=== PATIENT | female | born 2000 | race Caucasian/White ===

== ENCOUNTER 2023-01-14 13:15 | Outpatient (CLI) | payer BC, OTHER, SELFPAY ==
[2023-01-14 13:45] VITALS: BP 143/78; PULSE 109
[2023-01-14 13:55] LABS: Basophils Absolute Auto 0.1 K/mm3 (0.0-0.1); Basophils Percent Auto 0.4 % (0.2-1.2); Eosinophils Absolute Auto 0.1 K/mm3 (0-0.3); Eosinophils Percent Auto 0.4 % (0-4.4); Hematocrit 38.1 % (37.0-47.0); Hemoglobin 12.9 g/dL (12.0-15.0); Immature Granulocyte Absolute 0.07 K/mm3 (0.00-0.031); Immature Granulocyte Percent A 0.5 % (0-0.5); Lymphocytes Absolute Auto 1.85 K/mm3 (0.9-3.2); Lymphocytes Percent Auto 14.3 % (18.3-44.2); Mean Corpuscular HGB Conc 33.9 g/dl (32-36); Mean Corpuscular Hemoglobin 32.3 pg (26-34); Mean Corpuscular Volume 95.5 fl (80-100); Mean Platelet Volume 10.8 fl (7.4-10.4); Monocytes Absolute Auto 0.7 K/mm3 (0.1-0.6); Monocytes Percent Auto 5.6 % (2.6-8.5); Neutrophils Absolute Auto 10.2 K/mm3 (1.3-6.7); Neutrophils Percent Auto 78.8 % (45.5-73.1); Platelet Count Result 283 k/mm3 (150-375); Red Blood Count 3.99 M/mm3 (4.2-5.4); Red Cell Distribution Width 13.1 % (11.5-14.5)
[2023-01-14 13:57] LABS: Appearance Urine Clear (Clear); Bilirubin Urine Negative (Negative); Blood Urine Negative (Negative); Color Urine Yellow (Yellow); Glucose Urine UA Negative (Negative); Ketones Urine Negative (Negative); Leukocyte Esterase Ur Negative LEU/UL (NEGATIVE); Nitrate Urine Negative (Negative); Protein Urine Negative (Negative); Specific Grav Ur 1.016 (1.001-1.035); Urobilinogen Urine 0.2 mg/dL (<2.0)
[2023-01-14 13:59] LABS: Add Urine Microscopic? NO
[2023-01-14 14:01] VITALS: BP 139/71; PULSE 102
[2023-01-14 14:03] LABS: Alanine Aminotransferase 19 U/L (6-35); Albumin Level 3.9 g/dL (3.5-5.1); Alkaline Phosphatase 76 U/L (38-126); Anion Gap 8 mmol/L (8-16); Aspartate Amino Transferase 19 U/L (14-36); Bilirubin,Total 0.8 mg/dL (0.2-1.3); Blood Urea Nitrogen 7 mg/dL (7-17); Calcium 8.7 mg/dL (8.4-10.2); Carbon Dioxide 23 mmol/L (22-30); Chloride 107 mmol/L (98-107); Estimated Glomerular Filt Rate > 60; Glucose 115 mg/dL (65-110); Potassium 3.5 mmol/L (3.4-5.0); Sodium 138 mmol/L (137-145); Uric Acid 4.4 mg/dL (2.5-7.5)
[2023-01-14 14:05] VITALS: BP 139/71; PULSE 88
[2023-01-14 14:16] VITALS: BP 133/79; PULSE 96
[2023-01-14 14:16] LABS: Creatinine Urine 73.9 mg/dL; Total Protein Urine Random 9 mg/dL; Ur Ttl Prot Creatinine Ratio 0.12 mg/mg (0-0.20)
--- NOTE | 2023-01-14 14:27 | PC.NURSE ---
Farida Munoz CNM notified of patient's vital signs, NST, and lab results. Reviewed Pre-eclampsia symptoms and when to return. Okay to discharge.
== END 2023-01-14 14:28 | disposition home or self-care (01) ==
LOC: ANHOBOP 13:26 → ANHOBPP 13:29
PROVIDERS: Visit Provider Advanced Practice Midwife
DX: O13.9 Gestational [pregnancy-induced] hypertension without significant proteinuria, unspecified trimester (principal); Z3A.00 Weeks of gestation of pregnancy not specified
CPT/HCPCS: 36415; 59025; 80053; 81003; 82570; 84156; 84550; 85025; 87086; 87088; 99199

== ENCOUNTER 2023-01-15 14:51 | Outpatient (CLI) | payer BC, OTHER, SELFPAY ==
[2023-01-15 15:13] VITALS: BP 133/83; PULSE 103
[2023-01-15 15:15] VITALS: BP 128/77; PULSE 95
[2023-01-15 15:30] VITALS: BP 121/77; PULSE 92
[2023-01-15 15:45] VITALS: BP 119/73; PULSE 86
--- NOTE | 2023-01-15 15:45 | PC.NURSE ---
Called Christie Hopson CNM with pt admission. Informed of pt complaining of headache and elevated BP at her primary care doctor's office. She also is complaining of seeing spots occasionally. BPs given. Orders received.
[2023-01-15] MEDS: ACETAMINOPHEN 500 MG TABLET 1000 MG (16:03)
[2023-01-15 16:10] LABS: Basophils Absolute Auto 0.1 K/mm3 (0.0-0.1); Basophils Percent Auto 0.5 % (0.2-1.2); Eosinophils Absolute Auto 0.1 K/mm3 (0-0.3); Eosinophils Percent Auto 0.7 % (0-4.4); Hematocrit 36.3 % (37.0-47.0); Hemoglobin 12.1 g/dL (12.0-15.0); Immature Granulocyte Absolute 0.09 K/mm3 (0.00-0.031); Immature Granulocyte Percent A 0.7 % (0-0.5); Lymphocytes Absolute Auto 2.18 K/mm3 (0.9-3.2); Lymphocytes Percent Auto 17.2 % (18.3-44.2); Mean Corpuscular HGB Conc 33.3 g/dl (32-36); Mean Corpuscular Hemoglobin 32.4 pg (26-34); Mean Corpuscular Volume 97.1 fl (80-100); Mean Platelet Volume 10.7 fl (7.4-10.4); Monocytes Percent Auto 7.8 % (2.6-8.5); Neutrophils Absolute Auto 9.3 K/mm3 (1.3-6.7); Neutrophils Percent Auto 73.1 % (45.5-73.1); Platelet Count Result 276 k/mm3 (150-375); Red Blood Count 3.74 M/mm3 (4.2-5.4); Red Cell Distribution Width 13.2 % (11.5-14.5); White Blood Count 12.7 K/mm3 (4.5-10.0)
[2023-01-15 16:20] LABS: Alanine Aminotransferase 20 U/L (6-35); Albumin Level 3.6 g/dL (3.5-5.1); Alkaline Phosphatase 73 U/L (38-126); Anion Gap 7 mmol/L (8-16); Aspartate Amino Transferase 21 U/L (14-36); Bilirubin,Total 0.6 mg/dL (0.2-1.3); Blood Urea Nitrogen 10 mg/dL (7-17); Calcium 8.6 mg/dL (8.4-10.2); Carbon Dioxide 23 mmol/L (22-30); Chloride 106 mmol/L (98-107); Estimated Glomerular Filt Rate > 60; Glucose 84 mg/dL (65-110); Potassium 3.9 mmol/L (3.4-5.0); Sodium 136 mmol/L (137-145)
--- NOTE | 2023-01-15 16:35 | PC.NURSE ---
Called Christie Hopson CNM with lab results. March D/C home with 24hr urine.
== END 2023-01-15 16:50 | disposition home or self-care (01) ==
LOC: ANHOBOP 15:01 → ANHOBPP 15:02
PROVIDERS: Visit Provider Advanced Practice Midwife
DX: O13.9 Gestational [pregnancy-induced] hypertension without significant proteinuria, unspecified trimester (principal); Z3A.00 Weeks of gestation of pregnancy not specified
CPT/HCPCS: 36415; 59025; 80053; 84550; 85025; 99199; A9270

== ENCOUNTER 2023-02-11 18:20 | Outpatient (CLI) | payer BC, OTHER, SELFPAY ==
[2023-02-11 18:51] VITALS: BP 128/79; PULSE 97
[2023-02-11 19:01] VITALS: BP 125/68; PULSE 87
[2023-02-11 19:06] LABS: Basophils Absolute Auto 0.1 K/mm3 (0.0-0.1); Basophils Percent Auto 0.4 % (0.2-1.2); Eosinophils Absolute Auto 0.1 K/mm3 (0-0.3); Eosinophils Percent Auto 1.1 % (0-4.4); Hematocrit 33.7 % (37.0-47.0); Hemoglobin 11.1 g/dL (12.0-15.0); Immature Granulocyte Absolute 0.06 K/mm3 (0.00-0.031); Immature Granulocyte Percent A 0.5 % (0-0.5); Lymphocytes Percent Auto 19.3 % (18.3-44.2); Mean Corpuscular HGB Conc 32.9 g/dl (32-36); Mean Corpuscular Hemoglobin 31.5 pg (26-34); Mean Corpuscular Volume 95.7 fl (80-100); Monocytes Percent Auto 8.5 % (2.6-8.5); Neutrophils Percent Auto 70.2 % (45.5-73.1); Platelet Count Result 265 k/mm3 (150-375); Red Blood Count 3.52 M/mm3 (4.2-5.4); Red Cell Distribution Width 13.1 % (11.5-14.5); White Blood Count 11.4 K/mm3 (4.5-10.0)
[2023-02-11 19:13] LABS: Appearance Urine Clear (Clear); Bilirubin Urine Negative (Negative); Blood Urine Negative (Negative); Color Urine Yellow (Yellow); Glucose Urine UA Negative (Negative); Ketones Urine Negative (Negative); Leukocyte Esterase Ur Negative LEU/UL (NEGATIVE); Nitrate Urine Negative (Negative); Protein Urine Negative (Negative); Specific Grav Ur 1.009 (1.001-1.035); Urobilinogen Urine 0.2 mg/dL (<2.0)
[2023-02-11 19:16] VITALS: BP 123/76; PULSE 96
[2023-02-11 19:16] LABS: Alanine Aminotransferase 20 U/L (6-35); Albumin Level 3.6 g/dL (3.5-5.1); Alkaline Phosphatase 93 U/L (38-126); Anion Gap 8 mmol/L (8-16); Aspartate Amino Transferase 21 U/L (14-36); Bilirubin,Total 0.7 mg/dL (0.2-1.3); Blood Urea Nitrogen 9 mg/dL (7-17); Calcium 8.8 mg/dL (8.4-10.2); Carbon Dioxide 21 mmol/L (22-30); Chloride 106 mmol/L (98-107); Estimated Glomerular Filt Rate > 60; Glucose 105 mg/dL (65-110); Potassium 3.7 mmol/L (3.4-5.0); Sodium 135 mmol/L (137-145); Uric Acid 3.8 mg/dL (2.5-7.5)
[2023-02-11 19:25] LABS: Creatinine Urine 27.5 mg/dL; Total Protein Urine Random 14 mg/dL; Ur Ttl Prot Creatinine Ratio 0.51 mg/mg (0-0.20)
[2023-02-11 19:28] LABS: Add Urine Microscopic? NO
[2023-02-11 19:31] VITALS: BP 126/79; PULSE 94
[2023-02-11 19:46] VITALS: BP 123/77; PULSE 100
--- NOTE | 2023-02-11 19:55 | PC.NURSE ---
Addendum entered by Nikki Lainez RN 02/12/23 00:28: Christie Hopson CNM informed of 1 variable deceleration noted on tracing with otherwise reactive tracing. Original Note: Called Christie Hopson CNM with pt status. Lab results reviewed and BPs given. Orders received to D/C home with 24hr urine.
== END 2023-02-11 20:10 | disposition home or self-care (01) ==
LOC: ANHOBOP 18:30 → ANHLDR 18:30
PROVIDERS: Visit Provider Obstetrics & Gynecology
DX: O99.891 Other specified diseases and conditions complicating pregnancy (principal); R03.0 Elevated blood-pressure reading, without diagnosis of hypertension
CPT/HCPCS: 36415; 59025; 80053; 81003; 82570; 84156; 84550; 85025; 87086; 99199

== ENCOUNTER 2023-02-12 20:00 | Outpatient (NON) | payer BC, OTHER, SELFPAY ==
[2023-02-12 20:27] VITALS: BMI 31.9
[2023-02-12 22:10] LABS: Collection Time Urine 24 HOURS
[2023-02-12 22:18] LABS: Total Volume 24 Hour Urine 2600 ml
[2023-02-12 22:27] LABS: Creatinine Urine 45.5 mg/dL; Patient Weight 186 Lbs; Total Protein Urine 24 Hr 364 mg/24hr (28-141); Total Protein Urine Random 14 mg/dL
== END 2023-02-12 20:01 | disposition home or self-care (01) ==
LOC: ANHLAB 20:07
PROVIDERS: Advanced Practice Midwife; Visit Provider Obstetrics & Gynecology
DX: O13.9 Gestational [pregnancy-induced] hypertension without significant proteinuria, unspecified trimester (principal); Z3A.00 Weeks of gestation of pregnancy not specified
CPT/HCPCS: 81050; 82575; 84156

== ENCOUNTER 2023-02-17 15:50 | Outpatient (CLI) | payer BC, OTHER, SELFPAY ==
[2023-02-17 16:15] VITALS: BP 126/72; PULSE 79
[2023-02-17 16:30] VITALS: BP 126/73; PULSE 76
[2023-02-17 16:35] LABS: Basophils Absolute Auto 0.1 K/mm3 (0.0-0.1); Basophils Percent Auto 0.4 % (0.2-1.2); Eosinophils Absolute Auto 0.1 K/mm3 (0-0.3); Eosinophils Percent Auto 0.9 % (0-4.4); Hemoglobin 11.6 g/dL (12.0-15.0); Immature Granulocyte Absolute 0.08 K/mm3 (0.00-0.031); Immature Granulocyte Percent A 0.6 % (0-0.5); Lymphocytes Absolute Auto 2.22 K/mm3 (0.9-3.2); Lymphocytes Percent Auto 17.5 % (18.3-44.2); Mean Corpuscular HGB Conc 33.1 g/dl (32-36); Mean Corpuscular Hemoglobin 31.5 pg (26-34); Mean Corpuscular Volume 95.1 fl (80-100); Mean Platelet Volume 11.3 fl (7.4-10.4); Monocytes Absolute Auto 0.9 K/mm3 (0.1-0.6); Monocytes Percent Auto 6.7 % (2.6-8.5); Neutrophils Absolute Auto 9.4 K/mm3 (1.3-6.7); Neutrophils Percent Auto 73.9 % (45.5-73.1); Platelet Count Result 273 k/mm3 (150-375); Red Blood Count 3.68 M/mm3 (4.2-5.4); Red Cell Distribution Width 12.8 % (11.5-14.5); White Blood Count 12.7 K/mm3 (4.5-10.0)
[2023-02-17 16:45] VITALS: BP 123/70; PULSE 90
[2023-02-17 16:46] LABS: Alanine Aminotransferase 24 U/L (6-35); Albumin Level 3.8 g/dL (3.5-5.1); Alkaline Phosphatase 115 U/L (38-126); Anion Gap 11 mmol/L (8-16); Aspartate Amino Transferase 27 U/L (14-36); Bilirubin,Total 0.8 mg/dL (0.2-1.3); Blood Urea Nitrogen 9 mg/dL (7-17); Calcium 8.5 mg/dL (8.4-10.2); Carbon Dioxide 21 mmol/L (22-30); Chloride 102 mmol/L (98-107); Estimated Glomerular Filt Rate > 60; Glucose 87 mg/dL (65-110); Potassium 3.9 mmol/L (3.4-5.0); Sodium 134 mmol/L (137-145); Uric Acid 4.3 mg/dL (2.5-7.5)
[2023-02-17 17:00] VITALS: BP 119/66; PULSE 86
[2023-02-17 17:15] VITALS: BP 117/73; PULSE 92
[2023-02-17 17:15] LABS: Appearance Urine Cloudy (Clear); Bacteria Urine 2+ /hpf; Bilirubin Urine Negative (Negative); Blood Urine Negative (Negative); Color Urine Yellow (Yellow); Glucose Urine UA Negative (Negative); Ketones Urine Trace mg/dL (Negative); Leukocyte Esterase Ur 1+ LEU/UL (NEGATIVE); Nitrate Urine Negative (Negative); Non Pathogenic Casts 0-2; Protein Urine Trace mg/dL (Negative); RBC Urine 0-2 /hpf (0-2); Specific Grav Ur 1.024 (1.001-1.035); Squamous Epithelial Cell Urine Few /hpf (Few)
--- NOTE | 2023-02-17 17:20 | PC.NURSE ---
Elizabeth Sherman notified of BP and Lab resutls. Informed of reactive NST with ? variable decel (decel not connected on tracing.) Reactive after ? decel. Ok to dc home with HIP precautions.
[2023-02-17 17:23] LABS: Creatinine Urine 128.6 mg/dL; Total Protein Urine Random 11 mg/dL; Ur Ttl Prot Creatinine Ratio 0.09 mg/mg (0-0.20)
[2023-02-17 17:24] LABS: Add Urine Microscopic? YES
[2023-02-17 17:27] VITALS: BP 126/72; PULSE 79
== END 2023-02-17 17:27 | disposition home or self-care (01) ==
LOC: ANHOBOP 15:58 → ANHOBPP 15:58
PROVIDERS: Advanced Practice Midwife; Visit Provider Obstetrics & Gynecology
DX: O13.9 Gestational [pregnancy-induced] hypertension without significant proteinuria, unspecified trimester (principal); R10.11 Right upper quadrant pain; Z3A.00 Weeks of gestation of pregnancy not specified
CPT/HCPCS: 36415; 59025; 80053; 81001; 82570; 84156; 84550; 85025; 87086; 87088; 99199

== ENCOUNTER 2023-02-27 17:00 | Outpatient (CLI) | payer BC, OTHER, SELFPAY ==
[2023-02-27] MEDS: ACETAMINOPHEN 500 MG TABLET 1000 MG PO (17:31)
[2023-02-27 17:45] VITALS: BP 128/70; PULSE 71
[2023-02-27 17:46] VITALS: BP 128/70; PULSE 80
[2023-02-27 18:00] VITALS: BP 123/70; PULSE 74
[2023-02-27 18:01] LABS: Appearance Urine Turbid (Clear); Bacteria Urine None Seen /hpf; Bilirubin Urine Negative (Negative); Color Urine Yellow (Yellow); Glucose Urine UA Negative (Negative); Ketones Urine Negative (Negative); Leukocyte Esterase Ur Trace LEU/UL (NEGATIVE); Nitrate Urine Negative (Negative); Non Pathogenic Casts 0-2; Protein Urine Negative (Negative); Specific Grav Ur 1.018 (1.001-1.035); Squamous Epithelial Cell Urine None seen /hpf (Few); WBC Urine 0-5 /hpf (0-3)
[2023-02-27 18:04] LABS: Alanine Aminotransferase 17 U/L (6-35); Albumin Level 3.6 g/dL (3.5-5.1); Alkaline Phosphatase 105 U/L (38-126); Anion Gap 6 mmol/L (8-16); Aspartate Amino Transferase 18 U/L (14-36); Bilirubin,Total 0.7 mg/dL (0.2-1.3); Blood Urea Nitrogen 11 mg/dL (7-17); Calcium 8.9 mg/dL (8.4-10.2); Carbon Dioxide 23 mmol/L (22-30); Chloride 104 mmol/L (98-107); Estimated Glomerular Filt Rate > 60; Glucose 88 mg/dL (65-110); Potassium 3.9 mmol/L (3.4-5.0); Sodium 133 mmol/L (137-145); Uric Acid 4.8 mg/dL (2.5-7.5)
[2023-02-27 18:08] LABS: Creatinine Urine 94.8 mg/dL; Total Protein Urine Random 14 mg/dL; Ur Ttl Prot Creatinine Ratio 0.15 mg/mg (0-0.20)
[2023-02-27 18:10] VITALS: BP 123/70; PULSE 89
[2023-02-27 18:12] LABS: Basophils Absolute Auto 0.1 K/mm3 (0.0-0.1); Basophils Percent Auto 0.6 % (0.2-1.2); Eosinophils Absolute Auto 0.1 K/mm3 (0-0.3); Eosinophils Percent Auto 0.7 % (0-4.4); Hematocrit 35.2 % (37.0-47.0); Hemoglobin 11.5 g/dL (12.0-15.0); Immature Granulocyte Absolute 0.06 K/mm3 (0.00-0.031); Immature Granulocyte Percent A 0.5 % (0-0.5); Lymphocytes Absolute Auto 2.34 K/mm3 (0.9-3.2); Mean Corpuscular HGB Conc 32.7 g/dl (32-36); Mean Corpuscular Hemoglobin 31.5 pg (26-34); Mean Corpuscular Volume 96.4 fl (80-100); Mean Platelet Volume 11.8 fl (7.4-10.4); Monocytes Absolute Auto 0.9 K/mm3 (0.1-0.6); Monocytes Percent Auto 7.6 % (2.6-8.5); Neutrophils Absolute Auto 8.3 K/mm3 (1.3-6.7); Neutrophils Percent Auto 70.6 % (45.5-73.1); Platelet Count Result 275 k/mm3 (150-375); Red Blood Count 3.65 M/mm3 (4.2-5.4); White Blood Count 11.7 K/mm3 (4.5-10.0)
[2023-02-27 18:14] LABS: Add Urine Microscopic? YES
[2023-02-27 18:15] VITALS: BP 119/65; PULSE 81
--- NOTE | 2023-02-27 18:20 | PC.NURSE ---
[address] Robison- reported blood pressures, NST, and lab results. Discharge orders received.
[2023-02-27 18:30] VITALS: BP 126/76; PULSE 81
== END 2023-02-27 18:35 | disposition home or self-care (01) ==
LOC: ANHOBOP 17:05 → ANHOBPP 17:06
PROVIDERS: Visit Provider Obstetrics & Gynecology
DX: O13.9 Gestational [pregnancy-induced] hypertension without significant proteinuria, unspecified trimester (principal); Z3A.00 Weeks of gestation of pregnancy not specified
CPT/HCPCS: 36415; 59025; 80053; 81001; 82570; 84156; 84550; 85025; 87086; 99199; A9270

== ENCOUNTER 2023-03-02 11:14 | Outpatient (CLI) | payer BC, OTHER, SELFPAY ==
[2023-03-02] VITALS (7 sets, daily range): BP systolic 123–134; BP diastolic 78–84; PULSE 109–125
[2023-03-02 11:52] LABS: Basophils Absolute Auto 0.1 K/mm3 (0.0-0.1); Basophils Percent Auto 0.6 % (0.2-1.2); Eosinophils Absolute Auto 0.1 K/mm3 (0-0.3); Eosinophils Percent Auto 0.6 % (0-4.4); Hematocrit 36.7 % (37.0-47.0); Hemoglobin 11.8 g/dL (12.0-15.0); Immature Granulocyte Absolute 0.04 K/mm3 (0.00-0.031); Immature Granulocyte Percent A 0.4 % (0-0.5); Lymphocytes Absolute Auto 1.78 K/mm3 (0.9-3.2); Lymphocytes Percent Auto 16.4 % (18.3-44.2); Mean Corpuscular HGB Conc 32.2 g/dl (32-36); Mean Corpuscular Hemoglobin 30.8 pg (26-34); Mean Corpuscular Volume 95.8 fl (80-100); Mean Platelet Volume 11.6 fl (7.4-10.4); Monocytes Absolute Auto 0.7 K/mm3 (0.1-0.6); Monocytes Percent Auto 6.1 % (2.6-8.5); Neutrophils Absolute Auto 8.3 K/mm3 (1.3-6.7); Neutrophils Percent Auto 75.9 % (45.5-73.1); Platelet Count Result 261 k/mm3 (150-375); Red Blood Count 3.83 M/mm3 (4.2-5.4); Red Cell Distribution Width 13.1 % (11.5-14.5); White Blood Count 10.9 K/mm3 (4.5-10.0)
[2023-03-02 11:55] LABS: Alanine Aminotransferase 34 U/L (6-35); Albumin Level 3.6 g/dL (3.5-5.1); Alkaline Phosphatase 113 U/L (38-126); Anion Gap 11 mmol/L (8-16); Aspartate Amino Transferase 22 U/L (14-36); Bilirubin,Total 0.9 mg/dL (0.2-1.3); Blood Urea Nitrogen 7 mg/dL (7-17); Calcium 8.6 mg/dL (8.4-10.2); Carbon Dioxide 19 mmol/L (22-30); Chloride 104 mmol/L (98-107); Estimated Glomerular Filt Rate > 60; Glucose 122 mg/dL (65-110); Potassium 3.4 mmol/L (3.4-5.0); Sodium 134 mmol/L (137-145)
--- NOTE | 2023-03-02 13:00 | PC.NURSE ---
Dr Gallagher on unit, discussed patient adm c/o, current lab values and past lab values. Orders received.
[2023-03-02] MEDS: ACETAMINOPHEN 500 MG TABLET 1000 MG PO (13:13)
[2023-03-02] MEDS: PROCHLORPERAZINE MALEATE 5 MG TABLET PO (13:24)
--- NOTE | 2023-03-02 14:10 | PC.NURSE ---
Patient's S/O asking about discharge, states that patient is feeling better. Discussed this with patient. States ETIENNE is now down to a 3-4 on pain scale. States that she is feeling better and ok with going home.
== END 2023-03-02 14:13 | disposition home or self-care (01) ==
LOC: ANHOBOP 11:15 → ANHOBPP 03-07 06:20
PROVIDERS: Obstetrics & Gynecology; Visit Provider Advanced Practice Midwife
DX: R51.9 Headache, unspecified (principal); O13.9 Gestational [pregnancy-induced] hypertension without significant proteinuria, unspecified trimester; Z3A.00 Weeks of gestation of pregnancy not specified
CPT/HCPCS: 36415; 59025; 80053; 84550; 85025; 99199; A9270

== ENCOUNTER 2023-03-10 12:25 | Outpatient (CLI) | payer BC, OTHER, SELFPAY ==
[2023-03-10 12:55] VITALS: BP 127/74
== END 2023-03-10 13:05 | disposition home or self-care (01) ==
LOC: ANHOBOP 13:09 → ANHLDR 13:10
PROVIDERS: Visit Provider Obstetrics & Gynecology
DX: O42.90 Premature rupture of membranes, unspecified as to length of time between rupture and onset of labor, unspecified weeks of gestation (principal); Z3A.00 Weeks of gestation of pregnancy not specified
CPT/HCPCS: 59025; 84112; 99199

== ENCOUNTER 2023-03-12 13:29 | Inpatient (IN) | payer BC, OTHER, SELFPAY ==
[2023-03-12] VITALS (76 sets, daily range): BP systolic 109–151; BP diastolic 57–135; PULSE 67–161; O2SAT 96–100; BMI 34.0
[2023-03-12 17:05] LABS: Basophils Absolute Auto 0.1 K/mm3 (0.0-0.1); Basophils Percent Auto 0.4 % (0.2-1.2); Eosinophils Absolute Auto 0.1 K/mm3 (0-0.3); Eosinophils Percent Auto 0.3 % (0-4.4); Hematocrit 38.4 % (37.0-47.0); Hemoglobin 12.4 g/dL (12.0-15.0); Immature Granulocyte Percent A 0.5 % (0-0.5); Lymphocytes Absolute Auto 2.54 K/mm3 (0.9-3.2); Lymphocytes Percent Auto 13.9 % (18.3-44.2); Mean Corpuscular HGB Conc 32.3 g/dl (32-36); Mean Platelet Volume 11.7 fl (7.4-10.4); Monocytes Absolute Auto 0.8 K/mm3 (0.1-0.6); Monocytes Percent Auto 4.5 % (2.6-8.5); Neutrophils Absolute Auto 14.7 K/mm3 (1.3-6.7); Neutrophils Percent Auto 80.4 % (45.5-73.1); Platelet Count Result 276 k/mm3 (150-375); White Blood Count 18.2 K/mm3 (4.5-10.0)
--- NOTE | 2023-03-12 17:32 | WPDANESEPPF ---
Anes - Initial Pre Proc Eval Procedure: Labor Epidural Date/Time: 03/12/23 17:32 Surgeon: Dario Robison MD Pre Op Diagnosis: Labor Pain Pre Op Diagnosis: labor Patient Data Age: 22 Gender: F Height: 1.63 m Weight: 90 kg Last Vital Signs Pulse 103 H 03/12/23 17:01 BP 144/85 H 03/12/23 17:01 O2 Del Method Room Air 03/12/23 16:17 Allergies Allergy/AdvReac Type Severity Reaction Status Date / Time No Known Allergies Allergy Verified 01/15/23 16:02 Home Medications Medication Instructions Recorded Confirmed Type cyclobenzaprine 5 mg tablet 5 mg PO Q8H PRN Back Pain 02/27/23 02/27/23 History prenat.vits,jun,nqg-rsyb-tydxb 1 tablet PO HS 02/27/23 02/27/23 History sertraline 100 mg tablet 100 mg PO DAILY 02/27/23 02/27/23 History Laboratory Tests 03/12/23 16:14 WBC 18.2 H K/mm3 (4.5-10.0) RBC 4.00 L M/mm3 (4.2-5.4) Hgb 12.4 g/dL (12.0-15.0) Hct 38.4 % (37.0-47.0) MCV 96.0 fl (80-100) MCH 31.0 pg (26-34) MCHC 32.3 g/dl (32-36) RDW 13.0 % (11.5-14.5) Plt Count 276 k/mm3 (150-375) MPV 11.7 H fl (7.4-10.4) Immature Gran % (Auto) 0.5 % (0-0.5) Neut % (Auto) 80.4 H % (45.5-73.1) Lymph % (Auto) 13.9 L % (18.3-44.2) [place] % (Auto) 4.5 % (2.6-8.5) Eos % (Auto) 0.3 % (0-4.4) Baso % (Auto) 0.4 % (0.2-1.2) Lymph # (Auto) 2.54 K/mm3 (0.9-3.2) [place] # (Auto) 0.8 H K/mm3 (0.1-0.6) Eos # (Auto) 0.1 K/mm3 (0-0.3) Baso # (Auto) 0.1 K/mm3 (0.0-0.1) Abs Immat Gran (auto) 0.10 H K/mm3 (0.00-0.031) Absolute Neuts (auto) 14.7 H K/mm3 (1.3-6.7) Absolute Nucleated RBC 0.0 K/mm3 (0.0-0.012) Nucleated RBC % 0.0 % (0.0-0.2) RPR Pending Blood Type A Positive Antibody Screen Pending Patient hx anesthesia problems: none Family hx anesthesia problems: none Results Review: All pre-operative results and documents have been reviewed as part of the pre-operative evaluation. [facility] Family History Family History Other Patient denies significant medical history Social History Social History Smoking status: Never smoker Second hand tobacco smoke exposure: No Substance use: never Lack of Transportation: No Lack of Food: Never True Current Housing: I Have Housing Concerned About Future Housing: No Difficulty Paying Gas/Electric Bills: No Difficulty Paying for Meds: No Currently Unemployed: No Education: Associate Degree Difficulty w/ Childcare or Family Care: No Spiritual care concerns: No Anes - Eval Final PreProcedure Day of Procedure 03/12/23 17:32 Patient weight: overweight Heart: regular rate and rhythm Airway: Mallampati scale class II Neurological: alert and oriented ASA classification: II Anesthetic plan: proceed Anesthesia type and monitoring: regional epidural and standard monitoring Results Review: All pre-operative results and documents have been reviewed as part of the pre-operative evaluation. Informed Consent: The patient's anesthetic plan and its attendant risks and benefits were discussed with the patient/family/POA. Questions were solicited and answers provided to the satisfaction of the patient/family/POA.
--- NOTE | 2023-03-12 18:21 | WPDOBADMIT ---
Obstetrics - Admit Note Admission Note: record reviewed. No pertinent additions to the history and/or any subsequent changes in the physical findings that are not consistent with the expected course of the were found. Pt arrived in labor, SVE 4-5/100/-2 AROM small amount of clear odorless fluid, anticipate vaginal delivery, previously proteinuria during Additions to the history and/or subsequent changes in the physical findings follow. None.
--- NOTE | 2023-03-12 19:45 | WPDANESEPN ---
Anes - Epidural Procedure Note Date/Time: 03/12/23 19:45 Consent: I have discussed with the patient/family/POA, the placement of an epidural catheter and the use of epidural narcotic/local anesthetic for labor analgesia and/or postoperative pain management, including associated potential risks, benefits, complications and side effects. I have discussed alternative methods of labor analgesia and/or postoperative pain management. The patient/family/POA, understand(s) and wish(es) to proceed with epidural narcotic/local anesthetic for labor analgesia and/or postoperative pain management. Time-Out: A pre-procedural Time-Out was completed immediately before starting the procedure and confirmed: Patient Identification, Site, Procedure, Patient Position and the Availability of Requisite Equipment. Clinical Indications: Labor Pain Epidural Insertion Note Patient position: sitting Needle: 18g Tuohy-Schliff Catheter: 20g Unstyleted Technique: Loss of resistance. Level of insertion: L3/4 Catheter skin dalia (cm): 10 Length in epidural space (cm): 5 Skin anesthesia: lidocaine 1% Test dose: 1.5% Lidocaine with 1:[id number] Epi, negative for subarachnoid Inj and negative for intravascular Inj Time of test dose: 19:30 Observations: tolerated well Complications: none
[2023-03-12] MEDS: LACTATED RINGERS 1,000 ML 125 ML IV CONT (20:21)
[2023-03-12] MEDS: OXYTOCIN 30 UNITS/NS 500 ML 30 UNITS/500 ML BAG 6 UNITS IV CONT (21:22)
--- NOTE | 2023-03-12 22:44 | PM.OBPRVD ---
OB - Delivery Note Procedure Delivery date: 03/12/23 Procedure: Delivery augmentation: Rupture of Membranes and Pitocin Delivery monitor: External FHT and External Uterine Route of delivery: Laceration Description: Perineal - 1st Degree Delivery repair: vicryl Specimen: No Quantitative Blood Loss (ml): 100 Anesthesia type: Epidural Disposition: Floor [place] Baby Date of : 03/12/23 Time of : 22:26 Weeks of gestation at delivery: 38 Infant gender: Male presentation: vertex position: Left Occiput Anterior Placenta delivery description: Spontaneous Cord Vessel Description: 3 Vessels, Clamped/Cut and Delayed Cord Clamping score one minute: 8 score five minutes: 8 Narrative: mother and baby skin to skin in stable condition
[2023-03-12] MEDS: OXYTOCIN 30 UNITS/NS 500 ML 30 UNITS/500 ML BAG 125 UNITS IV CONT (23:04)
[2023-03-13] VITALS (13 sets, daily range): BP systolic 110–143; BP diastolic 59–99; PULSE 73–96; RESP 16–18; TEMP 36.4–37.2; O2SAT 98–99
[2023-03-13] MEDS: ACETAMINOPHEN 325 MG TABLET 650 MG PO ×2 (05:30→14:56)
[2023-03-13 05:53] LABS: Hematocrit 33.3 % (37.0-47.0); Hemoglobin 10.8 g/dL (12.0-15.0)
--- NOTE | 2023-03-13 07:38 | PM.OBPNVD ---
OB - PN: Subj Subjective Date/time seen: 03/13/23 07:38 Patient comments: no complaints, pain well controlled, incisional pain, tolerating diet and flatus present OB - PN: Obj Data Labs 03/13/23 05:36 Labs: Laboratory Results - last 24 hr 03/12/23 03/13/23 16:14 05:36 WBC 18.2 H RBC 4.00 L Hgb 12.4 10.8 L Hct 38.4 33.3 L MCV 96.0 MCH 31.0 MCHC 32.3 RDW 13.0 Plt Count 276 MPV 11.7 H Immature Gran % (Auto) 0.5 Neut % (Auto) 80.4 H Lymph % (Auto) 13.9 L [place] % (Auto) 4.5 Eos % (Auto) 0.3 Baso % (Auto) 0.4 Lymph # (Auto) 2.54 [place] # (Auto) 0.8 H Eos # (Auto) 0.1 Baso # (Auto) 0.1 Abs Immat Gran (auto) 0.10 H Absolute Neuts (auto) 14.7 H Absolute Nucleated RBC 0.0 Nucleated RBC % 0.0 Blood Type A Positive Antibody Screen Negative OB - PN A/P Plan day: 1 Plan: routine care Comments: No problems, routine care Time Spent With Patient Time: Total time spent is greater than 50% in coordination of care (as documented) at patient's floor/unit and/or counseling patient: Exam Const: General: comfortable, no acute distress and alert Resp: Effort & Inspection: normal respiratory effort Auscultation: no crackles, no rales and no rhonchi Cardio: Rate: regular rate Heart sounds: no click, no murmurs and no rubs GI: Inspection: non-distended GI Palp: No Tenderness to palpation present (GI) Auscultation: normal bowel sounds Other: Incision - CDI Extrem: General: normal to inspection, no pedal edema and no calf tenderness
[2023-03-13] MEDS: SERTRALINE HCL 50 MG TABLET 100 MG PO (08:30)
[2023-03-13] MEDS: DOCUSATE SODIUM 100 MG CAPSULE PO ×2 (08:30→17:50)
[2023-03-13] MEDS: IBUPROFEN 600 MG TABLET PO ×2 (08:31→17:46)
[2023-03-13] MEDS: LANOLIN (LANSINOH) 7.5 GM CREAM 1 APPLIC TOPICAL (08:32)
[2023-03-13] MEDS: TETANUS,DIPHTHERIA,AC PERTUSSIS ADULT (0.5 ML) BOOSTRIX IM (08:32)
[2023-03-13] MEDS: MULTIVIT/MIN/PREN/FOL AC/IRON TABLET 1 TAB PO (08:32)
--- NOTE | 2023-03-13 08:45 | PC.NURSE ---
PT introductions made and plan of care discussed per post , pain management, breast feeding, bottle feeding, daily care activities. PT and spouse both recipients of such instructions per one to one discussion, mom baby care guide and demonstrations per shift. No barriers to learning identified at this time. PT verbalized understanding of such care.
[2023-03-13 09:01] LABS: Rapid Plasma Reagin Non-Reactive (NonReactive)
--- NOTE | 2023-03-13 09:08 | WPDANLDPN2 ---
Anes-Prog Note L&D Date/Time: 03/13/23 09:08 Neuro status: Neuro function grossly intact. Vital Signs: Last Vital Signs Temp 36.4 C 03/13/23 01:45 Pulse 91 03/13/23 01:45 Resp 16 03/13/23 01:45 BP 126/71 03/13/23 01:45 Pulse Ox 100 03/12/23 22:27 O2 Del Method Room Air 03/12/23 16:17 Pain score (VAS): 0 I/O: Intake & Output 03/12/23 03/13/23 03/13/23 23:59 07:59 15:59 Intake Total 900 500 Output Total 100 Balance 800 500 Patient feedback: Patient satisfied with anesthetic care.
--- NOTE | 2023-03-14 07:17 | PM.OBPNVD ---
OB - PN: Subj Subjective Date/time seen: 03/14/23 07:17 Patient comments: no complaints, pain well controlled and tolerating diet OB - PN: Obj Data Labs 03/13/23 05:36 Labs: Laboratory Results - last 24 hr 03/12/23 16:14 RPR Non-reactive OB - PN A/P Plan day: 2 Plan: routine care and discharge home Time Spent With Patient Time: Total time spent is greater than 50% in coordination of care (as documented) at patient's floor/unit and/or counseling patient: Exam Const: General: comfortable and no acute distress Resp: Effort & Inspection: normal respiratory effort Auscultation: no rales, no rhonchi and no wheezes Cardio: Rate: regular rate Heart sounds: no click, no murmurs and no rubs GI: GI Palp: Yes Soft to palpation and No Tenderness to palpation present (GI) Auscultation: normal bowel sounds Extrem: General: normal to inspection, no pedal edema and no calf tenderness
--- NOTE | 2023-03-14 07:18 | PM.OBDSVD ---
DS: Admitting Diagnosis Discharge Date 03/14/23 Admitting Diagnosis term OB - DS: Summary OB Procedures : None OB Procedures Intrapartum: Spontaneous Vag Delivery OB Procedures: : None Time Spent with Patient Time attestation: Total time spent providing and/or coordinating discharge services: DS: Data Data Completed and Pending Labs on day of discharge: Labs from last 24 hours 03/12/23 16:14 RPR Non-reactive Discharge Plan Discharge Discharging Clinician: Dario Robison Patient Disposition: Home, Self-Care Activity: pelvic rest Diet: regular Patient Instructions: Antibiotic Form Stand Alone Forms: General Discharge Information Follow-up/Referrals: Dario Robison MD [Physician] - Discharge Medications: Continued sertraline 100 mg tablet 100 mg PO DAILY #2 Tablet 1 tablet PO HS cyclobenzaprine 5 mg tablet 5 mg PO Q8H PRN (Reason: Back Pain) Date of admission: 03/12/23 13:29 Primary Care Provider: PHYSICIAN NOT ON STAFF,NONSTAFF Admitting Provider: Dario Robison Attending physician on admission: Dario Robison Condition: Stable
[2023-03-14 07:30] VITALS: BP 103/61; PULSE 77; RESP 16; TEMP 36.4; O2SAT 98
[2023-03-14] MEDS: SERTRALINE HCL 50 MG TABLET 100 MG PO (08:59)
[2023-03-14] MEDS: MULTIVIT/MIN/PREN/FOL AC/IRON TABLET 1 TAB PO (08:59)
--- NOTE | 2023-03-14 13:45 | PC.NURSE ---
PT introductions made and plan of care discussed per post , pain management, breast feeding, bottle feeding, daily care activities and pending discharge to home. PT and spouse both recipients of such instructions per one to one discussion, mom baby care guide and demonstrations per shift. No barriers to learning identified at this time. PT verbalized understanding of such care.
[2023-03-14] MEDS: IBUPROFEN 600 MG TABLET PO (13:51)
[2023-03-14] MEDS: ACETAMINOPHEN 325 MG TABLET 650 MG PO (13:51)
[2023-03-14] MEDS: DOCUSATE SODIUM 100 MG CAPSULE PO (13:52)
--- NOTE | 2023-03-14 16:10 | PC.NURSE ---
PT discharged to home ambulatory accompanied by both spouse and infant and taken to waiting car. follow up appts confirmed
[2023-03-17 10:41] VITALS: BP 129/81; PULSE 88; RESP 16; TEMP 36.9; O2SAT 98
--- OUTSIDE RECORDS SUMMARY | 2023-08-12 11:34 | XMS_ITS | Clinical Summary ---
Author Name Unknown Address [address] [place] [address] Phone Organization [facility] Address [address] [place] [address] Phone Care Team Providers Care Natural Gas Inspector Name Role Phone SANDRA BARR MD Primary Care Provider [phone] Reason for Visit and Chief Complaint The Chief Complaint is: Pt c/o anxiety. She states she has always had anxiety but this past week has become more severe. Pt is 18 wks and spoke with her ob yesterday who stated they would like us to treat her Problems Includes: Problems addressed during this encounter and other active Problems Current Visit Onset Date Resolved Date Provider Conditio n Status Generalized Anxiety Disorder 07/21/2022 RO ACOSTA Active Past Visits Onset Date Resolved Date Provider Condition Status Chiari Malformation 12/19/2015 RO ACOSTA Active Plan of Treatment -Sertraline daily for anxiety. -Can take Unisom as needed for anxiety/nausea/insomnia in the meantime 12.5-25 mg nightly. -Discuss options with OB before starting. -Notify us if you are having any adverse reactions. -Follow up in 1 month or sooner if needed. - Last Documented On 10/24/2022 11:58AM ; [facility] Assessments Includes: Assessments from this encounter Findings - [F41.1 - Generalized anxiety disorder] Generalized anxiety disorder - Last Documented On 10/24/2022 11:58AM ; [facility] Medical Equipment - Implanted Devices Includes: Current Devices No Medical Equipment Recorded
--- OUTSIDE RECORDS SUMMARY | 2023-08-12 11:34 | XMS_ITS ---
Care Plan - [facility] Created on: August 12, 2023 ARLENE WADE : 2000 Sex: Female Author Name Unknown Address [address] [place] [address] Phone Organization [facility] Address [address] [place] [address] Phone Care Team Providers Care Herb Grower Name Role Phone SANDRA BARR MD Primary Care Provider [phone]
--- OUTSIDE RECORDS SUMMARY | 2023-08-12 11:34 | XMS_ITS | Clinical Summary ---
Author Name Unknown Address [address] [place] [address] Phone Organization [facility] Address [address] [place] [address] Phone Care Team Providers Care Software Testing Specialist Name Role Phone HEATHER-SANDRA VASQUEZ MD Primary Care Provider [phone] Reason for Visit and Chief Complaint The Chief Complaint is: Pt walked in wanting bp checked. She states that she was in [place] labor and delivery yesterday for elevated bp.She is feeling shaky, fatigue and says her heart feels like it's racing. 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 SANDRA Dunn called patient OB office to notify them. Patient states her mother can drive her there - Last Documented On 01/15/2023 2:08PM ; [facility] Assessments Includes: Assessments from this encounter Findings - [R00.0 - Tachycardia, unspecified] Tachycardia - Last Documented On 01/15/2023 2:08PM ; [facility] - [O13.9 - Gestational [-induced] hypertension without significant proteinuria, unspecified trimester] Gestational hypertension - Last Documented On 01/15/2023 2:08PM ; [facility]
--- OUTSIDE RECORDS SUMMARY | 2023-08-12 11:34 | XMS_ITS ---
Author Name Unknown Address [address] [place] [address] Phone Organization 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
--- OUTSIDE RECORDS SUMMARY | 2023-08-12 11:34 | XMS_ITS | Clinical Summary ---
Author Name Unknown Address [address] [place] [address] Phone Organization [facility] Address [address] [place] [address] Phone Care Team Providers Care Rig Superintendent Name Role Phone SANDRA BARR MD Primary Care Provider [phone] Reason for Visit and Chief Complaint The Chief Complaint is: Pt states that she for about 10 days, she has itching on her legs and neck.Pt is currently 10 weeks and is taking Benadryl but not getting much relief. Pt states it is worse at night. 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 Continue benadryl as needed. Frequent moisturizing. Can use hydrocortisone to small areas. - Last Documented On 08/28/2022 4:36PM ; [facility] Instructions to patient Intervention and counseling on cessation of tobacco use Last Documented On 4:03PM ; [facility] Assessments Includes: Assessments from this encounter Findings - [R23.3 - Spontaneous ecchymoses] Petechiae - Last Documented On 08/28/2022 4:36PM ; [facility]
--- OUTSIDE RECORDS SUMMARY | 2023-08-12 11:35 | XMS_ITS | Clinical Summary ---
Author Name Unknown Address [address] [place] [address] Phone Organization [facility] Address [address] [place] [address] Phone Care Team Providers Care Compliance Examiner Name Role Phone SANDRA BARR MD Primary Care Provider [phone] Reason for Visit and Chief Complaint The Chief Complaint is: Pt just had BC refilled. 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 - Last Documented On 05/08/2022 4:06PM ; [facility] Recommend finishing gardasil series. Patient is going to think about it and will let us know if she decides to do it. - Last Documented On 05/08/2022 4:06PM ; [facility] Instructions to patient Intervention and counseling on cessation of tobacco use Last Documented On 3:43PM ; [facility] Assessments Includes: Assessments from this encounter Findings - [Z00.00 - Encounter for general adult medical examination without abnormal findings] Routine adult history and physical (18-6
--- OUTSIDE RECORDS SUMMARY | 2023-08-12 11:35 | XMS_ITS | Clinical Summary ---
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 Plan of Treatment Referrals To Diagnosis Neurosurgeon [facility] - [address] [address] - Spinal stenosis, lumbosacral region Note: [facility] Assessments Includes: Assessments from this encounter Findings - [M48.07 - Spinal stenosis, lumbosacral region] Lumbosacral spinal stenosis - Last Documented On 12/22/2020 8:28AM ; [facility] Medical Equipment - Implanted Devices Includes: Current Devices No Medical Equipment Recorded Medications Includes: Medications discussed during this encounter and other current Medications Current Medications (continue as prescribed) Sertraline HCl
== END 2023-03-14 16:10 | disposition home or self-care (01) | DRG 807 ==
LOC: ANHLDR 16:03 → ANHOB2 03-13 01:50
PROVIDERS: Advanced Practice Midwife; Admitting Provider Obstetrics & Gynecology; Visit Provider Obstetrics & Gynecology
DX: O70.0 First degree perineal laceration during delivery (principal); Z37.0 Single live birth; Z3A.38 38 weeks gestation of pregnancy
CPT/HCPCS: 36415; 59025; 84112; 85014; 85018; 85025; 86592; 86850; 86900; 86901; 90715; 99199; A9270; J2590; J2795; J7120

== ENCOUNTER 2025-04-25 13:37 | Emergency (ER) | payer BC, SELFPAY ==
--- NOTE | ~2025-04-25 | MR_ITS ---
EXAMINATION: MR abdomen wo con DATE: 04/25/2025 18:09 CDT INDICATION: Lower abdominal pain. 13 weeks . TECHNIQUE: Magnetic resonance imaging (MRI) of the abdomen was performed without intravenous contrast , utilizing standard sequences. COMPARISON: None. FINDINGS: No abnormal signal intensity is identified within the liver, which is not pathologically enlarged. No intra or extrahepatic biliary ductal dilatation is identified. The gallbladder is only minimally distended, without surrounding inflammatory change or filling defec ts to suggest gallbladder stones. No abnormal signal intensity is identified within the pancreas. No pancreatic ductal dilatation. No hydronephrosis is detected bilaterally. No significant free fluid within the pelvis. The appendix is visualized and is of normal caliber. Bowel loops are unremarkable, and not significantly distended. A single intrauterine gestation is identified. The bilateral ovaries are not definitively visualized. The bladder is decompressed, and otherwise unremarkable. Abnormal signal intensity identified within the intervertebral disc spaces of L3/L4, L4/L5 and L5/S1 consistent with disc desiccation and degenerative disease, far advanced for patient of this age. IMPRESSION: No acute intra-abdominal or intrapelvic findings, as detailed above. Significant degenerative disease within the lower lumbar spine, far advanced for patient of this age. Reviewed, dictated and finalized at location A. IMPRESSION: No acute intra-abdominal or intrapelvic findings, as detailed above. Significant degenerative disease within the lower lumbar spine, far advanced fo r patient of this age.
[2025-04-25 13:39] VITALS: BP 136/84; PULSE 92; RESP 18; TEMP 36.6; O2SAT 100
--- OUTSIDE RECORDS SUMMARY | 2025-04-25 14:39 | XMS_ITS | Referral Summary ---
Author Organization [facility] Address [address] [place] [address] Care Team Providers Care Mold Holder Name Role Phone Dee Mcmillan MD Primary Care Provider Geri Egan NP Unavailable [phone] Allergies Active Allergy Reactions Criticality Noted Date Comments Promethazine Rash Medium 01/30/2017 Medications Zwu-Hz-Fhxmbkus 0.18/0.215/0.25 mg-25 mcg per tablet 01/16/2021 Active predniSONE (DELTASONE) 20 mg tablet 05/05/2024 Active hydrOXYzine (ATARAX) 50 mg tablet 04/06/2024 Active citalopram (CeleXA) 20 mg tablet 05/14/2024 Active buPROPion XL (WELLBUTRIN XL) 150 mg 24 hr tablet 06/03/[address] (VOLTAREN) 75 mg EC tablet Take 1 tablet (75 mg total) by mouth 2 (two) times a day 60 tablet 1 06/07/2024 Active cyclobenzaprine (FLEXERIL) 5 mg tablet Take 1-2 tablets (5-10 mg total) by mouth nightly as needed for muscle spasms 60 tablet 1 06/07/2024 Active Active Problems Problem Noted Date Diagnosed Date Chronic mixed headache syndrome 01/25/2021 Overview (01/25/2021): Last Assessment & Plan: Chronic headaches, most recently tension type, occasional migraines, no signs/symptoms concerning for increased intracranial pressure at this time. Normal neurological examination; has some neck tightness. 1. Keep headache diary 2. Maintain active lifestyle - limit excess screen time. 3. Eat healthy diet, and do not skip meals 4. Drink plenty of water, and avoid caffeine regularly. 5. Sleep: 1. Maintain good sleep routine. 2. Avoid distractions at bedtime such as TV, computer. 3. Get at least 8-10 hours of sleep nightly 6. Do not use pain medication (such as Tylenol, Ibuprofen) more than 3-4 times/week in order to avoid medication overuse headaches 7. Use Ibuprofen/aleve as needed only for moderate-severe headaches. Can treat milder headaches with comfort measures. 8. Can keep appointment for eye exam as scheduled tomorrow. 9. Handout on progressive muscle relaxation. 10. Call for worsening headaches or other neurological concerns. Spondylolisthesis of lumbosacral region 01/26/20 21 Chiari malformation type I 12/19/2015 Overview (01/25/2021): Last Assessment & Plan: Surgical decompression done in . No signs/symptoms of cord compression. Please call for any concerns. Immunizations Immunization Administration Dates Next Due DTaP 05/30/2007 DTaP 5 Pertussis 05/30/2007 DTaP, Unspecified 08/01/2004,06/04/2002,03/18/20 02,01/14/2002 H1N1 Nasal 10/14/2009,09/09/2009 HPV9 06/18/2019,06/21/2016 Hep B, Unspecified 08/01/2004,03/18/2002, 002 HiB 08/01/2004,03/18/2002,01/14/2002 IPV 05/30/2007 Influenza, Split 08/25/2009,09/16/2008 MMR 05/30/2007,08/01/2004 Meningococcal B, OMV (Bexsero) 06/18/2019 Pneumococcal Conjugate PCV 13 03/18/2002, 002 Polio, Unspecified 06/04/2002,03/18/2002, 002 Tdap 06/26/2013 Varicella 06/21/2016,08/01/2004 Social History Tobacco Use Types Packs/Day Years Used Date Smoking Tobacco: Never Smokeless Tobacco: Never Tobacco Cessation:Counseling Given: No AUDIT-C Answer Date Recorded Q1: How often do you have a drink containing alc ohol? Never 06/07/2024 Average Number of Drinks Not on file 024 Q3: How often do you have si x or more drinks on one occasion? 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 Not on file Not on file Last Filed Vital Signs Vital Sign Reading Time Taken Comments Blood Pressure 124/85 06/07/2024 1:41 PM CDT Pulse 98 06/07/2024 1:41 PM CDT Temperature - - Respiratory Rate - - Oxygen Saturation - - Inhaled Oxygen Concentration - - Weight 82.2 kg (181 lb 3.2 oz) 06/07/2024 1:41 P M CDT Height 166.4 cm (5' 5.5) 06/07/2024 1:41 PM CDT Body Mass Index 29.69 06/07/2024 1:41 PM CDT Plan of Treatment Not on file Insurance [employer] Care Teams Mold Holder Relationship Specialty Start Date End Date Dee Mcmillan MD [address] [place] [phone] PCP - General Family Medicine 05/17/24 Geri Egan NP [address] [place] [phone] Nurse Practitioner Nurse Practitioner 05/17/24
--- OUTSIDE RECORDS SUMMARY | 2025-04-25 14:39 | XMS_ITS | Data Portability ---
Author Organization [facility] Address [address] [place] [address] [place] [address] Assessment No assessment recorded. Plan of Treatment Reminders Order Date Submit Date Provider Last Modified By Organization Details Last Modified Time Details Appointments OB ROUTINE 2024 01:45P M Cathi Hopson CNM Not available Not available Not available U/S OB BASELIN E 2024 10:00A M ULTRASOUND Not available Not available Not available OB ROUTINE 2024 11:15A M MIGUELITO MessinaM Not available Not available Not available Lab None recorde d. Referral None recorde d. Procedures None recorde d. Surgeries None recorde d. Imaging US, obstetr ic, nuchal translu cency 2024 025 [facility], [address], [place], [address], 04/22/2025 18:43:11 US, obstetr ic, 1st trimest er [address], [address], [place], [address], 03/17/2025 22:49:41 Medication Orders Imitrex 25 mg tablet 2024 025 [facility], [facility] [place], [address], 04/22/2025 09:28:13 Patient TargetsNo targets recorded. Patient InstructionsNo instructions recorded. Reason for Referral None Reported. Results Created Date Observation Date Name Description Value Unit Range Abnormal Flag Note LastModifiedBy Organization Detail LastModifiedTime 04/04/2004/04/2025 [UNIT Y] ANEUP LOIDY NIPT fraction 11.9% normal Not Available [facility] [address], [place], [address], 04/04/2025 15:58:51 04/04/20 25 04/04/2025 [UNIT Y] ANEUP LOIDY NIPT 22Q11.2 microdeletio n LOW RISK <1 in 10,000 normal Not Available [facility] [address] [facility], [place], [address], 04/04/2025 15:58:51 04/04/20 25 04/04/2025 [UNIT Y] ANEUP LOIDY NIPT sex chromosome aneuploidy NOT DETECT ED normal Not Available [facility] [address] [facility], [place], [address], 04/04/2025 15:58:51 04/04/20 25 04/04/2025 [UNIT Y] ANEUP LOIDY NIPT monosomy X LOW RISK <1 in 10,000 normal Not Available [facility] [address] [facility], [place], [address], 04/04/2025 15:58:51 04/04/20 25 04/04/2025 [UNIT Y] ANEUP LOIDY NIPT trisomy 13 LOW RISK <1 in 10,000 normal Not Available [facility] [address] [place], [address], 04/04/2025 15:58:51 04/04/20 25 04/04/2025 [UNIT Y] ANEUP LOIDY NIPT trisomy 18 LOW RISK <1 in 10,000 normal Not Available [facility] [address] [place], [address], 04/04/2025 15:58:51 04/04/20 25 04/04/2025 [UNIT Y] ANEUP LOIDY NIPT trisomy 21 LOW RISK <1 in 10,000 normal Not Available [facility] [address] [facility], [place], [address], 04/04/2025 15:58:51 04/04/20 25 04/04/2025 [UNIT Y] ANEUP LOIDY NIPT sex FEMALE normal Not Available [facility] [address] [facility], [place], [address], 04/04/2025 15:58:51 04/04/20 25 04/04/2025 [UNIT Y] ANEUP LOIDY NIPT gestation SINGLE TON normal Not Available [facility] [address] [facility], [place], [address], 04/04/2025 15:58:51 04/04/20 25 04/04/2025 [UNIT Y] ANEUP LOIDY NIPT for detailed report, see pdf See PDF normal Not Available [facility] [address] [facility], [place], [address], 04/04/2025 15:58:51 04/08/20 25 04/08/2025 [UNIT Y] TACO ER SCREE N sickle cell disease/beta -thalassemia /hemoglobino pathies carrier screen NEGATI VE normal Not Available [facility] [address] [facility], [place], [address], 04/08/2025 14:34:08 04/08/20 25 04/08/2025 [UNIT Y] TACO ER SCREE N alpha-thalas semia carrier screen NEGATI VE normal Not Available [facility] [address] [facility], [place], [address], 04/08/2025 14:34:08 04/08/20 25 04/08/2025 [UNIT Y] TACO ER SCREE N cystic fibrosis carrier screen NEGATI VE normal Not Available [facility] [address] [facility], [place], [address], 04/08/2025 14:34:08 04/08/20 25 04/08/2025 [UNIT Y] TACO ER SCREE N spinal muscular atrophy carrier screen NEGATI VE 3 SMN1 copies , SNP not presen t normal Not Available [facility] [address], [place], [address], 04/08/2025 14:34:08 04/08/20 25 04/08/2025 [UNIT Y] TACO Luna for detailed report, see pdf See PDF normal Not Available [facility] [address], [place], [address], 04/08/2025 14:34:08 03/09/20 25 03/09/2025 CT/GC AND TRICH OMONA S VAGIN MATTHEW (RRNA ), URINE chlamydia trachomatis, PCR Negati ve negati ve Not Available [facility] (Lab) [address] [facility], [place], [address], 03/10/2025 18:55:29 03/09/20 25 03/09/2025 CT/GC AND TRICH OMONA S VAGIN MATTHEW (RRNA ), URINE neisseria gonorrhoeae, PCR Negati ve negati ve Not Available [facility] (Lab) [address] [facility], [place], [address], 03/10/2025 18:55:29 03/09/20 25 03/09/2025 CT/GC AND TRICH OMONA S VAGIN MATTHEW (RRNA ), URINE trichomonas vaginalis ribosomal RNA (rrna) Negati ve negati ve Not Available [facility] (Lab) [address] [facility], [place], [address], 03/10/2025 18:55:29 03/28/20 25 03/28/2025 HEPAT ITIS B SURFA CE ANTIG EN hepatitis B surface antigen Non-re active non-re active This assay was perfo rmed using [employer] ratio n reage nts and test kits. Value s obtai maryellen with other assay metho ds or kits canno t be used inter mckeon eably . Not Available [facility] (Lab) [address] [facility], [place], [address], 03/29/2025 12:48:38 03/28/20 25 03/28/2025 RUBEL LA IGG ANTIB ARIELLE, QUANT rubella antibodies, IgG Reacti ve reacti ve Not Available [facility] (Lab) [address], [place], [address], 03/29/2025 12:48:38 03/28/20 25 03/28/2025 RUBEL LA IGG ANTIB ARIELLE, QUANT rubella antibodies, IgG quant 22.4 IU/mL >=10 Non-r eacti ve (Non- Immun e) <10 IU/mL React patricia (Immu ne) > or = 10 IU/mL Not Available [facility] (Lab) [address], [place], [address], 03/29/2025 12:48:38 03/28/20 25 03/28/2025 HIV 1/2 ANTIG EN/AN TIBOD Y, REFLE X CONFI RMATI ON HIV antigen/anti body Nonrea ctive nonrea ctive HIV-1 antig en and HIV-1 /HIV- 2 antib odies were not detec elham. No labor atory evide nce of HIV infec tion. Not Available [facility] (Lab) [address], [place], [address], 03/29/2025 12:48:39 03/28/20 25 03/28/2025 HEPAT ITIS C ANTIB ARIELLE SCREE N, REFLE X TO CONFI RMATI ON hepatitis C antibody Non-re active non-re active Antib odies to HCV Not Detec elham, does not exclu de the possi bilit y of expos ure to HCV. Not Available [facility] (Lab) [address], [place], [address], 03/29/2025 12:48:39 03/28/20 25 03/28/2025 TYPE/ RH/SC REEN ABO/Rh type A POS Not Available [facility] (Lab) [address], [place], [address], 03/29/2025 12:48:39 03/28/20 25 03/28/2025 TYPE/ RH/SC REEN antibody screen NEG Not Available [facility] (Lab) [address] , [place], [address], 03/29/2025 12:48:39 03/28/20 25 03/28/2025 TYPE/ RH/SC REEN exp date 2024 23:59 Not Available [facility] (Lab) [address], [place], [address], 03/29/2025 12:48:39 03/28/20 25 03/28/2025 CBC W/DIF F WBC 7.6 10'3/ uL 3.5-10 .5 Not Available [facility] (Lab) [address], [place], [address], 03/29/2025 12:48:40 03/28/20 25 03/28/2025 CBC W/DIF F RBC 4.19 10'6/ uL (based on docume nted legal sex) 3.80-5 .20 Not Available [facility] (Lab) [address] [facility], [place], [address], 03/29/2025 12:48:40 03/28/20 25 03/28/2025 CBC W/DIF F HGB 13.0 g/dL (based on docume nted legal sex) 11.6-1 5.4 Not Available [facility] (Lab) [address] , [place], [address], 03/29/2025 12:48:40 03/28/20 25 03/28/2025 CBC W/DIF F HCT 39.5 % (based on docume nted legal sex) 34.0-4 5.0 Not Available [facility] (Lab) [address] [facility], [place], [address], 03/29/2025 12:48:40 03/28/20 25 03/28/2025 CBC W/DIF F MCV 94.3 fL 80.0-9 9.0 Not Available [facility] (Lab) [address] [facility], [place], [address], 03/29/2025 12:48:40 03/28/20 25 03/28/2025 CBC W/DIF F MCH 31.0 pg 27.0-3 4.0 Not Available [facility] (Lab) [address] [facility], [place], [address], 03/29/2025 12:48:40 03/28/20 25 03/28/2025 CBC W/DIF F MCHC 32.9 g/dL 32.0-3 5.5 Not Available [facility] (Lab) [address] [facility], [place], [address], 03/29/2025 12:48:40 03/28/20 25 03/28/2025 CBC W/DIF F RDW 13.7 % 11.0-1 5.0 Not Available [facility] (Lab) [address] [facility], [place], [address], 03/29/2025 12:48:40 03/28/20 25 03/28/2025 CBC W/DIF F plt 311 10'3/ uL 150-40 0 Not Available [facility] (Lab) [address] [facility], [place], [address], 03/29/2025 12:48:40 03/28/20 25 03/28/2025 CBC W/DIF F MPV 11.3 fL 8.8-12 .1 Not Available [facility] (Lab) [address] [facility], [place], [address], 03/29/2025 12:48:40 03/28/20 25 03/28/2025 CBC W/DIF F NRBC's 0.0 % 0.0 Not Available [facility] (Lab) [address] [facility], [place], [address], 03/29/2025 12:48:40 03/28/20 25 03/28/2025 CBC W/DIF F absolute NRBCs 0.0 10'3/ uL no refere nce range establ ished Not Available [facility] (Lab) [address] [place], [address], 03/29/2025 12:48:40 03/28/20 25 03/28/2025 CBC W/DIF F neutrophils 68.7 % 34.0-7 3.0 Not Available [facility] (Lab) [address] [facility], [place], [address], 03/29/2025 12:48:40 03/28/20 25 03/28/2025 CBC W/DIF F lymphocytes 21.8 % 15.0-5 0.0 Not Available [facility] (Lab) [address] [facility], [place], [address], 03/29/2025 12:48:40 03/28/20 25 03/28/2025 CBC W/DIF F monocytes 7.4 % 1.0-15 .0 Not Available [facility] (Lab) [address] [place], [address], 03/29/2025 12:48:40 03/28/20 25 03/28/2025 CBC W/DIF F eosinophils 1.1 % 0.0-8. 0 Not Available [facility] (Lab) [address] [place], [address], 03/29/2025 12:48:40 03/28/20 25 03/28/2025 CBC W/DIF F basophils 0.7 % 0.0-2. 0 Not Available [facility] (Lab) [address] [place], [address], 03/29/2025 12:48:40 03/28/20 25 03/28/2025 CBC W/DIF F immature granulocytes 0.3 % no define d refere nce range Immat ure Granu locyt es (IG) repre sents autom ated enume ratio n of Metam yeloc ytes, Myelo cytes and Promy elocy aleshia when IG is < 5%. Blast s are not inclu ded in IG and repor elham separ ately if prese nt. Not Available [facility] (Lab) [address] [facility], [place], [address], 03/29/2025 12:48:40 03/28/20 25 03/28/2025 CBC W/DIF F absolute neutrophils 5.2 10'3/ uL 1.5-8. 0 Not Available [facility] (Lab) [address] [facility], [place], [address], 03/29/2025 12:48:40 03/28/20 25 03/28/2025 CBC W/DIF F absolute lymphocytes 1.7 10'3/ uL 1.0-4. 0 Not Available [facility] (Lab) [address] [facility], [place], [address], 03/29/2025 12:48:40 03/28/20 25 03/28/2025 CBC W/DIF F absolute monocytes 0.6 10'3/ uL 0.2-1. 0 Not Available [facility] (Lab) [address] [facility], [place], [address], 03/29/2025 12:48:40 03/28/20 25 03/28/2025 CBC W/DIF F absolute eosinophils 0.1 10'3/ uL 0.0-0. 6 Not Available [facility] (Lab) [address] [place], [address], 03/29/2025 12:48:40 03/28/20 25 03/28/2025 CBC W/DIF F absolute basophils 0.1 10'3/ uL 0.0-0. 3 Not Available [facility] (Lab) [address] [place], [address], 03/29/2025 12:48:40 03/28/20 25 03/28/2025 CBC W/DIF F absolute immature granulocytes 0.0 10'3/ uL 0.00-0 .10 Refer ence range s for nonbi nary/ inter sex or unspe cifie d gende r patie nts have not been estab lishe d. Pleas e refer to the kirko wing table for range s estab lishe d for cisge nder patie nts and evalu ate in the clini jun ramesh xt of the indiv idual patie nt: https ://karely annand book. nm.or g/gen derx Not Available [facility] (Lab) [address] [facility], [place], [address], 03/29/2025 12:48:40 03/28/20 25 03/28/2025 RPR SCREE N, REFLE X TITER /CONF IRMAT ION RPR qualitative Nonrea ctive nonrea ctive Not Available [facility] (Lab) [address] [facility], [place], [address], 03/29/2025 12:48:40 03/28/20 25 03/28/2025 HEMOG LOBIN A1C hemoglobin A1C 5.1 % 4.0-5. 6 The Ameri can [employer] aleshia [employer] iatio n recom mends that a prima ry goal of thera py shoul d be a HBA1C of < 7% and that physi cians shoul d reeva luate the treat ment regim en in patie nts with HBA1C value s consi stent ly > 8%. <5.7% Betty l 5.7 - 6.4% Incre ased risk for diabe aleshia >=6.5 % Diagn ostic of diabe aleshia <7.0% Goal of thera py >8.0% Actio n sugge sted Not Available [facility] (Lab) [address] [facility], [place], [address], 03/29/2025 12:48:40 04/20/20 25 04/20/2025 CULTU RE: URINE result report SEE RESULT S BELOW Test: Cultu re: Urine Speci men Sourc e: Urine Voide d Speci men Type: Urine Speci men Date: 2024 Resul t Date: 20244 Resul t Statu s: Final resul t Abnor mal: No Resul eyadg Lab: [facility] [address] [facility] [address] Tel: CULTU RE ----- ----- ----- --- No growt h in 1 day (dete ction level of 10,00 0 colon ies / ml.) Not Available [facility] (Lab) [address] [facility], [place], [address], 04/21/2025 22:47:15 04/20/20 25 04/20/2025 drug scree n, urine Amphetamines : negati ve Not Available [facility] [address], [place], [address], 04/20/2025 18:30:59 04/20/20 25 04/20/2025 drug scree n, urine Cannabinoids : negati ve Not Available [facility] [address], [place], [address], 04/20/2025 18:30:59 04/20/20 25 04/20/2025 drug scree n, urine Cocaine: negati ve Not Available [facility] [address], [place], [address], 04/20/2025 18:30:59 04/20/20 25 04/20/2025 drug scree n, urine Opiates: negati ve Not Available [facility] [address], [place], [address], 04/20/2025 18:30:59 04/20/20 25 04/20/2025 drug scree n, urine Phenocyclidi ne: negati ve Not Available [facility] [address], [place], [address], 04/20/2025 18:30:59 04/20/20 25 04/20/2025 drug scree n, urine Barbiturates : negati ve Not Available [facility] [address], [place], [address], 04/20/2025 18:30:59 04/20/20 25 04/20/2025 drug scree n, urine Benzodiazepi moni: negati ve Not Available [facility] [address], [place], [address], 04/20/2025 18:30:59 04/20/20 25 04/20/2025 drug scree n, urine Ethanol: negati ve Not Available [facility] [address], [place], [address], 04/20/2025 18:30:59 04/20/20 25 04/20/2025 drug scree n, urine Hallucinogen s: negati ve Not Available [facility] [address], [place], [address], 04/20/2025 18:30:59 04/20/20 25 04/20/2025 drug scree n, urine Inhalants: negati ve Not Available [facility] [address], [place], [address], 04/20/2025 18:30:59 04/20/20 25 04/20/2025 drug scree n, urine Anabolic Steroids: negati ve Not Available [facility] [address], [place], [address], 04/20/2025 18:30:59 04/20/20 25 04/20/2025 drug scree n, urine Other: negati ve Not Available [facility] [address], [place], [address], 04/20/2025 18:30:59 03/09/20 25 03/09/2025 US, obste tric, 1st trime ster No observ ation record ed. [email or web address] [id number], [place], [address], 03/14/2025 08:22:47 03/17/20 25 03/17/2025 US, obste tric, 1st trime ster No observ ation record ed. [email or web address] [facility] [address], [place], [address], 03/17/2025 17:10:08 03/17/20 25 03/17/2025 US, obste tric, follo w-up No observ ation record ed. [email or web address] [address], [place], [address], 03/23/2025 05:59:48 04/20/20 25 04/20/2025 US, obste tric, nucha l trans lucen cy No observ ation record ed. [email or web address] [facility] [address], [place], [address], 04/20/2025 18:31:44 04/20/20 25 04/20/2025 US, obste tric, nucha l trans lucen cy No observ ation record ed. [email or web address] [id number], [place], [address], 04/23/2025 21:42:50 Result Notes None recorded. Problems Name Problem SNOMED Code Status Onset Date Resolution Date Notes Provider Name and Address Organization Details Recorded Time Chiari malforma tion 598433551 Active 2021 decompre ssed, no neuro follow up required per her team Nancie block [facility] 3 16:55:06 Pregnanc y 10725334 Completed 202103/27/2023 Bailee block [facility] 5 09:19:52 Chiari malforma tion 061459899 Completed 2021 decompre ssed, no neuro follow up required per her team Nancie block [facility] 3 16:55:06 Anxiety 81787389 Completed Seeing PCP 10/22/22 to discuss medicati on. Pt states she is doing well on zoloft 100mg on 12/02/22! [facility]ie [facility] 3 16:55:06 Proteinu sirisha 76521362 Completed with swelling - 1x/wk antenata l testing. Monitor for pre-e Nancie [facility] 3 16:55:06 Mixed anxiety and depressi ve disorder 769454600 Active 2024 Bailee Yeung [facility] 5 18:16:31 History of Spinal surgery 327843801 Active 2024 [facility] 5 18:16:45 Pregnanc y 40115457 Active 2024 [facility] 5 09:19:52 Pre-ecla mpsia 898280111 Active 2024 last pregancy start bASA 81 mg Cathi Hopson CNM [address], [place], [address], [facility] 5 09:29:14 Migraine 62293030 Active 2024 imitrex Cathi Hopson CNM [address], [place], [address], [facility] 5 09:29:39 Problem Notes None recorded. Procedures Surgical History Date Name Laterality Status Provider Name and Address Organization Details Recorded Time 5 IUD Insertion completed Rica Banda [facility] 12/30/2024 16:38:48 5 Date of Last Pap Smear completed Bailee Yeung [facility] 03/09/2025 18:16:56 3 IUD Insertion completed Bailee Yeung [facility] 05/28/2023 12:30:09 3 IUD Insertion completed Cathi Hopson CNM [address], [place], [address], [place] [facility] 04/30/2023 12:28:48 7 procedure on back completed Bailee Yeung [facility] 10/09/2022 17:12:07 Imaging Results None recorded. Procedure Notes None recorded. Medical Equipment None Reported. Allergies No known drug allergies Medications Name Sig Start Date Stop Date Status Note LastModified by Organization Details LastModified Time cyclobenz aprine 10 mg tablet Take 1 tablet every 8 hours by oral route as needed. 2024 active Not Available Not Available Not Avai lable Mirena 21 mcg/24 hr (up to 8 years) 52 mg intrauter ine device Take 1 device by intraute rine route. 03/09 completed MIRENA IUD INSERTED 3 AND NEEDS REMOVED BY 1 Not Available Not Available Not Available citalopra m 40 mg tablet TAKE 1 TABLET BY MOUTH ONCE DAILY active Not Available Not Available No t Available azithromy andrei 250 mg tablet 12/30 completed Not Available Not Available Not Available fluconazo le 150 mg tablet TAKE 1 TABLET BY MOUTH NOW 01/17 completed Not Available Not Available Not Available benzonata te 200 mg capsule 12/30 completed Not Available Not Available Not Available prednison e 20 mg tablet 12/30 completed Not Available Not Available Not Available sertralin e 100 mg tablet Take 1 tablet by mouth once daily 05/28 completed Not Available Not Available Not Available hydroxyzi ne HCl 50 mg tablet TAKE 1 TABLET BY MOUTH NEEDED FOR ANXIETY AND PANIC ATTACKS active Not Available Not Available No t Available Macrobid 100 mg capsule Take 1 capsule every 12 hours by oral route. 02/17 completed Not Available Not Available Not Available citalopra m 20 mg tablet TAKE 1 TABLET BY MOUTH ONCE DAILY 12/30 completed Not Available Not Available Not Available sertralin e 25 mg tablet TAKE 1 TABLET BY MOUTH ONCE DAILY 12/02 completed Not Available Not Available Not Available diclofena c sodium 75 mg tablet,de layed release 04/22 completed Not Available Not Available Not Available albuterol sulfate HFA 90 mcg/actua tion aerosol inhaler 03/09 completed Not Available Not Available Not Available Imitrex 25 mg tablet Take 1 tablet by oral route. 2024 active Not Available Not Available Not Avai lable sertralin e 50 mg tablet TAKE 1 TABLET BY MOUTH ONCE DAILY 05/28 completed Not Available Not Available Not Available cyclobenz aprine 5 mg tablet 1 tablet every 8 hours as needed back pain 04/06 completed Not Available Not Available Not Available bupropion HCl XL 150 mg 24 hr tablet, extended release TAKE 1 TABLET BY MOUTH ONCE DAILY active Not Available Not Available No t Available One-A-Day - 1 04/30 completed Not Available Not Available Not Available sertralin e 150 mg capsule Take 1 capsule every day by oral route as directed . 03/09 completed Not Available Not Available Not Available Vitals Date Recorded Body height Body mass index (BMI) Body weight Systolic blood pressure Diastolic blood pressure Provider Name and Address Organization Details Last Updated DateTime 03/09/2025 162.56 cm 30.2 kg/m2 72751.26 g 122 mm[Hg] 80 mm[Hg] Bailee Yeung [facility] 5 18:15:46 Date Recorded Body height Body mass index (BMI) Body weight Systolic blood pressure Diastolic blood pressure Provider Name and Address Organization Details Last Updated DateTime 04/22/2025 162.56 cm 31.2 kg/m2 83224.81 g 125 mm[Hg] 81 mm[Hg] Bailee Yeung [facility] 09:10:13 Social History Question Answer Notes LastModified by Organizat ion Details LastModified Time Tobacco Smoking Status Never Smoker Bailee block [facility] 12/04/2022 16:09:49 Do You Have An Advance Directive? No Information n ot available 10/09/2022 If You Are , What Was Your Level Of Alcohol Consumption Prior To ? Occasional [email or web address] Information not available 04/22/2025 Are You Blind Or Do You Have Difficulty Seeing? No [email or web address] Information n ot available 12/04/2022 What Is Your Level Of Caffeine Consumption? Moderate [email or web address] Information not available 10/09/2022 How Much Tobacco Do You Chew? None [email or web address] Information not available 10/09/2022 In The 14 Days Before Symptom Onset, Have You Had Close Contact With A Laboratory-confirm ed COVID-19 While That Case Was Ill? No [email or web address] Information n ot available 11/06/2022 In The 14 Days Before Symptom Onset, Have You Had Close Contact With A Person Who Is Under Investigation For COVID-19 While That Person Was Ill? No [email or web address] Information not available 11/06/2022 Have You Been To An Area Known To Be High Risk For COVID-19? No [email or web address] Information not available 10/09/2022 Are You Deaf Or Do You Have Serious Difficulty Hearing? No [email or web address] Information not available 10/09/2022 What Type Of Diet Are You Following? REGULAR [email or web address] Information n ot available 10/09/2022 What Is The Highest Grade Or Level Of School You Have Completed Or The Highest Degree You Have Received? [id number] [email or web address] Information not available 03/09/2025 Are There Any Guns Present In Your Home? Yes [email or web address] Information not available 10/09/2022 Do You Use Protection During Sex? No [email or web address] Information not available 10/09/2022 Do You Use Your Seat Belt Or Car Seat Routinely? Yes [email or web address] Information not available 10/09/2022 Do You Have Smoke And Carbon Monoxide Detectors In Your Home? Yes [email or web address] Information not available 10/09/2022 How Much Tobacco Do You Smoke? No [email or web address] Information not available 10/09/2022 Do You Use Sunscreen Routinely? Yes [email or web address] Information not available 11/06/2022 Has Tobacco Cessation Counseling Been Provided? No [email or web address] Information not available 12/04/2022 Have You Used IV Drugs? No [email or web address] Information not available 10/09/2022 Do You Have Difficulty Walking Or Climbing Stairs? No Information not available 12/04/2022 Sex: Female Functional Status Question Answer Note LastModified by Organizat ion Details LastModified Time Do you use any illicit or recreational drugs? No Information not available 08/21/2022 Do you or have you ever used any other forms of tobacco or nicotine? No [email or web address] Information not available 12/04/2022 What is your level of alcohol consumption? None Information not available 08/21/2022 Are you able to walk? YESWOREST [email or web address] Information not available 10/09/2022 Are you able to care for yourself? 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 No [email or web address] Information not available 12/04/2022 What is your exercise level? Occasional Information not available 10/09/2022 Mental Status Question Answer Note LastModified by Organization D etails LastModified Time Do you feel stressed (tense, restless, nervous, or anxious, or unable to sleep at night)? [id number] [email or web address] Information not available 10/09/2022 Family History Relationship Description Onset Age of this Age Resolved Age Notes LastModified by Organization Details LastModified Time Paternal Grandfather Carcinoma in situ of colon [email or web address] Not available 2024 16:46:41 Mother Carcinoma of uterine cervix, invasive [email or web address] Not available 2024 16:46:41 Mother Pre-eclampsi a [email or web address] Not available 11/06 19:07:22 Mother Malignant tumor of cervix [email or web address] Not available 11/06 19:07:22 Sister Anxiety disorder [email or web address] Not available 2021 16:09:53 Maternal Grandmother Anxiety disorder [email or web address] Not available 11/06 19:07:22 Maternal Grandfather Anxiety disorder [email or web address] Not available 11/06 19:07:22 Paternal Grandmother Malignant tumor of colon [email or web address] Not available 11/06 19:07:22 Paternal Grandmother Malignant tumor of breast [email or web address] Not available 11/06 19:07:22 Medical History Condition Response Allergies (Food, seasonal, environmental ) N Other Y Breast Cancer N Drug/Latex Allergies/Reactions N Blood Transfusion N Dermatologic Disorders N Lung Disease N Defects or Inherited Disease N Breast Problem N Gestational Diabetes N Hematologic disorders N Anesthesia Complications N History of STI N Deep Vein Thrombosis N Polycystic ovary syndrome N Anxiety Disorder Y Autoimmune disease N Arthritis N Infertility N Polyps N Acid Reflux (GERD) N History of abnormal pap N Cancer N Stroke N Varicosities N Neurologic/Epilepsy Y Endometriosis N High Cholesterol N Headaches N Fibromyalgia N Kidney Disease N Heart Problems N Kidney or Bladder Problems N Thyroid Problems N GI Problems N Eating Disorder N Anemia N Art (IVF or FET) N Psychiatric Illness N Ovarian Cancer N Diabetes N Pulmonary (TB, Asthma) N Hepatitis/Liver Disease N No Past Medical History N Eczema N Urinary Tract Infection N Abuse/Domestic Violence N Asthma N Trauma/Violence N Depression/ depression Y Heart Disease N Pre-Eclampsia N Hypertension N Osteoporosis N Thrombophilias N Gynecological History Statement/Question Response Flow Light Date of Last Mammogram Date of LMP 01/17/2025 N On BCP's at Conception? N STIs/STDs N Was last menstrual period normal Y HPV Vaccine Y Duration of Flow (days) 3 Current Control Method Age at First Child 22 Date of control 05/21/2022 Date of Last Colonoscopy Frequency of Cycle (Q days) 29 Sexually Active? Y Date of DEXA bone scan Age of first menstrual cycle 13 Date of Last Pap Smear 12/30/2024 Sexual Problems? N LMP Unknown Desired Control Method N Obstetrics History GPAL:G 2 P 1 0 0 1 Type Value Full Term 1 Living 1 Total 2 Past Encounters Encounter ID Performer Location Encounter Start Date Encounter Closed Date Diagnosis/Indication Diagnosis SNOMED-CT Code Diagnosis ICD10 Code Diagnosis Note [id number] Nikki Gallagher MD [facility] [address] [address] 08/21/2022 15:06:10 08/21/2022 16:02:11 screening 562664356 Z36.87 [id number] Nikki Gallagher MD [facility] [address],[place] [address] 08/21/2022 15:07:58 08/23/2022 15:47:45 test positive 977039557 Z32.01 Venereal d isease screening 091177966 Z11.3 Chiari malformation 2531 55119 Q07.00 decompress ed, no follow up required [id number] Nikki Gallagher MD [facility] [address],[place] [address] 09/09/2022 13:50:19 09/09/2022 15:17:22 screening [id number] Z36.82 [id number] Nikki Gallagher MD [facility] [address],[place] [address] 09/09/2022 13:51:16 09/09/2022 15:17:13 Routine care 484316266 Z34.91 [id number] Cathi Hopson [facility] [address],[place] [address] 10/09/2022 16:57:57 10/09/2022 17:29:30 Routine care 941851383 Z34.92 [id number] Elvis Robison MD [facility] [address],[place] [address] 11/06/2022 17:12:41 11/07/2022 15:05:58 screening for malformation 723146049 Z36.3 [id number] Cathi Hopson [facility] [address],[place] [address] 11/06/2022 17:13:10 11/07/2022 16:56:07 Routine care 854684201 Z34.92 [id number] Elvis Robison MD [facility] [address],[place] [address] 12/04/2022 14:56:14 12/04/2022 15:58:43 screening 105406899 Z36.2 [id number] Cathi Hopson [facility] [address],[place] [address] 12/04/2022 15:56:29 12/04/2022 16:35:58 Routine care 488696969 Z34.92 [id number] Elvis Robison MD [facility] [address],[place] [address] 12/24/2022 16:27:34 12/24/2022 17:29:22 Spotting per vagina in 749062802 O26.859 Z3A.27 [id number] Cathi Hopson [facility] [address],[place] [address] 01/03/2023 09:55:31 01/03/2023 10:52:59 Routine care 575666710 Z34.92 [id number] Cathi Hopson [facility] [address],[place] [address] 01/17/2023 15:36:29 01/17/2023 16:57:25 Routine care 090477265 Z34.92 [facility] [id number] F41.9 [id number] Cathi Hopson [facility] [address],[place] [address] 01/29/2023 16:46:47 01/29/2023 18:05:24 Routine care 930428515 Z34.92 [id number] Elvis Robison MD [facility] [address],[place] [address] 01/29/2023 16:47:19 01/29/2023 17:36:51 Uterine size for dates discrepancy 681929411 O26.849 Z3A.32 [id number] Falguni Sherman [facility] [address],[place] [address] 02/04/2023 16:46:29 02/05/2023 11:01:02 Urinary symptoms 991762506 R39.9 [id number] Elvis Robison MD [facility] [address],[place] [address] 02/04/2023 17:51:03 02/04/2023 18:00:25 Abdominal pain in 063170869 O99.891 R10.32 Z3A.33 [id number] [facility] [address],[place] [address] 02/12/2023 16:52:47 02/12/2023 17:51:59 Routine care [id number] Z34.92 [id number] Elvis Robison MD [facility] [address],[place] [address] 02/17/2023 14:12:28 02/17/2023 15:02:51 Gestational proteinuria 87417187 O12.15 [id number] Elvis Robison MD [facility] [address],[place] [address] 02/17/2023 14:12:44 02/17/2023 15:14:23 Mild pre-eclampsia 00092279 O14.03 [id number] [facility] [address],[place] [address] 02/17/2023 14:12:56 02/18/2023 17:13:13 [id number] Elvis Robison MD [facility] [address],[place] [address] 02/27/2023 15:45:11 02/28/2023 13:16:55 Gestational proteinuria 54237467 O12.15 [id number] Elvis Robison MD [facility] [address],[place] [address] 02/27/2023 15:45:29 02/27/2023 16:35:18 Proteinuria 79690772 R80.9 O14.03 Z3A.36 [id number] [address],[place] [address] 02/27/2023 15:46:03 03/01/2023 15:05:40 Routine care 739354835 Z34.93 [id number] [facility] [address],[place] [address] 03/05/2023 16:15:59 03/06/2023 16:58:46 Routine care 195599219 Z34.92 [id number] Elvis Robison MD [facility] [address],[place] [address] 03/05/2023 16:15:23 03/05/2023 17:07:57 Gestational proteinuria 57641308 O12.15 [id number] Elvis Robison MD [facility] [address],[place] [address] 03/05/2023 16:15:42 03/06/2023 14:32:46 Proteinuria 64354905 O14.03 O16.9 Z3A.37 [id number] Cathi Hopson [facility] [address],[place] [address] 04/11/2023 11:04:43 04/11/2023 12:08:02 care 221412017 Z39.2 [id number] Cathi Hopson [facility] [address],[place] [address] 04/30/2023 11:56:52 04/30/2023 12:40:47 Insertion of intrauterine contraceptive device 44278322 Z30.430 Sexually t ransmitted infectious disease 2206480 A64 [id number] Cathi Hopson [facility] [address],[place] [address] 05/28/2023 12:22:55 05/28/2023 12:46:16 IUD check 984052601 Z30.431 doing well, strings present, 1 day abd discomfort , resolved on its own if happens again ok to order [place] [id number] Elvis Robison MD [facility] [address],[place] [address] 12/30/2024 16:58:26 12/30/2024 17:37:51 Gynecologic examination 15242434 Z01.419 Z11.3 Z11.8 Annual gynecologi jun exam performed. Patient will come back in a year unless there are new symptoms. Suggest Calcium with Vitamin D if not eating in diet. Patient advised to get annual flu shot. Recommend yearly physicals and perform monthly breast exams. Genetic testing is available for patients with family history of cancer. Engage in safe sexual practices, use condoms. Encouraged to have daily exercise. Avoid tobacco and illicit drugs, moderation of alcohol. If BMI greater than 25 dietary consult advised. If you have any questions please call or email. mammogram- n/a colon cancer screening - n/a DEXA scan- n/a Pap smear- pap w/ HPV collected laboratory evaluation - PCP STI testing - declined Removal of intrauterine contraceptive device done [id number] 14356 Z30.432 Speculum placed. The IUD strings were seen at external os and grasped with sterile ring forceps and removed without difficulty . The patient tolerated the procedure well. Recommende d taking PNV daily if not using contracept ion. Continue to monitor cycles. Patient verbalized understand ing. [id number] Elvis Robison MD [facility] [address],[place] [address] 03/09/2025 16:46:06 03/10/2025 09:42:49 [id number] Cathi Hopson [facility] [address],[place] [address] 03/09/2025 16:46:37 03/10/2025 09:42:26 Bacterial disease screening 319875693 Z11.8 Amenorrhea 64831353 N91. 2 Low back pain 872027181 M54.50 [id number] Elvis Robison MD [facility] [address],[place] [address] 03/17/2025 15:22:13 03/17/2025 16:30:29 Complication occurring during 106318743 O99.891 Z3A.08 [id number] Elvis Robison MD [facility] [address],[place] [address] 04/20/2025 16:47:22 04/21/2025 09:10:28 screening 539342203 Z36.82 Z3A.13 [id number] Cathi Hopson CNM [facility] [address] [address] 04/22/2025 08:56:52 04/22/2025 09:36:32 Migraine 57671039 G43.909 Gestation period, 13 weeks 60490521 Z3A.13 Health Concerns Section Related Observation LastModified by Organization Detai ls LastModified Time None Recorded Concern Status LastModified by Organization Details LastModified Time None Recorded Advance Directives Directive N: Payers Insurance Date Sequence Insurance Name Policy Number Policy Meyer Covered Member ID Meyer Member ID Guarantor Name 12/30/2024 2 [facility] - DOS ON OR AFTER 21 (MEDICAID REPLACEMENT - HMO) Zulma Guo [id number] Zulma Guo 04/25/[address] [facility] (PPO) [id number] [place] [employer] [id number] Zulma Guo 09/11/2022 PAYMENT PLAN Zulma Guo 09/18/2022 PAYMENT PLAN Zulma Guo 10/14/2022 PAYMENT PLAN Zulma Guo 12/04/2022 2 MEDICAID-[place]: [facility] Zulma Guo [id number] Zulma Guo 01/03/[address] [facility] (MEDICAID REPLACEMENT - HMO) [id number] Zulma Guo [id number] Zulma Guo Notes Date Note Type Note Provider Name and Address Organization Details Recorded Time 03/09/2025 text/html regular cycle, amenorrhea +UPTdoing well no complaints reviewed precautions Cathi Hopson CNM [address], [place], [address], [facility] 03/09/2025 18:46:28 OBGyn Episode Ob Episode Information Episode Created Date Number of Fetuses Patient Bloodtype Patient rh Status Prepregnancy Weight lbs Domestic Partner Domestic Partner Phone Father Name Covered Button Maker Status 09/09/20 22 1 A Positive 157 CLOSED Fetus Data First Name Last Name Admitted to NICU Weight (g) Sex Living Outcome Pediatric Complications Fetus ID Race Codes Race Delivery Type 2834.95 M true Full Term PPV, neopuff 6 min, delee suction, [address] Vaginal Delivery Problems Problem Notes Elliott pt, asked sp to deliv er02/27 DONNA Justice noted 32wks Problem Name Start Date End Date Resolution Snomed Code Not e Chiari malformation 08/23/2022 [id number] decompressed, no neuro follow up required per her team Proteinuria 70741860 with swe lling - 1x/wk testing. Monitor for pre-e Anxiety 77966390 Seeing PCP 10/22/22 to discuss medication. Pt states she is doing well on zoloft 100mg on 12/02/22! Han Calculation Initial Han Date Initial Exam Date Initial Exam Provider Initial Ultrasound Date Last Menstrual Period Date Ultra Sound Weeks Gestation 03/24/2023 09/09/2022 08/21/2022 9 Eighteen To Twenty Week Han Update Ultra Sound Date Fundal Height At Umbil Quickening Date Ultra Sound Latest Weeks Gestation Final Han Confirmed By Final Han Confirmed Date Final Han Date Ultra Sound Latest Days Gestation 0 [email or web address] 09/09/2022 03/24/20 23 0 Pre- Flowsheet Flowsheet Date 09/09/2022 Feldman Score Blood Edema Fundus Height Fundus Units Glucose Ketones Leukocytes Nitrite Labor Signs Protein Cervic Dilation Cervic Effacement Cervic Station neg none none trace Type Weight in lbs Pre/Post Dialysis Refused Weight 155.49723132714 BP Diastolic BP Location Tested BP Systolic BP Type 76 115 Fetus Heart Rate Present A 160 Fetus Movement A No Comments zulma is a 21yo G1 at 12.0 who presents for care. Her history is noncontributory except for a history of chiari malformation that was decompressed and does not require any follow up per her neurosurg team. She is getting her flu shot this week. Undecided on COVID booster. Labs and NIPT today. NT wnl today. Had some itching last week, but otherwise feeling great. Flowsheet Date 10/09/2022 Feldman Score Blood Edema Fundus Height Fundus Units Glucose Ketones Leukocytes Nitrite Labor Signs Protein Cervic Dilation Cervic Effacement Cervic Station neg none none trace Type Weight in lbs Pre/Post Dialysis Refused BP Diastolic BP Location Tested BP Systolic BP Type Fetus Heart Rate Present A 135 Present Fetus Movement A No Comments patient is having some cramp ing and back pain. seeing chiropractor, plan maternity support belt around 28 weeks, planning flu vaccine but has not gotten it yet , precautions reviewed f/u 4 weeks anatomy scan Flowsheet Date 11/06/2022 Feldman Score Blood Edema Fundus Height Fundus Units Glucose Ketones Leukocytes Nitrite Labor Signs Protein Cervic Dilation Cervic Effacement Cervic Station Type Weight in lbs Pre/Post Dialysis Refused BP Diastolic BP Location Tested BP Systolic BP Type Fetus Heart Rate Present Fetus Movement Comments Flowsheet Date 11/06/2022 Feldman Score Blood Edema Fundus Height Fundus Units Glucose Ketones Leukocytes Nitrite Labor Signs Protein Cervic Dilation Cervic Effacement Cervic Station Type Weight in lbs Pre/Post Dialysis Refused Weight 160.197020059480 BP Diastolic BP Location Tested BP Systolic BP Type 78 123 Fetus Heart Rate Present Fetus Movement Comments anatomy incomplete, f/u 4 we eks, increase zoloft to 50 mg and med check at next visit, ok for unison at hs, 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, labor/ classes, f/u 4 weeks Flowsheet Date 12/04/2022 Feldman Score Blood Edema Fundus Height Fundus Units Glucose Ketones Leukocytes Nitrite Labor Signs Protein Cervic Dilation Cervic Effacement Cervic Station Type Weight in lbs Pre/Post Dialysis Refused BP Diastolic BP Location Tested BP Systolic BP Type Fetus Heart Rate Present Fetus Movement Comments Flowsheet Date 12/04/2022 Feldman Score Blood Edema Fundus Height Fundus Units Glucose Ketones Leukocytes Nitrite Labor Signs Protein Cervic Dilation Cervic Effacement Cervic Station neg none none trace Type Weight in lbs Pre/Post Dialysis Refused Weight 173.126818875164 BP Diastolic BP Location Tested BP Systolic BP Type 84 129 Fetus Heart Rate Present Fetus Movement A Yes Comments patient stated that felt pop today while at work and discharge. no pain, no leaking or bleeding, us wnl anatomy complete, efw 50%, discussed classes, increase hydration, ice ok, plan 4 week GCT, precautions reviewed no lifting over 25 lbs Flowsheet Date 12/24/2022 Feldman Score Blood Edema Fundus Height Fundus Units Glucose Ketones Leukocytes Nitrite Labor Signs Protein Cervic Dilation Cervic Effacement Cervic Station Type Weight in lbs Pre/Post Dialysis Refused BP Diastolic BP Location Tested BP Systolic BP Type Fetus Heart Rate Present Fetus Movement Comments Flowsheet Date 01/03/2023 Feldman Score Blood Edema Fundus Height Fundus Units Glucose Ketones Leukocytes Nitrite Labor Signs Protein Cervic Dilation Cervic Effacement Cervic Station 28 Type Weight in lbs Pre/Post Dialysis Refused Weight 180.311253787218 BP Diastolic BP Location Tested BP Systolic BP Type 76 119 Fetus Heart Rate Present Fetus Movement Comments GCT and labs today, having t rouble sleeping due to back pain, maternity support belt, flexeril sparingly ok, unsure about classes, precautions reviewed f/u 2 weeks Flowsheet Date 01/17/2023 Feldman Score Blood Edema Fundus Height Fundus Units Glucose Ketones Leukocytes Nitrite Labor Signs Protein Cervic Dilation Cervic Effacement Cervic Station neg trace 28 none trace Type Weight in lbs Pre/Post Dialysis Refused Weight 183.305202905787 BP Diastolic BP Location Tested BP Systolic BP Type 81 117 Fetus Heart Rate Present A 145 Present Fetus Movement A Yes Comments patient states that has incr eases anxiety, swelling and nausea. in LD x 2 last week for elevated bp, no elevated bp on admission, labs wnl, 24 hr urine 180. not sleeping due to anxiety will increase zoloft, precautions reviewed growth next visit med check next visit Flowsheet Date 01/29/2023 Feldman Score Blood Edema Fundus Height Fundus Units Glucose Ketones Leukocytes Nitrite Labor Signs Protein Cervic Dilation Cervic Effacement Cervic Station neg none none trace Type Weight in lbs Pre/Post Dialysis Refused Weight 188.702950405794 BP Diastolic BP Location Tested BP Systolic BP Type 80 123 Fetus Heart Rate Present Fetus Movement A Yes Comments patient is having tailbone p ain and discharge. efw 35%,rec yoga ball, ice/heat, call for preadmit, precautions reviewed f/u 2 weeks Flowsheet Date 01/29/2023 Feldman Score Blood Edema Fundus Height Fundus Units Glucose Ketones Leukocytes Nitrite Labor Signs Protein Cervic Dilation Cervic Effacement Cervic Station Type Weight in lbs Pre/Post Dialysis Refused BP Diastolic BP Location Tested BP Systolic BP Type Fetus Heart Rate Present Fetus Movement Comments Flowsheet Date 02/04/2023 Feldman Score Blood Edema Fundus Height Fundus Units Glucose Ketones Leukocytes Nitrite Labor Signs Protein Cervic Dilation Cervic Effacement Cervic Station neg none none trace Type Weight in lbs Pre/Post Dialysis Refused Weight 189.998714122964 BP Diastolic BP Location Tested BP Systolic BP Type 80 119 Fetus Heart Rate Present Fetus Movement A Yes Comments Pt c/o left side/hip pain th at started yesterday. States discomfort is constant but is sometimes worse when rolling over or standing up. Abdomen soft to palpation. Normal bowel movements. Does have some urinary discomfort and frequency. Increase water and decrease caffeiee. Will send out macrobid. Urine sent for culture. Will check ultrasound today. Flowsheet Date 02/04/2023 Feldman Score Blood Edema Fundus Height Fundus Units Glucose Ketones Leukocytes Nitrite Labor Signs Protein Cervic Dilation Cervic Effacement Cervic Station Type Weight in lbs Pre/Post Dialysis Refused BP Diastolic BP Location Tested BP Systolic BP Type Fetus Heart Rate Present Fetus Movement Comments Flowsheet Date 02/12/2023 Feldman Score Blood Edema Fundus Height Fundus Units Glucose Ketones Leukocytes Nitrite Labor Signs Protein Cervic Dilation Cervic Effacement Cervic Station neg trace 33 none trace Type Weight in lbs Pre/Post Dialysis Refused Weight 194.988338850202 BP Diastolic BP Location Tested BP Systolic BP Type 81 118 Fetus Heart Rate Present A 150 Present Fetus Movement A Yes Comments patient is having swelling a nd contractions. doing 24 hr urine, labs 02/11 wnl, precautions reviewed. education done f/upending urine protein Flowsheet Date 02/17/2023 Feldman Score Blood Edema Fundus Height Fundus Units Glucose Ketones Leukocytes Nitrite Labor Signs Protein Cervic Dilation Cervic Effacement Cervic Station Type Weight in lbs Pre/Post Dialysis Refused BP Diastolic BP Location Tested BP Systolic BP Type Fetus Heart Rate Present Fetus Movement Comments Flowsheet Date 02/17/2023 Feldman Score Blood Edema Fundus Height Fundus Units Glucose Ketones Leukocytes Nitrite Labor Signs Protein Cervic Dilation Cervic Effacement Cervic Station Type Weight in lbs Pre/Post Dialysis Refused BP Diastolic BP Location Tested BP Systolic BP Type Fetus Heart Rate Present Fetus Movement Comments Flowsheet Date 02/17/2023 Feldman Score Blood Edema Fundus Height Fundus Units Glucose Ketones Leukocytes Nitrite Labor Signs Protein Cervic Dilation Cervic Effacement Cervic Station neg none none trace Type Weight in lbs Pre/Post Dialysis Refused Weight 195.450239228164 BP Diastolic BP Location Tested BP Systolic BP Type 83 135 Fetus Heart Rate Present Fetus Movement A Yes Comments Doing well. A few dots/rash on each of her arms. No itching or discomfort. No other areas. Will continue to monitor. If any worsening of symptoms or itching/discomfort she will let us know right away.RUQ discomfort present today. Occasional headaches. Did have visual disturbances a week ago but not again since then. Sent to L&D for evaluation. Flowsheet Date 02/27/2023 Feldman Score Blood Edema Fundus Height Fundus Units Glucose Ketones Leukocytes Nitrite Labor Signs Protein Cervic Dilation Cervic Effacement Cervic Station Type Weight in lbs Pre/Post Dialysis Refused BP Diastolic BP Location Tested BP Systolic BP Type Fetus Heart Rate Present Fetus Movement Comments Flowsheet Date 02/27/2023 Feldman Score Blood Edema Fundus Height Fundus Units Glucose Ketones Leukocytes Nitrite Labor Signs Protein Cervic Dilation Cervic Effacement Cervic Station Type Weight in lbs Pre/Post Dialysis Refused BP Diastolic BP Location Tested BP Systolic BP Type Fetus Heart Rate Present Fetus Movement Comments Flowsheet Date 02/27/2023 Feldman Score Blood Edema Fundus Height Fundus Units Glucose Ketones Leukocytes Nitrite Labor Signs Protein Cervic Dilation Cervic Effacement Cervic Station neg trace 36 none trace 1cm 70% -2 Type Weight in lbs Pre/Post Dialysis Refused Weight 199.534428058234 BP Diastolic BP Location Tested BP Systolic BP Type 89 139 Fetus Heart Rate Present Fetus Movement A Yes Comments Doing well but does c/o a he adache today. It was off and on over the weekend. Does have some RUQ discomfort. Seems more . Will send to L&D for evaluation. We discussed pih precautions in detail and pt verbalized understanding. GBS collected. Flowsheet Date 03/05/2023 Feldman Score Blood Edema Fundus Height Fundus Units Glucose Ketones Leukocytes Nitrite Labor Signs Protein Cervic Dilation Cervic Effacement Cervic Station Type Weight in lbs Pre/Post Dialysis Refused BP Diastolic BP Location Tested BP Systolic BP Type Fetus Heart Rate Present Fetus Movement Comments Flowsheet Date 03/05/2023 Feldman Score Blood Edema Fundus Height Fundus Units Glucose Ketones Leukocytes Nitrite Labor Signs Protein Cervic Dilation Cervic Effacement Cervic Station Type Weight in lbs Pre/Post Dialysis Refused BP Diastolic BP Location Tested BP Systolic BP Type Fetus Heart Rate Present Fetus Movement Comments Flowsheet Date 03/05/2023 Feldman Score Blood Edema Fundus Height Fundus Units Glucose Ketones Leukocytes Nitrite Labor Signs Protein Cervic Dilation Cervic Effacement Cervic Station neg none none trace Type Weight in lbs Pre/Post Dialysis Refused Weight 201.552784997990 BP Diastolic BP Location Tested BP Systolic BP Type 85 135 Fetus Heart Rate Present Fetus Movement A Yes Comments patient is having leg cramps , pain, contractions, discharge, and swelling. was given compazine for fuentes in LD and resolved over the weekend, discussed 39 week iol due to sxs, cervix 1-2/70/-2 will schedule for march 17. reviewed precautions labor and PIH f/u one weekbpp 06/17 Menstrual History Last Menstrual Date Menses Monthly On Bcp Conception Prior Menses Frequency Hcg Plus Date Menarche Onset Age Genetic Screening And Infection History Question Response Note Mental Retardation/Autism false Patient's Age Will Be 35 Years Or Older At Estim ated Date of Delivery false Thalassemia (Frisian, Nigerian, Mediterranean, Or Background): MCV < 80 false Neural Tube Defect (Meningomyelocele, Spina Bifi da, Or Anencephaly) false Congenital Heart Defect false Down Syndrome false Anshul-Sachs (eg, Orthodoxy, Cajun, Maori-Irish) f alse Thomas Disease false Sickle Cell Disease Or Trait () false Hemophilia Or Other Blood Disorders false Muscular Dystrophy false Cystic Fibrosis false [place]'s Chorea false Intellectual Disability/Autism false If Yes, Was Person Tested For Fragile X? false Other Inherited Genetic Or Chromosomal Disorder false Maternal Metabolic Disorder (eg, Type 1 Diabetes , PKU) false Patient Or Baby's Father Had A Child With Defects Not Listed Above false Recurrent Loss, Or A Stillbirth false Medications (including Suppl ements, Vitamins, Herbs, OTC Drugs), Illicit/Recreational Drugs, Alcohol false If Yes, Agent(s) And Strength/Dosage false Any Other Genetic History false Live With Someone With TB Or Exposed To TB false Patient Or Partner Has History Of Genital Herpes false Rash Or Viral Illness Since Last Menstrual Perio d false History Of STD, Gonorrhea, Chlamydia, HPV, Syphi lis false Other Infection History false History of HIV false History of Hepatitis false Prior GBS-infected child false Hemoglobinopathy Or Carrier false Other Structural Defect false Recent Travel History Outside of Country false Delivery Information Delivery Date Delivery Type Labor Anesthesia Weeks Gestation Incision Type Labor Labor Length Hrs Delivered By Post Complications Tubal Sterilization Discharge Date Comments elham [facility] idural 38.2 false [place], Cathi CNM Pre eclampsia , proteinur ia, anxiety Discharge Information Feeding Method Contraceptive Method Maternal HG B and HCT Levels Ob Episode Information Episode Created Date Number of Fetuses Patient Bloodtype Patient rh Status Prepregnancy Weight lbs Domestic Partner Domestic Partner Phone Father Name Covered Button Maker Status 04/22/20 25 1 A Positive 176 [address] Brant OPEN Fetus Data First Name Last Name Admitted to NICU Weight (g) Sex Living Outcome Pediatric Complications Fetus ID Race Codes Race Delivery Type [id number] Problems Problem Notes Problem Name Start Date End Date Resolution Snomed Code Not e Migraine 04/22/2025 [id number] imitrex Pre-eclampsia 04/22/2025 [id number] last pregancystart bASA 81 mg Han Calculation Initial Han Date Initial Exam Date Initial Exam Provider Initial Ultrasound Date Last Menstrual Period Date Ultra Sound Weeks Gestation 10/24/2025 03/09/2025 03/09/2025 01/17/2025 7 Eighteen To Twenty Week Han Update Ultra Sound Date Fundal Height At Umbil Quickening Date Ultra Sound Latest Weeks Gestation Final Han Confirmed By Final Han Confirmed Date Final Han Date Ultra Sound Latest Days Gestation 0 10/24/20 25 0 Pre-olimpia Flowsheet Flowsheet Date 04/22/2025 Feldman Score Blood Edema Fundus Height Fundus Units Glucose Ketones Leukocytes Nitrite Labor Signs Protein Cervic Dilation Cervic Effacement Cervic Station trace none none trace Type Weight in lbs Pre/Post Dialysis Refused Weight 182.857007383159 BP Diastolic BP Location Tested BP Systolic BP Type 81 125 Fetus Heart Rate Present Fetus Movement A No Comments hx previous vaginal delivery , hx preeclampsia and migraine, plan bASA daily, imitrex for migraine, reviewed us begin routine care Menstrual History Last Menstrual Date Menses Monthly On Bcp Conception Prior Menses Frequency Hcg Plus Date Menarche Onset Age 0301/17/2025 Delivery Information Delivery Date Delivery Type Labor Anesthesia Weeks Gestation Incision Type Labor Labor Length Hrs Delivered By Post Complications Tubal Sterilization Discharge Date Comments Discharge Information Feeding Method Contraceptive Method Maternal HG B and HCT Levels
--- OUTSIDE RECORDS SUMMARY | 2025-04-25 14:39 | XMS_ITS | Clinical Summary ---
Author Organization [facility] Address [facility] [place] [address] Care Team Providers Care Neurosurgical Physician Assistant Name Role Phone Dee Mcmillan MD Primary Care Provider Geri Egan NP Unavailable [phone] Allergies Active Allergy Reactions Criticality Noted Date Comments Promethazine Rash Medium 01/30/2017 Medications Crl-Yd-Wgnrhxas 0.18/0.215/0.25 mg-25 mcg per tablet 01/16/2021 Active [...] Unspecified 06/04/2002,03/18/2002, 002 Tdap 06/26/2013 Varicella 06/21/2016,08/01/2004 Surgical History Surgery Date Site/Laterality Comments CRANIECTOMY SUBOCCIPITAL W/ CERVICAL LAMINECTOMY / CHIARI 11/10/2016 - 11/09/2017 Medical History Medical History Date Comments Anxiety Family History Medical History Relation Name Comments Hypertension Father Cancer Mother Cancer Paternal Grandfather Cancer Paternal Grandmother Relation Name Status Comments Father Mother Paternal Grandfather Paternal Grandmother Social History Tobacco Use Types Packs/Day Years [...] on file 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 Gender Identity Not on file Sexual Orientation Not on file 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 Not on file Not on file Obstetrics History Last Filed Vital Signs Vital Sign Reading [...] 06/07/2024 1:41 PM CDT Plan of Treatment Health Maintenance Due Date Last Done Comments Cervical Cancer Screening 2001 Depression Screening 2001 Hepatitis C Screening 2001 Regular Well Visit/Exam 18-64 2019 Meningococcal B Vaccine (2 of 2 - Bexsero SCDM 2-dose series) 12/19/2019 06/18/2019 DTaP/Tdap/Td Vaccine (7 - Td or Tdap) 06/26/2023 06/26/2013, 05/30/2007, 05/30/2007, Additional history exists Influenza Vaccine (Season Ended) 2025 08/25/2009, 09/16/2008 Pneumococcal vaccine <65 Aged Out 03/18/2002, 05/2002 No longer eligible based on patient's age to complete this topic Hepatitis B Screening Completed 08/01/2004 , 03/18/2002, 01/14/2002 Varicella Vaccines Completed 06/21/2016, 08/01/2004 HPV Vaccines Completed 06/18/2019, 06/21/2016 Insurance [facility] CHO[place] Care Teams Neurosurgical Physician Assistant Relationship Specialty Start Date End Date Dee Mcmillan MD [address] [place] [phone] PCP - General Family Medicine 05/17/24 Geri Egan NP [address] [place] [address] Nurse Practitioner Nurse Practitioner 05/17/24
--- NOTE | 2025-04-25 14:53 | ED_ITS ---
HPI - Abdominal Pain General Chief Complaint: Abdominal Pain Stated Complaint: 14 weeks preg, lower abd pain Time Seen by Provider: 04/25/25 14:33 Source: patient Mode of arrival: ambulatory Limitations: no limitations History of Present Illness HPI narrative: Patient is a 24 y/o female who presents to the ED with c/o lower abdominal pain. Patient is currently 13 weeks gestation, confirmed IUP, sees Cathi Hopson meat soaker [facility]. Developed lower abdominal pain/cramping yesterday. Went to an ED yesterday, diagnosed with a UTI, rx'd keflex, but was unable to pick this up until this morning. Reports worsening pain overnight and today to the point of N/V. Denies vaginal bleeding. Denies fevers, diarrhea, history of kidney stones. Related Data Home Medications ?Medication ?Instructions ?Recorded ?Confirmed ?Last Taken ?Type cyclobenzaprine 5 mg tablet 5 mg PO Q8H PRN Back Pain 02/27/23 04/25/25 Unknown History prenat.vits,jun,dlf-ikxe-hyuok 1 tablet PO HS 02/27/23 04/25/25 02/26/23 20:00 History cephalexin 500 mg capsule 500 mg PO Q12H 04/25/25 04/25/25 04/25/25 History Allergies Allergy/AdvReac Type Severity Reaction Status Date / Time No Known Allergies Allergy Verified 04/25/25 13:43 Review of Systems 2 Review of Systems: All systems reviewed & are unremarkable except as noted in HPI. All systems reviewed & are unremarkable except as noted in HPI and below PMFSH Family History Family History Other Patient denies significant medical history Social History Social History Smoking status: Never smoker Second hand tobacco smoke exposure: No Substance use: never Lack of Transportation: No Lack of Food: Never True Current Housing: I Have Housing Concerned About Future Housing: No Difficulty Paying Gas/Electric Bills: No Difficulty Paying for Meds: No Currently Unemployed: No Education: Associate Degree Difficulty w/ Childcare or Family Care: No Spiritual care concerns: No Exam 2 Narrative: GENERAL: Mildly uncomfortable appearing, well-nourished, non-toxic, in no acute distress. HEAD: Normocephalic, atraumatic. RESPIRATORY: Airway patent, respirations nonlabored. Clear to auscultation bilaterally, no rales, rhonchi, wheezing. CARDIOVASCULAR: Regular rate and rhythm without murmurs, rubs, or gallops. ABDOMINAL: Soft, tenderness throughout lower abdomen, suprapubic region, LLQ. Nondistended. Normoactive BS. MUSCULOSKELETAL: Moves all extremities. No gross deformities. SKIN: Warm, dry, normal color. NEURO: A&O X3. Speech clear. PSYCHIATRIC: Appropriate mood and affect. Normal interaction. Course Vital Signs Vital signs: Vital Signs Temperature 97.9 F 04/25/25 13:39 Pulse Rate 92 04/25/25 13:39 Respiratory Rate 18 04/25/25 13:39 Blood Pressure 136/84 04/25/25 13:39 Pulse Oximetry 100 04/25/25 13:39 Oxygen Delivery Room Air 04/25/25 13:39 Temperature 97.9 F 04/25/25 13:39 Pulse Rate 78 04/25/25 16:56 Respiratory Rate 18 04/25/25 16:56 Blood Pressure 129/77 04/25/25 16:56 Pulse Oximetry 100 04/25/25 16:56 Oxygen Delivery Room Air 04/25/25 14:55 MDM - Abdominal Pain MDM Narrative Medical decision making narrative: Patient presented to ED with lower abdominal pain, diagnosed with urinary tract infection yesterday. Currently 13 weeks gestation. Vital signs are stable upon arrival, however patient is mildly uncomfortable appearing, shaking around holding her abdomen on the stretcher. Cbc with blood cell count of 13.0. Neutrophil predominance. No bandemia. Per records, does appear she has a fairly chronic leukocytosis. CMP is unremarkable. Normal LFTs and lipase. Urine here is completely clear. Discussed lab and imaging findings with patient. Patient given fluids, she did take Tylenol prior to arrival. She is reporting fairly significant pain on re-evaluation. I did utilize bedside ultrasound and was able to visualize fetus, good movement, good heart tones. Discussed case with Dr. Robison, OBGYN on-call for [facility], agreed with plan for MRI of the abdomen to rule out intra-abdominal surgical abnormality. Dr. Robison was also in agreement with small dose of pain medication. Patient is agreeable to plan. MRI was obtained and without acute intraabdominal findings. No surgical findings. Normal appendix. Does show lumbar DDD, which patient is aware of. Patient was given half a mg of Dilaudid. On re-evaluation, she is feeling improved. Discussed overall reassuring workup. Feel patient is safe for discharge home with close outpatient medical assistant ob gyn follow up. She is in agreement with plan. Feels comfortable going home. Advised to continue Tylenol as needed for pain. Given return precautions. Discharged in stable condition. Medical Records Attestation: I reviewed the patient's medical records. Lab Data Attestation: I reviewed the patient's lab results. 04/25/25 15:05 04/25/25 15:05 Labs: Lab Results 04/25/25 04/25/25 Range/Units 15:01 15:05 WBC 13.0 H (4.5-10.0) K/mm3 RBC 4.12 L (4.2-5.4) M/mm3 Hgb 12.6 (12.0-15.0) g/dL Hct 38.1 (37.0-47.0) % MCV 92.5 (80-100) fl MCH 30.6 (26-34) pg MCHC 33.1 (32-36) g/dl RDW 13.0 (11.5-14.5) % Plt Count 307 (150-375) k/mm3 MPV 10.5 H (7.4-10.4) fl Immature Gran % (Auto) 0.4 (0-0.5) % Neut % (Auto) 81.3 H (45.5-73.1) % Lymph % (Auto) 12.3 L (18.3-44.2) % [place] % (Auto) 5.0 (2.6-8.5) % Eos % (Auto) 0.5 (0-4.4) % Baso % (Auto) 0.5 (0.2-1.2) % Lymph # (Auto) 1.60 (0.9-3.2) K/mm3 [place] # (Auto) 0.7 H (0.1-0.6) K/mm3 Eos # (Auto) 0.1 (0-0.3) K/mm3 Baso # (Auto) 0.1 (0.0-0.1) K/mm3 Abs Immat Gran (auto) 0.05 H (0.00-0.031) K/mm3 Absolute Neuts (auto) 10.6 H (1.3-6.7) K/mm3 Absolute Nucleated RBC 0.000 (0.0-0.012) K/mm3 Nucleated RBC % 0.0 (0.0-0.2) % Sodium 136 L (137-145) mmol/L Potassium 3.8 (3.4-5.0) mmol/L Chloride 108 H (98-107) mmol/L Carbon Dioxide 22 (22-30) mmol/L Anion Gap 6 (4-12) mmol/L BUN 5 L (7-17) mg/dL Creatinine 0.48 L (0.7-1.0) mg/dL Estim Creat Clear Calc 157 ml/min Estimated GFR > 60 (59 - ) Glucose 110 (65-110) mg/dL Calcium 9.0 (8.4-10.2) mg/dL Total Bilirubin 0.5 (0.2-1.3) mg/dL AST 22 (14-36) U/L ALT 13 (6-35) U/L Alkaline Phosphatase 51 (38-126) U/L Total Protein 7.2 (6.3-8.2) g/dL Albumin 4.0 (3.5-5.1) g/dL Lipase 71 (23-300) U/L Urine Color Yellow (Yellow) Urine Appearance Clear (Clear) Urine pH 7.5 (5.0-9.0) Ur Specific [place] 1.013 (1.001-1.035) Urine Protein Negative (Negative) mg/dL Urine Glucose (UA) Negative (Negative) mg/dL Urine Ketones Negative (Negative) mg/dL Ur Blood (Man) Negative (Negative) Urine Nitrate Negative (Negative) Urine Bilirubin Negative (Negative) Urine Urobilinogen 0.2 (<2.0) mg/dL Leukocyte Esterase Rfl Negative (Negative) SHADY/UL Imaging Data Attestation: I personally reviewed and interpreted this imaging study as follows: Radiologist's impression: ITS Impressions Abdomen MRI 04/25/25 18:06 IMPRESSION: No acute intra-abdominal or intrapelvic findings, as detailed above. Significant degenerative disease within the lower lumbar spine, far advanced for patient of this age. Discharge Plan Discharge Clinical Impression: Lower abdominal pain, 13 weeks gestation of Degenerative disc disease, lumbar Qualifiers: Disc-related pain type: unspecified whether pain present Qualified Code(s): M 51.369 - Other intervertebral disc degeneration, lumbar region without mention of lumbar back pain or lower extremity pain Patient Disposition: Home Condition: Stable Instructions: Antibiotic Form, Constipation (ED), High Fiber Diet (ED), Abdominal Pain (ED), at 11 to 14 Weeks (ED) Additional Instructions: Continue Tylenol as needed for pain. You may take 1000mg every 6 hours. Stay well hydrated. Follow-up with your OBGYN for further evaluation. Return for new or worsening concerns, difficulty urinating, unable to keep down food or drink, vaginal bleeding, leakage of fluid, or any other symptoms of concern. You can take MiraLax as needed for constipation up to twice a day. Recommend high-fiber diet, plenty of hydration. Patient Language: [place] Prescriptions: No Action cephalexin 500 mg capsule 500 mg PO Q12H prenat.vits,jun,mvh-fbfa-xufhk Tablet 1 tablet PO HS cyclobenzaprine 5 mg tablet 5 mg PO Q8H PRN (Reason: Back Pain) Follow-up/Referrals: PHYSICIAN NOT ON STAFF,NONSTAFF [Primary Care Provider] - Cathi Hopson CNM [Certified Nurse Rug Backing Stenciler] - (OBGYN) Time of Disposition: 18:32
[2025-04-25 14:55] VITALS: BP 142/80; PULSE 74; RESP 18; O2SAT 100
[2025-04-25 15:11] LABS: Basophils Absolute Auto 0.1 K/mm3 (0.0-0.1); Basophils Percent Auto 0.5 % (0.2-1.2); Eosinophils Absolute Auto 0.1 K/mm3 (0-0.3); Eosinophils Percent Auto 0.5 % (0-4.4); Hematocrit 38.1 % (37.0-47.0); Hemoglobin 12.6 g/dL (12.0-15.0); Immature Granulocyte Absolute 0.05 K/mm3 (0.00-0.031); Immature Granulocyte Percent A 0.4 % (0-0.5); Lymphocytes Percent Auto 12.3 % (18.3-44.2); Mean Corpuscular HGB Conc 33.1 g/dl (32-36); Mean Corpuscular Hemoglobin 30.6 pg (26-34); Mean Corpuscular Volume 92.5 fl (80-100); Mean Platelet Volume 10.5 fl (7.4-10.4); Monocytes Absolute Auto 0.7 K/mm3 (0.1-0.6); Neutrophils Absolute Auto 10.6 K/mm3 (1.3-6.7); Neutrophils Percent Auto 81.3 % (45.5-73.1); Platelet Count Result 307 k/mm3 (150-375); Red Blood Count 4.12 M/mm3 (4.2-5.4)
[2025-04-25] MEDS: SODIUM CHLORIDE 0.9% IV 1,000 ML 999 ML IV CONT (15:16)
[2025-04-25 15:17] VITALS: BP 143/80; PULSE 75; RESP 17; O2SAT 100
[2025-04-25 15:18] LABS: Add Urine Microscopic? NO; Appearance Urine Clear (Clear); Bilirubin Urine Negative (Negative); Blood Urine Negative (Negative); Color Urine Yellow (Yellow); Glucose Urine UA Negative (Negative); Ketones Urine Negative (Negative); Leukocyte Esterase Ur Negative LEU/UL (Negative); Nitrate Urine Negative (Negative); Protein Urine Negative (Negative); Specific Grav Ur 1.013 (1.001-1.035); Urobilinogen Urine 0.2 mg/dL (<2.0); pH Urine 7.5 (5.0-9.0)
[2025-04-25 15:23] LABS: Alanine Aminotransferase 13 U/L (6-35); Alkaline Phosphatase 51 U/L (38-126); Anion Gap 6 mmol/L (4-12); Aspartate Amino Transferase 22 U/L (14-36); Bilirubin,Total 0.5 mg/dL (0.2-1.3); Blood Urea Nitrogen 5 mg/dL (7-17); Carbon Dioxide 22 mmol/L (22-30); Chloride 108 mmol/L (98-107); Estimated CRCL calculation 157 ml/min; Estimated Glomerular Filt Rate > 60; Glucose 110 mg/dL (65-110); Lipase 71 U/L (23-300); Potassium 3.8 mmol/L (3.4-5.0); Sodium 136 mmol/L (137-145); Total Protein 7.2 g/dL (6.3-8.2)
--- OUTSIDE RECORDS SUMMARY | 2025-04-25 15:48 | XMS_ITS | Clinical Summary ---
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
--- OUTSIDE RECORDS SUMMARY | 2025-04-25 15:48 | XMS_ITS | Referral Summary ---
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
[2025-04-25] MEDS: HYDROmorphone HCL INJ (*CRX) 2 MG/ML VIAL 0.5 MG IV PUSH (16:51)
[2025-04-25 16:56] VITALS: BP 129/77; PULSE 78; RESP 18; O2SAT 100
== END 2025-04-25 18:43 | disposition home or self-care (01) ==
PROVIDERS: Emergency Provider Physician Assistant
DX: O26.891 Other specified pregnancy related conditions, first trimester (principal); R10.30 Lower abdominal pain, unspecified; O99.891 Other specified diseases and conditions complicating pregnancy; M51.369 Other intervertebral disc degeneration, lumbar region without mention of lumbar back pain or lower extremity pain; O23.41 Unspecified infection of urinary tract in pregnancy, first trimester; N39.0 Urinary tract infection, site not specified; Z3A.13 13 weeks gestation of pregnancy
CPT/HCPCS: 36415; 74181; 80053; 81003; 83690; 85025; 96361; 96374; 99284; J1171; J7030

== ENCOUNTER 2025-07-25 15:30 | Outpatient (CLI) | payer BC, SELFPAY ==
[2025-07-25 16:01] VITALS: BP 125/77; PULSE 98
[2025-07-25 16:11] LABS: Total Protein Urine Random 6 mg/dL; Ur Ttl Prot Creatinine Ratio 0.04 mg/mg (0-0.20)
[2025-07-25 16:12] LABS: Add Urine Microscopic? YES; Appearance Urine Cloudy (Clear); Glucose Urine UA Negative (Negative); Leukocyte Esterase Ur Negative LEU/UL (Negative); Nitrate Urine Negative (Negative); Non Pathogenic Casts 0-2; Specific Grav Ur 1.030 (1.001-1.035)
[2025-07-25 16:13] LABS: Alanine Aminotransferase 16 U/L (6-35); Albumin Level 3.6 g/dL (3.5-5.1); Alkaline Phosphatase 107 U/L (38-126); Anion Gap 6 mmol/L (4-12); Aspartate Amino Transferase 20 U/L (14-36); Bilirubin,Total 0.4 mg/dL (0.2-1.3); Blood Urea Nitrogen 10 mg/dL (7-17); Calcium 9.1 mg/dL (8.4-10.2); Carbon Dioxide 22 mmol/L (22-30); Chloride 106 mmol/L (98-107); Estimated Glomerular Filt Rate > 60; Glucose 86 mg/dL (65-110); Potassium 4.0 mmol/L (3.4-5.0); Sodium 134 mmol/L (137-145); Total Protein 7.0 g/dL (6.3-8.2); Uric Acid 4.2 mg/dL (2.5-7.5)
[2025-07-25 16:16] VITALS: BP 119/75; PULSE 100
[2025-07-25 16:29] LABS: Hematocrit 33.6 % (37.0-47.0); Hemoglobin 10.9 g/dL (12.0-15.0); Immature Granulocyte Percent A 1.1 % (0-0.5); Lymphocytes Absolute Auto 2.02 K/mm3 (0.9-3.2); Mean Corpuscular HGB Conc 32.4 g/dl (32-36); Mean Corpuscular Hemoglobin 30.8 pg (26-34); Mean Corpuscular Volume 94.9 fl (80-100); Nucleated Red Blood Cells Absolute Auto 0.000 K/mm3 (0.0-0.012); Nucleated Red Blood Cells Perc 0.0 % (0.0-0.2); Platelet Count Result 328 k/mm3 (150-375); Red Blood Count 3.54 M/mm3 (4.2-5.4); White Blood Count 13.7 K/mm3 (4.5-10.0)
[2025-07-25 16:31] VITALS: BP 118/70; PULSE 97
[2025-07-25 16:46] VITALS: BP 125/68; PULSE 96
[2025-07-25 17:23] VITALS: BP 125/77; PULSE 98
[2025-07-25 17:40] VITALS: BP 125/77; PULSE 96
--- OUTSIDE RECORDS SUMMARY | 2025-07-25 18:23 | XMS_ITS | Clinical Summary ---
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 Gender Identity Not on file Sexual Orientation [...] 05/30/2007, 05/30/2007, Additional history exists Influenza Vaccine (#1) 2025 08/25/2009, 2007 Pneumococcal vaccine <65 Aged Out 03/18/2002, 05/2002 No longer eligible based on patient's age to complete this topic Hepatitis B Screening Completed 08/01/2004 , 03/18/2002, 01/14/2002 Varicella Vaccines Completed 06/21/2016, 08/01/2004 HPV Vaccines Completed 06/18/2019, 06/21/2016 Insurance [facility] [place] [facility] ACC[facility] Care Teams Hot Dipper Relationship Specialty Start Date End Date Dee Mcmillan MD [address] [place] [id number] PCP - General Family Medicine 05/17/24 Geri Egan, DRYING MACHINE OPERATOR [employer] [address] [place] [id number] Nurse Practitioner Nurse Practitioner 05/17/24
== END 2025-07-25 16:50 | disposition home or self-care (01) ==
LOC: ANHOBOP 15:34 → ANHLDR 15:53
PROVIDERS: Visit Provider Advanced Practice Midwife
DX: O13.9 Gestational [pregnancy-induced] hypertension without significant proteinuria, unspecified trimester (principal); Z3A.00 Weeks of gestation of pregnancy not specified
CPT/HCPCS: 36415; 59025; 80053; 81001; 82570; 84156; 84550; 85025; 87086; 87186; 99199

== ENCOUNTER 2025-09-21 14:33 | Outpatient (CLI) | payer BC, SELFPAY ==
[2025-09-21 14:45] VITALS: BMI 39.5
[2025-09-21 15:11] VITALS: BP 141/79; PULSE 102
[2025-09-21 15:16] VITALS: BP 142/84; PULSE 108
[2025-09-21 15:19] LABS: Hematocrit 31.9 % (37.0-47.0); Hemoglobin 10.2 g/dL (12.0-15.0); Immature Granulocyte Percent A 0.5 % (0-0.5); Lymphocytes Absolute Auto 1.69 K/mm3 (0.9-3.2); Mean Corpuscular HGB Conc 32.0 g/dl (32-36); Mean Corpuscular Hemoglobin 30.1 pg (26-34); Mean Corpuscular Volume 94.1 fl (80-100); Nucleated Red Blood Cells Absolute Auto 0.000 K/mm3 (0.0-0.012); Nucleated Red Blood Cells Perc 0.0 % (0.0-0.2); Platelet Count Result 271 k/mm3 (150-375); Red Blood Count 3.39 M/mm3 (4.2-5.4); White Blood Count 12.1 K/mm3 (4.5-10.0)
[2025-09-21 15:31] VITALS: BP 144/79; PULSE 101
--- OUTSIDE RECORDS SUMMARY | 2025-09-21 15:32 | XMS_ITS | Clinical Summary ---
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
--- OUTSIDE RECORDS SUMMARY | 2025-09-21 15:32 | XMS_ITS | Continuity of Care Document ---
Author Organization [facility] Address [address] [place] [address] Assessment No assessment recorded. Plan of Treatment Reminders Order Date Submit Date Provider Last Modified By Organization Details Last Modified Time Details Appointments OB ROUTINE 2024 03:45P M Cathi Hopson CNM Not available Not available Not available Lab CBC w/ auto diff 2024 025 [facility] (Lab), [address], [place], [address], 09/21/2025 04:26:08 CMP, serum or plasma 2024 025 [facility] (Lab), [address] [place], [address], 09/21/2025 04:26:09 protein: creatini ne ratio, urine 2024 025 [facility] (Lab), [address], [place], [address], 09/21/2025 04:26:09 uric acid, serum or plasma 2024 025 [facility] (Lab), [address], [place], [address], 09/21/2025 04:26:08 Referral None recorded . Procedures None recorded . Surgeries None recorded . Imaging None recorded . Medication Orders None recorded . Patient TargetsNo targets recorded. Patient InstructionsNo instructions recorded. Reason for Referral None Reported. Results Created Date Observation Date Name Description Value Unit Range Abnormal Flag Note LastModifiedBy Organization Detail LastModifiedTime 08/12/2008/12/2025 HEMAT OCRIT (HCT) HCT 34.0 % (based on docume nted legal sex) 34.0-4 5.0 Not Available [facility] (Lab) [address], [place], [address], 08/13/2025 11:56:51 08/12/2008/12/2025 HEMOG LOBIN (HGB) HGB 11.1 g/dL (based on docume nted legal sex) 11.6-1 5.4 low Not Available [facility] (Lab) [address] [place], [address], 08/13/2025 11:56:52 08/12/20 25 08/12/2025 GTT - GESTA DELTA L ADRIÁN Luna, ACOG OB glucose, 1 hour screen 67 mg/dL 70-135 low Not Available [facility] (Lab) [address] [place], [address], 08/13/2025 11:56:52 08/12/2008/12/2025 HIV 1/2 ANTIG EN/AN TIBOD Y, REFLE X CONFI RMATI ON HIV antigen/anti body Nonrea ctive nonrea ctive HIV-1 antig en and HIV-1 /HIV- 2 antib odies were not detec elham. No labor atory evide nce of HIV infec tion. Not Available [facility] (Lab) [address], [place], [address], 08/13/2025 11:56:52 08/12/2008/12/2025 RPR SCREE N, REFLE X TITER /CONF IRMAT ION RPR qualitative Nonrea ctive nonrea ctive Not Available [facility] (Lab) [address] [place], [address], 08/13/2025 11:56:53 09/20/20 25 09/20/2025 URIC ACID uric acid 6.0 mg/dL 2.3-6. 6 Not Available [facility] (Lab) [address], [place], [address], 09/21/2025 04:26:08 09/20/20 25 09/20/2025 CBC W/DIF F WBC 10.8 10'3/ uL 3.5-10 .5 high Not Available [facility] (Lab) [address], [place], [address], 09/21/2025 04:26:08 09/20/20 25 09/20/2025 CBC W/DIF F RBC 3.56 10'6/ uL (based on docume nted legal sex) 3.80-5 .20 low Not Available [facility] (Lab) [address], [place], [address], 09/21/2025 04:26:08 09/20/20 25 09/20/2025 CBC W/DIF F HGB 10.7 g/dL (based on docume nted legal sex) 11.6-1 5.4 low Not Available [facility] (Lab) [address], [place], [address], 09/21/2025 04:26:08 09/20/20 25 09/20/2025 CBC W/DIF F HCT 33.4 % (based on docume nted legal sex) 34.0-4 5.0 low Not Available [facility] (Lab) [address], [place], [address], 09/21/2025 04:26:08 09/20/20 25 09/20/2025 CBC W/DIF F MCV 93.8 fL 80.0-9 9.0 Not Available [facility] (Lab) [address], [place], [address], 09/21/2025 04:26:08 09/20/20 25 09/20/2025 CBC W/DIF F MCH 30.1 pg 27.0-3 4.0 Not Available [facility] (Lab) [address], [place], [address], 09/21/2025 04:26:08 09/20/20 25 09/20/2025 CBC W/DIF F MCHC 32.0 g/dL 32.0-3 5.5 Not Available [facility] (Lab) [address] [facility], [place], [address], 09/21/2025 04:26:08 09/20/20 25 09/20/2025 CBC W/DIF F RDW 13.2 % 11.0-1 5.0 Not Available [facility] (Lab) [address], [place], [address], 09/21/2025 04:26:08 09/20/20 25 09/20/2025 CBC W/DIF F plt 285 10'3/ uL 150-40 0 Not Available [facility] (Lab) [address], [place], [address], 09/21/2025 04:26:08 09/20/20 25 09/20/2025 CBC W/DIF F MPV 12.2 fL 8.8-12 .1 high Not Available [facility] (Lab) [address], [place], [address], 09/21/2025 04:26:08 09/20/20 25 09/20/2025 CBC W/DIF F NRBC's 0.0 % 0.0 Not Available [facility] (Lab) [address], [place], [address], 09/21/2025 04:26:08 09/20/20 25 09/20/2025 CBC W/DIF F absolute NRBCs 0.0 10'3/ uL no refere nce range establ ished Not Available [facility] (Lab) [address], [place], [address], 09/21/2025 04:26:08 09/20/20 09/20/2025 CBC W/DIF F neutrophils 75.2 % 34.0-7 3.0 high Not Available [facility] (Lab) [address] [facility], [place], [address], 09/21/2025 04:26:08 09/20/20 25 09/20/2025 CBC W/DIF F lymphocytes 14.0 % 15.0-5 0.0 low Not Available [facility] (Lab) [address], [place], [address], 09/21/2025 04:26:08 09/20/20 25 09/20/2025 CBC W/DIF F monocytes 8.9 % 1.0-15 .0 Not Available [facility] (Lab) [address], [place], [address], 09/21/2025 04:26:08 09/20/20 25 09/20/2025 CBC W/DIF F eosinophils 0.9 % 0.0-8. 0 Not Available [facility] (Lab) [address], [place], [address], 09/21/2025 04:26:08 09/20/20 25 09/20/2025 CBC W/DIF F basophils 0.5 % 0.0-2. 0 Not Available [facility] (Lab) [address] [place], [address], 09/21/2025 04:26:08 09/20/20 25 09/20/2025 CBC W/DIF F immature granulocytes 0.5 % no define d refere nce range Immat ure Granu locyt es (IG) repre sents autom ated enume ratio n of Metam yeloc ytes, Myelo cytes and Promy elocy aleshia when IG is < 5%. Blast s are not inclu ded in IG and repor elham separ ately if prese nt. Not Available [facility] (Lab) [address], [place], [address], 09/21/2025 04:26:08 09/20/20 25 09/20/2025 CBC W/DIF F absolute neutrophils 8.2 10'3/ uL 1.5-8. 0 high Not Available [facility] (Lab) [address], [place], [address], 09/21/2025 04:26:08 09/20/20 25 09/20/2025 CBC W/DIF F absolute lymphocytes 1.5 10'3/ uL 1.0-4. 0 Not Available [facility] (Lab) [address], [place], [address], 09/21/2025 04:26:08 09/20/20 25 09/20/2025 CBC W/DIF F absolute monocytes 1.0 10'3/ uL 0.2-1. 0 Not Available [facility] (Lab) [address], [place], [address], 09/21/2025 04:26:08 09/20/20 25 09/20/2025 CBC W/DIF F absolute eosinophils 0.1 10'3/ uL 0.0-0. 6 Not Available [facility] (Lab) [address], [place], [address], 09/21/2025 04:26:08 09/20/20 25 09/20/2025 CBC W/DIF F absolute basophils 0.1 10'3/ uL 0.0-0. 3 Not Available [facility] (Lab) [address], [place], [address], 09/21/2025 04:26:08 09/20/20 25 09/20/2025 CBC W/DIF F absolute immature granulocytes 0.1 10'3/ uL 0.00-0 .10 Refer ence range s for nonbi nary/ inter sex or unspe cifie d gende r patie nts have not been estab lishe d. Pleas e refer to the follo wing table for range s estab lishe d for cisge nder patie nts and evalu ate in the clini jun ramesh xt of the indiv idual patie nt: https ://karely higuera book. nm.or g/gen derx Not Available [facility] (Lab) [address], [place], [address], 09/21/2025 04:26:08 09/20/20 25 09/20/2025 PROTE IN/CR EATIN INE RATIO , URINE creatinine, urine 133.1 mg/dL R-No refer ence range estab lishe d for this assay Not Available [facility] (Lab) [address], [place], [address], 09/21/2025 04:26:09 09/20/20 25 09/20/2025 PROTE IN/CR EATIN INE RATIO , URINE protein, urine 29 mg/dL R-No refer ence range estab lishe d for this assay Not Available [facility] (Lab) [address], [place], [address], 09/21/2025 04:26:09 09/20/20 25 09/20/2025 PROTE IN/CR EATIN INE RATIO , URINE protein/crea tinine ratio, urine 0.22 . No Refer ence Range avail able for Rando m Urine s. A prote in to creat inine ratio of >=0.1 9 is a good predi ctor of signi fican t prote inuri a. A level of <0.14 can rule out signi fican t prote inuri a. Not Available [facility] (Lab) [address], [place], [address], 09/21/2025 04:26:09 09/20/20 25 09/20/2025 CMP(C OMPRE HENSI VE METAB OLIC PANEL ) sodium 137 mmol/ L 133-14 6 Not Available [facility] (Lab) [address], [place], [address], 09/21/2025 04:26:09 09/20/20 25 09/20/2025 CMP(C OMPRE HENSI VE METAB OLIC PANEL ) potassium 4.4 mmol/ L 3.5-5. 1 Not Available [facility] (Lab) [address], [place], [address], 09/21/2025 04:26:09 09/20/20 25 09/20/2025 CMP(C OMPRE HENSI VE METAB OLIC PANEL ) chloride 103 mmol/ L 98-107 Not Available [facility] (Lab) [address], [place], [address], 09/21/2025 04:26:09 09/20/20 25 09/20/2025 CMP(C OMPRE HENSI VE METAB OLIC PANEL ) carbon dioxide 24 mmol/ L 21-31 Not Available [facility] (Lab) [address], [place], [address], 09/21/2025 04:26:09 09/20/20 25 09/20/2025 CMP(C OMPRE HENSI VE METAB OLIC PANEL ) anion gap 10 mmol/ L 4-13 Not Available [facility] (Lab) [address], [place], [address], 09/21/2025 04:26:09 09/20/20 25 09/20/2025 CMP(C OMPRE HENSI VE METAB OLIC PANEL ) blood urea nitrogen 7 mg/dL 7-25 Not Available [facility] (Lab) [address], [place], [address], 09/21/2025 04:26:09 09/20/20 25 09/20/2025 CMP(C OMPRE HENSI VE METAB OLIC PANEL ) creatinine 0.54 mg/dL 0.60-1 .30 low Not Available [facility] (Lab) [address], [place], [address], 09/21/2025 04:26:09 09/20/20 25 09/20/2025 CMP(C OMPRE HENSI VE METAB OLIC PANEL ) egfrcr (CKD-epi 2020) >90 mL/mi n/1.7 3_m2 >=60 Not Available [facility] (Lab) [address], [place], [address], 09/21/2025 04:26:09 09/20/20 25 09/20/2025 CMP(C OMPRE HENSI VE METAB OLIC PANEL ) calcium 8.9 mg/dL 8.3-10 .5 Not Available [facility] (Lab) [address], [place], [address], 09/21/2025 04:26:09 09/20/20 25 09/20/2025 CMP(C OMPRE HENSI VE METAB OLIC PANEL ) glucose 64 mg/dL 70-100 low Not Available [facility] (Lab) [address], [place], [address], 09/21/2025 04:26:09 09/20/20 25 09/20/2025 CMP(C OMPRE HENSI VE METAB OLIC PANEL ) protein, total 6.4 g/dL 6.4-8. 3 Not Available [facility] (Lab) [address], [place], [address], 09/21/2025 04:26:09 09/20/20 25 09/20/2025 CMP(C OMPRE HENSI VE METAB OLIC PANEL ) albumin 3.3 g/dL 3.5-5. 0 low Not Available [facility] (Lab) [address], [place], [address], 09/21/2025 04:26:09 09/20/20 25 09/20/2025 CMP(C OMPRE HENSI VE METAB OLIC PANEL ) ALT 11 units /L 9-43 Not Available [facility] (Lab) [address], [place], [address], 09/21/2025 04:26:09 09/20/20 25 09/20/2025 CMP(C OMPRE HENSI VE METAB OLIC PANEL ) alkaline phosphatase 181 units /L 34-104 high Not Available [facility] (Lab) [address], [place], [address], 09/21/2025 04:26:09 09/20/20 25 09/20/2025 CMP(C OMPRE HENSI VE METAB OLIC PANEL ) AST 11 units /L 13-39 low Not Available [facility] (Lab) [address], [place], [address], 09/21/2025 04:26:09 09/20/20 25 09/20/2025 CMP(C OMPRE HENSI VE METAB OLIC PANEL ) bilirubin, total 0.5 mg/dL 0.2-1. 2 Not Available [facility] (Lab) [address], [place], [address], 09/21/2025 04:26:09 06/08/20 25 06/08/2025 US, obste tric, 2nd or 3rd trime ster No observ ation record ed. [email or web address] [place] [address] [address], [place], [address], 06/08/2025 16:53:10 06/08/20 25 06/08/2025 US, obste tric, follo w-up No observ ation record ed. [email or web address] [address], [place], [address], 06/09/2025 21:51:59 07/08/20 25 07/08/2025 US, obste tric, follo w-up No observ ation record ed. [email or web address] [address], [place], [address], 07/09/2025 19:07:42 07/08/20 25 07/08/2025 US, obste tric, follo w-up No observ [facility]ion [facility] ed[email or web address] [address], [place], [address], 07/08/2025 17:05:02 08/12/20 25 08/12/2025 US, obste tric, follo w-up No observ ation record ed. [email or web address] [address], [place], [address], 08/12/2025 17:22:39 08/12/2008/12/2025 US, obste tric, follo w-up No observ ation record ed. [email or web address] [address], [place], [address], 08/16/2025 11:15:17 09/09/2009/09/2025 US, obste tric, follo w-up No observ ation record ed. [email or web address] [place] [address], [place], [address], 09/09/2025 15:58:13 09/09/2009/09/2025 US, obste tric, follo w-up No observ ation record ed. [email or web address] [address], [place], [address], 09/15/2025 16:35:10 Result Notes None recorded. Problems Name Problem SNOMED Code Status Onset Date Resolution Date Notes Provider Name and Address Organization Details Recorded Time Anxiety 45449247 Completed Seeing PCP 10/22/22 to discuss medicati on. Pt states she is doing well on zoloft 100mg on 12/02/22! Nancie Alvarado [facility] 3 16:55:06 Proteinu sirisha [id number] Completed with swelling - 1x/wk antenata l testing. Monitor for pre-e Nancie Alvarado [facility] 3 16:55:06 Chiari malforma tion 504340264 Active 2021 decompre ssed, no neuro follow up required per her team Nancie Alvarado [facility] 3 16:55:06 Chiari malforma tion 408764329 Completed 2021 decompre ssed, no neuro follow up required per her team Nancie block [facility] 3 16:55:06 Pregnanc y 35824415 Completed 202103/27/2023 Bailee Yeung null, [facility] 5 09:19:52 Mixed anxiety and depressi ve disorder 444040457 Active 2024 Bailee Yeung null, [facility] 5 18:16:31 History of Spinal surgery 281371214 Active 2024 Bailee Yeung null, [facility] 5 18:16:45 Pregnanc y 87459544 Active 2024 Bailee Yeung null, [facility] 5 09:19:52 Pre-ecla mpsia 388853296 Active 2024 last pregancy start bASA 81 mg Cathi Hopson CNM [address], [place], [address], [facility] 5 09:29:14 Migraine 79898656 Active 2024 imitrex Cathi Hopson CNM [address], [place], [address], [facility] 5 09:29:39 Problem Notes None recorded. Procedures Surgical History Date Name Laterality Status Provider Name and Address Organization Details Recorded Time 5 IUD Insertion completed Rica Banda [facility] 12/30/2024 16:38:48 5 Date of Last Pap Smear completed Bailee Yenug [facility] 03/09/2025 18:16:56 3 IUD Insertion completed Bailee Yeung [facility] 05/28/2023 12:30:09 3 IUD Insertion completed Cathi Hopson, KEVIN [address], [place], [address], [place] [facility] 04/30/2023 12:28:48 7 procedure on back completed Bailee Yeung [facility] 10/09/2022 17:12:07 Imaging Results None recorded. Procedure Notes None recorded. Medical Equipment None Reported. Allergies No known drug allergies Medications Name Sig Start Date Stop Date Status Note LastModified by Organization Details LastModified Time cyclobenz aprine 10 mg tablet Take 1 tablet every 8 hours by oral route as needed. 2024 active Not Available Not Available Not Avai lable amoxicill in 500 mg capsule Take 1 capsule twice a day by oral route for 10 days. 08/20 completed Not Available Not Available Not Available Mirena 21 mcg/24 hr (up to 8 years) 52 mg intrauter ine device Take 1 device by intraute rine route. 03/09 completed MIRENA IUD INSERTED 3 AND NEEDS REMOVED BY 1 Not Available Not Available Not Available citalopra m 40 mg tablet TAKE 1 TABLET BY MOUTH ONCE DAILY DIRECTED active Not Available Not Available No t [...] completed Not Available Not Available Not Available metronida zole 500 mg tablet TAKE 1 TABLET BY MOUTH EVERY 12 HOURS 08/12 completed Not Available Not Available Not Available [...] completed Not Available Not Available Not Available cephalexi n 500 mg capsule Take 1 capsule every 12 hours by oral route for 7 days. 08/26 completed Not Available Not Available Not Available [...] tablet Take 1 tablet by oral route. 08/12 completed Not Available Not Available Not Available sertralin e 50 mg tablet TAKE 1 TABLET BY MOUTH ONCE DAILY 05/28 completed Not Available Not Available Not Available cyclobenz aprine 5 mg tablet 1 tablet every 8 hours as needed back pain 04/06 completed Not Available Not Available Not Available Wellbutri n XL 150 mg 24 hr tablet, extended release Take 1 tablet every day by oral route. 2024 active Not Available Not Available Not Avai lable active Not Available Not Avai lable Not Available One-A-Day - 1 04/30 completed Not Available Not Available Not Available sertralin e 150 mg capsule Take 1 capsule every day by oral route as directed . 03/09 completed Not Available Not Available Not Available Vitals Date Recorded Body height Body mass index (BMI) Body weight Systolic And Diastolic Provider Name and Address Organization Details Last Updated DateTime 09/20/2025 162.56 cm 39.3 kg/m2 199562.65 g 146/94 mm[Hg] Savannah Borges [facility] 09/20/2025 12:35:43 Social History Question Answer Notes LastModified by Organizat ion Details LastModified Time Tobacco Smoking Status Never Smoker Bailee block, [facility] 12/04/2022 16:09:49 Do You Have An Advance Directive? No [email or web address] Information n ot available 10/09/2022 If You Are , What Was Your Level Of Alcohol Consumption Prior To ? Occasional [email or web address] Information not available 04/22/2025 Are You Blind Or Do You Have Difficulty Seeing? No Information n ot available 12/04/2022 What Is Your Level Of Caffeine Consumption? Moderate [email or web address] Information not available 10/09/2022 How Much Tobacco Do You Chew? None [email or web address] Information not available 10/09/2022 In The 14 Days Before Symptom Onset, Have You Had Close Contact With A Laboratory-confirm ed COVID-19 While That Case Was Ill? No [email or web address] Information n ot available 11/06/2022 In The 14 Days Before Symptom Onset, Have You Had Close Contact With A Person Who Is Under Investigation For COVID-19 While That Person Was Ill? No [email or web address] Information not available 11/06/2022 Have You Been To An Area Known To Be High Risk For COVID-19? No [email or web address] Information not available 10/09/2022 Are You Deaf Or Do You Have Serious Difficulty Hearing? No [email or web address] Information not available 10/09/2022 What Type Of Diet Are You Following? REGULAR Information n ot available 10/09/2022 What Is The Highest Grade Or Level Of School You Have Completed Or The Highest Degree You Have Received? [id number] [email or web address] Information not available 03/09/2025 Are There Any Guns Present In Your Home? Yes [email or web address] Information not available 10/09/2022 Do You Use Protection During Sex? No [email or web address] Information not available 10/09/2022 Do You Use Your Seat Belt Or Car Seat Routinely? Yes Information not available 10/09/2022 Are You Sexually Active? Yes Information not available 06/08/2025 Do You Have Smoke And Carbon Monoxide Detectors In Your Home? Yes Information not available 10/09/2022 How Much Tobacco Do You Smoke? No [email or web address] Information not available 10/09/2022 Do You Use Sunscreen Routinely? Yes [email or web address] Information not available 11/06/2022 Has Tobacco Cessation Counseling Been Provided? No [email or web address] Information not available 12/04/2022 Have You Used IV Drugs? No [email or web address] Information not available 10/09/2022 Do You Have Difficulty Walking Or Climbing Stairs? No [email or web address] Information not available 12/04/2022 Sex: Female Functional Status Question Answer Note LastModified by Organizat ion Details LastModified Time Do you use any illicit or recreational drugs? No Information not available 08/21/2022 Do you or have you ever used any other forms of tobacco or nicotine? No [email or web address] Information not available 12/04/2022 What is your level of alcohol consumption? None Information not available 08/21/2022 Are you currently employed? Yes [email or web address] Information not available 06/08/2025 Are you able to walk independently without assistance or assistive devices? YESWOREST [email or web address] Information not available 10/09/2022 Are you able to care for yourself independently? 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 No [email or web address] Information not available 12/04/2022 What is your exercise level? Occasional [email or web address] Information not available 10/09/2022 Mental Status Question Answer Note LastModified by Organization D etails LastModified Time Do you feel stressed (tense, restless, nervous, or anxious, or unable to sleep at night)? [id number] [email or web address] Information not available 10/09/2022 Family History Relationship Description Onset Age of this Age Resolved Age Notes LastModified by Organization Details LastModified Time Paternal Grandfather Carcinoma in situ of colon [email or web address] Not available 2024 16:46:41 Mother Carcinoma of uterine cervix, invasive Not available 2024 16:46:41 Mother Pre-eclampsi a [email or web address] Not available 11/06 19:07:22 Mother Malignant neoplasm of cervix uteri [email or web address] Not available 19:07:22 Sister Anxiety disorder [email or web address] Not available 2021 16:09:53 Maternal Grandmother Anxiety disorder Not available 11/06 19:07:22 Maternal Grandfather Anxiety disorder [email or web address] Not available 11/06 19:07:22 Paternal Grandmother Malignant neoplasm of colon [email or web address] Not available 11/06 19:07:22 Paternal Grandmother Malignant neoplasm of breast [email or web address] Not available 11/06 19:07:22 Medical History Condition [...] N Thrombophilias N Gynecological History Statement/Question Response Date of Last Mammogram Flow Light Date of LMP 01/17/2025 N Was last menstrual period normal Y STIs/STDs N Date of control 05/21/2022 Date of Last Colonoscopy Desired Control Method On BCP's at Conception? N HPV Vaccine Y Duration of Flow (days) 3 Current Control Method Age at First Child 22 Are cycles usually normal Y Frequency of Cycle (Q days) 29 Sexually Active? Y Menses Monthly Y Date of DEXA bone scan Age of first menstrual cycle 13 Date of Last Pap Smear 12/30/2024 Sexual Problems? N LMP Unknown N Obstetrics History GPAL:G 2 P 1 0 0 1 Type Value Full Term 1 Living 1 Total 2 Past Encounters Encounter ID Performer Location Encounter Start Date Encounter Closed Date Diagnosis/Indication Diagnosis SNOMED-CT Code Diagnosis ICD10 Code Diagnosis IMO Codes Diagnosis Note [id number] Cathi Hopson [facility] [address] [address] 08/26/2025 15:37:51 08/26/2025 16:21:35 Gestation period, 31 weeks [id number] Z3A.31 [id number] Elvis Robison MD [facility] [address] [address] 09/09/2025 10:20:59 09/09/2025 11:16:08 Bicornuate uterus affecting 0050024 O34.00 Q51.3 Z3A.33 [id number] Cathi Hopson [facility] [address] [address] 09/09/2025 10:21:57 09/09/2025 11:37:17 Gestation period, 33 weeks 46348717 Z3A.33 [id number] WENDY STEARNS MD [place] [address],[place] [address] 09/20/2025 12:24:31 09/20/2025 12:53:43 Elevated blood-pressure reading without diagnosis of hypertension 415525025 R03.0 [id number] - hx of preeclamps ia in G1 - BP newly elevated today- labs ordered Health Concerns Section Related Observation LastModified by Organization Detai ls LastModified Time None Recorded Concern Status LastModified by Organization Details LastModified Time None Recorded Payers Encounter Date Sequence Insurance Name Policy Number Policy Meyer Covered Member ID Meyer Member ID Guarantor Name 09/20/2025 1 [employer] [id number] G Tutu Himanshu Brant [id number] Zulma Guo Notes Date Note Type Note Provider Name and Address Organization Details Recorded Time 09/20/2025 text/html Generic HPI TemplateReported by Patient WENDY STEARNS MD [address], [place], [address], [facility] 09/20/2025 12:52:34 OBGyn Episode Ob Episode Information Episode Created Date Number of Fetuses Patient Bloodtype Patient rh Status Prepregnancy Weight lbs Domestic Partner Domestic Partner Phone Father Name Suit Attendant Status 04/22/20 25 1 A Positive 176 Tutu Brant OPEN Fetus Data First Name Last Name Admitted to NICU Weight (g) Sex Living Outcome Pediatric Complications Fetus ID Race Codes Race Delivery Type [id number] Problems Problem Notes fundus has bicornuate appear anceserial growth uspih labs 07/25 in chart Problem Name Start Date End Date Resolution Snomed Code Not e Migraine 04/22/2025 [id number] imitrex Pre-eclampsia 04/22/2025 [id number] last pregancystart bASA 81 mg Han Calculation [...] Latest Days Gestation 0 10/24/20 25 0 Pre- Flowsheet Flowsheet Date 04/22/2025 Feldman Score Blood Edema Fundus Height Fundus Units Glucose Ketones Leukocytes Nitrite Labor Signs Protein Cervic Dilation Cervic Effacement Cervic Station trace none none trace Type Weight in lbs Pre/Post Dialysis Refused Weight 182.905387801646 BP Diastolic BP Location Tested BP Systolic BP Type 81 125 Fetus Heart Rate Present Fetus Movement A No Comments hx previous vaginal delivery , hx preeclampsia and migraine, plan bASA daily, imitrex for migraine, reviewed us begin routine care Flowsheet Date 05/11/2025 Feldman Score Blood Edema Fundus Height Fundus Units Glucose Ketones Leukocytes Nitrite Labor Signs Protein Cervic Dilation Cervic Effacement Cervic Station Type Weight in lbs Pre/Post Dialysis Refused 184.071335884710 BP Diastolic BP Location Tested BP Systolic BP Type 75 L arm 110 sitting Fetus Heart Rate Present Fetus Movement A No Comments doing well, education and pr ecautions, went to [facility] last week, headaches are better, f/u 4 weeks anatomy Flowsheet Date 06/08/2025 Feldman Score Blood Edema Fundus Height Fundus Units Glucose Ketones Leukocytes Nitrite Labor Signs Protein Cervic Dilation Cervic Effacement Cervic Station Type Weight in lbs Pre/Post Dialysis Refused BP Diastolic BP Location Tested BP Systolic BP Type Fetus Heart Rate Present Fetus Movement Comments Flowsheet Date 06/08/2025 Feldman Score Blood Edema Fundus Height Fundus Units Glucose Ketones Leukocytes Nitrite Labor Signs Protein Cervic Dilation Cervic Effacement Cervic Station Type Weight in lbs Pre/Post Dialysis Refused 190.816641388252 BP Diastolic BP Location Tested BP Systolic BP Type 78 L arm 119 sitting Fetus Heart Rate Present Fetus Movement A Yes Comments +FM, anatomy complete, bicor nuate uterus plan q 4 week growth, education and precautions f/u 4 weeks wit us Flowsheet Date 07/08/2025 Feldman Score Blood Edema Fundus Height Fundus Units Glucose Ketones Leukocytes Nitrite Labor Signs Protein Cervic Dilation Cervic Effacement Cervic Station Type Weight in lbs Pre/Post Dialysis Refused BP Diastolic BP Location Tested BP Systolic BP Type Fetus Heart Rate Present Fetus Movement Comments Flowsheet Date 07/08/2025 Feldman Score Blood Edema Fundus Height Fundus Units Glucose Ketones Leukocytes Nitrite Labor Signs Protein Cervic Dilation Cervic Effacement Cervic Station Type Weight in lbs Pre/Post Dialysis Refused Weight 204.125687074980 BP Diastolic BP Location Tested BP Systolic BP Type 85 L arm 129 sitting Fetus Heart Rate Present Fetus Movement A Yes Comments efw 23% vertex, doing well, +FM, bacterial infection will call out flagyl, precautions and education f/u 4 weeks Flowsheet Date 08/12/2025 Feldman Score Blood Edema Fundus Height Fundus Units Glucose Ketones Leukocytes Nitrite Labor Signs Protein Cervic Dilation Cervic Effacement Cervic Station Type Weight in lbs Pre/Post Dialysis Refused BP Diastolic BP Location Tested BP Systolic BP Type Fetus Heart Rate Present Fetus Movement Comments Flowsheet Date 08/12/2025 Feldman Score Blood Edema Fundus Height Fundus Units Glucose Ketones Leukocytes Nitrite Labor Signs Protein Cervic Dilation Cervic Effacement Cervic Station Type Weight in lbs Pre/Post Dialysis Refused Weight 220.191556327787 BP Diastolic BP Location Tested BP Systolic BP Type 79 L arm 117 sitting Fetus Heart Rate Present Fetus Movement A Yes Comments +FM doing well efw 44% vacci ne rxs given, education and precautions, hair line fracture left foot, in boot, small boil on mons pubis appears infected, antibiotics if increases in size will discuss i/d f/u 2 weeks Flowsheet Date 08/26/2025 Feldman Score Blood Edema Fundus Height Fundus Units Glucose Ketones Leukocytes Nitrite Labor Signs Protein Cervic Dilation Cervic Effacement Cervic Station Type Weight in lbs Pre/Post Dialysis Refused Weight 223.158695049361 BP Diastolic BP Location Tested BP Systolic BP Type 83 L arm 125 sitting Fetus Heart Rate Present A 138 Present Fetus Movement A Yes Comments +FM doing well, precautions and education deciding on dates for IOL will schedule at next visit f/u 2 weeks Flowsheet Date 09/09/2025 Feldman Score Blood Edema Fundus Height Fundus Units Glucose Ketones Leukocytes Nitrite Labor Signs Protein Cervic Dilation Cervic Effacement Cervic Station Type Weight in lbs Pre/Post Dialysis Refused BP Diastolic BP Location Tested BP Systolic BP Type Fetus Heart Rate Present Fetus Movement Comments Flowsheet Date 09/09/2025 Feldman Score Blood Edema Fundus Height Fundus Units Glucose Ketones Leukocytes Nitrite Labor Signs Protein Cervic Dilation Cervic Effacement Cervic Station Type Weight in lbs Pre/Post Dialysis Refused 225.271871492043 BP Diastolic BP Location Tested BP Systolic BP Type 81 L arm 117 sitting Fetus Heart Rate Present Fetus Movement A Yes Comments doing well, +FM, efw 34%, di scussed swelling, precautions an education f/u 2 weeks Flowsheet Date 09/20/2025 Feldman Score Blood Edema Fundus Height Fundus Units Glucose Ketones Leukocytes Nitrite Labor Signs Protein Cervic Dilation Cervic Effacement Cervic Station Type Weight in lbs Pre/Post Dialysis Refused Weight 229.517528474631 BP Diastolic BP Location Tested BP Systolic BP Type 94 R arm 146 sitting Fetus Heart Rate Present A 140 Fetus Movement A Yes Comments Having increased swelling an d contractions. Baby active. No bleeding. Will order labs due to newly elevated BPs. Discussed BP check and if elevated again, would recommend 37 week delivery. GBS collected. SVE performed for contractions, SVE 1cm. RTC 1 week. Menstrual History Last Menstrual Date Menses Monthly [...]
--- OUTSIDE RECORDS SUMMARY | 2025-09-21 15:32 | XMS_ITS | Clinical Summary ---
Author Organization [facility] Address [address] [place] [address] Phone Care Team Providers Care [employer] Lieutenant Name Role Phone SANDRA BARR MD Primary Care Provider [phone] Reason for Visit and Chief Complaint The Chief Complaint is: Wanting to try something different for depression/anxiety. Pt is currently on Sertraline and Hydroxyzine Problems Includes: Problems addressed during this encounter and other active Problems Current Visit Onset Date Resolved Date Provider Conditio n Status Generalized Anxiety Disorder 07/21/2022 RO ACOSTA Active Last Documented On 3 9:34AM ; [facility] Past Visits Onset Date Resolved Date Provider Condition Status Chiari Malformation 12/19/2015 RO ACOSTA Active Last Documented On 1 11:01AM ; [facility] Plan of Treatment - Return to the clinic if condition worsens or new symptoms arise - Last Documented On 03/12/2024 11:26AM ; [facility] - Follow-up visit in 1 month for anxiety follow up - Last Documented On 03/12/2024 11:26AM ; [facility] Cut down sertraline to 100 mg daily for 1 week, then stop medication and start celexa. Discussed risk of thoughts of suicide when switching SSRIs. Go to ER right away for any suicidal thoughts. She verbalizes understanding. - Last Documented On 03/12/2024 11:26AM ; [facility] Pending Tests Order Diagnosis Results Due Ordering P nilson Lab Comp Metabolic Panel 04/09/24 KM ACOSTA Last Documented On 4 9:43AM ; [facility] Lab Lipid Panel 04/09/24 RO Luna KWAME EZ [employer]FIELD PLANT AND FIELD OPERATOR Last Documented On 4 9:43AM ; [facility] Lab CBC w/ DIFF 04/09/24 RO Luna KWAME EZ [employer] FIELD OPERATOR Last Documented On 4 9:43AM ; [facility] Lab TSH w/ reflex T-4, Free 04/09/24 A MAGDALENO Jeremy RESENDIZZ [employer] FI[employer] OPERATOR Last Documented On 4 9:43AM ; [facility] Lab Vitamin B12/Folic Acid 04/09/24 AL JANEY Luna MARII [employer] FIELD OPERATOR Last Documented On 4 9:43AM ; [facility] Referrals To Diagnosis Dental Office Receptionist BANDAR SMITH Unspecified hea ring loss, bilateral Note: Michael preferred, Wells Tannery if not Last Documented On 4 11:10AM ; [facility] Instructions to patient Intervention and counseling on cessation of tobacco use Last Documented On 4 10:52AM ; [facility] Assessments Includes: Assessments from this encounter Findings - [H91.93 - Unspecified hearing loss, bilateral] Hearing loss - Last Documented On 03/12/2024 11:26AM ; [facility] - [F41.1 - Generalized anxiety disorder] Generalized anxiety disorder - Last Documented On 03/12/2024 11:26AM ; [facility] Instructions Includes: Instructions from this encounter Instructions to patient Intervention and counseling on cessation of tobacco use Last Documented On 4 10:52AM ; [facility] Medical Equipment - Implanted Devices Includes: Current Devices No Medical Equipment Recorded Medications Includes: Medications discussed during this encounter and other current Medications Discontinued / Stopped on this date KIRSTY CORDERO [employer] OPERATOR-BC on 10/24/2022 Sertraline HCl 25 MG Oral Tablet Provider: KIRSTY CORDERO [employer] OPERATOR-BC Diagnosis: Generalized anxi ety disorder Last Documented On 03/12/2024 10:50AM By Mellissa MCLEOD ; [facility] Ortho Tri-Cyclen Lo 0.18/0.215/0.25 MG-25 MCG Oral Tablet Provider: RO COLVIN [employer] OPERATOR Diagnosis: Encounter for ot h general cnsl and advice on contraception Last Documented On 03/12/2024 10:49AM By Mellissa MCLEOD ; [facility] predniSONE 20 MG Oral Tablet Provider: RO COLVIN [employer] OPERATOR Diagnosis: Lumbago with sci atica, unspecified side Last Documented On 03/12/2024 10:49AM By Mellissa MCLEOD ; [facility] Bactrim DS 800-160 MG Oral Tablet Provide r: RO COLVIN [employer] FI[employer] OPERATOR Diagnosis: Non-bullous impe tigo Last Documented On 03/12/2024 10:48AM By Mellissa MCLEOD ; [facility] Mupirocin 2% External Ointment Provider: RO COLVIN [employer] FI[employer] OPERATOR Diagnosis: Non-bullous impe tigo Last Documented On 03/12/2024 10:49AM By Mellissa MCLEOD ; [facility] Amoxicillin 500 MG Oral Tablet Provider: RO COLVIN [employer] FI[employer] OPERATOR Diagnosis: Acute pharyngiti s, unspecified Last Documented On 03/12/2024 10:48AM By Mellissa MCLEOD ; [facility] Magic Mouthwash compounded Oral Suspension Provider: RO COLVIN [employer] FI[employer] OPERATOR Diagnosis: Acute pharyngiti s, unspecified Last Documented On 03/12/2024 10:49AM By Mellissa MCLEOD ; [facility] Amoxicillin 500MG Oral Tablet Provider: RO COLVIN [employer] FIELD OPERATOR Diagnosis: Acute pharyngiti s, unspecified Last Documented On 03/12/2024 10:48AM By Mellissa MCLEOD ; [facility] Polymyxin B-Trimethoprim 08078-1.1UNIT/ML-% Ophthalmic Solution Provider: RO COLVIN [employer] FI[employer] OPERATOR Diagnosis: Unspecified acut e conjunctivitis, left eye Last Documented On 03/12/2024 10:49AM By Mellissa MCLEOD ; [facility] New / Renewed during this visit RO COLVIN [employer] FI[employer] OPERATOR on 03/12/2024 CeleXA 20 MG Oral Tablet Provider: KWASI COLVIN [employer] OPERATOR 30 day supply: 30 tablet, 0 refills Diagnosis: Generalized anxiety disorder One tablet daily Pharmacy: [facility] - [address] [place] [address], [id number] - Last Documented On 04/19/2024 1:18PM By RO COLVIN LOST AND FOUND CLERK ; [facility] hydrOXYzine HCl 50 MG Oral Tablet Provider: RO ACOSTA 30 day supply: 10 tablet, 0 refills Diagnosis: Generalized anxiety disorder Take 1 tab as needed for anx iety/panic attacks Pharmacy: [facility] - [address] [place] [address], [id number] - Last Documented On 04/06/2024 9:47AM By RO COLVIN NP ; [facility] Past Medications on file CeleXA 20 MG Oral Tablet 04/19/2024 - 10/16/2024 Provider: RO ACOSTA Diagnosis: Generalized anxi ety disorder One tablet daily Last Documented On 04/19/2024 1:22PM By RO COLVIN NP ; [facility] Wellbutrin XL 150 MG Oral Tablet Extended Release 24 Hour 04/06/2024 - 05/06/2024 Provider: RO ACOSTA Diagnosis: Generalized anxi ety disorder One tablet daily Last Documented On 04/06/2024 9:48AM By RO COLVIN NP ; [facility] hydrOXYzine HCl 50 MG Oral Tablet 04/06/2024 - 05/06/2024 Provider: RO ACOSTA Diagnosis: Generalized anxi ety disorder Take 1 tab as needed for anx iety/panic attacks Last Documented On 04/06/2024 9:48AM By RO COLVIN NP ; [facility] Sertraline HCl 100 MG Oral Tablet 07/21/2023 - 01/17/2024 Provider: RO ACOSTA Diagnosis: One tablet daily, 150 mg total daily Last Documented On 07/21/2023 11:57AM By RO COLVIN NP ; [facility] Sertraline HCl 50 MG Oral Tablet 07/21/2023 - 01/17/2024 Provider: RO ACOSTA Diagnosis: One tablet daily, 150 mg total daily Last Documented On 07/21/2023 11:57AM By RO COLVIN NP ; [facility] Medications Administered Includes: Administered Medications from this encounter No Administered Medications Recorded Vital Signs Includes: Vital Signs from this encounter Vital Name 03/12/2024 10:44A Blood Pressure Sitting (mmHg) 124/76 Pulse Rate-Sitting (bpm) 75 Respiration Rate (breaths/min) 18 Height (in) 65 Weight (lb) 180 Body Mass Index 30 Body Surface Area 1.9 Oxygen Saturation (%) 99 Last Documented: On 03/12/2024 10:52A M ; [facility] Results Includes: Results discussed during this encounter No Results Recorded For Specified Dates History of Present Illness Includes: History of Present Illness from this encounter JAIR WADE is a 23 year old female. - Allergy list reviewed - Medication list reviewed - No systemic symptoms - Otolaryngeal symptoms - No cardiovascular symptoms - No pulmonary symptoms - Psychological symptoms - No skin symptoms Patient is being seen for increased anxiety. She states the past couple of months she feels like sertraline isn't really helping like it used to. She would like to try a different medication. She denies SI. She also complains of decreased hearing. She states this has been going on for years and she feels like she needs to get it checked out. She states it seems even on both sides. 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 Social History Description Last Updated Tobacco non-user 05/08/2022 Last Documented On 4 11:03AM ; [facility] Current nonsmoker 12/19/2020 Last Documented On 4 11:03AM ; [facility] Non-smoker 03/31/2020 Last Documented On 4 11:03AM ; [facility] Smoking status : Never smoker 08/11/2019 Last Documented On 4 11:03AM ; [facility] Currently in school 02/06/2017 Last Documented On 4 11:03AM ; [facility] Lives with parents in [place] 06/12/2015 Last Documented On 4 11:03AM ; [facility] Not using alcohol 06/12/2015 Last Documented On 4 11:03AM ; [facility] Not using drugs 06/12/2015 Last Documented On 4 11:03AM ; [facility] No tobacco use 06/06/2014 Last Documented On 4 11:03AM ; [facility] A recent decrease in activity 10/15/2010 Last Documented On 4 11:03AM ; [facility] No recent change in sleep 10/15/2010 Last Documented On 4 11:03AM ; [facility] Procedures and Surgical History Includes: Procedures from this encounter Procedures Code Diagnosis Performing Provider Service L ocation Service Date plan of care reviewed and agreed to Last Documented On 4 11:17AM ; [facility] intervention and counseling on cessation of toba customer account executive use 4000F Last Documented On 4 10:52AM ; [facility] use of tobacco assessment performed 1000F Last Documented On 4 10:52AM ; [facility] review of medications documented 1160F Last Documented On 4 10:52AM ; [facility] Surgical History Last Updated No history of surgery 06/12/2015 Last Documented On 4 11:03AM ; [facility] Medical History Includes: Medical History addressed during this encounter Description Last Updated History of headache syndromes : migraine 06/12/2015 Last Documented On 4 11:03AM ; [facility] A PPD was negative 06/12/2015 Last Documented On 4 11:03AM ; [facility] No cardiac problems 06/12/2015 Last Documented On 4 11:03AM ; [facility] No exposure to tuberculosis 06/12/2015 Last Documented On 4 11:03AM ; [facility] No hearing problems 06/12/2015 Last Documented On 4 11:03AM ; [facility] No heart murmur 06/12/2015 Last Documented On 4 11:03AM ; [facility] No high cholesterol 06/12/2015 Last Documented On 4 11:03AM ; [facility] No history of asthma 06/12/2015 Last Documented On 4 11:03AM ; [facility] No history of concussion 06/12/2015 Last Documented On 4 11:03AM ; [facility] No history of delayed milestones 015 Last Documented On 4 11:03AM ; [facility] No history of diabetes mellitus 06/12/20 15 Last Documented On 4 11:03AM ; [facility] No history of hematologic disorder 06/12 Last Documented On 4 11:03AM ; [facility] No history of sickle cell abnormality Last Documented On 4 11:03AM ; [facility] No loss of function of one of paired org ans 06/12/2015 Last Documented On 4 11:03AM ; [facility] No orthopedic problems 06/12/2015 Last Documented On 4 11:03AM ; [facility] No previous hospitalizations 06/12/2015 Last Documented On 4 11:03AM ; [facility] No recent severe illness or injury 06/12 Last Documented On 4 11:03AM ; [facility] No trauma to the head 06/12/2015 Last Documented On 4 11:03AM ; [facility] Not born with congenital abnormalities 0 06/12/2015 Last Documented On 4 11:03AM ; [facility] Not carrier of hemophilia A 06/12/2015 Last Documented On 4 11:03AM ; [facility] Currently wearing eyeglasses 06/06/2014 Last Documented On 4 11:03AM ; [facility] Taking OTC pain medication / fever. Usin g Motrin 03/18/2011 Last Documented On 4 11:03AM ; [facility] Not taking OTC medications 12/06/2009 Last Documented On 4 11:03AM ; [facility] Born by vaginal delivery [birth year]31/2008 Last Documented On 4 11:03AM ; [facility] History of length at : in21.5 07/31 Last Documented On 4 11:03AM ; [facility] Patient's weight: lbs8/2 200 9 Last Documented On 4 11:03AM ; [facility] Family History Includes: Family History addressed during this encounter Description Last Updated No family history of diabetes mellitus 0 06/12/2015 Last Documented On 4 11:03AM ; [facility] No family history of sudden early deaths 06/12/2015 Last Documented On 4 11:03AM ; [facility] Maternal history of headache syndromes 0 02/28/2014 Last Documented On 4 11:03AM ; [facility] Cancer 07/31/2009 Last Documented On 4 11:03AM ; [facility] Review of Systems Includes: Review of Systems from this encounter Systemic: Not feeling poorly (malaise). No fever and no chills. Head: No headache. Otolaryngeal: Hearing loss. No earache and no nasal discharge. Cardiovascular: No chest pain or discomfort. Pulmonary: No dyspnea. Psychological: Anxiety and depression. Mental Status Includes: Mental Status from this encounter Description Oriented to time, place, and person Anxiety Functional Status Includes: Functional Status from this encounter No Functional Status Recorded Physical Exam Includes: Physical Exam from this encounter Allergies Includes: Active Allergies No Known Allergies Encounters Encounter Provider Location Date Check-In Time Check-Out Time Diagnosis CHECK UP RO ACOSTA [facility] 03/12/20 24 10:28AM 11:13AM Generalized Anxiety Disorder,Julissain g Loss Insurance Includes: Active Insurance Policies Plan Name Member ID Group # Subscriber Relationship Effect patricia Dates 1 - [facility] [id number] KRISTI WADE 2 - [facility] [id number] ARLENE WADE Self Clinical Notes Includes: Clinical Notes from this encounter * Progress note Date Encounter Last Documented by 03/12/2024 CHECK UP Last documented on 03/12/2024; 11:26 AM, RO ACOSTA; [facility] Active Problems & Conditions - Chiari Malformation - F41.1 - Generalized Anxiety Disorder Chief Complaint The Chief Complaint is: Wanting to try something different for depression/anxiety. Pt is currently on Sertraline and Hydroxyzine. History of Present Illness ARLENE WADE is a 23 year old female. - Allergy list reviewed - Medication list reviewed - No systemic symptoms - Otolaryngeal symptoms - No cardiovascular symptoms - No pulmonary symptoms - Psychological symptoms - No skin symptoms Patient is being seen for increased anxiety. She states the past couple of months she feels like sertraline isn't really helping like it used to. She would like to try a different medication. She denies SI. She also complains of decreased hearing. She states this has been going on for years and she feels like she needs to get it checked out. She states it seems even on both sides. 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 Past Medical/Surgical History Reported: Not carrier of hemophilia A. Recent Events: No recent severe illness or injury. Medical: No previous hospitalizations. Currently wearing eyeglasses. No hearing problems, no cardiac problems, and no heart murmur. No orthopedic problems. No loss of function of one of paired organs and no high cholesterol. Medications: Taking OTC pain medication / fever. Using Motrin. Not taking OTC medications. Tests: A PPD was negative. Exposure: No exposure to tuberculosis. Physical Trauma: No trauma to the head. Pediatric: Born by vaginal delivery and patient's weight: lbs8/2. Not born with congenital abnormalities. Physical Exam: Length at : in21.5. No delayed milestones Diagnoses: No diagnosis of asthma. No diagnosis of diabetes mellitus. Headache syndromes: migraine. No diagnosis of concussion. No diagnosis of hematologic disorder No diagnosis of sickle cell abnormality Surgical: - No surgery Social History Tobacco use: No tobacco use. Current nonsmoker and non-smoker. Smoking status: Never smoker. Alcohol: Not using alcohol. Drug Use: Not using drugs. Habits: No recent change in sleep. A recent decrease in exercise activity. Housing And Economic Circumstances: Lives with parents in [place]. Education: Currently in school. Allergies - No Known Allergies Family History Cancer No family history of sudden early deaths No diagnosis of diabetes mellitus Maternal: Headache syndromes Review Of Systems Systemic: Not feeling poorly (malaise). No fever and no chills. Head: No headache. Otolaryngeal: Hearing loss. No earache and no nasal discharge. Cardiovascular: No chest pain or discomfort. Pulmonary: No dyspnea. Psychological: Anxiety and depression. Physical Findings - Vitals taken 03/12/2024 10:44 am BP-Sitting 124/76 mmHg Pulse Rate-Sitting 75 bpm Respiration Rate 18 per min Height 65 in Weight 180 lbs Body Mass Index 30 kg/m2 Body Surface Area 1.9 m2 Oxygen Saturation 99 % General Appearance: - Well developed. - Well nourished. - In no acute distress. Ears: General/bilateral: External Auditory Canal: - External auditory meatus normal. Tympanic Membrane: - Normal. Lungs: - Normal breath sounds/voice sounds. - No wheezing was heard. - No rhonchi were heard. - No rales/crackles were heard. Cardiovascular: Heart Rate And Rhythm: - Normal. Neurological: - Oriented to time, place, and person. Gait And Stance: - Normal. Assessment - [H91.93 - Unspecified hearing loss, bilateral] Hearing loss - [F41.1 - Generalized anxiety disorder] Generalized anxiety disorder Therapy - Intervention and counseling on cessation of tobacco use. - Plan of care reviewed and agreed to. Plan StartCited - Generalized anxiety disorder hydrOXYzine HCl 50 MG tablet Take 1 tab as needed for anxiety/panic attacks, 30 days, 0 refills CeleXA 20 MG tablet One tablet daily, 30 days, 0 refills EndCited StartCited - Unspecified hearing loss, bilateral Referral: Dental Office Receptionist Instructions: Michael preferred, Jayant if not EndCited - Return to the clinic if condition worsens or new symptoms arise - Follow-up visit in 1 month for anxiety follow up Cut down sertraline to 100 mg daily for 1 week, then stop medication and start celexa. Discussed risk of thoughts of suicide when switching SSRIs. Go to ER right away for any suicidal thoughts. She verbalizes understanding. Practice Management Use of tobacco assessment performed Review of medications documented. Health Reminders - Assess BMI satisfied 03/12/2024. - Assess Tobacco Use satisfied 03/12/2024. - Follow up plan for Depression Screening satisfied 03/12/2024.
--- OUTSIDE RECORDS SUMMARY | 2025-09-21 15:32 | XMS_ITS ---
Author Organization [facility] Address [address] [place] [address] Phone Care Team Providers Care Java Systems Analyst Name Role Phone SANDRA BARR MD Primary Care Provider [phone] Problems Includes: Active, inactive, and resolved Problems All Visits Onset Date Resolved Date Provider Condition S tatus Generalized Anxiety Disorder 07/21/2022 RO PASCUALP Active Last Documented On 3 9:34AM ; [facility] Chiari Malformation 12/19/2015 RO PASCUALP Active Last Documented On 1 11:01AM ; [facility] Plan of Treatment Findings Encounter Date Follow up: In 1 month to harpal luate anxiety and review labs Added Wellbutrin We will call with any abnormal labs PROBLEM VISIT with RO COLVIN COCOA BUTTER FILTER OPERATOR 04/06/2024 Last Documented On 4 11:47AM ; [facility] Ordered return to the clinic if condition worsens or new symptoms arise PROBLEM VISIT with RO ACOSTA 04/06/2024 Last Documented On 4 11:47AM ; [facility] Ordered weight loss diet PROBLEM VISIT with KM ACOSTA 04/06/2024 Last Documented On 4 11:47AM ; [facility] Ordered follow-up visit in 1 month for anxiety follow up CHECK UP with RO ACOSTA 03/12/2024 Last Documented On 4 11:26AM ; [facility] Ordered return to the clinic if condition worsens or new symptoms arise CHECK UP with RO ACOSTA 03/12/2024 Last Documented On 4 11:26AM ; [facility] Ordered follow-up visit in 6 months or as needed Advised patient to get pap scheduled with her INJECTION MOLD TOOLING TECHNICIAN office as she has not had one yet ANNUAL PHYSICAL EXAM with RO COLVIN [facility] 07/21/2023 Last Documented On 3 9:41AM ; [facility] Ordered return to the clinic if condition worsens or new symptoms arise ANNUAL PHYSICAL EXAM with RO RESENDIZMeena [facility] 07/21/2023 Last Documented On 3 9:41AM ; [facility] Ordered weight loss diet ANNUAL PHYSICAL EXAM wi th ROYESY RESENDIZMeena [facility] 07/21/2023 Last Documented On 3 9:41AM ; [facility] Ordered follow-up visit as n eemaria eugenia Advised patient to go back to [facility] due to elevated bp/hr. SANDRA Dunn called patient OB office to notify them. Patient states her mother can drive her there PROBLEM VISIT with RO RESENDIZMeena [facility] 01/15/2023 Last Documented On 3 2:08PM ; [facility] Ordered return to the clinic if condition worsens or new symptoms arise PROBLEM VISIT with RO RESENDIZMeena [facility] 01/15/2023 Last Documented On 3 2:08PM ; [facility] We will call with lab result s. Continue benadryl as needed. Frequent moisturizing. Can use hydrocortisone to small areas PROBLEM VISIT with RO RESENDIZMeena [facility] 08/28/2022 Last Documented On 2 4:36PM ; [facility] Ordered return to the clinic if condition worsens or new symptoms arise PROBLEM VISIT with RO RESENDIZMeena [facility] 08/28/2022 Last Documented On 2 4:36PM ; [facility] Follow up: Yearly or as need ed Patient will be due to pap next year ANNUAL PHYSICAL EXAM with RO RESENDIZMeena [facility] 05/08/2022 Last Documented On 2 4:06PM ; [facility] Ordered return to the clinic if condition worsens or new symptoms arise ANNUAL PHYSICAL EXAM with RO RESENDIZMeena [facility] 05/08/2022 Last Documented On 2 4:06PM ; [facility] Ordered return to the clinic if condition worsens or new symptoms arise PROBLEM VISIT with RO COLVIN [facility] 12/19/2020 Last Documented On 1 11:16AM ; [facility] Keep wound covered until the re is no longer discharge as this is contagious We will call with x ray results PROBLEM VISIT with RO COLVIN [facility] 03/31/2020 Last Documented On 0 10:53AM ; [facility] Ordered return to the clinic if condition worsens or new symptoms arise PROBLEM VISIT with RO COLVIN [facility] 03/31/2020 Last Documented On 0 10:53AM ; [facility] Ordered follow-up visit as n eeded with an office visit if symptoms persist or worsen SICK VISIT with ROYESY COLVIN [facility] 08/11/2019 Last Documented On 9 11:02AM ; [facility] Ordered patient to call if p longlem develops SICK VISIT with RO COLVIN [facility] 08/11/2019 Last Documented On 9 11:02AM ; [facility] Ordered return to the clinic if condition worsens or new symptoms arise SICK VISIT with RO COLVIN [facility] 08/11/2019 Last Documented On 9 11:02AM ; [facility] Ordered return to the clinic if condition worsens or new symptoms arise SCHOOL PHYSICAL with RO COLVIN [facility] 06/18/2019 Last Documented On 9 10:06AM ; [facility] Ordered patient will call fo r appointment as needed EMERGENCY ROOM FOLLOW UP with DAV[facility] 03/30/2019 Last Documented On 9 6:44PM ; [facility] Ordered return to the clinic if condition worsens or new symptoms arise EMERGENCY ROOM FOLLOW UP with DAIVD [facility] 03/30/2019 Last Documented On 9 6:44PM ; [facility] Ordered follow-up visit year ly or as needed ANNUAL WELL WOMEN EXAM with RO COLVIN [facility] 09/03/2018 Last Documented On 8 2:39PM ; [facility] Ordered return to the clinic if condition worsens or new symptoms arise ANNUAL WELL WOMEN EXAM with RO Luna MARII [facility] 09/03/2018 Last Documented On 8 2:39PM ; [facility] Ordered patient will call fo r appointment as needed SAME DAY SICK VISIT with RO Luna MARII [facility] 08/03/2018 Last Documented On 8 2:21PM ; [facility] Ordered return to the clinic if condition worsens or new symptoms arise SAME DAY SICK VISIT with RO Luna MARII [facility] 08/03/2018 Last Documented On 8 2:21PM ; [facility] Ordered return to the clinic if condition worsens or new symptoms arise SCHOOL PHYSICAL with RO RESENDIZMeena [facility] 06/15/2018 Last Documented On 8 3:54PM ; [facility] Go to eye doctor for visual changes or worsening. Recommended warm compresses. Continue OTC eye drops PRN SAME DAY SICK VISIT with RO COLVIN [facility] 10/13/2017 Last Documented On 7 1:05PM ; [facility] Ordered return to the clinic if condition worsens or new symptoms arise SAME DAY SICK VISIT with RO COLVIN [facility] 10/13/2017 Last Documented On 7 1:05PM ; [facility] Ordered follow-up visit as needed HOSPIT AL FOLLOW UP EXAM with LIZBETH MUKHERJEE M.D. 02/06/2017 Last Documented On 7 11:51AM ; [facility] Ordered follow-up visit as needed SICK VISIT wit h LIZBETH MUKHERJEE M.D. 11/06/2016 Last Documented On 6 1:03PM ; [facility] Ordered follow-up visit in o ne month for recheck GENERAL OFFICE VISIT with LIZBETH MUKHERJEE M.D. 11/05/2016 Last Documented On 6 11:49AM ; [facility] Ordered follow-up visit as needed EMERGE NCY ROOM FOLLOW UP with LIZBETH MUKHERJEE M.D. 12/25/2015 Last Documented On 6 10:44PM ; [facility] Ordered Transition in care, clinical summary provided EMERGENCY ROOM FOLLOW UP with LIZBETH MUKHERJEE M.D. 12/25/2015 Last Documented On 6 10:44PM ; [facility] Requested Referred to: neurology EMERGEN CY ROOM FOLLOW UP with LIZBETH MUKHERJEE M.D. 12/25/2015 Last Documented On 6 10:44PM ; [facility] Ordered follow-up visit as needed PROBLEM VISIT with LIZBETH MUKHERJEE M.D. 03/09/2015 Last Documented On 5 8:23AM ; [facility] discussed migraines. discuss ed MRI as mom is concerned with the visual auras. We can certainly order this, but mom has decided they will go ahead and wait. we will try magnesium twice daily and keep headache diary - handout given F/U [address] Mukherjee - they will bring headache diary with them, sooner if needed SICK VISIT with LIMA OROZCO PA-C 09/07/2014 Last Documented On 4 9:59AM ; [facility] Pt understands and agrees wi th plan of care SICK VISIT with LIMA OROZCO PA-C 09/07/2014 Last Documented On 4 9:59AM ; [facility] Ordered follow-up visit as n eeded with an office visit. SCHOOL PHYSICAL with ANTONY KOLB PA-C 06/06/2014 Last Documented On 4 11:30AM ; [facility] Ordered patient to call if desmond jarrell develops SCHOOL PHYSICAL with ANTONY KOLB PA-C 06/06/2014 Last Documented On 4 11:30AM ; [facility] Ordered return to the clinic if condition worsens or new symptoms arise SCHOOL PHYSICAL with ANTONY KOLB PA-C 06/06/2014 Last Documented On 4 11:30AM ; [facility] Ordered follow-up visit as needed GENERA L OFFICE VISIT with LIZBETH MUKHERJEE M.D. 02/17/2014 Last Documented On 4 4:51PM ; [facility] xray foot ibuprofen 3 times a day rest ice elevation F/U based on xray report GENERAL OFFICE VISIT with LIMA OROZCO PA-C 09/01/2012 Last Documented On 2 4:24PM ; [facility] rest fluids otc antihistamin e floxin drops to right ear F/U 3-5 days if no improvement, sooner if worse SICK VISIT with LIMA OROZCO PA-C 05/28/2012 Last Documented On 2 9:56AM ; [facility] otc claritin or zyrtec daily F/U prn SICK VISIT with LIMA OROZCO PA-C 07/05/2011 Last Documented On 1 2:18PM ; [facility] bactroban ointment to face. advised pt to stop picking at lesion. good hand washing. reassurance about back. tylenol/motrin prn. may use ice. advised to sleep in her bed instead of recliner. F/U if no improvement SICK VISIT with LIMA OROZCO PA-C 06/24/2011 Last Documented On 1 4:17PM ; [facility] Pending Tests Order Diagnosis Results Due Ordering P rovider Lab Comp Metabolic Panel 04/09/24 KM SON Jeremy COLVIN COCOA BUTTER FILTER OPERATOR Last Documented On 4 9:43AM ; [facility] Lab Lipid Panel 04/09/24 RO PUENTE EZ COCOA BUTTER FILTER OPERATOR Last Documented On 4 9:43AM ; [facility] Lab CBC w/ DIFF 04/09/24 RO PUENTE EZ COCOA BUTTER FILTER OPERATOR Last Documented On 4 9:43AM ; [facility] Lab TSH w/ reflex T-4, Free 04/09/24 A MAGDALENO COLVIN COCOA BUTTER FILTER OPERATOR Last Documented On 4 9:43AM ; [facility] Lab Vitamin B12/Folic Acid 04/09/24 AL LISON Jeremy COLVIN COCOA BUTTER FILTER OPERATOR Last Documented On 4 9:43AM ; [facility] Referrals To Diagnosis Pediatric Specialist NOCTURNAL E NURESIS Note: ped urologist Last Documented On 0 1:32PM ; [facility] Neurologist CARDINAL MAGDIEL ESPINO[facility] - [address] [place] [id number] Migraine with aura, not intractable, w/o status migrainosus Note: DR. HOLGUIN Last Documented On 6 4:01PM ; [facility] Neurologist CARDINAL MAGDIEL ESPINO[facility] - [address] [place] [address] Migraine with aura, not intractable, w/o status migrainosus Last Documented On 7 3:42PM ; [facility] Neurosurgeon [facility] - [address] [address] - Spinal stenosis, lumbosacral region Note: Keron Kendrick Last Documented On 1 4:15PM ; [facility] Manager [employer] BANDAR SMITH Unspecified hea ring loss, bilateral Note: [place] preferred, [place] if not Last Documented On 4 11:10AM ; [facility] Instructions to patient Intervention and counseling on cessation of tobacco use Last Documented On 4 9:28AM ; [facility] Lose weight Last Documented On 4 11:46AM ; [facility] Intervention and counseling on cessation of tobacco use Last Documented On 4 10:52AM ; [facility] Lose weight Last Documented On 3 9:38AM ; [facility] Intervention and counseling on cessation of tobacco use Last Documented On 2 4:03PM ; [facility] Intervention and counseling on cessation of tobacco use Last Documented On 2 3:43PM ; [facility] Return to the clinic if cond ition worsens or new symptoms arise Last Documented On 9 10:56AM ; [facility] Go to the emergency room if condition worsens Last Documented On 9 10:56AM ; [facility] Watch for signs/symptoms of infection Last Documented On 9 10:56AM ; [facility] Watch for signs/symptoms of infection, return to the clinic if seen Last Documented On 9 10:56AM ; [facility] Instructions for patient Last Documented On 8 2:11PM ; [facility] Education and Decision Aids were provided during visit for: Anticipatory guidance: limit computer and video time Last Documented On 9 8:55AM ; [facility] Discussed use of seat belts Last Documented On 9 8:55AM ; [facility] Discussed use of smoke detec tors Last Documented On 9 8:55AM ; [facility] Discussed 'child-proofing' t he house : advised removing firearms from home or keeping them unloaded and locked away Last Documented On 9 8:55AM ; [facility] Discussed avoiding sun expos ure Last Documented On 9 8:55AM ; [facility] Discussed bicycle safety Last Documented On 9 8:55AM ; [facility] Discussed sports safety Last Documented On 9 8:55AM ; [facility] Discussed nutritional needs : teach healthy choices, including fruits and vegetables Last Documented On 9 8:55AM ; [facility] Discussed activities : super vise activities with peers Last Documented On 9 8:55AM ; [facility] Parent education about immun izations VIS# 07/03/18 10/11/16 ~Discussed: ~Risks/Benefits of vaccine components discussed ~Discussed possible side effects of each component and when to call the office Last Documented On 9 9:56AM ; [facility] Parent education about immun izations Discussed: ~Risks/Benefits of vaccine components discussed ~Discussed possible side effects of each component and when to call the office. ~ Last Documented On 9 9:56AM ; [facility] Discussed concerns about exe rcise : promote physical activity Last Documented On 9 8:55AM ; [facility] Discussed concerns about dis cipline : reinforce limits, family rules, homework, and chores Last Documented On 9 8:55AM ; [facility] Discussed concerns about set ting disciplinary limits and establishing consequences Last Documented On 9 8:55AM ; [facility] Discussed concerns about tel evision : limit time spent watching Last Documented On 9 8:55AM ; [facility] Discussed concerns about tob acco use : avoid using Last Documented On 9 8:55AM ; [facility] Discussed concerns about alc ohol use : avoid using Last Documented On 9 8:55AM ; [facility] Discussed concerns about ill icit drug use : avoid using Last Documented On 9 8:55AM ; [facility] Anticipatory guidance: limit computer and video time Last Documented On 8 3:31PM ; [facility] Discussed use of seat belts Last Documented On 8 3:31PM ; [facility] Discussed use of smoke detec tors Last Documented On 8 3:31PM ; [facility] Discussed 'child-proofing' t he house : advised removing firearms from home or keeping them unloaded and locked away Last Documented On 8 3:31PM ; [facility] Discussed avoiding sun expos ure Last Documented On 8 3:31PM ; [facility] Discussed bicycle safety Last Documented On 8 3:31PM ; [facility] Discussed sports safety Last Documented On 8 3:31PM ; [facility] Discussed nutritional needs : teach healthy choices, including fruits and vegetables Last Documented On 8 3:31PM ; [facility] Discussed activities : super vise activities with peers Last Documented On 8 3:31PM ; [facility] Discussed concerns about exe rcise : promote physical activity Last Documented On 8 3:31PM ; [facility] Discussed concerns about dis cipline : reinforce limits, family rules, homework, and chores Last Documented On 8 3:31PM ; [facility] Discussed concerns about set ting disciplinary limits and establishing consequences Last Documented On 8 3:31PM ; [facility] Discussed concerns about tel evision : limit time spent watching Last Documented On 8 3:31PM ; [facility] Discussed concerns about tob acco use : avoid using Last Documented On 8 3:31PM ; [facility] Discussed concerns about alc ohol use : avoid using Last Documented On 8 3:31PM ; [facility] Discussed concerns about ill icit drug use : avoid using Last Documented On 8 3:31PM ; [facility] Anticipatory guidance: limit computer and video time Last Documented On 5 3:23PM ; [facility] Discussed use of seat belts Last Documented On 5 3:23PM ; [facility] Discussed use of smoke detec tors Last Documented On 5 3:23PM ; [facility] Discussed 'child-proofing' t he house : advised removing firearms from home or keeping them unloaded and locked away Last Documented On 5 3:23PM ; [facility] Discussed avoiding sun expos ure Last Documented On 5 3:23PM ; [facility] Discussed bicycle safety Last Documented On 5 3:23PM ; [facility] Discussed sports safety Last Documented On 5 3:23PM ; [facility] Discussed nutritional needs : teach healthy choices, including fruits and vegetables Last Documented On 5 3:23PM ; [facility] Discussed activities : super vise activities with peers Last Documented On 5 3:23PM ; [facility] Discussed concerns about exe rcise : promote physical activity Last Documented On 5 3:23PM ; [facility] Discussed concerns about dis cipline : reinforce limits, family rules, homework, and chores Last Documented On 5 3:23PM ; [facility] Discussed concerns about set ting disciplinary limits and establishing consequences Last Documented On 5 3:23PM ; [facility] Discussed concerns about tel evision : limit time spent watching Last Documented On 5 3:23PM ; [facility] Discussed concerns about tob acco use : avoid using Last Documented On 5 3:23PM ; [facility] Discussed concerns about alc ohol use : avoid using Last Documented On 5 3:23PM ; [facility] Discussed concerns about ill icit drug use : avoid using Last Documented On 5 3:23PM ; [facility] Discussed use of seat belts Last Documented On 4 11:29AM ; [facility] Discussed sports safety Last Documented On 4 11:29AM ; [facility] Discussed concerns about exe rcise : promote physical activity Last Documented On 4 11:29AM ; [facility] Assessments Includes: Assessments for all patient encounters Findings Encounter Date Fatigue PROBLEM VISIT with RO ACOSTA 04/06/2024 Last Documented On 4 11:47AM ; [facility] Generalized anxiety disorder PROBLEM VISIT with RO N SAGEZ COCOA BUTTER FILTER OPERATOR 04/06/2024 Last Documented On 4 11:47AM ; [facility] Obesity PROBLEM VISIT with RO N SAG EZ COCOA BUTTER FILTER OPERATOR 04/06/2024 Last Documented On 4 11:47AM ; [facility] Generalized anxiety disorder CHECK UP with ALLIS ON N SAGEZ COCOA BUTTER FILTER OPERATOR 03/12/2024 Last Documented On 4 11:26AM ; [facility] Hearing loss CHECK UP with RO N SAGEZ FN 03/12/2024 Last Documented On 4 11:26AM ; [facility] Generalized anxiety disorder ANNUAL PHYSICAL EXA M with RO N SAGEZ COCOA BUTTER FILTER OPERATOR 07/21/2023 Last Documented On 3 9:41AM ; [facility] Routine adult history and ph ysical (18-64 yrs) with abnormal findings ANNUAL PHYSICAL EXAM with RO N SAGEZ COCOA BUTTER FILTER OPERATOR 07/21/2023 Last Documented On 3 9:41AM ; [facility] Gestational hypertension PROBLEM VISIT with KM SON N SAGEZ COCOA BUTTER FILTER OPERATOR 01/15/2023 Last Documented On 3 2:08PM ; [facility] Tachycardia PROBLEM VISIT with RO N SAG EZ COCOA BUTTER FILTER OPERATOR 01/15/2023 Last Documented On 3 2:08PM ; [facility] [F41.1 - Generalized anxiety disorder] generalized anxiety disorder PROBLEM VISIT with KIRSTY CORDERO [facility]- 10/24/2022 Last Documented On 2 11:58AM ; [facility] Petechiae PROBLEM VISIT with RO N SAG EZ COCOA BUTTER FILTER OPERATOR 08/28/2022 Last Documented On 2 4:36PM ; [facility] Pruritus PROBLEM VISIT with RO N SAG EZ COCOA BUTTER FILTER OPERATOR 08/28/2022 Last Documented On 2 4:36PM ; [facility] Pruritus gravidarum PROBLEM VISIT with RO N SAGEZ COCOA BUTTER FILTER OPERATOR 08/28/2022 Last Documented On 2 4:36PM ; [facility] Routine adult history and ph ysical (18-64 yrs) without abnormal findings ANNUAL PHYSICAL EXAM with RO N SAGEZ COCOA BUTTER FILTER OPERATOR 05/08/2022 Last Documented On 2 4:06PM ; [facility] Lumbosacral spinal stenosis REFERRAL with ZANDRA COLVIN [facility] 12/22/2020 Last Documented On 1 8:28AM ; [facility] Lumbago with sciatica PROBLEM VISIT with RO COLVIN [facility] 12/19/2020 Last Documented On 1 11:16AM ; [facility] Lumbosacral disc degeneration X-RAY with RO COLVIN [facility] 12/19/2020 Last Documented On 1 4:24PM ; [facility] Arthralgia of the left humerus/elbow PRO BLEM VISIT with RO COLVIN [facility] 03/31/2020 Last Documented On 0 10:53AM ; [facility] Non-bullous impetigo PROBLEM VISIT with RO COLVIN [facility] 03/31/2020 Last Documented On 0 10:53AM ; [facility] Acute pharyngitis SICK VISIT with RO Robledo [facility] 08/11/2019 Last Documented On 9 11:02AM ; [facility] Group A streptococcus: B hem olytic pharyngitis SICK VISIT with RO COLVIN [facility] 08/11/2019 Last Documented On 9 11:02AM ; [facility] Tonsillitis SICK VISIT with RO COLVIN [facility] 08/11/2019 Last Documented On 9 11:02AM ; [facility] Patient is approved for part icipation in physical education and interscholastic sports for one year SCHOOL PHYSICAL with RO COLVIN [facility] 06/18/2019 Last Documented On 9 10:06AM ; [facility] Normal routine history and p hysical adolescent (13 - 18) SCHOOL PHYSICAL with RO COLVIN [facility] 06/18/2019 Last Documented On 9 10:06AM ; [facility] Arthralgia of the left ulna/radius/wrist EMERGENCY ROOM FOLLOW UP with DAVID MIDDLETON [facility]- 03/30/2019 Last Documented On 9 6:44PM ; [facility] Contraceptive management: in itiate contraception ANNUAL WELL WOMEN EXAM with RO RESENDIZMeena [facility] 09/03/2018 Last Documented On 8 2:39PM ; [facility] Excessive and frequent menst ruation with regular cycle ANNUAL WELL WOMEN EXAM with RO RESENDIZMeena [facility] 09/03/2018 Last Documented On 8 2:39PM ; [facility] Acute pharyngitis * PHONE CALL with RO Jeremy HOFFMAN [facility] 08/05/2018 Last Documented On 8 8:20AM ; [facility] Pyrexia with chills SAME DAY SICK VISIT with KWASI TIMN Jeremy RESENDIZMeena [facility] 08/03/2018 Last Documented On 8 2:21PM ; [facility] Sore throat SAME DAY SICK VISIT with RO RESENDIZMeena [facility] 08/03/2018 Last Documented On 8 2:21PM ; [facility] Patient is approved for part icipation in physical education and interscholastic sports for one year SCHOOL PHYSICAL with RO RESENDIZMeena [facility] 06/15/2018 Last Documented On 8 3:54PM ; [facility] Normal routine history and p hysical adolescent (13 - 18) SCHOOL PHYSICAL with RO Luna MARII [facility] 06/15/2018 Last Documented On 8 3:54PM ; [facility] Acute conjunctivitis of the left eye * PHONE JORDAN L with RO RESENDIZMeena [facility] 10/15/2017 Last Documented On 7 9:10AM ; [facility] Acute viral conjunctivitis SAME DAY SICK VISIT w ith RO COLVIN [facility] 10/13/2017 Last Documented On 7 1:05PM ; [facility] Elevated liver enzymes HOSPITAL FOLLOW UP EXAM w ith LIZBETH MUKHERJEE M.D. 02/06/2017 Last Documented On 7 11:51AM ; [facility] Migraine headache SICK VISIT with LIZBETH MUKHERJEE M.D. 11/06/2016 Last Documented On 6 1:03PM ; [facility] Classic migraine (with aura) without intractable migraine without status migrainosus GENERAL OFFICE VISIT with LIZBETH MUKHERJEE M.D. 11/05/2016 Last Documented On 6 11:49AM ; [facility] Migraine headache EMERGENCY ROOM FOLLOW UP with LIZBETH MUKHERJEE M.D. 12/25/2015 Last Documented On 6 10:44PM ; [facility] Patient is approved for part icipation in physical education and interscholastic sports for one year SPORTS PHYSICAL with LIZBETH MUKHERJEE M.D. 06/07/2015 Last Documented On 5 3:33PM ; [facility] Normal routine history and p hysical adolescent (13 - 18) SPORTS PHYSICAL with LIZBETH MUKHERJEE M.D. 06/07/2015 Last Documented On 5 3:33PM ; [facility] Homeland Schlatter disease of left leg PROBLEM VIS IT with LIZBETH MUKHERJEE M.D. 03/09/2015 Last Documented On 5 8:23AM ; [facility] Migraine headache SICK VISIT with LIMA AMORC 09/07/2014 Last Documented On 4 9:59AM ; [facility] Patient is approved for part icipation in School, Physical Education, and Sports for 1 year SCHOOL PHYSICAL with ANTONY BARROS-C 06/06/2014 Last Documented On 4 11:30AM ; [facility] Normal routine history and p hysical adolescent (13 - 18) SCHOOL PHYSICAL with ANTONY KOLB PA-C 06/06/2014 Last Documented On 4 11:30AM ; [facility] Migraine headache GENERAL OFFICE VISIT with YOUSUF MUKHERJEE M.D. 02/17/2014 Last Documented On 4 4:51PM ; [facility] Contusion with intact skin s urface of the left fourth toe GENERAL OFFICE VISIT with LIMA OROZCO PA-C 09/01/2012 Last Documented On 2 4:24PM ; [facility] Allergic rhinitis SICK VISIT with LIMA SANCHEZ PA-C 05/28/2012 Last Documented On 2 9:56AM ; [facility] Otitis externa SICK VISIT with LIMA OROZCO PA-C 05/28/2012 Last Documented On 2 9:56AM ; [facility] Acute serous otitis media SICK VISIT with NEELA HO PA-C 07/05/2011 Last Documented On 1 2:18PM ; [facility] Cerumen impaction SICK VISIT with LIMA SANCHEZ PA-C 07/05/2011 Last Documented On 1 2:18PM ; [facility] Backache SICK VISIT with LIMA OROZCO PA-C 06/24/2011 Last Documented On 1 4:17PM ; [facility] Impetigo SICK VISIT with LIMA OROZCO PA-C 06/24/2011 Last Documented On 1 4:17PM ; [facility] Otitis media in both ears SICK VISIT with NEELA HO PA-C 03/18/2011 Last Documented On 1 2:48PM ; [facility] Acute upper respiratory infection GENERA L OFFICE VISIT with OLIMPIAEDUAR KNOX PA-C 10/15/2010 Last Documented On 0 4:18PM ; [facility] Upper respiratory infection SICK VISIT with ALEXIS MOSCOSO Lila KNOX PA-C 01/15/2010 Last Documented On 0 9:25AM ; [facility] Acute pharyngitis SICK VISIT with PIPER LORENZANA PA-C 12/06/2009 Last Documented On 0 1:33PM ; [facility] Upper respiratory infection SICK VISIT with SOCRATES JIMENES MICHELLE LORENZANA PA-C 12/06/2009 Last Documented On 0 1:33PM ; [facility] Instructions Includes: Instructions for all patient encounters Instructions to patient Intervention and counseling on cessation of tobacco use Last Documented On 4 9:28AM ; [facility] Lose weight Last Documented On 4 11:46AM ; [facility] Intervention and counseling on cessation of tobacco use Last Documented On 4 10:52AM ; [facility] Lose weight Last Documented On 3 9:38AM ; [facility] Intervention and counseling on cessation of tobacco use Last Documented On 2 4:03PM ; [facility] Intervention and counseling on cessation of tobacco use Last Documented On 2 3:43PM ; [facility] Return to the clinic if cond ition worsens or new symptoms arise Last Documented On 9 10:56AM ; [facility] Go to the emergency room if condition worsens Last Documented On 9 10:56AM ; [facility] Watch for signs/symptoms of infection Last Documented On 9 10:56AM ; [facility] Watch for signs/symptoms of infection, return to the clinic if seen Last Documented On 9 10:56AM ; [facility] Instructions for patient Last Documented On 8 2:11PM ; [facility] Education and Decision Aids were provided during visit for: Anticipatory guidance: limit computer and video time Last Documented On 9 8:55AM ; [facility] Discussed use of seat belts Last Documented On 9 8:55AM ; [facility] Discussed use of smoke detec tors Last Documented On 9 8:55AM ; [facility] Discussed 'child-proofing' t he house : advised removing firearms from home or keeping them unloaded and locked away Last Documented On 9 8:55AM ; [facility] Discussed avoiding sun expos ure Last Documented On 9 8:55AM ; [facility] Discussed bicycle safety Last Documented On 9 8:55AM ; [facility] Discussed sports safety Last Documented On 9 8:55AM ; [facility] Discussed nutritional needs : teach healthy choices, including fruits and vegetables Last Documented On 9 8:55AM ; [facility] Discussed activities : super vise activities with peers Last Documented On 9 8:55AM ; [facility] Parent education about immun izations VIS# 07/03/18 10/11/16 ~Discussed: ~Risks/Benefits of vaccine components discussed ~Discussed possible side effects of each component and when to call the office Last Documented On 9 9:56AM ; [facility] Parent education about immun izations Discussed: ~Risks/Benefits of vaccine components discussed ~Discussed possible side effects of each component and when to call the office. ~ Last Documented On 9 9:56AM ; [facility] Discussed concerns about exe rcise : promote physical activity Last Documented On 9 8:55AM ; [facility] Discussed concerns about dis cipline : reinforce limits, family rules, homework, and chores Last Documented On 9 8:55AM ; [facility] Discussed concerns about set ting disciplinary limits and establishing consequences Last Documented On 9 8:55AM ; [facility] Discussed concerns about tel evision : limit time spent watching Last Documented On 9 8:55AM ; [facility] Discussed concerns about tob acco use : avoid using Last Documented On 9 8:55AM ; [facility] Discussed concerns about alc ohol use : avoid using Last Documented On 9 8:55AM ; [facility] Discussed concerns about ill icit drug use : avoid using Last Documented On 9 8:55AM ; [facility] Anticipatory guidance: limit computer and video time Last Documented On 8 3:31PM ; [facility] Discussed use of seat belts Last Documented On 8 3:31PM ; [facility] Discussed use of smoke detec tors Last Documented On 8 3:31PM ; [facility] Discussed 'child-proofing' t he house : advised removing firearms from home or keeping them unloaded and locked away Last Documented On 8 3:31PM ; [facility] Discussed avoiding sun expos ure Last Documented On 8 3:31PM ; [facility] Discussed bicycle safety Last Documented On 8 3:31PM ; [facility] Discussed sports safety Last Documented On 8 3:31PM ; [facility] Discussed nutritional needs : teach healthy choices, including fruits and vegetables Last Documented On 8 3:31PM ; [facility] Discussed activities : super vise activities with peers Last Documented On 8 3:31PM ; [facility] Discussed concerns about exe rcise : promote physical activity Last Documented On 8 3:31PM ; [facility] Discussed concerns about dis cipline : reinforce limits, family rules, homework, and chores Last Documented On 8 3:31PM ; [facility] Discussed concerns about set ting disciplinary limits and establishing consequences Last Documented On 8 3:31PM ; [facility] Discussed concerns about tel evision : limit time spent watching Last Documented On 8 3:31PM ; [facility] Discussed concerns about tob acco use : avoid using Last Documented On 8 3:31PM ; [facility] Discussed concerns about alc ohol use : avoid using Last Documented On 8 3:31PM ; [facility] Discussed concerns about ill icit drug use : avoid using Last Documented On 8 3:31PM ; [facility] Anticipatory guidance: limit computer and video time Last Documented On 5 3:23PM ; [facility] Discussed use of seat belts Last Documented On 5 3:23PM ; [facility] Discussed use of smoke detec tors Last Documented On 5 3:23PM ; [facility] Discussed 'child-proofing' t he house : advised removing firearms from home or keeping them unloaded and locked away Last Documented On 5 3:23PM ; [facility] Discussed avoiding sun expos ure Last Documented On 5 3:23PM ; [facility] Discussed bicycle safety Last Documented On 5 3:23PM ; [facility] Discussed sports safety Last Documented On 5 3:23PM ; [facility] Discussed nutritional needs : teach healthy choices, including fruits and vegetables Last Documented On 5 3:23PM ; [facility] Discussed activities : super vise activities with peers Last Documented On 5 3:23PM ; [facility] Discussed concerns about exe rcise : promote physical activity Last Documented On 5 3:23PM ; [facility] Discussed concerns about dis cipline : reinforce limits, family rules, homework, and chores Last Documented On 5 3:23PM ; [facility] Discussed concerns about set ting disciplinary limits and establishing consequences Last Documented On 5 3:23PM ; [facility] Discussed concerns about tel evision : limit time spent watching Last Documented On 5 3:23PM ; [facility] Discussed concerns about tob acco use : avoid using Last Documented On 5 3:23PM ; [facility] Discussed concerns about alc ohol use : avoid using Last Documented On 5 3:23PM ; [facility] Discussed concerns about ill icit drug use : avoid using Last Documented On 5 3:23PM ; [facility] Discussed use of seat belts Last Documented On 4 11:29AM ; [facility] Discussed sports safety Last Documented On 4 11:29AM ; [facility] Discussed concerns about exe rcise : promote physical activity Last Documented On 4 11:29AM ; [facility] Medical Equipment - Implanted Devices Includes: Current and historical Devices No Medical Equipment Recorded Medications Includes: Current and historical Medications Past Medications on file CeleXA 20 MG Oral Tablet 04/19/2024 - 10/16/2024 Provider: RO ACOSTA Diagnosis: Generalized anxi ety disorder One tablet daily Last Documented On 04/19/2024 1:22PM By RO COLVIN NP ; [facility] Wellbutrin XL 150 MG Oral Tablet Extended Release 24 Hour 04/06/2024 - 05/06/2024 Provider: RO ACOSTA Diagnosis: Generalized anxi ety disorder One tablet daily Last Documented On 04/06/2024 9:48AM By RO COLVIN NP ; [facility] hydrOXYzine HCl 50 MG Oral Tablet 04/06/2024 - 05/06/2024 Provider: RO COLVIN COCOA BUTTER FILTER OPERATOR Diagnosis: Generalized anxi ety disorder Take 1 tab as needed for anx iety/panic attacks Last Documented On 04/06/2024 9:48AM By RO COLVIN NP ; [facility] CeleXA 20 MG Oral Tablet 03/12/2024 - 04/19/2024 Provider: RO ACOSTA Diagnosis: Generalized anxi ety disorder One tablet daily Last Documented On 04/19/2024 1:18PM By RO COLVIN NP ; [facility] hydrOXYzine HCl 50 MG Oral Tablet 03/12/2024 - 04/06/2024 Provider: RO COLVIN COCOA BUTTER FILTER OPERATOR Diagnosis: Generalized anxi ety disorder Take 1 tab as needed for anx iety/panic attacks Last Documented On 04/06/2024 9:47AM By RO COLVIN NP ; [facility] Sertraline HCl 100 MG Oral Tablet 07/21/2023 - 01/17/2024 Provider: RO COLVIN COCOA BUTTER FILTER OPERATOR Diagnosis: One tablet daily, 150 mg total daily Last Documented On 07/21/2023 11:57AM By RO COLVIN SECURITY COMPLIANCE SPECIALIST ; [facility] Sertraline HCl 50 MG Oral Tablet 07/21/2023 - 01/17/2024 Provider: RO COLVIN COCOA BUTTER FILTER OPERATOR Diagnosis: One tablet daily, 150 mg total daily Last Documented On 07/21/2023 11:57AM By RO COLVIN SECURITY COMPLIANCE SPECIALIST ; [facility] Sertraline HCl 150 MG Oral Capsule 07/21/2023 - 2022 Provider: Diagnosis: Last Documented On 07/21/2023 9:28AM By RO COLVIN SECURITY COMPLIANCE SPECIALIST ; [facility] Sertraline HCl 150 MG Oral Capsule 07/21/2023 - 07/21/2023 Provider: RO COLVIN COCOA BUTTER FILTER OPERATOR Diagnosis: 1 capsule daily Last Documented On 07/21/2023 11:55AM By RO COLVIN NP ; [facility] hydrOXYzine HCl 50 MG Oral Tablet 07/21/2023 - 03/12/2024 Provider: RO COLVIN COCOA BUTTER FILTER OPERATOR Diagnosis: Generalized anxi ety disorder Take 1 tab as needed for anx iety/panic attacks Last Documented On 03/12/2024 11:07AM By RO COLVIN NP ; [facility] Sertraline HCl 25 MG Oral Tablet 10/24/2022 - 03/12/2024 Provider: KIRSTY CORDERO [employer]OA BUT[employer] FILTER OPERATOR- Diagnosis: Generalized anxi ety disorder One tablet daily Last Documented On 03/12/2024 10:50AM By Mellissa MCLEOD ; [facility] [id number]-Uj-Dtgppwef 0.18/0.215/0 .25 MG-25 MCG Oral Tablet 05/08/2022 - 08/28/2022 Provider: RO Robledo COCOA BUT[employer] FILTER OPERATOR Diagnosis: TAKE ONE TABLET BY MOUTH DAILY Last Documented On 08/28/2022 4:03PM By Natasha MCLEOD ; [facility] Rfs-Sm-Sczkonlp 0.18/0.215/0 .25 MG-25 MCG Oral Tablet 05/07/2022 - 05/08/2022 Provider: RO Robledo COCOA BUT[employer] FILTER OPERATOR Diagnosis: TAKE ONE TABLET BY MOUTH DAILY Last Documented On 05/08/2022 3:51PM By RO COLVIN SECURITY COMPLIANCE SPECIALIST ; [facility] Ortho Tri-Cyclen Lo 0.18/0.215/0.25 MG-25 MCG Oral Tablet 06/05/2021 - 03/12/2024 Provider: RO COLVIN COCOA BUTTER FILTER OPERATOR Diagnosis: Encounter for ot h general cnsl and advice on contraception One tablet daily Last Documented On 03/12/2024 10:49AM By Mellissa MCLEOD ; [facility] predniSONE 20 MG Oral Tablet 12/19/2020 - 03/12/2024 Provider: RO COLVIN COCOA BUTTER FILTER OPERATOR Diagnosis: Lumbago with sci atica, unspecified side Take 2 tabs daily for 4 days , then 1 tab daily for 4 days, then stop Last Documented On 03/12/2024 10:49AM By Mellissa MCLEOD ; [facility] Ortho Tri-Cyclen Lo 0.18/0.215/0.25 MG-25 MCG Oral Tablet 07/03/2020 - 06/05/2021 Provider: GRETEL GRAY [employer] FILTER OPERATOR-C Diagnosis: Encounter for ot h general cnsl and advice on contraception One tablet daily Last Documented On 06/05/2021 8:28AM By RO COLVIN NP ; [facility] Bactrim DS 800-160 MG Oral Tablet 03/31/2020 - 03/12/2024 Provider: RO COLVIN COCOA BUTTER FILTER OPERATOR Diagnosis: Non-bullous impe tigo One tablet twice a day Last Documented On 03/12/2024 10:48AM By Mellissa MCLEOD ; [facility] Mupirocin 2% External Ointment 03/31/2020 - 03/12/2024 Provider: RO COLVIN COCOA BUTTER FILTER OPERATOR Diagnosis: Non-bullous impe tigo Apply three times a day until resolved Last Documented On 03/12/2024 10:49AM By Mellissa MCLEOD ; [facility] Amoxicillin 500 MG Oral Tablet 08/11/2019 - 03/12/2024 Provider: RO ACOSTA Diagnosis: Acute pharyngiti s, unspecified One tablet twice a day Last Documented On 03/12/2024 10:48AM By Mellissa MCLEOD ; [facility] Magic Mouthwash compounded Oral Suspension 08/11/2019 - 03/12/2024 Provider: RO PASCUALP Diagnosis: Acute pharyngiti s, unspecified swish and spit as needed Last Documented On 03/12/2024 10:49AM By Mellissa MCLEOD ; [facility] Ortho Tri-Cyclen Lo 0.18/0.215/0.25 MG-25 MCG Oral Tablet 08/06/2019 - 07/03/2020 Provider: RO COLVIN COCOA BUTTER FILTER OPERATOR Diagnosis: Encounter for ot h general cnsl and advice on contraception One tablet daily Last Documented On 10:59AM By GRETEL ACOSTA-C ; [facility] Ortho Tri-Cyclen Lo 0.18/0.215/0.25MG-25 MCG Oral Tablet 09/03/2018 - 08/06/2019 Provider: RO ACOSTA Diagnosis: Encounter for ot h general cnsl and advice on contraception One tablet daily Last Documented On 08/06/2019 8:34AM By RO COLVIN NP ; [facility] Amoxicillin 500MG Oral Tablet 08/05/2018 - 03/12/2024 Provider: RO ACOSTA Diagnosis: Acute pharyngiti s, unspecified One tablet twice a day Last Documented On 03/12/2024 10:48AM By Mellissa MCLEOD ; [facility] Polymyxin B-Trimethoprim 75124-7.1UNIT/ML-% Ophthalmic Solution 10/15/2017 - 03/12/2024 Provider: RO COLVIN COCOA BUTTER FILTER OPERATOR Diagnosis: Unspecified acut e conjunctivitis, left eye 1-2 drops to eye 4 times a d ay for 7 days, may reduce to twice a day after 3 days if eye is improved Last Documented On 03/12/2024 10:49AM By Mellissa MCLEOD ; [facility] Adapalene 0.1% External Gel (jelly) 09/22/2017 - 03/30/2019 Provider: LIZBETH Durand Diagnosis: Thirty minutes after washing /drying skin, apply pea-sized amount to affected areas at bedtime; avoid excess sun exposure Last Documented On 03/30/2019 4:07PM By MISSY MCLEOD ; [facility] Benzoyl Peroxide 5% External Gel (jelly) 09/22/2017 - 03/30/2019 Provider: LIZBETH Durand Diagnosis: Cleanse skin and apply small amounts over affected areas once daily; can increase frequency as needed. Last Documented On 03/30/2019 4:07PM By MISSY MCLEOD ; [facility] Cyproheptadine HCl 4 MG Tablet 11/05/2016 - 03/30/2019 Provider: LIZBETH MUKHERJEE M.D. Diagnosis: Migraine with au ra, not intractable, w/o status migrainosus TAKE 2 BID Last Documented On 03/30/2019 4:07PM By MISSY MCLEOD ; [facility] Ondansetron 8 MG Tablet Dispersible 12/25/2015 - 11/05/2016 Provider: LIZBETH MUKHERJEE M.D. Diagnosis: Migraine with au ra, not intractable, w/o status migrainosus Give one tablet by mouth thr ice daily as needed for nausea/vomiting Last Documented On 11/05/2016 9:28AM By CELIO MCLEOD ; [facility] Magnesium 400 MG OR CAPS 09/07/2014 - 11/05/2016 Provi paul: LIMA OROZCO PA-C Diagnosis: Last Documented On 11/05/2016 9:28AM By CELIO MCLEOD ; [facility] Bactrim DS 800-160 MG OR TABS 05/12/2014 - 11/05/2016 Provider: LIMA OROZCO PA-C Diagnosis: Last Documented On 11/05/2016 9:28AM By CELIO MCLEOD ; [facility] Ketorolac Tromethamine 30 MG/ML IJ SOLN 02/17/2014 - 11/05/2016 Provider: LIZBETH MUKHERJEE M.D. Diagnosis: MIGRNE UNSP WO N TRC MGRN Give one (1) mL intramuscularly now Last Documented On 11/05/2016 9:28AM By CELIO MCLEOD ; [facility] Ondansetron 8 MG OR TBDP 02/17/2014 - 12/25/2015 Provi paul: LIZBETH MUKHERJEE M.D. Diagnosis: MIGRNE UNSP WO N TRC MGRN Give one tablet by mouth thr ice daily as needed for nausea/vomiting Last Documented On 12/25/2015 11:50AM By LIZBETH MUKHERJEE MD ; [facility] Ofloxacin 0.3% OP SOLN 05/28/2012 - 11/05/2016 Provide r: LIMA OROZCO PA-C Diagnosis: 5 drops once a day for 7 days Last Documented On 11/05/2016 9:28AM By CELIO MCLEOD ; [facility] Bactroban 2% EX OINT 06/24/2011 - 11/05/2016 Provider: LIMA OROZCO PA-C Diagnosis: apply small amount TID for 10 days Last Documented On 11/05/2016 9:27AM By CELIO MCLEOD ; [facility] Amoxicillin 500 MG OR CAPS 03/18/2011 - 11/05/2016 Provider: LIMA OROZCO PA-C Diagnosis: OTITIS MEDIA NOS Last Documented On 11/05/2016 9:27AM By CELIO MCLEOD ; [facility] Amoxicillin 500 MG OR CAPS 10/15/2010 - 03/18/2011 Provider: OLIMPIA MONACO CH, PA-C Diagnosis: ACUTE URI NOS Last Documented On 1 2:43PM By LIMA OROZCO PA-C ; [facility] Desmopressin Acetate [place] 0.01% NA SOLN 10/09/2010 - 11/05/2016 Provider: OLIMPIA KNOX PA-C Diagnosis: NOCTURNAL ENURES IS 10 mcg in each nostril qhs Last Documented On 11/05/2016 9:27AM By CELIO MCLEOD ; [facility] Desmopressin Acetate [place] 0.01% NA SOLN 09/10/2010 - 10/09/2010 Provider: OLIMPIA KNOX PA-C Diagnosis: NOCTURNAL ENURES IS 10 mcg in each nostril qhs Last Documented On 0 9:12AM By OLIMPIA KNOX PA-C ; [facility] Zithromax 200 MG/5ML OR SUSR 01/15/2010 - 11/05/2016 Provider: OLIMPIA MONACO CH, PA-C Diagnosis: ACUTE URI NOS 2 tspen PO for 1 days 2-5 Last Documented On 11/05/2016 9:27AM By CELIO MCLEOD ; [facility] Zithromax 200 MG/5ML OR SUSR 12/06/2009 - 01/15/2010 Provider: PIPER CASIANO PA-C Diagnosis: ACUTE PHARYNGITI S 2 tspen PO for 1 days 2-5 Last Documented On 0 8:54AM By OLIMPIA KNOX PA-C ; [facility] Medications Administered Includes: Administered Medications in patient's chart Medications Administered Diagnosis Date Pro vider Ketorolac Tromethamine 60 MG/2ML IJ SOLN 11/06/2016 LIZBETH MUKHERJEE M.D. Last Documented On 6 11:46AM By YOLANDA BARKER LPN ; [facility] Ketorolac Tromethamine 30 MG /ML IM SOLN MIGRNE UNSP WO NTRC MGRN 02/17/2014 LIZBETH Knapp GIVEN RIGHT UPPER OUTER QUADRANT I.M. Last Documented On 4 10:50AM By JAK HERNÁNDEZ LPN ; [facility] Results Includes: Results from 09/21/2024 through 09/21/2025 No Results Recorded For Specified Dates History of Present Illness History of Present Illness not supported for this document type No History of Present Illness Recorded Social History Description Last Updated Tobacco non-user 05/08/2022 Last Documented On 2 4:06PM ; [facility] Current nonsmoker 12/19/2020 Last Documented On 1 11:16AM ; [facility] Non-smoker 03/31/2020 Last Documented On 0 10:53AM ; [facility] Smoking status : Never smoker 08/11/2019 Last Documented On 9 11:02AM ; [facility] Currently in school 02/06/2017 Last Documented On 7 11:51AM ; [facility] Lives with parents in [place] 06/12/2015 Last Documented On 5 3:33PM ; [facility] Not using alcohol 06/12/2015 Last Documented On 5 3:33PM ; [facility] Not using drugs 06/12/2015 Last Documented On 5 3:33PM ; [facility] No tobacco use 06/06/2014 Last Documented On 4 11:30AM ; [facility] A recent decrease in activity 10/15/2010 Last Documented On 0 4:18PM ; [facility] No recent change in sleep 10/15/2010 Last Documented On 0 4:18PM ; [facility] Procedures and Surgical History Surgical History Last Updated No history of surgery 06/12/2015 Last Documented On 5 3:33PM ; [facility] Medical History Includes: Medical History in patient's chart Description Last Updated History of headache syndromes : migraine 06/12/2015 Last Documented On 5 3:33PM ; [facility] A PPD was negative 06/12/2015 Last Documented On 5 3:33PM ; [facility] No cardiac problems 06/12/2015 Last Documented On 5 3:33PM ; [facility] No exposure to tuberculosis 06/12/2015 Last Documented On 5 3:33PM ; [facility] No hearing problems 06/12/2015 Last Documented On 5 3:33PM ; [facility] No heart murmur 06/12/2015 Last Documented On 5 3:33PM ; [facility] No high cholesterol 06/12/2015 Last Documented On 5 3:33PM ; [facility] No history of asthma 06/12/2015 Last Documented On 5 3:33PM ; [facility] No history of concussion 06/12/2015 Last Documented On 5 3:33PM ; [facility] No history of delayed milestones 015 Last Documented On 5 3:33PM ; [facility] No history of diabetes mellitus 06/12/20 15 Last Documented On 5 3:33PM ; [facility] No history of hematologic disorder 06/12 Last Documented On 5 3:33PM ; [facility] No history of sickle cell abnormality Last Documented On 5 3:33PM ; [facility] No loss of function of one of paired org ans 06/12/2015 Last Documented On 5 3:33PM ; [facility] No orthopedic problems 06/12/2015 Last Documented On 5 3:33PM ; [facility] No previous hospitalizations 06/12/2015 Last Documented On 5 3:33PM ; [facility] No recent severe illness or injury 06/12 Last Documented On 5 3:33PM ; [facility] No trauma to the head 06/12/2015 Last Documented On 5 3:33PM ; [facility] Not born with congenital abnormalities 0 06/12/2015 Last Documented On 5 3:33PM ; [facility] Not carrier of hemophilia A 06/12/2015 Last Documented On 5 3:33PM ; [facility] Currently wearing eyeglasses 06/06/2014 Last Documented On 4 11:30AM ; [facility] Taking OTC pain medication / fever. Clifford morrison Motchriss 03/18/2011 Last Documented On 1 2:48PM ; [facility] Not taking OTC medications 12/06/2009 Last Documented On 0 1:33PM ; [facility] Born by vaginal delivery 07/31/2008 Last Documented On 9 1:44PM ; [facility] History of length at : in21.5 07/31 Last Documented On 9 1:44PM ; [facility] Patient's weight: lbs8/2 9 Last Documented On 9 1:44PM ; [facility] Family History Includes: Family History in patient's chart Description Last Updated No family history of diabetes mellitus 0 06/12/2015 Last Documented On 5 3:33PM ; [facility] No family history of sudden early deaths 06/12/2015 Last Documented On 5 3:33PM ; [facility] Maternal history of headache syndromes 0 02/28/2014 Last Documented On 4 4:51PM ; [facility] Cancer 07/31/2009 Last Documented On 9 1:44PM ; [facility] Review of Systems Review of Systems not supported for this document type No Review of Systems Recorded Mental Status Description Oriented to time, place, and person Functional Status No Functional Status Recorded Physical Exam Physical Exam not supported for this document type No Physical Exam Recorded Immunizations Includes: Immunizations in patient's chart Vaccine Dose # Date Site Reaction(s) Status Source DTaP 1 05/30/2007 Complete (Reported) P atient Last Documented On 5 5:22PM ; [facility] HPV (Gardasil 9) 1 06/18/2019 Complete (Re ported) Patient Last Documented On 9 9:27AM ; [facility] Influenza (Quadrivalent)36 m o.& older PF 0.5ml (SD) 1 08/25/2009 Complete (Reported) Patie nt Last Documented On 9 4:15PM ; [facility] Meningococcal B, OMV (BEXSERO) 1 06/18/2019 Complete (Reported) Patient Last Documented On 9 9:27AM ; [facility] MMR (Measles Mumps Rubella) 1 05/30/2007 C omplete (Reported) Patient Last Documented On 5 5:22PM ; [facility] Polio ,IPV (IPOL) 1 05/30/2007 Complete (R eported) Patient Last Documented On 5 5:22PM ; [facility] Tdap (Boostrix) 1 06/26/2013 Complete (Rep orted) Patient Last Documented On 3 9:41AM ; [facility] Allergies Includes: Active, inactive, and resolved Allergies No Known Allergies Insurance Includes: Active Insurance Policies Plan Name Member ID Group # Subscriber Relationship Effect patricia Dates 1 - [facility] [id number] KRISTI WADE 2 - [facility] [id number] ARLENE WADE Self Clinical Notes Includes: Signed Clinical Notes starting from 11/29/2022 No Clinical Notes Recorded
--- OUTSIDE RECORDS SUMMARY | 2025-09-21 15:33 | XMS_ITS | Data Portability ---
Author Organization [facility] Address [address] [place] [address] Assessment Encounter Date Assessment Date Assessment LastModified by Organization Details LastModified Time 08/26/2025 08/26/2025 Patient is 31___weeks . Discussed plan. [email or web address] Not available 08/26/2025 15:47:19 09/09/2025 09/09/2025 Patient is _33__weeks . Discussed plan. [email or web address] Not available 09/09/2025 11:21:24 Plan of Treatment Reminders Order Date Submit Date Provider Last Modified By Organization Details Last Modified Time Details Appointments OB ROUTINE 2024 03:45P Jeniffer Hopson CNM Not available Not available Not available Lab CBC w/ auto diff 2024 025 [facility] (Lab), [address], [place], [address], 09/20/2025 12:51:40 CMP, serum or plasma 2024 025 [facility] (Lab), [address], [place], [address], 09/20/2025 12:51:39 protein:c reatinine ratio, urine 2024 025 [facility] (Lab), [address], [place], [address], 09/20/2025 12:51:40 uric acid, serum or plasma 2024 [facility] (Lab), [address] [facility], [place], [address], 09/20/2025 12:51:39 Referral None recorded. Procedures None recorded. Surgeries None recorded. Imaging US, obstetric , follow-up 2024 [email or web address] [facility], [address], [address], [place], [address], 09/09/2025 14:51:31 US, obstetric , follow-up 2024 [facility], [address], [address], [place], [address], 08/12/2025 19:25:07 Medication Orders Wellbutri n XL 150 mg 24 hr tablet, extended release 2024 [email or web address] [address] [facility] [place], [address], 08/26/2025 15:49:54 Patient TargetsNo targets recorded. Patient InstructionsNo instructions recorded. Reason for Referral None Reported. Results Created Date Observation Date Name Description Value Unit Range Abnormal Flag Note LastModifiedBy Organization Detail LastModifiedTime 08/12/2008/12/2025 HEMAT OCRIT (HCT) HCT 34.0 % (based on docume nted legal sex) 34.0-4 5.0 Not Available [facility] (Lab) [address] [facility], [place], [address], 08/13/2025 11:56:51 08/12/2008/12/2025 HEMOG LOBIN (HGB) HGB 11.1 g/dL (based on docume nted legal sex) 11.6-1 5.4 low Not Available [facility] (Lab) [address], [place], [address], 08/13/2025 11:56:52 08/12/2008/12/2025 GTT - GESTA DELTA L SCREE N, ACOG OB glucose, 1 hour screen 67 mg/dL 70-135 low Not Available [facility] (Lab) [address] [facility], [place], [address], 08/13/2025 11:56:52 08/12/2008/12/2025 HIV 1/2 ANTIG EN/AN TIBOD Y, REFLE X CONFI RMATI ON HIV antigen/anti body Nonrea ctive nonrea ctive HIV-1 antig en and HIV-1 /HIV- 2 antib odies were not detec elham. No labor atory evide nce of HIV infec tion. Not Available [facility] (Lab) [address] [facility], [place], [address], 08/13/2025 11:56:52 08/12/2008/12/2025 RPR SCREE N, REFLE X TITER /CONF IRMAT ION RPR qualitative Nonrea ctive nonrea ctive Not Available [facility] (Lab) [address] [facility], [place], [address], 08/13/2025 11:56:53 08/12/2008/12/2025 US, obste tric, follo w-up No observ ation record ed. [facility] [address], [place], [address], 08/12/2025 17:22:39 08/12/2008/12/2025 US, obste tric, follo w-up No observ ation record ed. [email or web address] [address], [place], [address], 08/16/2025 11:15:17 09/09/2009/09/2025 US, obste tric, follo w-up No observ ation record ed. [facility] [address], [place], [address], 09/09/2025 15:58:13 09/09/2003 0909/09/2025 US, obste tric, follo w-up No observ ation record ed. [address], [place], [address], 09/15/2025 16:35:10 Result Notes None recorded. Problems Name Problem SNOMED Code Status Onset Date Resolution Date Notes Provider Name and Address Organization Details Recorded Time Anxiety 41269366 Completed Seeing PCP 10/22/22 to discuss medicati on. Pt states she is doing well on zoloft 100mg on 12/02/22! [facility] 16:55:06 Proteinu sirisha [id number] Completed with swelling - 1x/wk antenata l testing. Monitor for pre-e Nancie Alvarado [facility] 3 16:55:06 Ej elkinsa loidaon 239843588 Active 2021 decompre ssed, no neuro follow up required per her team Nancie Alvarado [facility] 3 16:55:06 Ej mariscalon 379038574 Completed 2021 decompre ssed, no neuro follow up required per her team Nancie block [facility] 3 16:55:06 Pregnanc y 99494625 Completed 202103/27/[address] [facility] 5 09:19:52 Mixed anxiety and depressi ve disorder 778919474 Active 2024 Bailee block [facility] 5 18:16:31 History of Spinal surgery 923747763 Active 2024 Bailee block [facility] 5 18:16:45 Pregnanc y 14889420 Active 2024 Bailee block, [facility] 5 09:19:52 Pre-ecla mpsia 004052922 Active 2024 last pregancy start bASA 81 mg Cathi Hopson CNM [address], [place], [address], [facility] 5 09:29:14 Migraine 38543492 Active 2024 imitrex Cathi Hopson CNM [address], [place], [address], [facility] 5 09:29:39 Problem Notes None recorded. Procedures Surgical History Date Name Laterality Status Provider Name and Address Organization Details Recorded Time 5 IUD Insertion completed Rica Banda [facility] 12/30/2024 16:38:48 5 Date of Last Pap Smear completed Bailee Yeung [facility] 03/09/2025 18:16:56 3 IUD Insertion completed Bailee Yeung [facility] 05/28/2023 12:30:09 3 IUD Insertion completed Cathi Hopson CNM [address], [place], [address], [facility] 04/30/2023 12:28:48 7 procedure on back completed Bailee Yeung [facility] 10/09/2022 17:12:07 Imaging Results None recorded. [...] and Address Organization Details Last Updated DateTime 08/12/2025 162.56 cm 37.8 kg/m2 52564.32 g 117/79 mm[Hg] Nikki Nino [facility] 08/12/2025 15:29:24 Date Recorded Body height Body mass index (BMI) Body weight Systolic And Diastolic Provider Name and Address Organization Details Last Updated DateTime 08/26/2025 162.56 cm 38.3 kg/m2 327247.1 g 125/83 mm[Hg] [facility] 08/26/2025 15:47:54 Date Recorded Body weight Systolic And Diastolic Provider Name and Address Organization Details Last Updated DateTime 09/09/2025 744205.84310 g 117/81 mm[Hg] [facility] 09/09/2025 11:09:34 Date Recorded Body height Body mass index (BMI) Body weight Systolic And Diastolic Provider Name and Address Organization Details Last Updated DateTime 09/20/2025 162.56 cm 39.3 kg/m2 400292.65 g 146/94 mm[Hg] [facility] 09/20/2025 12:35:43 Social History Question Answer Notes LastModified by Organizat ion Details LastModified Time Tobacco Smoking Status Never Smoker Bailee Yeung [facility], [facility] 12/04/2022 16:09:49 Do You Have An Advance Directive? No [email or web address] Information n ot available 10/09/2022 If You Are , What Was Your Level Of Alcohol Consumption Prior To ? Occasional [email or web address] Information not available 04/22/2025 Are You Blind Or Do You Have Difficulty Seeing? No [email or web address] Information n ot available 12/04/2022 What Is Your Level Of Caffeine Consumption? Moderate [email or web address] Information not available 10/09/2022 How Much Tobacco Do You Chew? None [email or web address] Information not available 10/09/2022 In The 14 Days Before Symptom Onset, Have You Had Close Contact With A Laboratory-confirm ed COVID-19 While That Case Was Ill? No [email or web address] Information n ot available 11/06/2022 In The 14 Days Before Symptom Onset, Have You Had Close Contact With A Person Who Is Under Investigation For COVID-19 While That Person Was Ill? No [email or web address] Information not available 11/06/2022 Have You Been To An Area Known To Be High Risk For COVID-19? No Information not available 10/09/2022 Are You Deaf Or Do You Have Serious Difficulty Hearing? No Information not available 10/09/2022 What Type Of Diet Are You Following? REGULAR [email or web address] Information n ot available 10/09/2022 What Is The Highest Grade Or Level Of School You Have Completed Or The Highest Degree You Have Received? [id number] Information not available 03/09/2025 Are There Any Guns Present In Your Home? Yes [email or web address] Information not available 10/09/2022 Do You Use Protection During Sex? No [email or web address] Information not available 10/09/2022 Do You Use Your Seat Belt Or Car Seat Routinely? Yes [email or web address] Information not available 10/09/2022 Are You Sexually Active? Yes [email or web address] Information not available 06/08/2025 Do You Have Smoke And Carbon Monoxide Detectors In Your Home? Yes [email or web address] Information not available 10/09/2022 How Much Tobacco Do You Smoke? No [email or web address] Information not available 10/09/2022 Do You Use Sunscreen Routinely? Yes Information not available 11/06/2022 Has Tobacco Cessation Counseling Been Provided? No [email or web address] Information not available 12/04/2022 Have You Used IV Drugs? No [email or web address] Information not available 10/09/2022 Do You Have Difficulty Walking Or Climbing Stairs? No [email or web address] Information not available 12/04/2022 Sex: Female Functional Status Question Answer Note LastModified by Organizat ion Details LastModified Time Do you use any illicit or recreational drugs? No Information not available 08/21/2022 Do you or have you ever used any other forms of tobacco or nicotine? No [email or web address] Information not available 12/04/2022 What is your level of alcohol consumption? None Information not available 08/21/2022 Are you currently employed? Yes Information not available 06/08/2025 Are you able to walk independently without assistance or assistive devices? YESWOREST [email or web address] Information not available 10/09/2022 Are you able to care for yourself independently? 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 No [email or web address] Information not available 12/04/2022 What is your exercise level? Occasional Information not available 10/09/2022 Mental Status Question Answer Note LastModified by Organization D etails LastModified Time Do you feel stressed (tense, restless, nervous, or anxious, or unable to sleep at night)? [id number] [email or web address] Information not available 10/09/2022 Family History Relationship Description Onset Age of this Age Resolved Age Notes LastModified by Organization Details LastModified Time Paternal Grandfather Carcinoma in situ of colon [email or web address] Not available 2024 16:46:41 Mother Carcinoma of uterine cervix, invasive [email or web address] Not available 2024 16:46:41 Mother Pre-eclampsi a [email or web address] Not available 11/06 19:07:22 Mother Malignant neoplasm of cervix uteri Not available 19:07:22 Sister Anxiety disorder [email or web address] Not available 2021 16:09:53 Maternal Grandmother Anxiety disorder [email or web address] Not available 11/06 19:07:22 Maternal Grandfather Anxiety disorder [email or web address] Not available 11/06 19:07:22 Paternal Grandmother Malignant neoplasm of colon [email or web address] Not available 11/06 19:07:22 Paternal Grandmother Malignant neoplasm of breast [email or web address] Not available 11/06 19:07:22 Medical History Condition [...] ICD10 Code Diagnosis IMO Codes Diagnosis Note [id number] Nikki Gallagher MD [facility] [address] [address] 08/21/2022 15:06:10 08/21/2022 16:02:11 screening 919155960 Z36.87 [id number] Nikki Gallagher MD [facility] [address],[place] [address] 08/21/2022 15:07:58 08/23/2022 15:47:45 test positive 943887537 Z32.01 Venereal d isease screening 365831727 Z11.3 Chiari malformation 2531 35256 Q07.00 decompress ed, no follow up required [id number] Nikki Gallagher MD [facility] [address],[place] [address] 09/09/2022 13:50:19 09/09/2022 15:17:22 screening 636593524 Z36.82 [id number] Nikki Gallagher MD [facility] [address],[place] [address] 09/09/2022 13:51:16 09/09/2022 15:17:13 Routine care 461858902 Z34.91 [id number] Cathi Hopson [facility] [address],[place] [address] 10/09/2022 16:57:57 10/09/2022 17:29:30 Routine care 014725410 Z34.92 [id number] Elvis Robison MD [facility] [address],[place] [address] 11/06/2022 17:12:41 11/07/2022 15:05:58 screening for malformation 782429540 Z36.3 [id number] [facility] [address],[place] [address] 11/06/2022 17:13:10 11/07/2022 16:56:07 Routine care 445445904 Z34.92 [id number] Elvsi Robison MD [facility] [address],[place] [address] 12/04/2022 14:56:14 12/04/2022 15:58:43 screening 449859138 Z36.2 [id number] Cathi Hopson [facility] [address],[place] [address] 12/04/2022 15:56:29 12/04/2022 16:35:58 Routine care 524782935 Z34.92 [id number] Elvis Robison MD [facility] [address],[place] [address] 12/24/2022 16:27:34 12/24/2022 17:29:22 Spotting per vagina in 230031404 O26.859 Z3A.27 [id number] Cathi Hopson [facility] [address],[place] [address] 01/03/2023 09:55:31 01/03/2023 10:52:59 Routine care 400457758 Z34.92 [id number] Cathi Hopson [facility] [address],[place] [address] 01/17/2023 15:36:29 01/17/2023 16:57:25 Routine care 224870299 Z34.92 [facility] 97785715 F41.9 [id number] Cathi Hopson [facility] [address],[place] [address] 01/29/2023 16:46:47 01/29/2023 18:05:24 Routine care 165850778 Z34.92 [id number] Elvis Robison MD [facility] [address],[place] [address] 01/29/2023 16:47:19 01/29/2023 17:36:51 Uterine size for dates discrepancy 535263503 O26.849 Z3A.32 [id number] Falguni Sherman [facility] [address],[place] [address] 02/04/2023 16:46:29 02/05/2023 11:01:02 Urinary symptoms 604978680 R39.9 [id number] Elvis Robison MD [facility] [address],[place] [address] 02/04/2023 17:51:03 02/04/2023 18:00:25 Abdominal pain in 765620063 O99.891 R10.32 Z3A.33 [id number] Cathi Hopson [facility] [address],[place] [address] 02/12/2023 16:52:47 02/12/2023 17:51:59 Routine care 288126349 Z34.92 [id number] Elvis Robison MD [facility] [address],[place] [address] 02/17/2023 14:12:28 02/17/2023 15:02:51 Gestational proteinuria 88477392 O12.15 [id number] Elvis Robison MD [facility] [address],[place] [address] 02/17/2023 14:12:44 02/17/2023 15:14:23 Mild pre-eclampsia 01722534 O14.03 [id number] Falguni Sherman [facility] [address],[place] [address] 02/17/2023 14:12:56 02/18/2023 17:13:13 [id number] Elvis Robison MD [facility] [address] [place] [address] 02/27/2023 15:45:11 02/28/2023 13:16:55 Gestational proteinuria 81329963 O12.15 [id number] Elvis Robison MD [facility] [address] [place] [address] 02/27/2023 15:45:29 02/27/2023 16:35:18 Proteinuria 38445165 R80.9 O14.03 Z3A.36 [id number] Falguni Sherman [facility] [address],[place] [address] 02/27/2023 15:46:03 03/01/2023 15:05:40 Routine care 744678180 Z34.93 [id number] Cathi Hopson [facility] [address],[place] [address] 03/05/2023 16:15:59 03/06/2023 16:58:46 Routine care 226904959 Z34.92 [id number] Elvis Robison MD [facility] [address],[place] [address] 03/05/2023 16:15:23 03/05/2023 17:07:57 Gestational proteinuria 09281381 O12.15 [id number] Elvis Robison MD [facility] [address],[place] [address] 03/05/2023 16:15:42 03/06/2023 14:32:46 Proteinuria 71656301 O14.03 O16.9 Z3A.37 [id number] Cathi Hopson [facility] [address],[place] [address] 04/11/2023 11:04:43 04/11/2023 12:08:02 care 459919331 Z39.2 [id number] Cathi Hopson [facility] [address] [place] [address] 04/30/2023 11:56:52 04/30/2023 12:40:47 Insertion of intrauterine contraceptive device 58794630 Z30.430 Sexually t ransmitted infectious disease 1311459 A64 [id number] Cathi Hopson [facility] [address],[place] [address] 05/28/2023 12:22:55 05/28/2023 12:46:16 IUD check 949570030 Z30.431 doing well, strings present, 1 day abd discomfort , resolved on its own if happens again ok to order [place] [id number] Elvis Robison MD [facility] [address],[place] [address] 12/30/2024 16:58:26 12/30/2024 17:37:51 Gynecologic examination 51891219 Z01.419 Z11.3 Z11.8 Annual gynecologi jun exam [...] declined Removal of intrauterine contraceptive device done 4419725016 07397 Z30.432 Speculum placed. The IUD strings were seen at external os and grasped with sterile ring forceps and removed without difficulty . The patient tolerated the procedure well. Recommende d taking PNV daily if not using contracept ion. Continue to monitor cycles. Patient verbalized understand ing. [id number] Elvis Robison MD [facility] [address],[place] [address] 03/09/2025 16:46:06 03/10/2025 09:42:49 [id number] Cathi Hopson CNM [facility] [address],[place] [address] 03/09/2025 16:46:37 03/10/2025 09:42:26 Bacterial disease screening 290723299 Z11.8 64901 Amenorrhea 25689109 N91. 2 60321 Low back pain 195615757 M54.50 1556487176 [id number] Elvis Robison MD [facility] [address],[place] [address] 03/17/2025 15:22:13 03/17/2025 16:30:29 Complication occurring during 417063449 O99.891 Z3A.08 8438923801 [id number] Elvis Robison MD [facility] [address],[place] [address] 04/20/2025 16:47:22 04/21/2025 09:10:28 screening 971086033 Z36.82 Z3A.13 1985204164 [id number] Cathi Hopson [facility] [address],[place] [address] 04/20/2025 16:47:53 05/01/2025 09:12:42 [id number] [facility] [address] [address] 04/22/2025 08:56:52 04/22/2025 09:36:32 Migraine 17662708 G43.909 [id number] Gestation period, 13 weeks 05243599 Z3A.13 6087717 [id number] Cathi Hopson [facility] [address],[place] [address] 05/11/2025 14:27:07 05/11/2025 15:07:23 Gestation period, 16 weeks 97888940 Z3A.16 1146520 [id number] Elvis Robison MD [facility] [address],[place] [address] 06/08/2025 10:39:52 06/08/2025 11:54:35 screening for malformation 179641316 Z36.3 Z3A.20 1249075856 [id number] [facility] [address],[place] [address] 06/08/2025 10:41:10 06/08/2025 12:21:07 Gestation period, 20 weeks 49927759 Z3A.20 7149308 [id number] Elvis Robison MD [facility] [address],[place] [address] 07/08/2025 15:34:11 07/08/2025 16:36:09 Bicornuate uterus affecting 4767453 O34.00 Q51.3 Z3A.24 792317 [id number] [facility] [address],[place] [address] 07/08/2025 15:34:31 07/09/2025 09:41:57 Gestation period, 24 weeks 314268405 Z3A.24 1813072 Acute vaginitis 94451973 N76.0 74735 [id number] Elvis Robison MD [facility] [address],[place] [address] 08/12/2025 15:15:10 08/12/2025 16:07:07 Bicornuate uterus affecting 1554561 O34.00 Q51.3 Z3A.29 247541 [id number] [facility] [address],[place] [address] 08/12/2025 15:15:35 08/12/2025 16:28:23 Gestation period, 29 weeks 63953058 Z3A.29 1047020 Abscess of vulva 1732348 1 N76.4 470597 [id number] [facility] [address],[place] [address] 08/26/2025 15:37:51 08/26/2025 16:21:35 Gestation period, 31 weeks 93055097 Z3A.31 0890884 [id number] Elvis Robison MD [facility] [address],[place] [address] 09/09/2025 10:20:59 09/09/2025 11:16:08 Bicornuate uterus affecting 5473499 O34.00 Q51.3 Z3A.33 327746 [id number] [facility] [address],[place] [address] 09/09/2025 10:21:57 09/09/2025 11:37:17 Gestation period, 33 weeks 93197158 Z3A.33 9962271 [id number] WENDY STEARNS MD [facility] [address] [address] 09/20/2025 12:24:31 09/20/2025 12:53:43 Elevated blood-pressure reading without diagnosis of hypertension 241333225 R03.0 94820788 - hx of preeclamps ia in G1 - BP newly elevated today- labs ordered Health Concerns Section Related Observation LastModified by Organization Detai ls LastModified Time None Recorded Concern Status LastModified by Organization Details LastModified Time None Recorded Advance Directives Directive N: Payers Insurance Date Sequence Insurance Name Policy Number Policy Meyer Covered Member ID Meyer Member ID Guarantor Name 06/17/2025 PAYMENT PLAN Zulma Guo 12/30/2024 2 [facility] - DOS ON OR AFTER 21 (MEDICAID REPLACEMENT - HMO) Zulma Guo [id number] Zulma Guo 09/19/2025 1 [place] (PPO) [id number] Tutu Guo [id number] Zulma Guo 09/11/2022 PAYMENT PLAN Zulma Guo 09/18/2022 PAYMENT PLAN Zulma Guo 10/14/2022 PAYMENT PLAN Zulma Guo 12/04/2022 2 [place] [facility] OF PUBLIC AID Zulma Guo [id number] Zulma Guo 01/03/2023 3 [place] [facility] - DOS PRIOR TO 2025 (MEDICAID REPLACEMENT - HMO) [id number] Zulma Guo [id number] Zulma Guo Notes Date Note Type Note Provider Name and Address Organization Details Recorded Time 08/12/2025 text/html Generic HPI TemplateReported by Patient Cathi Hopson CNM [address], [place], [address], [facility] 08/12/2025 16:28:14 08/26/2025 text/html Generic HPI TemplateReported by Patient Cathi Hopson CNM [address], [place], [address], [facility] 08/26/2025 16:19:15 09/09/2025 text/html Generic HPI TemplateReported by Patient Cathi Hopson CNM [address], [place], [address], [facility] 09/09/2025 11:32:00 09/20/2025 text/html Generic HPI TemplateReported by Patient WENDY STEARNS MD [address], [place], [address], [facility] 09/20/2025 12:52:34 OBGyn Episode Ob Episode Information Episode Created Date Number of Fetuses Patient Bloodtype Patient rh Status Prepregnancy Weight lbs Domestic Partner Domestic Partner Phone Father Name Clinical Nurse Educator Status 09/09/20 22 1 A Positive 157 CLOSED Fetus Data First Name Last Name Admitted to NICU Weight (g) Sex Living Outcome Pediatric Complications Fetus ID Race Codes Race Delivery Type 2834.95 M true Full Term PPV, neopuff 6 min, delee suction, [address] Vaginal Delivery Problems Problem Notes Elliott pt, asked sp to deliv er[facility] Problem Name Start Date End Date Resolution Snomed Code Not e Chiari malformation 08/23/2022 [id number] decompressed, no neuro follow up required per her team Proteinuria 82336967 with swe lling - 1x/wk testing. Monitor for pre-e Anxiety 34089690 Seeing PCP 10/22/22 to discuss medication. Pt [...] Date Ultra Sound Latest Days Gestation 0 09/09/2022 03/24/20 23 0 Pre- Flowsheet Flowsheet Date 09/09/2022 Feldman Score Blood Edema Fundus Height Fundus Units Glucose Ketones Leukocytes Nitrite Labor Signs Protein Cervic Dilation Cervic Effacement Cervic Station neg none none trace Type Weight in lbs Pre/Post Dialysis Refused Weight 155.84390568133 BP Diastolic BP Location Tested BP Systolic [...] Weight in lbs Pre/Post Dialysis Refused Weight 160.629469935884 BP Diastolic BP Location Tested BP Systolic BP Type 78 123 Fetus Heart Rate Present Fetus Movement Comments anatomy incomplete, f/u 4 we eks, increase zoloft to 50 mg and med check at next visit, ok for unison at hs, discussed rn labor and delivery, labor/ classes, f/u 4 weeks Flowsheet Date [...] Weight in lbs Pre/Post Dialysis Refused Weight 173.199475403034 BP Diastolic BP Location Tested BP Systolic [...] Weight in lbs Pre/Post Dialysis Refused Weight 180.445487465098 BP Diastolic BP Location Tested BP Systolic [...] Weight in lbs Pre/Post Dialysis Refused Weight 183.133692095408 BP Diastolic BP Location Tested BP Systolic [...] Weight in lbs Pre/Post Dialysis Refused Weight 188.115678376846 BP Diastolic BP Location Tested BP Systolic [...] Weight in lbs Pre/Post Dialysis Refused Weight 189.267182099710 BP Diastolic BP Location Tested BP Systolic [...] Weight in lbs Pre/Post Dialysis Refused Weight 194.860873940056 BP Diastolic BP Location Tested BP Systolic [...] Weight in lbs Pre/Post Dialysis Refused Weight 195.840820559961 BP Diastolic BP Location Tested BP Systolic [...] Weight in lbs Pre/Post Dialysis Refused Weight 199.905227499030 BP Diastolic BP Location Tested BP Systolic [...] Weight in lbs Pre/Post Dialysis Refused Weight 201.316460084790 BP Diastolic BP Location Tested BP Systolic [...] Estim ated Date of Delivery false Thalassemia (Faroese, Congolese, Mediterranean, Or Background): MCV < 80 false Neural Tube Defect (Meningomyelocele, Spina Bifi da, Or Anencephaly) false Congenital Heart Defect false Down Syndrome false Anshul-Sachs (eg, Scientology, Cajun, Afghan-Circle) f alse Thomas Disease false Sickle Cell Disease Or Trait () false Hemophilia Or Other Blood Disorders false Muscular Dystrophy false Cystic Fibrosis false Cotton's Chorea false Intellectual Disability/Autism false If Yes, [...] Post Complications Tubal Sterilization Discharge Date Comments [facility] idural 38.2 false Cathi Hopson CNM Pre eclampsia , proteinur ia, anxiety Discharge Information Feeding Method Contraceptive Method Maternal HG B and HCT Levels Ob Episode Information Episode Created Date Number of Fetuses Patient Bloodtype Patient rh Status Prepregnancy Weight lbs Domestic Partner Domestic Partner Phone Father Name Clinical Nurse Educator Status 04/22/20 25 1 A Positive 176 Tutu Brant OPEN Fetus Data First Name Last Name Admitted to NICU Weight (g) Sex Living Outcome Pediatric Complications Fetus ID Race Codes Race Delivery Type [id number] Problems Problem Notes fundus has bicornuate appear anceserial growth uspih labs 07/25 in chart Problem Name Start Date End Date Resolution Snomed Code Not e Migraine 04/22/2025 62381883 imitrex Pre-eclampsia 04/22/2025 953450240 last pregancystart bASA 81 mg Han Calculation [...] Weight in lbs Pre/Post Dialysis Refused Weight 182.481442264652 BP Diastolic BP Location Tested BP Systolic [...] Type Weight in lbs Pre/Post Dialysis Refused 184.080276520831 BP Diastolic BP Location Tested BP Systolic BP Type 75 L arm 110 sitting Fetus Heart Rate Present Fetus Movement A No Comments doing well, education and pr ecautions, went to [place] last week, headaches are better, f/u 4 [...] Type Weight in lbs Pre/Post Dialysis Refused 190.700934912463 BP Diastolic BP Location Tested BP Systolic [...] Weight in lbs Pre/Post Dialysis Refused Weight 204.366424774420 BP Diastolic BP Location Tested BP Systolic [...] Weight in lbs Pre/Post Dialysis Refused Weight 220.067570085055 BP Diastolic BP Location Tested BP Systolic [...] Weight in lbs Pre/Post Dialysis Refused Weight 223.362886649104 BP Diastolic BP Location Tested BP Systolic [...] Type Weight in lbs Pre/Post Dialysis Refused 225.233269232098 BP Diastolic BP Location Tested BP Systolic [...] Weight in lbs Pre/Post Dialysis Refused Weight 229.396307722315 BP Diastolic BP Location Tested BP Systolic [...]
--- OUTSIDE RECORDS SUMMARY | 2025-09-21 15:33 | XMS_ITS | Clinical Summary ---
Author Organization [facility] Address [address] [place] [address] Phone Care Team Providers Care Care Management Associate Name Role Phone SANDRA BARR MD Primary Care Provider [phone] Reason for Visit and Chief Complaint * PHONE CALL Problems Includes: Problems addressed during this encounter and other active Problems All Visits Onset Date Resolved Date Provider Condition S tatus Generalized Anxiety Disorder 07/21/2022 ROYESY COLVIN POLISHER EYEGLASS FRAMES Active Last Documented On 3 9:34AM ; [facility] Chiari Malformation 12/19/2015 RO Jeremy RESENDIZZ POLISHER EYEGLASS FRAMES Active Last Documented On 1 11:01AM ; [facility] Plan of Treatment Pending Tests Order Diagnosis Results Due Ordering P rovider Lab Comp Metabolic Panel 04/09/24 KM SON Jeremy COLVIN POLISHER EYEGLASS FRAMES Last Documented On 4 9:43AM ; [facility] Lab Lipid Panel 04/09/24 RO Jeremy SAG EZ POLISHER EYEGLASS FRAMES Last Documented On 4 9:43AM ; [facility] Lab CBC w/ DIFF 04/09/24 RO Jeremy SAG EZ POLISHER EYEGLASS FRAMES Last Documented On 4 9:43AM ; [facility] Lab TSH w/ reflex T-4, Free 04/09/24 A MAGDALENO RESENDIZZ POLISHER EYEGLASS FRAMES Last Documented On 4 9:43AM ; [facility] Lab Vitamin B12/Folic Acid 04/09/24 AL LISON Jeremy SAGEZ POLISHER EYEGLASS FRAMES Last Documented On 4 9:43AM ; [facility] Assessments Includes: Assessments from this encounter No Assessments Recorded Medical Equipment - Implanted Devices Includes: Current Devices No Medical Equipment Recorded Medications Administered Includes: Administered Medications from this encounter No Administered Medications Recorded Results Includes: Results discussed during this encounter No Results Recorded For Specified Dates History of Present Illness Includes: History of Present Illness from this encounter No History of Present Illness Recorded Social History No Social History Recorded - Smoking Status Unknown Medical History Includes: Medical History addressed during this encounter No Medical History Recorded Family History Includes: Family History addressed during this encounter No Family History Recorded Review of Systems Includes: Review of Systems from this encounter No Review of Systems Recorded Mental Status Includes: Mental Status from this encounter No Mental Status Recorded Functional Status Includes: Functional Status from this encounter No Functional Status Recorded Physical Exam Includes: Physical Exam from this encounter No Physical Exam Recorded Allergies Includes: Active Allergies No Known Allergies Encounters Encounter Provider Location Date Check-In Time Check-Out Time Diagnosis * PHONE CALL RO ACOSTA 07/17/2023 10:07AM 11:59PM Insurance Includes: Active Insurance Policies Plan Name Member ID Group # Subscriber Relationship Effect patricia Dates 1 - [facility][1] [id number] MAURO KRISTI Himanshu 2 - [facility] [id number] ARLENE L MAURO Self Clinical Notes Includes: Clinical Notes from this encounter * Progress note Date Encounter Last Documented by 07/17/2023 * PHONE CALL Last documented on 07/18/2023; 8:22 AM, RO ACOSTA; [facility] Chief Complaint Phone Call - Chief Concern: Reason for call: patient called and said that when she was her OB, Katie Hopson, put her on 150 mg on sertaline. She is getting low and needs refill. Does she need an appointment for this? darrius in pt phone # for return call: Date/Initials:jmr. Plan StartCited - Other PHY ORDER/COMMENT She will need to be seen since she doesn't have any previous diagnosis for this. If she is going to run out before she gets in I can fill it though EndCited
--- OUTSIDE RECORDS SUMMARY | 2025-09-21 15:33 | XMS_ITS ---
Care Plan - [facility] Created on: September 21, 2025 ARLENE WADE : 2000 Sex: Female Author Organization [facility] Address [address] [place] [address] Phone Care Team Providers Care Paper Twister Name Role Phone SANDRA BARR MD Primary Care Provider [phone]
--- OUTSIDE RECORDS SUMMARY | 2025-09-21 15:33 | XMS_ITS | Clinical Summary ---
Author Organization [facility] Address [address] [place] [address] Phone Care Team Providers Care Dial Buffer Name Role Phone SANDRA BARR MD Primary Care Provider [phone] Reason for Visit and Chief Complaint RX ISSUE/REFILL Problems Includes: Problems addressed during this encounter and other active Problems All Visits Onset Date Resolved Date Provider Condition S tatus Generalized Anxiety Disorder 07/21/2022 RO Jeremy RESENDIZZ COMMUNICATIONS ANALYST Active Last Documented On 3 9:34AM ; [facility] Chiari Malformation 12/19/2015 RO N SAGEZ COMMUNICATIONS ANALYST Active Last Documented On 1 11:01AM ; [facility] Plan of Treatment Pending Tests Order Diagnosis Results Due Ordering P juander Lab Comp Metabolic Panel 04/09/24 KM SON Jeremy RESENDIZZ COMMUNICATIONS ANALYST Last Documented On 4 9:43AM ; [facility] Lab Lipid Panel 04/09/24 RO Jeremy SAG EZ COMMUNICATIONS ANALYST Last Documented On 4 9:43AM ; [facility] Lab CBC w/ DIFF 04/09/24 RO N SAG EZ COMMUNICATIONS ANALYST Last Documented On 4 9:43AM ; [facility] Lab TSH w/ reflex T-4, Free 04/09/24 A MAGDALENO N SAGEZ COMMUNICATIONS ANALYST Last Documented On 4 9:43AM ; [facility] Lab Vitamin B12/Folic Acid 04/09/24 AL LISON N SAGEZ COMMUNICATIONS ANALYST Last Documented On 4 9:43AM ; [facility] Assessments Includes: Assessments from this encounter No Assessments Recorded Medical Equipment - Implanted Devices Includes: Current Devices No Medical Equipment Recorded Medications Includes: Medications discussed during this encounter and other current Medications Discontinued / Stopped on this date RO ACOSTA on 07/21/2023 Sertraline HCl 150 MG Oral Capsule Provid er: RO ACOSTA Diagnosis: Last Documented On 07/21/2023 11:55AM By RO COLVIN NP ; [facility] New / Renewed during this visit RO ACOSTA on 07/21/2023 Sertraline HCl 100 MG Oral Tablet Provider: RO ACOSTA 90 day supply: 90 tablet, 1 refills Diagnosis: One tablet daily, 150 mg total daily Pharmacy: [facility] - [address] [place] [address], [id number] - Last Documented On 07/21/2023 11:57AM By RO COLVIN CERAMICS ENGINEER ; [facility] Sertraline HCl 50 MG Oral Tablet Provider: RO ACOSTA 90 day supply: 90 tablet, 1 refills Diagnosis: One tablet daily, 150 mg total daily Pharmacy: [facility] - [address] [place] [address], [id number] - Last Documented On 07/21/2023 11:57AM By RO COLVIN CERAMICS ENGINEER ; [facility] Medications Administered Includes: Administered Medications from this [...] Location Date Check-In Time Check-Out Time Diagnosis RX ISSUE/REFILL RO Jeremy ACOSTA 07/21/2023 11:54AM 11:59PM Insurance Includes: Active Insurance Policies Plan Name Member ID Group # Subscriber Relationship Effect patricia Dates 1 - [facility] [id number] KRISTI WADE L 2 - [facility] [id number] ARLENE WADE Self Clinical Notes Includes: Clinical Notes from this encounter No Clinical Notes Recorded
--- OUTSIDE RECORDS SUMMARY | 2025-09-21 15:33 | XMS_ITS | Clinical Summary ---
Author Organization [facility] Address [address] [place] [address] Phone Care Team Providers Care Technology Architect Name Role Phone SANDRA BARR MD Primary Care Provider [phone] Reason for Visit and Chief Complaint The Chief Complaint is: Pt would like to discuss weight loss options. Pt walks regularly, watches what she is eating/portion control and not getting anywhere. Pt states that she has always struggled with her weight. Pt's anxiety has gotten worse since being on the Celexa. She has been having to take the Hydroxyzine alot more. Pt also states that her mother has thyroid problems Problems Includes: Problems addressed during this encounter and other active Problems Current Visit Onset Date Resolved Date Provider Courtneyo n Status Generalized Anxiety Disorder 07/21/2022 RO ACOSTA Active Last Documented On 3 9:34AM ; [facility] Past Visits Onset Date Resolved Date Provider Condition Status Chiari Malformation 12/19/2015 RO ACOSTA Active Last Documented On 1 11:01AM ; [facility] Plan of Treatment - Weight loss diet - Last Documented On 04/06/2024 11:47AM ; [facility] - Return to the clinic if condition worsens or new symptoms arise - Last Documented On 04/06/2024 11:47AM ; [facility] Follow up: In 1 month to evaluate anxiety and review labs Added Wellbutrin We will call with any abnormal labs. - Last Documented On 04/06/2024 11:47AM ; [facility] Pending Tests Order Diagnosis Results Due Ordering P rovider Lab Comp Metabolic Panel 04/09/24 KM COLVIN TOOLS DEVELOPER Last Documented On 4 9:43AM ; [facility] Lab Lipid Panel 04/09/24 RO PUENTE EZ TOOLS DEVELOPER Last Documented On 4 9:43AM ; [facility] Lab CBC w/ DIFF 04/09/24 RO PUENTE EZ TOOLS DEVELOPER Last Documented On 4 9:43AM ; [facility] Lab TSH w/ reflex T-4, Free 04/09/24 A MAGDALENO COLVIN TOOLS DEVELOPER Last Documented On 4 9:43AM ; [facility] Lab Vitamin B12/Folic Acid 04/09/24 AL JANEY COLVIN TOOLS DEVELOPER Last Documented On 4 9:43AM ; [facility] Instructions to patient Intervention and counseling on cessation of tobacco use Last Documented On 4 9:28AM ; [facility] Lose weight Last Documented On 4 11:46AM ; [facility] Assessments Includes: Assessments from this encounter Findings - [E66.9 - Obesity, unspecified] Obesity - Last Documented On 04/06/2024 11:47AM ; [facility] - [R53.83 - Other fatigue] Fatigue - Last Documented On 04/06/2024 11:47AM ; [facility] - [F41.1 - Generalized anxiety disorder] Generalized anxiety disorder - Last Documented On 04/06/2024 11:47AM ; [facility] Instructions Includes: Instructions from this encounter Instructions to patient Intervention and counseling on cessation of tobacco use Last Documented On 4 9:28AM ; [facility] Lose weight Last Documented On 4 11:46AM ; [facility] Medical Equipment - Implanted Devices Includes: Current Devices No Medical Equipment Recorded Medications Includes: Medications discussed during this encounter and other current Medications New / Renewed during this visit RO COLVIN TOOLS DEVELOPER on 04/06/2024 Wellbutrin XL 150 MG Oral Tablet Extended Release 24 Hour Provider: RO ACOSTA 30 day supply: 30 tablet, 0 refills Diagnosis: Generalized anxiety disorder One tablet daily Pharmacy: [facility] [address], [address] - Last Documented On 04/06/2024 9:48AM By RO COLVIN NP ; [facility] hydrOXYzine HCl 50 MG Oral Tablet Provider: RO ACOSTA 30 day supply: 10 tablet, 0 refills Diagnosis: Generalized anxiety disorder Take 1 tab as needed for anx iety/panic attacks Pharmacy: [facility] - [address] [place] [address], [id number] - Last Documented On 04/06/2024 9:48AM By RO COLVIN NP ; [facility] Past Medications on file CeleXA 20 MG Oral Tablet 04/19/2024 - 10/16/2024 Provider: RO ACOSTA Diagnosis: Generalized anxi ety disorder One tablet daily Last Documented On 04/19/2024 1:22PM By RO COLVIN NP ; [facility] Sertraline HCl 100 MG Oral Tablet 07/21/2023 - 01/17/2024 Provider: RO ACOSTA Diagnosis: One tablet daily, 150 mg total daily Last Documented On 07/21/2023 11:57AM By RO COLVIN NP ; [facility] Sertraline HCl 50 MG Oral Tablet 07/21/2023 - 01/17/2024 Provider: RO ACOSTA Diagnosis: One tablet daily, 150 mg total daily Last Documented On 07/21/2023 11:57AM By RO COLVIN NP ; [facility] Medications Administered Includes: Administered Medications from this encounter No Administered Medications Recorded Vital Signs Includes: Vital Signs from this encounter Vital Name 04/06/2024 09:21A Blood Pressure Sitting L 130/92 Pulse Rate-Sitting (bpm) 110 Respiration Rate (breaths/min) 18 Height (in) 65 Weight (lb) 181.125 Body Mass Index 30.1 Body Surface Area 1.9 Oxygen Saturation (%) 99 Last Documented: On 04/06/2024 9:25AM ; [facility] Results Includes: Results discussed during this encounter No Results Recorded For Specified Dates History of Present Illness Includes: History of Present Illness from this encounter JAIR WADE is a 23 year old female. - Allergy list reviewed - Medication list reviewed - Systemic symptoms - No otolaryngeal symptoms - No cardiovascular symptoms - No pulmonary symptoms - No gastrointestinal symptoms - No genitourinary symptoms - No musculoskeletal symptoms - No skin symptoms Patient is being seen to discuss anxiety and weight. On 03/12 we switched her started weaning down on zoloft and she started Celexa a week lately. She states she has had a lot of increased anxiety and has been taking hydroxyzine more. She denies any SI. She also is concerned about not losing weight. She states she started walking and working on eating healthier and can't lose weight. Her mother has thyroid issues. She also reports feeling tired a lot. Social History Description Last Updated Tobacco non-user 05/08/2022 Last Documented On 4 9:36AM ; [facility] Current nonsmoker 12/19/2020 Last Documented On 4 9:36AM ; [facility] Non-smoker 03/31/2020 Last Documented On 4 9:36AM ; [facility] Smoking status : Never smoker 08/11/2019 Last Documented On 4 9:36AM ; [facility] Currently in school 02/06/2017 Last Documented On 4 9:36AM ; [facility] Lives with parents in [place] 06/12/2015 Last Documented On 4 9:36AM ; [facility] Not using alcohol 06/12/2015 Last Documented On 4 9:36AM ; [facility] Not using drugs 06/12/2015 Last Documented On 4 9:36AM ; [facility] No tobacco use 06/06/2014 Last Documented On 4 9:36AM ; [facility] A recent decrease in activity 10/15/2010 Last Documented On 4 9:36AM ; [facility] No recent change in sleep 10/15/2010 Last Documented On 4 9:36AM ; [facility] Procedures and Surgical History Includes: Procedures from this encounter Procedures Code Diagnosis Performing Provider Service L ocation Service Date plan of care reviewed and agreed to Last Documented On 4 11:44AM ; [facility] intervention and counseling on cessation of toba janitorial account manager use 4000F Last Documented On 4 9:28AM ; [facility] use of tobacco assessment performed 1000F Last Documented On 4 9:28AM ; [facility] review of medications documented 1160F Last Documented On 4 9:28AM ; [facility] Surgical History Last Updated No history of surgery 06/12/2015 Last Documented On 4 9:36AM ; [facility] Medical History Includes: Medical History addressed during this encounter Description Last Updated History of headache syndromes : migraine 06/12/2015 Last Documented On 4 9:36AM ; [facility] A PPD was negative 06/12/2015 Last Documented On 4 9:36AM ; [facility] No cardiac problems 06/12/2015 Last Documented On 4 9:36AM ; [facility] No exposure to tuberculosis 06/12/2015 Last Documented On 4 9:36AM ; [facility] No hearing problems 06/12/2015 Last Documented On 4 9:36AM ; [facility] No heart murmur 06/12/2015 Last Documented On 4 9:36AM ; [facility] No high cholesterol 06/12/2015 Last Documented On 4 9:36AM ; [facility] No history of asthma 06/12/2015 Last Documented On 4 9:36AM ; [facility] No history of concussion 06/12/2015 Last Documented On 4 9:36AM ; [facility] No history of delayed milestones 015 Last Documented On 4 9:36AM ; [facility] No history of diabetes mellitus 06/12/20 15 Last Documented On 4 9:36AM ; [facility] No history of hematologic disorder 06/12 Last Documented On 4 9:36AM ; [facility] No history of sickle cell abnormality Last Documented On 4 9:36AM ; [facility] No loss of function of one of paired org ans 06/12/2015 Last Documented On 4 9:36AM ; [facility] No orthopedic problems 06/12/2015 Last Documented On 4 9:36AM ; [facility] No previous hospitalizations 06/12/2015 Last Documented On 4 9:36AM ; [facility] No recent severe illness or injury 06/12 Last Documented On 4 9:36AM ; [facility] No trauma to the head 06/12/2015 Last Documented On 4 9:36AM ; [facility] Not born with congenital abnormalities 0 06/12/2015 Last Documented On 4 9:36AM ; [facility] Not carrier of hemophilia A 06/12/2015 Last Documented On 4 9:36AM ; [facility] Currently wearing eyeglasses 06/06/2014 Last Documented On 4 9:36AM ; [facility] Taking OTC pain medication / fever. Usin g Motrin 03/18/2011 Last Documented On 4 9:36AM ; [facility] Not taking OTC medications 12/06/2009 Last Documented On 4 9:36AM ; [facility] Born by vaginal delivery 07/31/2008 Last Documented On 4 9:36AM ; [facility] History of length at : in21.5 07/31 Last Documented On 4 9:36AM ; [facility] Patient's weight: lbs8/2 200 9 Last Documented On 4 9:36AM ; [facility] Family History Includes: Family History addressed during this encounter Description Last Updated No family history of diabetes mellitus 0 06/12/2015 Last Documented On 4 9:36AM ; [facility] No family history of sudden early deaths 06/12/2015 Last Documented On 4 9:36AM ; [facility] Maternal history of headache syndromes 0 02/28/2014 Last Documented On 4 9:36AM ; [facility] Cancer 07/31/2009 Last Documented On 4 9:36AM ; [facility] Review of Systems Includes: Review of Systems from this encounter Systemic: Feeling poorly (malaise). No fever. Head: No headache. Otolaryngeal: No earache, no nasal discharge, and no sore throat. Cardiovascular: No chest pain or discomfort, no palpitations, and the heart rate was not fast. Pulmonary: No dyspnea, no cough, and no wheezing. Gastrointestinal: No nausea, no vomiting, no diarrhea, and no constipation. Genitourinary: No dysuria. Neurological: No dizziness and no fainting. Mental Status Includes: Mental Status from this encounter Description Oriented to time, place, and person Functional Status Includes: Functional Status from this encounter No Functional Status Recorded Physical Exam Includes: Physical Exam from this encounter Allergies Includes: Active Allergies No Known Allergies Encounters Encounter Provider Location Date Check-In Time Check-Out Time Diagnosis PROBLEM VISIT RO ACOSTA [facility] 04/06/20 24 9:15AM 10:17AM Generalized Anxiety Disorder,Fatig ue,Obesity Insurance Includes: Active Insurance Policies Plan Name Member ID Group # Subscriber Relationship Effect patricia Dates 1 - [facility] [id number] KRISTI WADE 2 - [facility] [id number] ARLENE WADE Self Clinical Notes Includes: Clinical Notes from this encounter * Progress note Date Encounter Last Documented by 04/06/2024 PROBLEM VISIT Last documented on 04/06/2024; 11:47 AM, RO ACOSTA; [facility] Active Problems & Conditions - Chiari Malformation - F41.1 - Generalized Anxiety Disorder Chief Complaint The Chief Complaint is: Pt would like to discuss weight loss options. Pt walks regularly, watches what she is eating/portion control and not getting anywhere. Pt states that she has always struggled with her weight. Pt's anxiety has gotten worse since being on the Celexa. She has been having to take the Hydroxyzine alot more. Pt also states that her mother has thyroid problems. History of Present Illness ARLENE WADE is a 23 year old female. - Allergy list reviewed - Medication list reviewed - Systemic symptoms - No otolaryngeal symptoms - No cardiovascular symptoms - No pulmonary symptoms - No gastrointestinal symptoms - No genitourinary symptoms - No musculoskeletal symptoms - No skin symptoms Patient is being seen to discuss anxiety and weight. On 03/12 we switched her started weaning down on zoloft and she started Celexa a week lately. She states she has had a lot of increased anxiety and has been taking hydroxyzine more. She denies any SI. She also is concerned about not losing weight. She states she started walking and working on eating healthier and can't lose weight. Her mother has thyroid issues. She also reports feeling tired a lot. Current Medication - CeleXA 20 MG Oral Tablet One tablet daily, 30 days, 0 refills - hydrOXYzine HCl 50 MG Oral Tablet Take 1 tab as needed for anxiety/panic attacks, 30 days, 0 refills Past Medical/Surgical History Reported: Not carrier of [...] And Economic Circumstances: Lives with parents in [place]. Education: Currently in school. Allergies - No Known Allergies Family History Cancer No family history of sudden early deaths No diagnosis of diabetes mellitus Maternal: Headache syndromes Review Of Systems Systemic: Feeling poorly (malaise). No fever. Head: No headache. Otolaryngeal: No earache, no nasal discharge, and no sore throat. Cardiovascular: No chest pain or discomfort, no palpitations, and the heart rate was not fast. Pulmonary: No dyspnea, no cough, and no wheezing. Gastrointestinal: No nausea, no vomiting, no diarrhea, and no constipation. Genitourinary: No dysuria. Neurological: No dizziness and no fainting. Physical Findings - Vitals taken 04/06/2024 09:21 am BP-Sitting L 130/92 mmHg Pulse Rate-Sitting 110 bpm Respiration Rate 18 per min Height 65 in Weight 181 lbs 2 oz Body Mass Index 30.1 kg/m2 Body Surface Area 1.9 m2 Oxygen Saturation 99 % General Appearance: - Well developed. - Well nourished. - In no acute distress. Nose: General/bilateral: Discharge: - No nasal discharge. Lungs: - Normal breath sounds/voice sounds. - No wheezing was heard. - No rhonchi were heard. - No rales/crackles were heard. Cardiovascular: Heart Rate And Rhythm: - Normal. Murmurs: - No murmurs were heard. Edema: - Not present. Neurological: - Oriented to time, place, and person. Gait And Stance: - Normal. Skin: - General appearance was normal. Assessment - [E66.9 - Obesity, unspecified] Obesity - [R53.83 - Other fatigue] Fatigue - [F41.1 - Generalized anxiety disorder] Generalized anxiety disorder Therapy - Intervention and counseling on cessation of tobacco use. - Plan of care reviewed and agreed to. Counseling/Education - Lose weight Plan StartCited - Generalized anxiety disorder Wellbutrin XL 150 MG tablet One tablet daily, 30 days, 0 refills hydrOXYzine HCl 50 MG tablet Take 1 tab as needed for anxiety/panic attacks, 30 days, 0 refills EndCited StartCited - Obesity, unspecified Lab: Lipid Panel EndCited StartCited - Other fatigue Lab: Comp Metabolic Panel Lab: CBC w/ DIFF Lab: TSH w/ reflex T-4, Free Lab: Vitamin B12/Folic Acid EndCited - Weight loss diet - Return to the clinic if condition worsens or new symptoms arise Follow up: In 1 month to evaluate anxiety and review labs Added Wellbutrin We will call with any abnormal labs. Practice Management Use of tobacco assessment performed Review of medications documented. Health Reminders - Assess BMI satisfied 04/06/2024. - Assess Tobacco Use satisfied 04/06/2024. - Follow Up Plan BMI Management satisfied 04/06/2024. - Follow up plan for Depression Screening satisfied 04/06/2024.
--- OUTSIDE RECORDS SUMMARY | 2025-09-21 15:33 | XMS_ITS | Clinical Summary ---
Author Organization [facility] Address [address] [place] [address] Phone Care Team Providers Care Auto Travel Counselor Name Role Phone SANDRA BARR MD Primary Care Provider [phone] Reason for Visit and Chief Complaint The Chief Complaint is: Pt is here of rmed ck. She was put on Sertraline by ob and is wanting us tofill since she is no longer seeing them. She states dose is working well Problems Includes: Problems addressed during this encounter and other active Problems Current Visit Onset Date Resolved Date Provider Conditio n Status Generalized Anxiety Disorder 07/21/2022 RO ACOSTA Active Last Documented On 3 9:34AM ; [facility] Past Visits Onset Date Resolved Date Provider Condition Status Chiari Malformation 12/19/2015 RO ACOSTA Active Last Documented On 1 11:01AM ; [facility] Plan of Treatment - Weight loss diet - Last Documented On 07/21/2023 9:41AM ; [facility] - Return to the clinic if condition worsens or new symptoms arise - Last Documented On 07/21/2023 9:41AM ; [facility] - Follow-up visit in 6 months or as needed - Last Documented On 07/21/2023 9:41AM ; [facility] Advised patient to get pap scheduled with her [facility] office as she has not had one yet - Last Documented On 07/21/2023 9:41AM ; [facility] Pending Tests Order Diagnosis Results Due Ordering P javidvider Lab Comp Metabolic Panel 04/09/24 KM [employer] [employer] ASSISTANT Last Documented On 4 9:43AM ; [facility] Lab Lipid Panel 04/09/24 RO Jeremy [employer] ASSISTANT Last Documented On 4 9:43AM ; [facility] Lab CBC w/ DIFF 04/09/24 RO Jeremy [employer] ASSISTANT Last Documented On 4 9:43AM ; [facility] Lab TSH w/ reflex T-4, Free 04/09/24 A MAGDALENO Jeremy [employer] ASSISTANT Last Documented On 4 9:43AM ; [facility] Lab Vitamin B12/Folic Acid 04/09/24 AL JANEY Jeremy [employer] ASSISTANT Last Documented On 4 9:43AM ; [facility] Instructions to patient Lose weight Last Documented On 3 9:38AM ; [facility] Assessments Includes: Assessments from this encounter Findings - [Z00.01 - Encounter for general adult medical examination with abnormal findings] Routine adult history and physical (18-64 yrs) with abnormal findings - Last Documented On 07/21/2023 9:41AM ; [facility] - [F41.1 - Generalized anxiety disorder] Generalized anxiety disorder - Last Documented On 07/21/2023 9:41AM ; [facility] Instructions Includes: Instructions from this encounter Instructions to patient Lose weight Last Documented On 3 9:38AM ; [facility] Medical Equipment - Implanted Devices Includes: Current Devices No Medical Equipment Recorded Medications Includes: Medications discussed during this encounter and other current Medications Discontinued / Stopped on this date RO ACOSTA on 07/21/2023 Sertraline HCl 150 MG Oral Capsule Provid er: RO ACOSTA Diagnosis: Last Documented On 07/21/2023 11:55AM By RO COLVIN NP ; [facility] New / Renewed during this visit RO ACOSTA on 07/21/2023 hydrOXYzine HCl 50 MG Oral Tablet Provider: RO ACOSTA 30 day supply: 10 tablet, 0 refills Diagnosis: Generalized anxiety disorder Take 1 tab as needed for anx iety/panic attacks Pharmacy: [facility] - [address] [place] [address], [id number] - Last Documented On 03/12/2024 11:07AM By RO COLVIN NP ; [facility] Past Medications on file CeleXA 20 MG Oral Tablet 04/19/2024 - 10/16/2024 Provider: RO ACOSTA Diagnosis: Generalized anxi ety disorder One tablet daily Last Documented On 04/19/2024 1:22PM By RO COLVIN PULMONARY FUNCTION TECHNICIAN ; [facility] Wellbutrin XL 150 MG Oral Tablet Extended Release 24 Hour 04/06/2024 - 05/06/2024 Provider: RO ACOSTA Diagnosis: Generalized anxi ety disorder One tablet daily Last Documented On 04/06/2024 9:48AM By RO COLVIN NP ; [facility] hydrOXYzine HCl 50 MG Oral Tablet 04/06/2024 - 05/06/2024 Provider: RO ACOSTA Diagnosis: Generalized anxi ety disorder Take 1 tab as needed for anx iety/panic attacks Last Documented On 04/06/2024 9:48AM By RO COLVIN NP ; [facility] Sertraline HCl 100 MG Oral Tablet 07/21/2023 - 01/17/2024 Provider: RO ACOSTA Diagnosis: One tablet daily, 150 mg total daily Last Documented On 07/21/2023 11:57AM By RO COLVIN NP ; [facility] Sertraline HCl 50 MG Oral Tablet 07/21/2023 - 01/17/2024 Provider: RO ACOSTA Diagnosis: One tablet daily, 150 mg total daily Last Documented On 07/21/2023 11:57AM By RO COLVIN NP ; [facility] Medications Administered Includes: Administered Medications from this encounter No Administered Medications Recorded Vital Signs Includes: Vital Signs from this encounter Vital Name 07/21/2023 09:22A Blood Pressure Sitting L 126/70 BP Cuff Size Regular Pulse Rate-Sitting (bpm) 88 Pulse Rhythm Regular Respiration Rate (breaths/min) 18 Temp-Oral (F) 97.9 Height (in) 65 Weight (lb) 180 Body Mass Index 30 Body Surface Area 1.9 Oxygen Saturation (%) 95 Last Documented: On 07/21/2023 9:22AM ; [facility] Results Includes: Results discussed during this encounter No Results Recorded For Specified Dates History of Present Illness Includes: History of Present Illness from this encounter JAIR WADE is a 22 year old female. - Medication list reviewed. - No systemic symptoms. - No cardiovascular symptoms. - No pulmonary symptoms. - No gastrointestinal symptoms. - Psychological symptoms. - No skin symptoms. Patient is being seen for an APE and to discuss Zoloft. She was started on it during by her OB. Her baby is 4 months old and she states she continues to do well with it and is requesting we fill it. She is not . She also is requesting hydroxyzine to take as needed Social History Description Last Updated Tobacco non-user 05/08/2022 Last Documented On 3 9:22AM ; [facility] Current nonsmoker 12/19/2020 Last Documented On 3 9:22AM ; [facility] Non-smoker 03/31/2020 Last Documented On 3 9:22AM ; [facility] Smoking status : Never smoker 08/11/2019 Last Documented On 3 9:22AM ; [facility] Currently in school 02/06/2017 Last Documented On 3 9:22AM ; [facility] Lives with parents in [place] 06/12/2015 Last Documented On 3 9:22AM ; [facility] Not using alcohol 06/12/2015 Last Documented On 3 9:22AM ; [facility] Not using drugs 06/12/2015 Last Documented On 3 9:22AM ; [facility] No tobacco use 06/06/2014 Last Documented On 3 9:22AM ; [facility] A recent decrease in activity 10/15/2010 Last Documented On 3 9:22AM ; [facility] No recent change in sleep 10/15/2010 Last Documented On 3 9:22AM ; [facility] Procedures and Surgical History Includes: Procedures from this encounter Procedures Code Diagnosis Performing Provider Service L ocation Service Date plan of care reviewed and agreed to Last Documented On 3 9:37AM ; [facility] standardized depression screening: negative for symptoms [id number] Last Documented On 3 9:23AM ; [facility] screening for adult depression: impressi on and score 0 Last Documented On 3 9:23AM ; [facility] Surgical History Last Updated No history of surgery 06/12/2015 Last Documented On 3 9:22AM ; [facility] Medical History Includes: Medical History addressed during this encounter Description Last Updated History of headache syndromes : migraine 06/12/2015 Last Documented On 3 9:22AM ; [facility] A PPD was negative 06/12/2015 Last Documented On 3 9:22AM ; [facility] No cardiac problems 06/12/2015 Last Documented On 3 9:22AM ; [facility] No exposure to tuberculosis 06/12/2015 Last Documented On 3 9:22AM ; [facility] No hearing problems 06/12/2015 Last Documented On 3 9:22AM ; [facility] No heart murmur 06/12/2015 Last Documented On 3 9:22AM ; [facility] No high cholesterol 06/12/2015 Last Documented On 3 9:22AM ; [facility] No history of asthma 06/12/2015 Last Documented On 3 9:22AM ; [facility] No history of concussion 06/12/2015 Last Documented On 3 9:22AM ; [facility] No history of delayed milestones 015 Last Documented On 3 9:22AM ; [facility] No history of diabetes mellitus 06/12/20 15 Last Documented On 3 9:22AM ; [facility] No history of hematologic disorder 06/12 Last Documented On 3 9:22AM ; [facility] No history of sickle cell abnormality Last Documented On 3 9:22AM ; [facility] No loss of function of one of paired org ans 06/12/2015 Last Documented On 3 9:22AM ; [facility] No orthopedic problems 06/12/2015 Last Documented On 3 9:22AM ; [facility] No previous hospitalizations 06/12/2015 Last Documented On 3 9:22AM ; [facility] No recent severe illness or injury 06/12 Last Documented On 3 9:22AM ; [facility] No trauma to the head 06/12/2015 Last Documented On 3 9:22AM ; [facility] Not born with congenital abnormalities 0 06/12/2015 Last Documented On 3 9:22AM ; [facility] Not carrier of hemophilia A 06/12/2015 Last Documented On 3 9:22AM ; [facility] Currently wearing eyeglasses 06/06/2014 Last Documented On 3 9:22AM ; [facility] Taking OTC pain medication / fever. Usin g Motrin 03/18/2011 Last Documented On 3 9:22AM ; [facility] Not taking OTC medications 12/06/2009 Last Documented On 3 9:22AM ; [facility] Born by vaginal delivery 07/31/2009 Last Documented On 3 9:22AM ; [facility] History of length at : in21.5 07/31 Last Documented On 3 9:22AM ; [facility] Patient's weight: lbs8/2 200 9 Last Documented On 3 9:22AM ; [facility] Family History Includes: Family History addressed during this encounter Description Last Updated No family history of diabetes mellitus 0 06/12/2015 Last Documented On 3 9:22AM ; [facility] No family history of sudden early deaths 06/12/2015 Last Documented On 3 9:22AM ; [facility] Maternal history of headache syndromes 0 02/28/2014 Last Documented On 3 9:22AM ; [facility] Cancer 07/31/2009 Last Documented On 3 9:22AM ; [facility] Review of Systems Includes: Review of Systems from this encounter Systemic: Not feeling poorly (malaise). No fever, no chills, and no edema. Head: No headache. Cardiovascular: No chest pain or discomfort. Pulmonary: No shortness of breath. Neurological: No dizziness. Psychological: Anxiety. Mental Status Includes: Mental Status from this encounter Description Oriented to time, place, and person Anxiety No suicidal ideation No suicidal plans No suicidal intent Functional Status Includes: Functional Status from this encounter No Functional Status Recorded Physical Exam Includes: Physical Exam from this encounter Allergies Includes: Active Allergies No Known Allergies Encounters Encounter Provider Location Date Check-In Time Check-Out Time Diagnosis ANNUAL PHYSICAL EXAM RO ACOSTA [facility] 07/21/20 23 9:09AM 9:33AM Generalized Anxiety Disorder,Routi ne History & Physical Adult with Abnormal Findings Insurance Includes: Active Insurance Policies Plan Name Member ID Group # Subscriber Relationship Effect patricia Dates 1 - [facility] [id number] KRISTI WADE 2 - [facility] [id number] ARLENE WADE Self Clinical Notes Includes: Clinical Notes from this encounter * Progress note Date Encounter Last Documented by 07/21/2023 ANNUAL PHYSICAL EXAM Last docume nted on 07/21/2023; 9:41 AM, RO ACOSTA; [facility] Active Problems & Conditions - Chiari Malformation - F41.1 - Generalized Anxiety Disorder Chief Complaint The Chief Complaint is: Pt is here of rmed ck. She was put on Sertraline by ob and is wanting us to fill since she is no longer seeing them. She states dose is working well. History of Present Illness ARLENE WADE is a 22 year old female. - Medication list reviewed. - No systemic symptoms. - No cardiovascular symptoms. - No pulmonary symptoms. - No gastrointestinal symptoms. - Psychological symptoms. - No skin symptoms. Patient is being seen for an APE and to discuss Zoloft. She was started on it during by her OB. Her baby is 4 months old and she states she continues to do well with it and is requesting we fill it. She is not . She also is requesting hydroxyzine to take as needed Current Medication - Sertraline HCl 150 MG Oral Capsule 1 capsule daily 0 days, 0 refills Past Medical/Surgical History Reported: [...] And Economic Circumstances: Lives with parents in [place]. Education: Currently in school. Allergies - No Known Allergies Family History Cancer No family history of sudden early deaths No diagnosis of diabetes mellitus Maternal: Headache syndromes Review Of Systems Systemic: Not feeling poorly (malaise). No fever, no chills, and no edema. Head: No headache. Cardiovascular: No chest pain or discomfort. Pulmonary: No shortness of breath. Neurological: No dizziness. Psychological: Anxiety. Physical Findings - Vitals taken 07/21/2023 09:22 am BP-Sitting L 126/70 mmHg BP Cuff Size Regular Pulse Rate-Sitting 88 bpm Pulse Rhythm Regular Respiration Rate 18 per min Temp-Oral 97.9 F Height 65 in Weight 180 lbs Body Mass Index 30 kg/m2 Body Surface Area 1.9 m2 Oxygen Saturation 95 % General Appearance: - Well developed. - Well nourished. - In no acute distress. Ears: General/bilateral: External Auditory Canal: - External auditory meatus normal. Tympanic Membrane: - Normal. Nose: General/bilateral: Discharge: - No nasal discharge. Lungs: - Normal breath sounds/voice sounds. - No wheezing was heard. - No rhonchi were heard. - No rales/crackles were heard. Cardiovascular: Heart Rate And Rhythm: - Normal. Murmurs: - No murmurs were heard. Edema: - Not present. Abdomen: Auscultation: - Bowel sounds were normal. Palpation: - Abdominal non-tender. Neurological: - Oriented to time, place, and person. Gait And Stance: - Normal. Psychiatric: Psychiatric: Value PHQ9 score: 0 Appearance: - Grooming was normal. Mood: - Euthymic. Affect: - Normal. Thought Content: - No suicidal ideation. - No suicidal plans. - No suicidal intent. Skin: - General appearance was normal. Assessment - [Z00.01 - Encounter for general adult medical examination with abnormal findings] Routine adult history and physical (18-64 yrs) with abnormal findings - [F41.1 - Generalized anxiety disorder] Generalized anxiety disorder Therapy - Plan of care reviewed and agreed to. Counseling/Education - Lose weight Plan StartCited - Generalized anxiety disorder hydrOXYzine HCl 50 MG tablet Take 1 tab as needed for anxiety/panic attacks, 30 days, 0 refills EndCited StartCited - Other Sertraline HCl 150 MG capsule 1 capsule daily, 90 days, 1 refills EndCited - Weight loss diet - Return to the clinic if condition worsens or new symptoms arise - Follow-up visit in 6 months or as needed Advised patient to get pap scheduled with her [facility] office as she has not had one yet Practice Management Standardized depression screening: negative for symptoms and for adult impression and score 0. Health Reminders - Assess BMI satisfied 07/21/2023. - Assess Tobacco Use satisfied 05/08/2022. - Depression Screening satisfied 07/21/2023. - Follow Up Plan BMI Management satisfied 07/21/2023. - Follow up plan for Depression Screening satisfied 07/21/2023.
[2025-09-21 15:37] LABS: Anion Gap 9 mmol/L (4-12); Blood Urea Nitrogen 11 mg/dL (7-17); Carbon Dioxide 21 mmol/L (22-30); Chloride 104 mmol/L (98-107); Potassium 3.5 mmol/L (3.4-5.0); Sodium 134 mmol/L (137-145)
[2025-09-21 15:38] LABS: Alanine Aminotransferase 20 U/L (6-35); Albumin Level 3.5 g/dL (3.5-5.1); Alkaline Phosphatase 171 U/L (38-126); Aspartate Amino Transferase 23 U/L (14-36); Bilirubin,Total 0.6 mg/dL (0.2-1.3); Calcium 8.9 mg/dL (8.4-10.2); Estimated Glomerular Filt Rate > 60; Glucose 101 mg/dL (65-110); Total Protein 6.9 g/dL (6.3-8.2); Uric Acid 6.3 mg/dL (2.5-7.5)
--- NOTE | 2025-09-21 15:43 | PC.NURSE ---
Christie Hopson CNM phoned in for status. Lab results and BPs seen in office. March D/C home with 24hr urine. Off work until delivery. Induction scheduled.
[2025-09-21 15:46] VITALS: BP 132/85; PULSE 103
[2025-09-21 15:46] LABS: Total Protein Urine Random 11 mg/dL; Ur Ttl Prot Creatinine Ratio 0.08 mg/mg (0-0.20)
[2025-09-21 15:47] LABS: Add Urine Microscopic? YES; Appearance Urine Clear (Clear); Glucose Urine UA Negative (Negative); Leukocyte Esterase Ur Negative LEU/UL (Negative); Nitrate Urine Negative (Negative); Non Pathogenic Casts 0-2; Specific Grav Ur 1.023 (1.001-1.035)
== END 2025-09-21 15:58 | disposition home or self-care (01) ==
LOC: ANHOBOP 14:38 → ANHOBPP 14:40
PROVIDERS: Visit Provider Advanced Practice Midwife
DX: O13.9 Gestational [pregnancy-induced] hypertension without significant proteinuria, unspecified trimester (principal); Z3A.00 Weeks of gestation of pregnancy not specified
CPT/HCPCS: 36415; 59025; 80053; 81001; 82570; 84156; 84550; 85025; 99199

== ENCOUNTER 2025-09-22 15:32 | Outpatient (NON) | payer BC, SELFPAY ==
--- OUTSIDE RECORDS SUMMARY | 2025-09-22 15:45 | XMS_ITS ---
Author Organization [facility] Address [address] [place] [address] Phone Care Team Providers Care Roofing Apprentice Name Role Phone SANDRA BARR MD Primary Care Provider [phone] Problems Includes: Active, inactive, and resolved Problems All Visits Onset Date Resolved Date Provider Condition S tatus Generalized Anxiety Disorder 07/21/2022 RO PASCUALP Active Last Documented On 3 9:34AM ; [facility] Chiari Malformation 12/19/2015 RO PASCUALP Active Last Documented On 1 11:01AM ; [facility] Plan of Treatment Findings Encounter Date Follow up: In 1 month to harpal luate anxiety and review labs Added Wellbutrin We will call with any abnormal labs PROBLEM VISIT with RO COLVIN FUTURES TRADER 04/06/2024 Last Documented On 4 11:47AM ; [facility] Ordered return to the clinic if condition worsens or new symptoms arise PROBLEM VISIT with RO ACOSTA 04/06/2024 Last Documented On 4 11:47AM ; [facility] Ordered weight loss diet PROBLEM VISIT with KM ACOSTA 04/06/2024 Last Documented On 4 11:47AM ; [facility] Ordered follow-up visit in 1 month for anxiety follow up CHECK UP with RO ACOSTA 03/12/2024 Last Documented On 4 11:26AM ; [facility] Ordered return to the clinic if condition worsens or new symptoms arise CHECK UP with RO ACOSTA 03/12/2024 Last Documented On 4 11:26AM ; [facility] Ordered follow-up visit in 6 months or as needed Advised patient to get pap scheduled with her [facility] office as she has not had one yet ANNUAL PHYSICAL EXAM with RO COLVIN [facility] 07/21/2023 Last Documented On 3 9:41AM ; [facility] Ordered return to the clinic if condition worsens or new symptoms arise ANNUAL PHYSICAL EXAM with RO REESNDIZMeena [facility] 07/21/2023 Last Documented On 3 9:41AM ; [facility] Ordered weight loss diet ANNUAL PHYSICAL EXAM wi th ROYESY RESENDIZMeena [facility] 07/21/2023 Last Documented On 3 9:41AM ; [facility] Ordered follow-up visit as n eemaria eugenia Advised patient to go back to [facility] due to elevated bp/hr. SANDRA Dunn called patient OB office to notify them. Patient states her mother can drive her there PROBLEM VISIT with RO RESENDIZMeena [facility] 01/15/2023 Last Documented On 3 2:08PM ; [facility] Ordered return to the clinic if condition worsens or new symptoms arise PROBLEM VISIT with RO RESENDIZMeena [facility] 01/15/2023 Last Documented On 3 2:08PM ; [facility] We will call with lab result s. Continue benadryl as needed. Frequent moisturizing. Can use hydrocortisone to small areas PROBLEM VISIT with RO RESENDIZMeena [facility] 08/28/2022 Last Documented On 2 4:36PM ; [facility] Ordered return to the clinic if condition worsens or new symptoms arise PROBLEM VISIT with RO RESENDIZMeena [facility] 08/28/2022 Last Documented On 2 4:36PM ; [facility] Follow up: Yearly or as need ed Patient will be due to pap next year ANNUAL PHYSICAL EXAM with RO RESENDIZMeena [facility] 05/08/2022 Last Documented On 2 4:06PM ; [facility] Ordered return to the clinic if condition worsens or new symptoms arise ANNUAL PHYSICAL EXAM with RO RESENDIZMeena [facility] 05/08/2022 Last Documented On 2 4:06PM ; [facility] Ordered return to the clinic if condition worsens or new symptoms arise PROBLEM VISIT with RO COLVIN [facility] 12/19/2020 Last Documented On 1 11:16AM ; [facility] Keep wound covered until the re is no longer discharge as this is contagious We will call with x ray results PROBLEM VISIT with RO COLVIN [facility] 03/31/2020 Last Documented On 0 10:53AM ; [facility] Ordered return to the clinic if condition worsens or new symptoms arise PROBLEM VISIT with RO COLVIN [facility] 03/31/2020 Last Documented On 0 10:53AM ; [facility] Ordered follow-up visit as n eeded with an office visit if symptoms persist or worsen SICK VISIT with ROYESY COLVIN [facility] 08/11/2019 Last Documented On 9 11:02AM ; [facility] Ordered patient to call if p longlem develops SICK VISIT with RO COLVIN [facility] 08/11/2019 Last Documented On 9 11:02AM ; [facility] Ordered return to the clinic if condition worsens or new symptoms arise SICK VISIT with RO COLVIN [facility] 08/11/2019 Last Documented On 9 11:02AM ; [facility] Ordered return to the clinic if condition worsens or new symptoms arise SCHOOL PHYSICAL with RO COLVIN [facility] 06/18/2019 Last Documented On 9 10:06AM ; [facility] Ordered patient will call fo r appointment as needed EMERGENCY ROOM FOLLOW UP with DAVID [facility] 03/30/2019 Last Documented On 9 6:44PM ; [facility] Ordered return to the clinic if condition worsens or new symptoms arise EMERGENCY ROOM FOLLOW UP with [facility] 03/30/2019 Last Documented On 9 6:44PM ; [facility] Ordered follow-up visit year ly or as needed ANNUAL WELL WOMEN EXAM with RO COLVIN [facility] 09/03/2018 Last Documented On 8 2:39PM ; [facility] Ordered return to the clinic if condition worsens or new symptoms arise ANNUAL WELL WOMEN EXAM with RO Luna MARII [facility] 09/03/2018 Last Documented On 8 2:39PM ; [facility] Ordered patient will call fo r appointment as needed SAME DAY SICK VISIT with RO Luna MARII [facility] 08/03/2018 Last Documented On 8 2:21PM ; [facility] Ordered return to the clinic if condition worsens or new symptoms arise SAME DAY SICK VISIT with RO Luna MARII [facility] 08/03/2018 Last Documented On 8 2:21PM ; [facility] Ordered return to the clinic if condition worsens or new symptoms arise SCHOOL PHYSICAL with RO RESENDIZMeena [facility] 06/15/2018 Last Documented On 8 3:54PM ; [facility] Go to eye doctor for visual changes or worsening. Recommended warm compresses. Continue OTC eye drops PRN SAME DAY SICK VISIT with RO COLVIN [facility] 10/13/2017 Last Documented On 7 1:05PM ; [facility] Ordered return to the clinic if condition worsens or new symptoms arise SAME DAY SICK VISIT with RO COLVIN [facility] 10/13/2017 Last Documented On 7 1:05PM ; [facility] Ordered follow-up visit as needed HOSPIT AL FOLLOW UP EXAM with LIZBETH MUKHERJEE M.D. 02/06/2017 Last Documented On 7 11:51AM ; [facility] Ordered follow-up visit as needed SICK VISIT wit h LIZBETH MUKHERJEE M.D. 11/06/2016 Last Documented On 6 1:03PM ; [facility] Ordered follow-up visit in o ne month for recheck GENERAL OFFICE VISIT with LIZBETH MUKHERJEE M.D. 11/05/2016 Last Documented On 6 11:49AM ; [facility] Ordered follow-up visit as needed EMERGE NCY ROOM FOLLOW UP with LIZBETH MUKHERJEE M.D. 12/25/2015 Last Documented On 6 10:44PM ; [facility] Ordered Transition in care, clinical summary provided EMERGENCY ROOM FOLLOW UP with LIZBETH MUKHERJEE M.D. 12/25/2015 Last Documented On 6 10:44PM ; [facility] Requested Referred to: neurology EMERGEN CY ROOM FOLLOW UP with LIZBETH MUKHERJEE M.D. 12/25/2015 Last Documented On 6 10:44PM ; [facility] Ordered follow-up visit as needed PROBLEM VISIT with LIZBETH MUKHERJEE M.D. 03/09/2015 Last Documented On 5 8:23AM ; [facility] discussed migraines. discuss ed MRI [...] 09/07/2014 Last Documented On 4 9:59AM ; [facility] Pt understands and agrees wi th plan of care SICK VISIT with LIMA OROZCO PA-C 09/07/2014 Last Documented On 4 9:59AM ; [facility] Ordered follow-up visit as n eeded with an office visit. SCHOOL PHYSICAL with ANTONY KOLB PA-C 06/06/2014 Last Documented On 4 11:30AM ; [facility] Ordered patient to call if desmond jarrell develops SCHOOL PHYSICAL with ANTONY KOLB PA-C 06/06/2014 Last Documented On 4 11:30AM ; [facility] Ordered return to the clinic if condition worsens or new symptoms arise SCHOOL PHYSICAL with ANTONY KOLB PA-C 06/06/2014 Last Documented On 4 11:30AM ; [facility] Ordered follow-up visit as needed GENERA L OFFICE VISIT with LIZBETH MUKHERJEE M.D. 02/17/2014 Last Documented On 4 4:51PM ; [facility] xray foot ibuprofen 3 times a day rest ice elevation F/U based on xray report GENERAL OFFICE VISIT with LIMA OROZCO PA-C 09/01/2012 Last Documented On 2 4:24PM ; [facility] rest fluids otc antihistamin e floxin drops to right ear F/U 3-5 days if no improvement, sooner if worse SICK VISIT with LIMA OROZCO PA-C 05/28/2012 Last Documented On 2 9:56AM ; [facility] otc claritin or zyrtec daily F/U prn SICK VISIT with LIMA OROZCO PA-C 07/05/2011 Last Documented On 1 2:18PM ; [facility] bactroban ointment to face. advised pt to stop picking at lesion. good hand washing. reassurance about back. tylenol/motrin prn. may use ice. advised to sleep in her bed instead of recliner. F/U if no improvement SICK VISIT with LIMA OROZCO PA-C 06/24/2011 Last Documented On 1 4:17PM ; [facility] Pending Tests Order Diagnosis Results Due Ordering P rovider Lab Comp Metabolic Panel 04/09/24 KM SON Jeremy COLVIN FUTURES TRADER Last Documented On 4 9:43AM ; [facility] Lab Lipid Panel 04/09/24 RO PUENTE EZ FUTURES TRADER Last Documented On 4 9:43AM ; [facility] Lab CBC w/ DIFF 04/09/24 RO PUENTE EZ FUTURES TRADER Last Documented On 4 9:43AM ; [facility] Lab TSH w/ reflex T-4, Free 04/09/24 A MAGDALENO COLVIN FUTURES TRADER Last Documented On 4 9:43AM ; [facility] Lab Vitamin B12/Folic Acid 04/09/24 AL LISON Jeremy COLVIN FUTURES TRADER Last Documented On 4 9:43AM ; [facility] Referrals To Diagnosis Pediatric Specialist NOCTURNAL E NURESIS Note: ped urologist Last Documented On 0 1:32PM ; [facility] Neurologist CARDINAL MAGDIEL ESPINOZA [facility] - [address] [place] [id number] Migraine with aura, not intractable, w/o status migrainosus Note: DR. HOLGUIN Last Documented On 6 4:01PM ; [facility] Neurologist CARDINAL MAGDIEL ESPINOZA [facility] - [address] [place] [address] Migraine with aura, not intractable, w/o status migrainosus Last Documented On 7 3:42PM ; [facility] Neurosurgeon [facility] - [address] [id number] - Spinal stenosis, lumbosacral region Note: Keron Kendrick Last Documented On 1 4:15PM ; [facility] Softball Player BANDAR SMITH Unspecified hea ring loss, bilateral Note: [place] preferred, [place] if not Last Documented On 4 11:10AM ; [facility] Instructions to patient Intervention and counseling on cessation of tobacco use Last Documented On 4 9:28AM ; [facility] Lose weight Last Documented On 4 11:46AM ; [facility] Intervention and counseling on cessation of tobacco use Last Documented On 4 10:52AM ; [facility] Lose weight Last Documented On 3 9:38AM ; [facility] Intervention and counseling on cessation of tobacco use Last Documented On 2 4:03PM ; [facility] Intervention and counseling on cessation of tobacco use Last Documented On 2 3:43PM ; [facility] Return to the clinic if cond ition worsens or new symptoms arise Last Documented On 9 10:56AM ; [facility] Go to the emergency room if condition worsens Last Documented On 9 10:56AM ; [facility] Watch for signs/symptoms of infection Last Documented On 9 10:56AM ; [facility] Watch for signs/symptoms of infection, return to the clinic if seen Last Documented On 9 10:56AM ; [facility] Instructions for patient Last Documented On 8 2:11PM ; [facility] Education and Decision Aids were provided during visit for: Anticipatory guidance: limit computer and video time Last Documented On 9 8:55AM ; [facility] Discussed use of seat belts Last Documented On 9 8:55AM ; [facility] Discussed use of smoke detec tors Last Documented On 9 8:55AM ; [facility] Discussed 'child-proofing' t he house : advised removing firearms from home or keeping them unloaded and locked away Last Documented On 9 8:55AM ; [facility] Discussed avoiding sun expos ure Last Documented On 9 8:55AM ; [facility] Discussed bicycle safety Last Documented On 9 8:55AM ; [facility] Discussed sports safety Last Documented On 9 8:55AM ; [facility] Discussed nutritional needs : teach healthy choices, including fruits and vegetables Last Documented On 9 8:55AM ; [facility] Discussed activities : super vise activities with peers Last Documented On 9 8:55AM ; [facility] Parent education about immun izations VIS# 07/03/18 10/11/16 ~Discussed: ~Risks/Benefits of vaccine components discussed ~Discussed possible side effects of each component and when to call the office Last Documented On 9 9:56AM ; [facility] Parent education about immun izations Discussed: ~Risks/Benefits of vaccine components discussed ~Discussed possible side effects of each component and when to call the office. ~ Last Documented On 9 9:56AM ; [facility] Discussed concerns about exe rcise : promote physical activity Last Documented On 9 8:55AM ; [facility] Discussed concerns about dis cipline : reinforce limits, family rules, homework, and chores Last Documented On 9 8:55AM ; [facility] Discussed concerns about set ting disciplinary limits and establishing consequences Last Documented On 9 8:55AM ; [facility] Discussed concerns about tel evision : limit time spent watching Last Documented On 9 8:55AM ; [facility] Discussed concerns about tob acco use : avoid using Last Documented On 9 8:55AM ; [facility] Discussed concerns about alc ohol use : avoid using Last Documented On 9 8:55AM ; [facility] Discussed concerns about ill icit drug use : avoid using Last Documented On 9 8:55AM ; [facility] Anticipatory guidance: limit computer and video time Last Documented On 8 3:31PM ; [facility] Discussed use of seat belts Last Documented On 8 3:31PM ; [facility] Discussed use of smoke detec tors Last Documented On 8 3:31PM ; [facility] Discussed 'child-proofing' t he house : advised removing firearms from home or keeping them unloaded and locked away Last Documented On 8 3:31PM ; [facility] Discussed avoiding sun expos ure Last Documented On 8 3:31PM ; [facility] Discussed bicycle safety Last Documented On 8 3:31PM ; [facility] Discussed sports safety Last Documented On 8 3:31PM ; [facility] Discussed nutritional needs : teach healthy choices, including fruits and vegetables Last Documented On 8 3:31PM ; [facility] Discussed activities : super vise activities with peers Last Documented On 8 3:31PM ; [facility] Discussed concerns about exe rcise : promote physical activity Last Documented On 8 3:31PM ; [facility] Discussed concerns about dis cipline : reinforce limits, family rules, homework, and chores Last Documented On 8 3:31PM ; [facility] Discussed concerns about set ting disciplinary limits and establishing consequences Last Documented On 8 3:31PM ; [facility] Discussed concerns about tel evision : limit time spent watching Last Documented On 8 3:31PM ; [facility] Discussed concerns about tob acco use : avoid using Last Documented On 8 3:31PM ; [facility] Discussed concerns about alc ohol use : avoid using Last Documented On 8 3:31PM ; [facility] Discussed concerns about ill icit drug use : avoid using Last Documented On 8 3:31PM ; [facility] Anticipatory guidance: limit computer and video time Last Documented On 5 3:23PM ; [facility] Discussed use of seat belts Last Documented On 5 3:23PM ; [facility] Discussed use of smoke detec tors Last Documented On 5 3:23PM ; [facility] Discussed 'child-proofing' t he house : advised removing firearms from home or keeping them unloaded and locked away Last Documented On 5 3:23PM ; [facility] Discussed avoiding sun expos ure Last Documented On 5 3:23PM ; [facility] Discussed bicycle safety Last Documented On 5 3:23PM ; [facility] Discussed sports safety Last Documented On 5 3:23PM ; [facility] Discussed nutritional needs : teach healthy choices, including fruits and vegetables Last Documented On 5 3:23PM ; [facility] Discussed activities : super vise activities with peers Last Documented On 5 3:23PM ; [facility] Discussed concerns about exe rcise : promote physical activity Last Documented On 5 3:23PM ; [facility] Discussed concerns about dis cipline : reinforce limits, family rules, homework, and chores Last Documented On 5 3:23PM ; [facility] Discussed concerns about set ting disciplinary limits and establishing consequences Last Documented On 5 3:23PM ; [facility] Discussed concerns about tel evision : limit time spent watching Last Documented On 5 3:23PM ; [facility] Discussed concerns about tob acco use : avoid using Last Documented On 5 3:23PM ; [facility] Discussed concerns about alc ohol use : avoid using Last Documented On 5 3:23PM ; [facility] Discussed concerns about ill icit drug use : avoid using Last Documented On 5 3:23PM ; [facility] Discussed use of seat belts Last Documented On 4 11:29AM ; [facility] Discussed sports safety Last Documented On 4 11:29AM ; [facility] Discussed concerns about exe rcise : promote physical activity Last Documented On 4 11:29AM ; [facility] Assessments Includes: Assessments for all patient encounters Findings Encounter Date Fatigue PROBLEM VISIT with RO ACOSTA 04/06/2024 Last Documented On 4 11:47AM ; [facility] Generalized anxiety disorder PROBLEM VISIT with RO N SAGEZ FUTURES TRADER 04/06/2024 Last Documented On 4 11:47AM ; [facility] Obesity PROBLEM VISIT with RO N SAG EZ FUTURES TRADER 04/06/2024 Last Documented On 4 11:47AM ; [facility] Generalized anxiety disorder CHECK UP with ALLIS ON N SAGEZ FUTURES TRADER 03/12/2024 Last Documented On 4 11:26AM ; [facility] Hearing loss CHECK UP with RO N SAGEZ FN 03/12/2024 Last Documented On 4 11:26AM ; [facility] Generalized anxiety disorder ANNUAL PHYSICAL EXA M with RO N SAGEZ FUTURES TRADER 07/21/2023 Last Documented On 3 9:41AM ; [facility] Routine adult history and ph ysical (18-64 yrs) with abnormal findings ANNUAL PHYSICAL EXAM with RO N SAGEZ FUTURES TRADER 07/21/2023 Last Documented On 3 9:41AM ; [facility] Gestational hypertension PROBLEM VISIT with KM SON N SAGEZ FUTURES TRADER 01/15/2023 Last Documented On 3 2:08PM ; [facility] Tachycardia PROBLEM VISIT with RO N SAG EZ FUTURES TRADER 01/15/2023 Last Documented On 3 2:08PM ; [facility] [F41.1 - Generalized anxiety disorder] generalized anxiety disorder PROBLEM VISIT with KIRSTY CORDERO [facility]- 10/24/2022 Last Documented On 2 11:58AM ; [facility] Petechiae PROBLEM VISIT with RO N SAG EZ FUTURES TRADER 08/28/2022 Last Documented On 2 4:36PM ; [facility] Pruritus PROBLEM VISIT with RO N SAG EZ FUTURES TRADER 08/28/2022 Last Documented On 2 4:36PM ; [facility] Pruritus gravidarum PROBLEM VISIT with RO N SAGEZ FUTURES TRADER 08/28/2022 Last Documented On 2 4:36PM ; [facility] Routine adult history and ph ysical (18-64 yrs) without abnormal findings ANNUAL PHYSICAL EXAM with RO N SAGEZ FUTURES TRADER 05/08/2022 Last Documented On 2 4:06PM ; [facility] Lumbosacral spinal stenosis REFERRAL with ZANDRA COLVIN [facility] 12/22/2020 Last Documented On 1 8:28AM ; [facility] Lumbago with sciatica PROBLEM VISIT with RO COLVIN [facility] 12/19/2020 Last Documented On 1 11:16AM ; [facility] Lumbosacral disc degeneration X-RAY with RO COLVIN [facility] 12/19/2020 Last Documented On 1 4:24PM ; [facility] Arthralgia of the left humerus/elbow PRO BLEM VISIT with RO COLVIN [facility] 03/31/2020 Last Documented On 0 10:53AM ; [facility] Non-bullous impetigo PROBLEM VISIT with RO COLVIN [facility] 03/31/2020 Last Documented On 0 10:53AM ; [facility] Acute pharyngitis SICK VISIT with RO Robledo [facility] 08/11/2019 Last Documented On 9 11:02AM ; [facility] A streptococcus: B hem olytic pharyngitis SICK VISIT with RO COLVIN [facility] 08/11/2019 Last Documented On 9 11:02AM ; [facility] Tonsillitis SICK VISIT with RO COLVIN [facility] 08/11/2019 Last Documented On 9 11:02AM ; [facility] Patient is approved for part icipation in physical education and interscholastic sports for one year SCHOOL PHYSICAL with RO COLVIN [facility] 06/18/2019 Last Documented On 9 10:06AM ; [facility] Normal routine history and p hysical adolescent (12 - 17) SCHOOL PHYSICAL with RO COLVIN [facility] 06/18/2019 Last Documented On 9 10:06AM ; [facility] Arthralgia of the left ulna/radius/wrist EMERGENCY ROOM FOLLOW UP with DAVID MIDDLETON [facility]- 03/30/2019 Last Documented On 9 6:44PM ; [facility] Contraceptive management: in itiate contraception ANNUAL WELL WOMEN EXAM with RO RESENDIZMeena [facility] 09/03/2018 Last Documented On 8 2:39PM ; [facility] Excessive and frequent menst ruation with regular cycle ANNUAL WELL WOMEN EXAM with RO RESENDIZMeena [facility] 09/03/2018 Last Documented On 8 2:39PM ; [facility] Acute pharyngitis * PHONE CALL with RO Jeremy HOFFMAN [facility] 08/05/2018 Last Documented On 8 8:20AM ; [facility] Pyrexia with chills SAME DAY SICK VISIT with KWASI TIMN Jeremy RESENDIZMeena [facility] 08/03/2018 Last Documented On 8 2:21PM ; [facility] Sore throat SAME DAY SICK VISIT with RO RESENDIZMeena [facility] 08/03/2018 Last Documented On 8 2:21PM ; [facility] Patient is approved for part icipation in physical education and interscholastic sports for one year SCHOOL PHYSICAL with RO RESENDIZMeena [facility] 06/15/2018 Last Documented On 8 3:54PM ; [facility] Normal routine history and p hysical adolescent (13 - 18) SCHOOL PHYSICAL with RO Luna MARII [facility] 06/15/2018 Last Documented On 8 3:54PM ; [facility] Acute conjunctivitis of the left eye * PHONE JORDAN L with RO RESENDIZMeena [facility] 10/15/2017 Last Documented On 7 9:10AM ; [facility] Acute viral conjunctivitis SAME DAY SICK VISIT w ith RO COLVIN [facility] 10/13/2017 Last Documented On 7 1:05PM ; [facility] Elevated liver enzymes HOSPITAL FOLLOW UP EXAM w ith LIZBETH MUKHERJEE M.D. 02/06/2017 Last Documented On 7 11:51AM ; [facility] Migraine headache SICK VISIT with LIZBETH MUKHERJEE M.D. 11/06/2016 Last Documented On 6 1:03PM ; [facility] Classic migraine (with aura) without intractable migraine without status migrainosus GENERAL OFFICE VISIT with LIZBETH MUKHERJEE M.D. 11/05/2016 Last Documented On 6 11:49AM ; [facility] Migraine headache EMERGENCY ROOM FOLLOW UP with LIZBETH MUKHERJEE M.D. 12/25/2015 Last Documented On 6 10:44PM ; [facility] Patient is approved for part icipation in physical education and interscholastic sports for one year SPORTS PHYSICAL with LIZBETH MUKHERJEE M.D. 06/07/2015 Last Documented On 5 3:33PM ; [facility] Normal routine history and p hysical adolescent (13 - 18) SPORTS PHYSICAL with LIZBETH MUKHERJEE M.D. 06/07/2015 Last Documented On 5 3:33PM ; [facility] [place] Schlatter disease of left leg PROBLEM VIS IT with LIZBETH MUKHERJEE M.D. 03/09/2015 Last Documented On 5 8:23AM ; [facility] Migraine headache SICK VISIT with LIMA AMORC 09/07/2014 Last Documented On 4 9:59AM ; [facility] Patient is approved for part icipation in School, Physical Education, and Sports for 1 year SCHOOL PHYSICAL with ANTONY BARROS-C 06/06/2014 Last Documented On 4 11:30AM ; [facility] Normal routine history and p hysical adolescent (13 - 18) SCHOOL PHYSICAL with ANTONY KOLB PA-C 06/06/2014 Last Documented On 4 11:30AM ; [facility] Migraine headache GENERAL OFFICE VISIT with YOUSUF MUKHERJEE M.D. 02/17/2014 Last Documented On 4 4:51PM ; [facility] Contusion with intact skin s urface of the left fourth toe GENERAL OFFICE VISIT with LIMA OROZCO PA-C 09/01/2012 Last Documented On 2 4:24PM ; [facility] Allergic rhinitis SICK VISIT with LIMA SANCHEZ PA-C 05/28/2012 Last Documented On 2 9:56AM ; [facility] Otitis externa SICK VISIT with LIMA OROZCO PA-C 05/28/2012 Last Documented On 2 9:56AM ; [facility] Acute serous otitis media SICK VISIT with NEELA HO PA-C 07/05/2011 Last Documented On 1 2:18PM ; [facility] Cerumen impaction SICK VISIT with LIMA SANCHEZ PA-C 07/05/2011 Last Documented On 1 2:18PM ; [facility] Backache SICK VISIT with LIMA OROZCO PA-C 06/24/2011 Last Documented On 1 4:17PM ; [facility] Impetigo SICK VISIT with LIMA OROZCO PA-C 06/24/2011 Last Documented On 1 4:17PM ; [facility] Otitis media in both ears SICK VISIT with NEELA HO PA-C 03/18/2011 Last Documented On 1 2:48PM ; [facility] Acute upper respiratory infection GENERA L OFFICE VISIT with OLIMPIAEDUAR KNOX PA-C 10/15/2010 Last Documented On 0 4:18PM ; [facility] Upper respiratory infection SICK VISIT with ALEXIS MOSCOSO Lila KNOX PA-C 01/15/2010 Last Documented On 0 9:25AM ; [facility] Acute pharyngitis SICK VISIT with PIPER LORENZANA PA-C 12/06/2009 Last Documented On 0 1:33PM ; [facility] Upper respiratory infection SICK VISIT with SOCRATES JIMENES MICHELLE LORENZANA PA-C 12/06/2009 Last Documented On 0 1:33PM ; [facility] Instructions Includes: Instructions for all patient encounters Instructions to patient Intervention and counseling on cessation of tobacco use Last Documented On 4 9:28AM ; [facility] Lose weight Last Documented On 4 11:46AM ; [facility] Intervention and counseling on cessation of tobacco use Last Documented On 4 10:52AM ; [facility] Lose weight Last Documented On 3 9:38AM ; [facility] Intervention and counseling on cessation of tobacco use Last Documented On 2 4:03PM ; [facility] Intervention and counseling on cessation of tobacco use Last Documented On 2 3:43PM ; [facility] Return to the clinic if cond ition worsens or new symptoms arise Last Documented On 9 10:56AM ; [facility] Go to the emergency room if condition worsens Last Documented On 9 10:56AM ; [facility] Watch for signs/symptoms of infection Last Documented On 9 10:56AM ; [facility] Watch for signs/symptoms of infection, return to the clinic if seen Last Documented On 9 10:56AM ; [facility] Instructions for patient Last Documented On 8 2:11PM ; [facility] Education and Decision Aids were provided during visit for: Anticipatory guidance: limit computer and video time Last Documented On 9 8:55AM ; [facility] Discussed use of seat belts Last Documented On 9 8:55AM ; [facility] Discussed use of smoke detec tors Last Documented On 9 8:55AM ; [facility] Discussed 'child-proofing' t he house : advised removing firearms from home or keeping them unloaded and locked away Last Documented On 9 8:55AM ; [facility] Discussed avoiding sun expos ure Last Documented On 9 8:55AM ; [facility] Discussed bicycle safety Last Documented On 9 8:55AM ; [facility] Discussed sports safety Last Documented On 9 8:55AM ; [facility] Discussed nutritional needs : teach healthy choices, including fruits and vegetables Last Documented On 9 8:55AM ; [facility] Discussed activities : super vise activities with peers Last Documented On 9 8:55AM ; [facility] Parent education about immun izations VIS# 07/03/18 10/11/16 ~Discussed: ~Risks/Benefits of vaccine components discussed ~Discussed possible side effects of each component and when to call the office Last Documented On 9 9:56AM ; [facility] Parent education about immun izations Discussed: ~Risks/Benefits of vaccine components discussed ~Discussed possible side effects of each component and when to call the office. ~ Last Documented On 9 9:56AM ; [facility] Discussed concerns about exe rcise : promote physical activity Last Documented On 9 8:55AM ; [facility] Discussed concerns about dis cipline : reinforce limits, family rules, homework, and chores Last Documented On 9 8:55AM ; [facility] Discussed concerns about set ting disciplinary limits and establishing consequences Last Documented On 9 8:55AM ; [facility] Discussed concerns about tel evision : limit time spent watching Last Documented On 9 8:55AM ; [facility] Discussed concerns about tob acco use : avoid using Last Documented On 9 8:55AM ; [facility] Discussed concerns about alc ohol use : avoid using Last Documented On 9 8:55AM ; [facility] Discussed concerns about ill icit drug use : avoid using Last Documented On 9 8:55AM ; [facility] Anticipatory guidance: limit computer and video time Last Documented On 8 3:31PM ; [facility] Discussed use of seat belts Last Documented On 8 3:31PM ; [facility] Discussed use of smoke detec tors Last Documented On 8 3:31PM ; [facility] Discussed 'child-proofing' t he house : advised removing firearms from home or keeping them unloaded and locked away Last Documented On 8 3:31PM ; [facility] Discussed avoiding sun expos ure Last Documented On 8 3:31PM ; [facility] Discussed bicycle safety Last Documented On 8 3:31PM ; [facility] Discussed sports safety Last Documented On 8 3:31PM ; [facility] Discussed nutritional needs : teach healthy choices, including fruits and vegetables Last Documented On 8 3:31PM ; [facility] Discussed activities : super vise activities with peers Last Documented On 8 3:31PM ; [facility] Discussed concerns about exe rcise : promote physical activity Last Documented On 8 3:31PM ; [facility] Discussed concerns about dis cipline : reinforce limits, family rules, homework, and chores Last Documented On 8 3:31PM ; [facility] Discussed concerns about set ting disciplinary limits and establishing consequences Last Documented On 8 3:31PM ; [facility] Discussed concerns about tel evision : limit time spent watching Last Documented On 8 3:31PM ; [facility] Discussed concerns about tob acco use : avoid using Last Documented On 8 3:31PM ; [facility] Discussed concerns about alc ohol use : avoid using Last Documented On 8 3:31PM ; [facility] Discussed concerns about ill icit drug use : avoid using Last Documented On 8 3:31PM ; [facility] Anticipatory guidance: limit computer and video time Last Documented On 5 3:23PM ; [facility] Discussed use of seat belts Last Documented On 5 3:23PM ; [facility] Discussed use of smoke detec tors Last Documented On 5 3:23PM ; [facility] Discussed 'child-proofing' t he house : advised removing firearms from home or keeping them unloaded and locked away Last Documented On 5 3:23PM ; [facility] Discussed avoiding sun expos ure Last Documented On 5 3:23PM ; [facility] Discussed bicycle safety Last Documented On 5 3:23PM ; [facility] Discussed sports safety Last Documented On 5 3:23PM ; [facility] Discussed nutritional needs : teach healthy choices, including fruits and vegetables Last Documented On 5 3:23PM ; [facility] Discussed activities : super vise activities with peers Last Documented On 5 3:23PM ; [facility] Discussed concerns about exe rcise : promote physical activity Last Documented On 5 3:23PM ; [facility] Discussed concerns about dis cipline : reinforce limits, family rules, homework, and chores Last Documented On 5 3:23PM ; [facility] Discussed concerns about set ting disciplinary limits and establishing consequences Last Documented On 5 3:23PM ; [facility] Discussed concerns about tel evision : limit time spent watching Last Documented On 5 3:23PM ; [facility] Discussed concerns about tob acco use : avoid using Last Documented On 5 3:23PM ; [facility] Discussed concerns about alc ohol use : avoid using Last Documented On 5 3:23PM ; [facility] Discussed concerns about ill icit drug use : avoid using Last Documented On 5 3:23PM ; [facility] Discussed use of seat belts Last Documented On 4 11:29AM ; [facility] Discussed sports safety Last Documented On 4 11:29AM ; [facility] Discussed concerns about exe rcise : promote physical activity Last Documented On 4 11:29AM ; [facility] Medical Equipment - Implanted Devices Includes: Current and historical Devices No Medical Equipment Recorded Medications Includes: Current and historical Medications Past Medications on file CeleXA 20 MG Oral Tablet 04/19/2024 - 10/16/2024 Provider: RO ACOSTA Diagnosis: Generalized anxi ety disorder One tablet daily Last Documented On 04/19/2024 1:22PM By RO COLVIN NP ; [facility] Wellbutrin XL 150 MG Oral Tablet Extended Release 24 Hour 04/06/2024 - 05/06/2024 Provider: RO ACOSTA Diagnosis: Generalized anxi ety disorder One tablet daily Last Documented On 04/06/2024 9:48AM By RO COLVIN NP ; [facility] hydrOXYzine HCl 50 MG Oral Tablet 04/06/2024 - 05/06/2024 Provider: RO COLVIN FUTURES TRADER Diagnosis: Generalized anxi ety disorder Take 1 tab as needed for anx iety/panic attacks Last Documented On 04/06/2024 9:48AM By RO COLVIN NP ; [facility] CeleXA 20 MG Oral Tablet 03/12/2024 - 04/19/2024 Provider: RO ACOSTA Diagnosis: Generalized anxi ety disorder One tablet daily Last Documented On 04/19/2024 1:18PM By RO COLVIN NP ; [facility] hydrOXYzine HCl 50 MG Oral Tablet 03/12/2024 - 04/06/2024 Provider: RO COLVIN FUTURES TRADER Diagnosis: Generalized anxi ety disorder Take 1 tab as needed for anx iety/panic attacks Last Documented On 04/06/2024 9:47AM By RO COLVIN NP ; [facility] Sertraline HCl 100 MG Oral Tablet 07/21/2023 - 01/17/2024 Provider: RO COLVIN FUTURES TRADER Diagnosis: One tablet daily, 150 mg total daily Last Documented On 07/21/2023 11:57AM By RO COLVIN ELEVATOR SERVICE TECHNICIAN ; [facility] Sertraline HCl 50 MG Oral Tablet 07/21/2023 - 01/17/2024 Provider: RO COLVIN FUTURES TRADER Diagnosis: One tablet daily, 150 mg total daily Last Documented On 07/21/2023 11:57AM By RO COLVIN ELEVATOR SERVICE TECHNICIAN ; [facility] Sertraline HCl 150 MG Oral Capsule 07/21/2023 - 2022 Provider: Diagnosis: Last Documented On 07/21/2023 9:28AM By RO COLVIN ELEVATOR SERVICE TECHNICIAN ; [facility] Sertraline HCl 150 MG Oral Capsule 07/21/2023 - 07/21/2023 Provider: RO COLVIN FUTURES TRADER Diagnosis: 1 capsule daily Last Documented On 07/21/2023 11:55AM By RO COLVIN NP ; [facility] hydrOXYzine HCl 50 MG Oral Tablet 07/21/2023 - 03/12/2024 Provider: RO COLVIN FUTURES TRADER Diagnosis: Generalized anxi ety disorder Take 1 tab as needed for anx iety/panic attacks Last Documented On 03/12/2024 11:07AM By RO COLVIN NP ; [facility] Sertraline HCl 25 MG Oral Tablet 10/24/2022 - 03/12/2024 Provider: KIRSTY CORDERO FUTURES TRADER- Diagnosis: Generalized anxi ety disorder One tablet daily Last Documented On 03/12/2024 10:50AM By Mellissa MCLEOD ; [facility] Sda-[id number]-Kvbjqgtq 0.18/0.215/0 .25 MG-25 MCG Oral Tablet 05/08/2022 - 08/28/2022 Provider: RO Robledo FUTURES TRADER Diagnosis: TAKE ONE TABLET BY MOUTH DAILY Last Documented On 08/28/2022 4:03PM By Natasha MCLEOD ; [facility] Twq-Qj-Yhufrsot 0.18/0.215/0 .25 MG-25 MCG Oral Tablet 05/07/2022 - 05/08/2022 Provider: RO Robledo FUTURES TRADER Diagnosis: TAKE ONE TABLET BY MOUTH DAILY Last Documented On 05/08/2022 3:51PM By RO COLVIN ELEVATOR SERVICE TECHNICIAN ; [facility] Ortho Tri-Cyclen Lo 0.18/0.215/0.25 MG-25 MCG Oral Tablet 06/05/2021 - 03/12/2024 Provider: RO COLVIN FUTURES TRADER Diagnosis: Encounter for ot h general cnsl and advice on contraception One tablet daily Last Documented On 03/12/2024 10:49AM By Mellissa MCLEOD ; [facility] predniSONE 20 MG Oral Tablet 12/19/2020 - 03/12/2024 Provider: RO COLVIN FUTURES TRADER Diagnosis: Lumbago with sci atica, unspecified side Take 2 tabs daily for 4 days , then 1 tab daily for 4 days, then stop Last Documented On 03/12/2024 10:49AM By Mellissa MCLEOD ; [facility] Ortho Tri-Cyclen Lo 0.18/0.215/0.25 MG-25 MCG Oral Tablet 07/03/2020 - 06/05/2021 Provider: GRETEL GRAY FUTURES TRADER-C Diagnosis: Encounter for ot h general cnsl and advice on contraception One tablet daily Last Documented On 06/05/2021 8:28AM By RO COLVIN NP ; [facility] Bactrim DS 800-160 MG Oral Tablet 03/31/2020 - 03/12/2024 Provider: RO COLVIN FUTURES TRADER Diagnosis: Non-bullous impe tigo One tablet twice a day Last Documented On 03/12/2024 10:48AM By Mellissa MCLEOD ; [facility] Mupirocin 2% External Ointment 03/31/2020 - 03/12/2024 Provider: RO COLVIN FUTURES TRADER Diagnosis: Non-bullous impe tigo Apply three times a day until resolved Last Documented On 03/12/2024 10:49AM By Mellissa MCLEOD ; [facility] Amoxicillin 500 MG Oral Tablet 08/11/2019 - 03/12/2024 Provider: RO ACOSTA Diagnosis: Acute pharyngiti s, unspecified One tablet twice a day Last Documented On 03/12/2024 10:48AM By Mellissa MCLEOD ; [facility] Magic Mouthwash compounded Oral Suspension 08/11/2019 - 03/12/2024 Provider: RO PASCUALP Diagnosis: Acute pharyngiti s, unspecified swish and spit as needed Last Documented On 03/12/2024 10:49AM By Mellissa MCLEOD ; [facility] Ortho Tri-Cyclen Lo 0.18/0.215/0.25 MG-25 MCG Oral Tablet 08/06/2019 - 07/03/2020 Provider: RO COLVIN FUTURES TRADER Diagnosis: Encounter for ot h general cnsl and advice on contraception One tablet daily Last Documented On 10:59AM By GRETEL ACOSTA-C ; [facility] Ortho Tri-Cyclen Lo 0.18/0.215/0.25MG-25 MCG Oral Tablet 09/03/2018 - 08/06/2019 Provider: RO ACOSTA Diagnosis: Encounter for ot h general cnsl and advice on contraception One tablet daily Last Documented On 08/06/2019 8:34AM By RO COLVIN NP ; [facility] Amoxicillin 500MG Oral Tablet 08/05/2018 - 03/12/2024 Provider: RO ACOSTA Diagnosis: Acute pharyngiti s, unspecified One tablet twice a day Last Documented On 03/12/2024 10:48AM By Mellissa MCLEOD ; [facility] Polymyxin B-Trimethoprim 77407-4.1UNIT/ML-% Ophthalmic Solution 10/15/2017 - 03/12/2024 Provider: RO COLVIN FUTURES TRADER Diagnosis: Unspecified acut e conjunctivitis, left eye 1-2 drops to eye 4 times a d ay for 7 days, may reduce to twice a day after 3 days if eye is improved Last Documented On 03/12/2024 10:49AM By Mellissa MCLEOD ; [facility] Adapalene 0.1% External Gel (jelly) 09/22/2017 - 03/30/2019 Provider: LIZBETH Durand Diagnosis: Thirty minutes after washing /drying skin, apply pea-sized amount to affected areas at bedtime; avoid excess sun exposure Last Documented On 03/30/2019 4:07PM By MISSY MCLEOD ; [facility] Benzoyl Peroxide 5% External Gel (jelly) 09/22/2017 - 03/30/2019 Provider: LIZBETH Durand Diagnosis: Cleanse skin and apply small amounts over affected areas once daily; can increase frequency as needed. Last Documented On 03/30/2019 4:07PM By MISSY MCLEOD ; [facility] Cyproheptadine HCl 4 MG Tablet 11/05/2016 - 03/30/2019 Provider: LIZBETH MUKHERJEE M.D. Diagnosis: Migraine with au ra, not intractable, w/o status migrainosus TAKE 2 BID Last Documented On 03/30/2019 4:07PM By MISSY MCLEOD ; [facility] Ondansetron 8 MG Tablet Dispersible 12/25/2015 - 11/05/2016 Provider: LIZBETH MUKHERJEE M.D. Diagnosis: Migraine with au ra, not intractable, w/o status migrainosus Give one tablet by mouth thr ice daily as needed for nausea/vomiting Last Documented On 11/05/2016 9:28AM By CELIO MCLEOD ; [facility] Magnesium 400 MG OR CAPS 09/07/2014 - 11/05/2016 Provi paul: LIMA OROZCO PA-C Diagnosis: Last Documented On 11/05/2016 9:28AM By CELIO MCLEOD ; [facility] Bactrim DS 800-160 MG OR TABS 05/12/2014 - 11/05/2016 Provider: LIMA OROZCO PA-C Diagnosis: Last Documented On 11/05/2016 9:28AM By CELIO MCLEOD ; [facility] Ketorolac Tromethamine 30 MG/ML IJ SOLN 02/17/2014 - 11/05/2016 Provider: LIZBETH MUKHERJEE M.D. Diagnosis: MIGRNE UNSP WO N TRC MGRN Give one (1) mL intramuscularly now Last Documented On 11/05/2016 9:28AM By CELIO MCLEOD ; [facility] Ondansetron 8 MG OR TBDP 02/17/2014 - 12/25/2015 Provi paul: LIZBETH MUKHERJEE M.D. Diagnosis: MIGRNE UNSP WO N TRC MGRN Give one tablet by mouth thr ice daily as needed for nausea/vomiting Last Documented On 12/25/2015 11:50AM By LIZBETH MUKHERJEE MD ; [facility] Ofloxacin 0.3% OP SOLN 05/28/2012 - 11/05/2016 Provide r: LIMA OROZCO PA-C Diagnosis: 5 drops once a day for 7 days Last Documented On 11/05/2016 9:28AM By CELIO MCLEOD ; [facility] Bactroban 2% EX OINT 06/24/2011 - 11/05/2016 Provider: LIMA OROZCO PA-C Diagnosis: apply small amount TID for 10 days Last Documented On 11/05/2016 9:27AM By CELIO MCLEOD ; [facility] Amoxicillin 500 MG OR CAPS 03/18/2011 - 11/05/2016 Provider: LIMA OROZCO PA-C Diagnosis: OTITIS MEDIA NOS Last Documented On 11/05/2016 9:27AM By CELIO MCLEOD ; [facility] Amoxicillin 500 MG OR CAPS 10/15/2010 - 03/18/2011 Provider: OLIMPIA MONACO CH, PA-C Diagnosis: ACUTE URI NOS Last Documented On 1 2:43PM By LIMA OROZCO PA-C ; [facility] Desmopressin Acetate [place] 0.01% NA SOLN 10/09/2010 - 11/05/2016 Provider: OLIMPIA KNOX PA-C Diagnosis: NOCTURNAL ENURES IS 10 mcg in each nostril qhs Last Documented On 11/05/2016 9:27AM By CELIO MCLEOD ; [facility] Desmopressin Acetate [place] 0.01% NA SOLN 09/10/2010 - 10/09/2010 Provider: OLIMPIA KNOX PA-C Diagnosis: NOCTURNAL ENURES IS 10 mcg in each nostril qhs Last Documented On 0 9:12AM By OLIMPIA KNOX PA-C ; [facility] Zithromax 200 MG/5ML OR SUSR 01/15/2010 - 11/05/2016 Provider: OLIMPIA MONACO CH, PA-C Diagnosis: ACUTE URI NOS 2 tspen PO for 1 days 2-5 Last Documented On 11/05/2016 9:27AM By CELIO MCLEOD ; [facility] Zithromax 200 MG/5ML OR SUSR 12/06/2009 - 01/15/2010 Provider: PIPER CASIANO PA-C Diagnosis: ACUTE PHARYNGITI S 2 tspen PO for 1 days 2-5 Last Documented On 0 8:54AM By OLIMPIA KNOX PA-C ; [facility] Medications Administered Includes: Administered Medications in patient's chart Medications Administered Diagnosis Date Pro vider Ketorolac Tromethamine 60 MG/2ML IJ SOLN 11/06/2016 LIZBETH MUKHERJEE M.D. Last Documented On 6 11:46AM By YOLANDA BARKER LPN ; [facility] Ketorolac Tromethamine 30 MG /ML IM SOLN MIGRNE UNSP WO NTRC MGRN 02/17/2014 LIZBETH Knapp GIVEN RIGHT UPPER OUTER QUADRANT I.M. Last Documented On 4 10:50AM By JAK HERNÁNDEZ LPN ; [facility] Results Includes: Results from 09/22/2024 through 09/22/2025 No Results Recorded For Specified Dates History of Present Illness History of Present Illness not supported for this document type No History of Present Illness Recorded Social History Description Last Updated Tobacco non-user 05/08/2022 Last Documented On 2 4:06PM ; [facility] Current nonsmoker 12/19/2020 Last Documented On 1 11:16AM ; [facility] Non-smoker 03/31/2020 Last Documented On 0 10:53AM ; [facility] Smoking status : Never smoker 08/11/2019 Last Documented On 9 11:02AM ; [facility] Currently in school 02/06/2017 Last Documented On 7 11:51AM ; [facility] Lives with parents in [place] 06/12/2015 Last Documented On 5 3:33PM ; [facility] Not using alcohol 06/12/2015 Last Documented On 5 3:33PM ; [facility] Not using drugs 06/12/2015 Last Documented On 5 3:33PM ; [facility] No tobacco use 06/06/2014 Last Documented On 4 11:30AM ; [facility] A recent decrease in activity 10/15/2010 Last Documented On 0 4:18PM ; [facility] No recent change in sleep 10/15/2010 Last Documented On 0 4:18PM ; [facility] Procedures and Surgical History Surgical History Last Updated No history of surgery 06/12/2015 Last Documented On 5 3:33PM ; [facility] Medical History Includes: Medical History in patient's chart Description Last Updated History of headache syndromes : migraine 06/12/2015 Last Documented On 5 3:33PM ; [facility] A PPD was negative 06/12/2015 Last Documented On 5 3:33PM ; [facility] No cardiac problems 06/12/2015 Last Documented On 5 3:33PM ; [facility] No exposure to tuberculosis 06/12/2015 Last Documented On 5 3:33PM ; [facility] No hearing problems 06/12/2015 Last Documented On 5 3:33PM ; [facility] No heart murmur 06/12/2015 Last Documented On 5 3:33PM ; [facility] No high cholesterol 06/12/2015 Last Documented On 5 3:33PM ; [facility] No history of asthma 06/12/2015 Last Documented On 5 3:33PM ; [facility] No history of concussion 06/12/2015 Last Documented On 5 3:33PM ; [facility] No history of delayed milestones 015 Last Documented On 5 3:33PM ; [facility] No history of diabetes mellitus 06/12/20 15 Last Documented On 5 3:33PM ; [facility] No history of hematologic disorder 06/12 Last Documented On 5 3:33PM ; [facility] No history of sickle cell abnormality Last Documented On 5 3:33PM ; [facility] No loss of function of one of paired org ans 06/12/2015 Last Documented On 5 3:33PM ; [facility] No orthopedic problems 06/12/2015 Last Documented On 5 3:33PM ; [facility] No previous hospitalizations 06/12/2015 Last Documented On 5 3:33PM ; [facility] No recent severe illness or injury 06/12 Last Documented On 5 3:33PM ; [facility] No trauma to the head 06/12/2015 Last Documented On 5 3:33PM ; [facility] Not born with congenital abnormalities 0 06/12/2015 Last Documented On 5 3:33PM ; [facility] Not carrier of hemophilia A 06/12/2015 Last Documented On 5 3:33PM ; [facility] Currently wearing eyeglasses 06/06/2014 Last Documented On 4 11:30AM ; [facility] Taking OTC pain medication / fever. Clifford morrison Motchriss 03/18/2011 Last Documented On 1 2:48PM ; [facility] Not taking OTC medications 12/06/2009 Last Documented On 0 1:33PM ; [facility] Born by vaginal delivery 07/31/2009 Last Documented On 9 1:44PM ; [facility] History of length at : in21.5 07/31 Last Documented On 9 1:44PM ; [facility] Patient's weight: lbs8/2 9 Last Documented On 9 1:44PM ; [facility] Family History Includes: Family History in patient's chart Description Last Updated No family history of diabetes mellitus 0 06/12/2015 Last Documented On 5 3:33PM ; [facility] No family history of sudden early deaths 06/12/2015 Last Documented On 5 3:33PM ; [facility] Maternal history of headache syndromes 0 02/28/2014 Last Documented On 4 4:51PM ; [facility] Cancer 07/31/2009 Last Documented On 9 1:44PM ; [facility] Review of Systems Review of Systems not [...] atient Last Documented On 5 5:22PM ; [facility] HPV (Gardasil 9) 1 06/18/2019 Complete (Re ported) Patient Last Documented On 9 9:27AM ; [facility] Influenza (Quadrivalent)36 m o.& older PF 0.5ml (SD) 1 08/25/2009 Complete (Reported) Patie nt Last Documented On 9 4:15PM ; [facility] Meningococcal B, OMV (BEXSERO) 1 06/18/2019 Complete (Reported) Patient Last Documented On 9 9:27AM ; [facility] MMR (Measles Mumps Rubella) 1 05/30/2007 C omplete (Reported) Patient Last Documented On 5 5:22PM ; [facility] Polio ,IPV (IPOL) 1 05/30/2007 Complete (R eported) Patient Last Documented On 5 5:22PM ; [facility] Tdap (Boostrix) 1 06/26/2013 Complete (Rep orted) Patient Last Documented On 3 9:41AM ; [facility] Allergies Includes: Active, inactive, and resolved Allergies No Known Allergies Insurance Includes: Active Insurance Policies Plan Name Member ID Group # Subscriber Relationship Effect patricia Dates 1 - [facility] [id number] KRISTI WADE 2 - [facility] [id number] ARLENE WADE Self Clinical Notes Includes: Signed Clinical Notes starting from 11/29/2022 No Clinical Notes Recorded
--- OUTSIDE RECORDS SUMMARY | 2025-09-22 15:45 | XMS_ITS | Continuity of Care Document ---
Author Organization [facility] Address [address] [place] [address] Assessment Encounter Date Assessment Date Assessment LastModified by Organization Details LastModified Time 08/12/2025 08/12/2025 Patient is _29__weeks . Discussed plan. Not available 08/12/2025 16:27:35 Plan of Treatment Reminders Order Date Submit Date Provider Last Modified By Organization Details Last Modified Time Details Appointments OB ROUTINE 2024 03:45P M Cathi Hopson CNM Not available Not available Not available INDUCTION 2024 06:30A Jeniffer Hopson CNM Not available Not available Not available Lab None recorded. Referral None recorded. Procedures None recorded. Surgeries None recorded. Imaging None recorded. Medication Orders cephalexi n 500 mg capsule 2024 025 [facility] [address], [address], 08/26/2025 05:01:17 Patient TargetsNo targets recorded. Patient InstructionsNo instructions recorded. Reason for Referral None Reported. Results Created Date Observation Date Name Description Value Unit Range Abnormal Flag Note LastModifiedBy Organization Detail LastModifiedTime 08/12/2008/12/2025 HEMAT OCRIT (HCT) HCT 34.0 % (based on docume nted legal sex) 34.0-4 5.0 Not Available [facility] (Lab) [address], [place], [address], 08/13/2025 11:56:51 08/12/2008/12/2025 HEMOG LOBIN (HGB) HGB 11.1 g/dL (based on docume nted legal sex) 11.6-1 5.4 low Not Available [facility] (Lab) [address] [facility] [facility], [place], [address], 08/13/2025 11:56:52 08/12/20 25 08/12/2025 GTT - GESTA DELTA L SCREE N, ACOG OB glucose, 1 hour screen 67 mg/dL 70-[address] [facility] (Lab) [address] [facility], [place], [address], 08/13/2025 11:56:52 08/12/20 25 08/12/2025 HIV 1/2 ANTIG EN/AN TIBOD Y, REFLE X CONFI RMATI ON HIV antigen/anti body Nonrea ctive nonrea ctive HIV-1 antig en and HIV-1 /HIV- 2 antib odies were not detec elham. No labor atory evide nce of HIV infec tion. Not Available [facility] (Lab) [address] [facility], [place], [address], 08/13/2025 11:56:52 08/12/20 25 08/12/2025 RPR SCREE N, REFLE X TITER /CONF IRMAT ION RPR qualitative Nonrea ctive nonrea ctive Not Available [facility] (Lab) [address] [facility], [place], [address], 08/13/2025 11:56:53 06/08/20 25 06/08/2025 US, obste tric, 2nd or 3rd trime ster No observ ation record ed. [email or web address] [facility] [address], [place], [address], 06/08/2025 16:53:10 06/08/20 25 06/08/2025 US, obste tric, follo w-up No observ ation record ed. [email or web address] [address], [place], [address], 06/09/2025 21:51:59 07/08/20 25 07/08/2025 US, obste tric, follo w-up No observ ation record ed. [email or web address] [facility] [address], [place], [address], 07/09/2025 19:07:42 07/08/20 25 07/08/2025 US, obste tric, follo w-up No observ ation record ed. [facility] [address], [place], [address], 07/08/2025 17:05:02 08/12/2008/12/2025 US, obste tric, follo w-up No observ ation record ed. [facility] [address], [place], [address], 08/12/2025 17:22:39 08/12/2008/12/2025 US, obste tric, follo w-up No observ ation record ed. [email or web address] [facility] [address], [place], [address], 08/16/2025 11:15:17 09/09/2009/09/2025 US, obste tric, follo w-up No observ ation record ed. [facility] [address], [place], [address], 09/09/2025 15:58:13 09/09/2009/09/2025 US, obste tric, follo w-up No observ ation record ed. [email or web address] [facility] [address], [place], [address], 09/15/2025 16:35:10 Result Notes None recorded. Problems Name Problem SNOMED Code Status Onset Date Resolution Date Notes Provider Name and Address Organization Details Recorded Time Anxiety 14214283 Completed Seeing PCP 10/22/22 to discuss medicati on. Pt states she is doing well on zoloft 100mg on 12/02/22! Nancie Christianochu block [facility] 3 16:55:06 Proteinu sirisha [id number] Completed with swelling - 1x/wk antenata l testing. Monitor for pre-e Alpeshtorey GeronimoChristianochu block [facility] 3 16:55:06 Chiari malforma tion 723621566 Active 2021 decompre ssed, no neuro follow up required per her team Nancie block [facility] 3 16:55:06 Chiari malforma tion 884905279 Completed 2021 decompre ssed, no neuro follow up required per her team Nancie block [facility] 3 16:55:06 Pregnanc y 03339725 Completed 202103/27/2023 Bailee block [facility] 5 09:19:52 Mixed anxiety and depressi ve disorder 390302470 Active 2024 Bailee block [facility] 5 18:16:31 History of Spinal surgery 509778918 Active 2024 Bailee blokc [facility] 5 18:16:45 Pregnanc y 09110689 Active 2024 Bailee block [facility] 5 09:19:52 Pre-ecla mpsia 761113499 Active 2024 last pregancy start bASA 81 mg Cathi Hopson, KEVIN [address], [place], [address], [facility] 5 09:29:14 Migraine 46279327 Active 2024 imitrex Cathi Hopson CNM [address], [place], [address], [facility] 5 09:29:39 Problem Notes None recorded. Procedures Surgical History Date Name Laterality Status Provider Name and Address Organization Details Recorded Time 5 IUD Insertion completed Rica Banda [facility] 12/30/2024 16:38:48 5 Date of Last Pap Smear completed Bailee Yeung [facility] 03/09/2025 18:16:56 3 IUD Insertion completed Bailee Yeung [facility] 05/28/2023 12:30:09 3 IUD Insertion completed Cathi Hopson CNM [address], [place], [address], [facility] 04/30/2023 12:28:48 7 procedure on back completed Baileeal Yeung [facility] 10/09/2022 17:12:07 Imaging Results None recorded. [...] Updated DateTime 08/12/2025 162.56 cm 37.8 kg/m2 37516.32 g 117/79 mm[Hg] iNkki Nino [facility] 08/12/2025 15:29:24 Social History Question Answer Notes LastModified by Organizat ion Details LastModified Time Tobacco Smoking Status Never Smoker Bailee block, [facility] 12/04/2022 16:09:49 Do You Have An Advance Directive? No [email or web address] Information n ot available 10/09/2022 If You Are , What Was Your Level Of Alcohol Consumption Prior To ? Occasional [email or web address] Information not available 04/22/2025 Are You Blind Or Do You Have Difficulty Seeing? No [email or web address] Information n ot available 12/04/2022 What Is Your Level Of Caffeine Consumption? Moderate [email or web address] Information not available 10/09/2022 How Much Tobacco Do You Chew? None [email or web address] Information not available 10/09/2022 In The 14 Days Before Symptom Onset, Have You Had Close Contact With A Laboratory-confirm ed COVID-19 While That Case Was Ill? No [email or web address] Information n ot available 11/06/2022 In The 14 Days Before Symptom Onset, Have You Had Close Contact With A Person Who Is Under Investigation For COVID-19 While That Person Was Ill? No [email or web address] Information not available 11/06/2022 Have You Been To An Area Known To Be High Risk For COVID-19? No [email or web address] Information not available 10/09/2022 Are You Deaf Or Do You Have Serious Difficulty Hearing? No [email or web address] Information not available 10/09/2022 What Type Of Diet Are You Following? REGULAR [email or web address] Information n ot available 10/09/2022 What Is The Highest Grade Or Level Of School You Have Completed Or The Highest Degree You Have Received? [id number] Information not available 03/09/2025 Are There Any Guns Present In Your Home? Yes [email or web address] Information not available 10/09/2022 Do You Use Protection During Sex? No [email or web address] Information not available 10/09/2022 Do You Use Your Seat Belt Or Car Seat Routinely? Yes [email or web address] Information not available 10/09/2022 Are You Sexually Active? Yes Information not available 06/08/2025 Do You Have Smoke And Carbon Monoxide Detectors In Your Home? Yes [email or web address] Information not available 10/09/2022 How Much Tobacco Do You Smoke? No [email or web address] Information not available 10/09/2022 Do You Use Sunscreen Routinely? Yes Information not available 11/06/2022 Has Tobacco Cessation Counseling Been Provided? No [email or web address] Information not available 12/04/2022 Have You Used IV Drugs? No [email or web address] Information not available 10/09/2022 Do You Have Difficulty Walking Or Climbing Stairs? No Information not available 12/04/2022 Sex: Female Functional Status Question Answer Note LastModified by Organizat ion Details LastModified Time Do you use any illicit or recreational drugs? No Information not available 08/21/2022 Do you or have you ever used any other forms of tobacco or nicotine? No [email or web address] Information not available 12/04/2022 What is your level of alcohol consumption? None Information not available 08/21/2022 Are you currently employed? Yes [email or web address] Information not available 06/08/2025 Are you able to walk independently without assistance or assistive devices? YESWOREST [email or web address] Information not available 10/09/2022 Are you able to care for yourself independently? 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 No [email or web address] Information not available 12/04/2022 What is your exercise level? Occasional [email or web address] Information not available 10/09/2022 Mental Status Question Answer Note LastModified by Organization D etails LastModified Time Do you feel stressed (tense, restless, nervous, or anxious, or unable to sleep at night)? [id number] [email or web address] Information not available 10/09/2022 Family History Relationship Description Onset Age of this Age Resolved Age Notes LastModified by Organization Details LastModified Time Paternal Grandfather Carcinoma in situ of colon [email or web address] Not available 2024 16:46:41 Mother Carcinoma of uterine cervix, invasive [email or web address] Not available 2024 16:46:41 Mother Pre-eclampsi a [email or web address] Not available 11/06 19:07:22 Mother Malignant neoplasm of cervix uteri [email or web address] Not available 19:07:22 Sister Anxiety disorder [email or web address] Not available 2021 16:09:53 Maternal Grandmother Anxiety disorder [email or web address] Not available 11/06 19:07:22 Maternal Grandfather Anxiety disorder [email or web address] Not available 11/06 19:07:22 Paternal Grandmother Malignant neoplasm of colon [email or web address] Not available 11/06 19:07:22 Paternal Grandmother Malignant neoplasm of breast Not available 11/06 19:07:22 Medical History Condition Response Allergies (Food, seasonal, environmental ) N Other Y Breast Cancer N Drug/Latex Allergies/Reactions N Blood Transfusion N Lung Disease N Dermatologic Disorders N Defects or Inherited Disease N Breast Problem N Gestational Diabetes N Hematologic disorders N Anesthesia Complications N History of STI N Deep Vein Thrombosis N Polycystic ovary syndrome N Anxiety Disorder Y Autoimmune disease N Arthritis N Polyps N Infertility N History of abnormal pap N Acid Reflux (GERD) N Cancer N Varicosities N Stroke N Neurologic/Epilepsy Y Endometriosis N High Cholesterol N Fibromyalgia N Headaches N Kidney Disease N Heart Problems N [...] ICD10 Code Diagnosis IMO Codes Diagnosis Note [id number] Elvis Robison MD [facility] [address] [address] 08/12/2025 15:15:10 08/12/2025 16:07:07 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 Q51.3 Z3A.29 [id number] Cathi Hopson CNM [facility] [address],[facility] [address] 08/12/2025 15:15:35 08/12/2025 16:28:23 Gestation period, 29 weeks 75070096 Z3A.29 7945618 Abscess of vulva 0448776 1 N76.4 [id number] Health Concerns Section Related Observation LastModified by Organization Detai ls LastModified Time None Recorded Concern Status LastModified by Organization Details LastModified Time None Recorded Payers Encounter Date Sequence Insurance Name Policy Number Policy Meyer Covered Member ID Meyer Member ID Guarantor Name 08/12/2025 1 [employer] (PP[employer]) [id number] G Tutu Himanshu Brant [id number] Zulma Guo Notes Date Note Type Note Provider Name and Address Organization Details Recorded Time 08/12/2025 text/html Generic HPI TemplateReported by Patient Cathi Hopson CNJeniffer [address], [place], [address], [place] [facility] 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 Status 04/22/20 25 1 A Positive 176 Tutu Brant OPEN Fetus Data First Name Last Name Admitted to NICU Weight (g) Sex Living Outcome Pediatric Complications Fetus ID Race Codes Race Delivery Type [id number] Problems Problem Notes fundus has bicornuate appear anceserial growth uspih labs 07/25 in chart Problem Name Start Date End Date Resolution Snomed Code Not e Migraine 04/22/2025 [id number] imitrex Pre-eclampsia 04/22/2025 397337931 last pregancystart bASA 81 mg Han Calculation [...] Weight in lbs Pre/Post Dialysis Refused Weight 182.251216955584 BP Diastolic BP Location Tested BP Systolic [...] Type Weight in lbs Pre/Post Dialysis Refused 184.096017598650 BP Diastolic BP Location Tested BP Systolic BP Type 75 L arm 110 sitting Fetus Heart Rate Present Fetus Movement A No Comments doing well, education and pr ecautions, went to [place] last week, headaches are better, f/u 4 [...] Type Weight in lbs Pre/Post Dialysis Refused 190.498297600543 BP Diastolic BP Location Tested BP Systolic [...] Weight in lbs Pre/Post Dialysis Refused Weight 204.010557119707 BP Diastolic BP Location Tested BP Systolic [...] Weight in lbs Pre/Post Dialysis Refused Weight 220.659023766790 BP Diastolic BP Location Tested BP Systolic [...] Weight in lbs Pre/Post Dialysis Refused Weight 223.589974889599 BP Diastolic BP Location Tested BP Systolic [...] Type Weight in lbs Pre/Post Dialysis Refused 225.589827085526 BP Diastolic BP Location Tested BP Systolic [...] Weight in lbs Pre/Post Dialysis Refused Weight 229.034530709555 BP Diastolic BP Location Tested BP Systolic [...]
--- OUTSIDE RECORDS SUMMARY | 2025-09-22 15:46 | XMS_ITS | Continuity of Care Document ---
Author Organization [facility] Address [address] [place] [address] [place] [address] Assessment No assessment recorded. Plan of Treatment Reminders Order Date Submit Date Provider Last Modified By Organization Details Last Modified Time Details Appointments OB ROUTINE 2024 03:45P M Cathi Hopson CNM Not available Not available Not available INDUCTION 2024 06:30A M Cathi Hopson CNM Not available Not available Not available Lab None recorded. Referral None recorded. Procedures None recorded. Surgeries None recorded. Imaging US, obstetric , follow-up 2024 025 [facility], [address], [address], [place], [address], 08/12/2025 19:25:07 Medication Orders None recorded. Patient TargetsNo targets recorded. Patient InstructionsNo instructions recorded. Reason for Referral None Reported. Results Created Date Observation Date Name Description Value Unit Range Abnormal Flag Note LastModifiedBy Organization Detail LastModifiedTime 08/12/2008/12/2025 HEMAT OCRIT (HCT) HCT 34.0 % (based on docume nted legal sex) 34.0-4 5.0 Not Available [facility] (Lab) [address], [place], [address], 08/13/2025 11:56:51 08/12/20 25 08/12/2025 HEMOG LOBIN (HGB) HGB 11.1 g/dL (based on docume nted legal sex) 11.6-1 5.4 low Not Available [facility] (Lab) [address], [place], [address], 08/13/2025 11:56:52 08/12/2008/12/2025 GTT - GESTA DELTA L ADRIÁN Jeremy, ACOG OB glucose, 1 hour screen 67 mg/dL 70-135 low Not Available [facility] (Lab) [address], [place], [address], 08/13/2025 11:56:52 08/12/2008/12/2025 HIV 1/2 ANTIG EN/AN TIBOD Y, REFLE X CONFI RMATI ON HIV antigen/anti body Nonrea ctive nonrea ctive HIV-1 antig en and HIV-1 /HIV- 2 antib odies were not detec elham. No labor atory evide nce of HIV infec tion. Not Available [facility] (Lab) [address], [place], [address], 08/13/2025 11:56:52 08/12/2008/12/2025 RPR SCREE N, REFLE X TITER /CONF IRMAT ION RPR qualitative Nonrea ctive nonrea ctive Not Available [facility] (Lab) [address], [place], [address], 08/13/2025 11:56:53 06/08/20 25 06/08/2025 US, noam arreguin, 2nd or 3rd trime ster No observ ation record ed. [email or web address] [place] [address], [place], [address], 06/08/2025 16:53:10 06/08/20 25 06/08/2025 US, obste tric, follo w-up No observ ation record ed. [email or web address] [address], [place], [address], 06/09/2025 21:51:59 07/08/20 25 07/08/2025 US, obste tric, follo w-up No observ ation record ed. [facility] [address], [place], [address], 07/09/2025 19:07:42 07/08/2007/08/2025 US, obste tric, follo w-up No observ ation record ed. [facility] [address], [place], [address], 07/08/2025 17:05:02 08/12/2008/12/2025 US, obste tric, follo w-up No observ ation record ed. [facility] [address], [place], [address], 08/12/2025 17:22:39 08/12/2008/12/2025 US, obste tric, follo w-up No observ ation record ed. [email or web address] [address], [place], [address], 08/16/2025 11:15:17 09/09/2009/09/2025 US, obste tric, follo w-up No observ ation record ed. [facility] [address], [place], [address], 09/09/2025 15:58:13 09/09/2009/09/2025 US, obste tric, follo w-up No observ ation record ed. [email or web address] [address], [place], [address], 09/15/2025 16:35:10 Result Notes None recorded. Problems Name Problem SNOMED Code Status Onset Date Resolution Date Notes Provider Name and Address Organization Details Recorded Time Anxiety 73039976 Completed Seeing PCP 10/22/22 to discuss medicati on. Pt states she is doing well on zoloft 100mg on 12/02/22! Nancie Alvarado umair [facility] 3 16:55:06 Proteinu sirisha [id number] Completed with swelling - 1x/wk antenata l testing. Monitor for pre-e Alpeshtorey Reyle umair [facility] 3 16:55:06 Chiari malforma tion 980153202 Active 2021 decompre ssed, no neuro follow up required per her team Nancie block [facility] 3 16:55:06 Chiari malforma tion 873041731 Completed 2021 decompre ssed, no neuro follow up required per her team Nancie block [facility] 3 16:55:06 Pregnanc y 91652704 Completed 202103/27/2023 Bailee block [facility] 5 09:19:52 Mixed anxiety and depressi ve disorder 235310866 Active 2024 Bailee Yeung [facility], [facility] 5 18:16:31 History of Spinal surgery 758262593 Active 2024 Bailee block [facility] 5 18:16:45 Pregnanc y 13490296 Active 2024 Bailee block, [facility] 5 09:19:52 Pre-ecla mpsia 754314246 Active 2024 last pregancy start bASA 81 mg Cathi Hopson CNM [address], [place], [address], [facility] 5 09:29:14 Migraine 51387827 Active 2024 imitrex Cathi Hopson CNM [address], [place], [address], [facility] 5 09:29:39 Problem Notes None recorded. Procedures Surgical History Date Name Laterality Status Provider Name and Address Organization Details Recorded Time 5 IUD Insertion completed Rica Rangelton [facility] 12/30/2024 16:38:48 5 Date of Last Pap Smear completed Baileeal Yeung [facility] 03/09/2025 18:16:56 3 [facility] 12:30:09 3 IUD Insertion completed Cathi Hopson CNM [address], [place], [address], [facility] 04/30/2023 12:28:48 7 procedure on back completed [facility] 10/09/2022 17:12:07 Imaging Results None recorded. [...] Updated DateTime 08/12/2025 162.56 cm 37.8 kg/m2 55904.32 g 117/79 mm[Hg] Nikki Nino [facility] 08/12/2025 15:29:24 Social History Question Answer Notes LastModified by Organizat ion Details LastModified Time Tobacco Smoking Status Never Smoker Bailee block, [facility] 12/04/2022 16:09:49 Do You Have An Advance Directive? No [email or web address] Information n ot available 10/09/2022 If You Are , What Was Your Level Of Alcohol Consumption Prior To ? Occasional [email or web address] Information not available 04/22/2025 Are You Blind Or Do You Have Difficulty Seeing? No [email or web address] Information n ot available 12/04/2022 What Is Your Level Of Caffeine Consumption? Moderate [email or web address] Information not available 10/09/2022 How Much Tobacco Do You Chew? None [email or web address] Information not available 10/09/2022 In The 14 Days Before Symptom Onset, Have You Had Close Contact With A Laboratory-confirm ed COVID-19 While That Case Was Ill? No [email or web address] Information n ot available 11/06/2022 In The 14 Days Before Symptom Onset, Have You Had Close Contact With A Person Who Is Under Investigation For COVID-19 While That Person Was Ill? No [email or web address] Information not available 11/06/2022 Have You Been To An Area Known To Be High Risk For COVID-19? No Information not available 10/09/2022 Are You Deaf Or Do You Have Serious Difficulty Hearing? No [email or web address] Information not available 10/09/2022 What Type Of Diet Are You Following? REGULAR [email or web address] Information n ot available 10/09/2022 What Is The Highest Grade Or Level Of School You Have Completed Or The Highest Degree You Have Received? KP43487-9 [email or web address] Information not available 03/09/2025 Are There Any Guns Present In Your Home? Yes [email or web address] Information not available 10/09/2022 Do You Use Protection During Sex? No [email or web address] Information not available 10/09/2022 Do You Use Your Seat Belt Or Car Seat Routinely? Yes [email or web address] Information not available 10/09/2022 Are You Sexually Active? Yes [email or web address] Information not available 06/08/2025 Do You Have Smoke And Carbon Monoxide Detectors In Your Home? Yes [email or web address] Information not available 10/09/2022 How Much Tobacco Do You Smoke? No Information not available 10/09/2022 Do You Use Sunscreen Routinely? Yes [email or web address] Information not available 11/06/2022 Has Tobacco Cessation Counseling Been Provided? No Information not available 12/04/2022 Have You Used IV Drugs? No [email or web address] Information not available 10/09/2022 Do You Have Difficulty Walking Or Climbing Stairs? No [email or web address] Information not available 12/04/2022 Sex: Female Functional Status Question Answer Note LastModified by Organizat ion Details LastModified Time Do you use any illicit or recreational drugs? No Information not available 08/21/2022 Do you or have you ever used any other forms of tobacco or nicotine? No [email or web address] Information not available 12/04/2022 What is your level of alcohol consumption? None Information not available 08/21/2022 Are you currently employed? Yes [email or web address] Information not available 06/08/2025 Are you able to walk independently without assistance or assistive devices? YESWOREST [email or web address] Information not available 10/09/2022 Are you able to care for yourself independently? 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 No [email or web address] Information not available 12/04/2022 What is your exercise level? Occasional [email or web address] Information not available 10/09/2022 Mental Status Question Answer Note LastModified by Organization D etails LastModified Time Do you feel stressed (tense, restless, nervous, or anxious, or unable to sleep at night)? MF10944-9 [email or web address] Information not available 10/09/2022 Family History Relationship Description Onset Age of this Age Resolved Age Notes LastModified by Organization Details LastModified Time Paternal Grandfather Carcinoma in situ of colon Not available 2024 16:46:41 Mother Carcinoma of uterine cervix, invasive [email or web address] Not available 2024 16:46:41 Mother Pre-eclampsi a [email or web address] Not available 11/06 19:07:22 Mother Malignant neoplasm of cervix uteri [email or web address] Not available 19:07:22 Sister Anxiety disorder smcaley Not available 2021 16:09:53 Maternal Grandmother Anxiety disorder [email or web address] Not available 11/06 19:07:22 Maternal Grandfather Anxiety disorder [email or web address] Not available 11/06 19:07:22 Paternal Grandmother Malignant neoplasm of colon [email or web address] Not available 11/06 19:07:22 Paternal Grandmother Malignant neoplasm of breast [email or web address] Not available 11/06 19:07:22 Medical History Condition [...] ICD10 Code Diagnosis IMO Codes Diagnosis Note [id number] Elvis Robison MD [place] [address] [address] 08/12/2025 15:15:10 08/12/2025 16:07:07 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 Q51.3 Z3A.29 [id number] Cathi Hopson CNM [place] [address] [address] 08/12/2025 15:15:35 08/12/2025 16:28:23 Gestation period, 29 weeks 67746755 Z3A.29 [id number] Abscess of vulva 8534938 1 N76.4 [id number] Health Concerns Section Related Observation LastModified by Organization Detai ls LastModified Time None Recorded Concern Status LastModified by Organization Details LastModified Time None Recorded Payers Encounter Date Sequence Insurance Name Policy Number Policy Meyer Covered Member ID Meyer Member ID Guarantor Name 08/12/2025 1 [employer] [id number] G Tutu Guo [id number] Zulma Guo Notes Date Note Type Note Provider Name and Address Organization Details Recorded Time 08/12/2025 text/html Generic HPI TemplateReported by Patient Cathi Hopson CNM [address], [place], [address], [facility] 08/12/2025 16:28:14 OBGyn Episode Ob Episode Information Episode Created Date Number of Fetuses Patient Bloodtype Patient rh Status Prepregnancy Weight lbs Domestic Partner Domestic Partner Phone Father Name Forward Air Controller/Air Officer Status 04/22/20 25 1 A Positive 176 Tutu Brant OPEN Fetus Data First Name Last Name Admitted to NICU Weight (g) Sex Living Outcome Pediatric Complications Fetus ID Race Codes Race Delivery Type [id number] Problems Problem Notes fundus has bicornuate appear anceserial growth uspih labs 07/25 in chart Problem Name Start Date End Date Resolution Snomed Code Not e Migraine 04/22/2025 [id number] imitrex Pre-eclampsia 04/22/2025 671066166 last pregancystart bASA 81 mg Han Calculation [...] Weight in lbs Pre/Post Dialysis Refused Weight 182.742392677249 BP Diastolic BP Location Tested BP Systolic [...] Type Weight in lbs Pre/Post Dialysis Refused 184.802194631373 BP Diastolic BP Location Tested BP Systolic BP Type 75 L arm 110 sitting Fetus Heart Rate Present Fetus Movement A No Comments doing well, education and pr ecautions, went to [facility] last week, headaches are better, f/u 4 [...] Type Weight in lbs Pre/Post Dialysis Refused 190.142809142986 BP Diastolic BP Location Tested BP Systolic [...] Weight in lbs Pre/Post Dialysis Refused Weight 204.273071459797 BP Diastolic BP Location Tested BP Systolic [...] Weight in lbs Pre/Post Dialysis Refused Weight 220.914739988634 BP Diastolic BP Location Tested BP Systolic [...] Weight in lbs Pre/Post Dialysis Refused Weight 223.142826755826 BP Diastolic BP Location Tested BP Systolic [...] Type Weight in lbs Pre/Post Dialysis Refused 225.464581348095 BP Diastolic BP Location Tested BP Systolic [...] Weight in lbs Pre/Post Dialysis Refused Weight 229.767733277741 BP Diastolic BP Location Tested BP Systolic [...]
--- OUTSIDE RECORDS SUMMARY | 2025-09-22 15:46 | XMS_ITS | Continuity of Care Document ---
Author Organization [facility] Address [address] [place] [address] Assessment Encounter Date Assessment Date Assessment LastModified by Organization Details LastModified Time 08/26/2025 08/26/2025 Patient is 31___weeks . Discussed plan. Not available 08/26/2025 15:47:19 Plan of Treatment Reminders Order Date Submit Date Provider Last Modified By Organization Details Last Modified Time Details Appointments OB ROUTINE 2024 03:45P M Cathi Hopson CNM Not available Not available Not available INDUCTION 2024 06:30A Jeniffer Hopson CNM Not available Not available Not available Lab None recorded. Referral None recorded. Procedures None recorded. Surgeries None recorded. Imaging None recorded. Medication Orders Wellbutri n XL 150 mg 24 hr tablet, extended release 2024 025 [email or web address] [facility], [address] [place] [address], [id number], 08/26/2025 15:49:54 Patient TargetsNo targets recorded. Patient InstructionsNo instructions recorded. Reason for Referral None Reported. Results Created Date Observation Date Name Description Value Unit Range Abnormal Flag Note LastModifiedBy Organization Detail LastModifiedTime 08/12/2008/12/2025 HEMAT OCRIT (HCT) HCT 34.0 % (based on docume nted legal sex) 34.0-4 5.0 Not Available [facility] (Lab) [address], [place], [address], 08/13/2025 11:56:51 10/03/20 25 08/12/2025 HEMOG LOBIN (HGB) HGB 11.1 g/dL (based on docume nted legal sex) 11.6-1 5.4 low Not Available [facility] (Lab) [address], [place], [address], 08/13/2025 11:56:52 08/12/20 25 08/12/2025 GTT - GESTA DELTA L SCREE N, ACOG OB glucose, 1 hour screen 67 mg/dL 70-135 low Not Available [facility] (Lab) [address], [place], [address], 08/13/2025 11:56:52 08/12/20 25 08/12/2025 HIV 1/2 ANTIG EN/AN TIBOD Y, REFLE X CONFI RMATI ON HIV antigen/anti body Nonrea ctive nonrea ctive HIV-1 antig en and HIV-1 /HIV- 2 antib odies were not detec elham. No labor atory evide nce of HIV infec tion. Not Available [facility] (Lab) [address], [place], [address], 08/13/2025 11:56:52 08/12/20 25 08/12/2025 RPR SCREE N, REFLE X TITER /CONF IRMAT ION RPR qualitative Nonrea ctive nonrea ctive Not Available [facility] (Lab) [address], [place], [address], 08/13/2025 11:56:53 06/08/20 25 06/08/2025 US, obste tric, 2nd or 3rd trime ster No observ ation record ed. [email or web address] [facility] [address], [place], [address], 06/08/2025 16:53:10 06/08/20 25 06/08/2025 US, obste tric, follo w-up No observ ation record ed. [facility] [address], [place], [address], 06/09/2025 21:51:59 07/08/2007/08/2025 US, obste tric, follo w-up No observ ation record ed. [email or web address] [facility] [address], [place], [address], 07/09/2025 19:07:42 07/08/20 25 07/08/2025 US, obste tric, follo w-up No observ ation record ed. [facility] [address], [place], [address], 07/08/2025 17:05:02 08/12/2008/12/2025 US, obste tric, follo w-up No observ ation record ed. [facility] [address], [place], [address], 08/12/2025 17:22:39 08/12/2008/12/2025 US, obste tric, follo w-up No observ ation record ed. [email or web address] [facility] [address], [place], [address], 08/16/2025 11:15:17 09/09/2009/09/2025 US, obste tric, follo w-up No observ ation record ed. [facility] [address], [place], [address], 09/09/2025 15:58:13 09/09/2009/09/2025 US, obste tric, follo w-up No observ ation record ed. [email or web address] [facility] [address], [place], [address], 09/15/2025 16:35:10 Result Notes None recorded. Problems Name Problem SNOMED Code Status Onset Date Resolution Date Notes Provider Name and Address Organization Details Recorded Time Anxiety 30891745 Completed Seeing PCP 10/22/22 to discuss medicati on. Pt states she is doing well on zoloft 100mg on 12/02/22! Nancie block [facility] 3 16:55:06 Proteinu sirisha 57166373 Completed with swelling - 1x/wk antenata l testing. Monitor for pre-e Nancie block [facility] 3 16:55:06 Chiari malforma tion 026973346 Active 2021 decompre ssed, no neuro follow up required per her team Nancie block [facility] 3 16:55:06 Chiari malforma tion 861500733 Completed 2021 decompre ssed, no neuro follow up required per her team Nancie block [facility] 3 16:55:06 Pregnanc y 55665962 Completed 202103/27/2023 Bailee block [facility] 5 09:19:52 Mixed anxiety and depressi ve disorder 752055187 Active 2024 Bailee block [facility] 5 18:16:31 History of Spinal surgery 095793431 Active 2024 Bailee block [facility] 5 18:16:45 Pregnanc y 18818865 Active 2024 Bailee block [facility] 5 09:19:52 Pre-ecla mpsia 861557097 Active 2024 last pregancy start bASA 81 mg Cathi Hopson, KEVIN [address], [place], [address], [facility] 5 09:29:14 Migraine 73268995 Active 2024 imitrex Cathi Hopson CNM [address], [place], [address], [facility] 5 09:29:39 Problem Notes None recorded. Procedures Surgical History Date Name Laterality Status Provider Name and Address Organization Details Recorded Time 5 IUD Insertion completed Rica Banda [facility] 12/30/2024 16:38:48 5 Date of Last Pap Smear completed Bailee Yeung [facility] 03/09/2025 18:16:56 3 IUD Insertion completed Bailee Yeung [facility] 05/28/2023 12:30:09 3 IUD Insertion completed Cathi Hopson CNM [address], [place], [address], [facility] 04/30/2023 12:28:48 7 procedure on back completed Bailee Yeung [facility] 10/09/2022 17:12:07 Imaging Results None [...] Updated DateTime 08/26/2025 162.56 cm 38.3 kg/m2 453937.1 g 125/83 mm[Hg] Savannah Borges [facility] 08/26/2025 15:47:54 Social History Question Answer Notes LastModified by Organizat ion Details LastModified Time Tobacco Smoking Status Never Smoker Bailee block, [facility] 12/04/2022 16:09:49 Do You Have An Advance Directive? No [email or web address] Information n ot available 10/09/2022 If You Are , What Was Your Level Of Alcohol Consumption Prior To ? Occasional [email or web address] Information not available 04/22/2025 Are You Blind Or Do You Have Difficulty Seeing? No Information n ot available 12/04/2022 What Is Your Level Of Caffeine Consumption? Moderate [email or web address] Information not available 10/09/2022 How Much Tobacco Do You Chew? None [email or web address] Information not available 10/09/2022 In The 14 Days Before Symptom Onset, Have You Had Close Contact With A Laboratory-confirm ed COVID-19 While That Case Was Ill? No [email or web address] Information n ot available 11/06/2022 In The 14 Days Before Symptom Onset, Have You Had Close Contact With A Person Who Is Under Investigation For COVID-19 While That Person Was Ill? No [email or web address] Information not available 11/06/2022 Have You Been To An Area Known To Be High Risk For COVID-19? No [email or web address] Information not available 10/09/2022 Are You Deaf Or Do You Have Serious Difficulty Hearing? No [email or web address] Information not available 10/09/2022 What Type Of Diet Are You Following? REGULAR [email or web address] Information n ot available 10/09/2022 What Is The Highest Grade Or Level Of School You Have Completed Or The Highest Degree You Have Received? [id number] Information not available 03/09/2025 Are There Any Guns Present In Your Home? Yes [email or web address] Information not available 10/09/2022 Do You Use Protection During Sex? No [email or web address] Information not available 10/09/2022 Do You Use Your Seat Belt Or Car Seat Routinely? Yes Information not available 10/09/2022 Are You Sexually Active? Yes [email or web address] Information not available 06/08/2025 Do You Have Smoke And Carbon Monoxide Detectors In Your Home? Yes [email or web address] Information not available 10/09/2022 How Much Tobacco Do You Smoke? No Information not available 10/09/2022 Do You Use Sunscreen Routinely? Yes [email or web address] Information not available 11/06/2022 Has Tobacco Cessation Counseling Been Provided? No Information not available 12/04/2022 Have You Used IV Drugs? No [email or web address] Information not available 10/09/2022 Do You Have Difficulty Walking Or Climbing Stairs? No Information not available 12/04/2022 Sex: Female Functional Status Question Answer Note LastModified by Organizat ion Details LastModified Time Do you use any illicit or recreational drugs? No Information not available 08/21/2022 Do you or have you ever used any other forms of tobacco or nicotine? No [email or web address] Information not available 12/04/2022 What is your level of alcohol consumption? None Information not available 08/21/2022 Are you currently employed? Yes [email or web address] Information not available 06/08/2025 Are you able to walk independently without assistance or assistive devices? YESWOREST [email or web address] Information not available 10/09/2022 Are you able to care for yourself independently? 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 No [email or web address] Information not available 12/04/2022 What is your exercise level? Occasional [email or web address] Information not available 10/09/2022 Mental Status Question Answer Note LastModified by Organization D etails LastModified Time Do you feel stressed (tense, restless, nervous, or anxious, or unable to sleep at night)? [id number] [email or web address] Information not available 10/09/2022 Family History Relationship Description Onset Age of this Age Resolved Age Notes LastModified by Organization Details LastModified Time Paternal Grandfather Carcinoma in situ of colon [email or web address] Not available 2024 16:46:41 Mother Carcinoma of uterine cervix, invasive [email or web address] Not available 2024 16:46:41 Mother Pre-eclampsi a [email or web address] Not available 11/06 19:07:22 Mother Malignant neoplasm of cervix uteri [email or web address] Not available 19:07:22 Sister Anxiety disorder [email or web address] Not available 2021 16:09:53 Maternal Grandmother Anxiety disorder [email or web address] Not available 11/06 19:07:22 Maternal Grandfather Anxiety disorder [email or web address] Not available 11/06 19:07:22 Paternal Grandmother Malignant neoplasm of colon [email or web address] Not available 11/06 19:07:22 Paternal Grandmother Malignant neoplasm of breast [email or web address] Not available 11/06 19:07:22 Medical History Condition [...] ICD10 Code Diagnosis IMO Codes Diagnosis Note [id number] Elvis Robison MD [place] [address] [address] 08/12/2025 15:15:10 08/12/2025 16:07:07 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 Q51.3 Z3A.29 035370 [id number] Cathi Hopson [facility] [address] [place] [address] 08/12/2025 15:15:35 08/12/2025 16:28:23 Gestation period, 29 weeks 16662009 Z3A.29 7247333 Abscess of vulva 5643707 1 N76.4 173395 [id number] Cathi Hopson [facility] [address],[place] [address] 08/26/2025 15:37:51 08/26/2025 16:21:35 Gestation period, 31 weeks 95813152 Z3A.31 8480901 Health Concerns Section Related Observation LastModified by Organization Detai ls LastModified Time None Recorded Concern Status LastModified by Organization Details LastModified Time None Recorded Payers Encounter Date Sequence Insurance Name Policy Number Policy Meyer Covered Member ID Meyer Member ID Guarantor Name 08/26/2025 1 [place] [id number] G Tuut Guo [id number] Zulma Guo Notes Date Note Type Note Provider Name and Address Organization Details Recorded Time 08/26/2025 text/html Generic HPI TemplateReported by Patient Cathi DaleySil Hopson, CNM [address], [place], [address], [facility] 08/26/2025 16:19:15 OBGyn Episode Ob Episode Information Episode Created Date Number of Fetuses Patient Bloodtype Patient rh Status Prepregnancy Weight lbs Domestic Partner Domestic Partner Phone Father Name Chief Executive Status 04/22/20 25 1 A Positive 176 Tutu Guo OPEN Fetus Data First Name Last Name Admitted to NICU Weight (g) Sex Living Outcome Pediatric Complications Fetus ID Race Codes Race Delivery Type [id number] Problems Problem Notes fundus has bicornuate appear anceserial growth uspih labs 07/25 in chart Problem Name Start Date End Date Resolution Snomed Code Not e Migraine 04/22/2025 54806038 imitrex Pre-eclampsia 04/22/2025 983354351 last pregancystart bASA 81 mg Han Calculation [...] Weight in lbs Pre/Post Dialysis Refused Weight 182.212919468146 BP Diastolic BP Location Tested BP Systolic [...] Type Weight in lbs Pre/Post Dialysis Refused 184.020237385981 BP Diastolic BP Location Tested BP Systolic [...] Type Weight in lbs Pre/Post Dialysis Refused 190.197799967509 BP Diastolic BP Location Tested BP Systolic [...] Weight in lbs Pre/Post Dialysis Refused Weight 204.790401009036 BP Diastolic BP Location Tested BP Systolic [...] Weight in lbs Pre/Post Dialysis Refused Weight 220.351361619284 BP Diastolic BP Location Tested BP Systolic [...] Weight in lbs Pre/Post Dialysis Refused Weight 223.679876861658 BP Diastolic BP Location Tested BP Systolic [...] Type Weight in lbs Pre/Post Dialysis Refused 225.161153033051 BP Diastolic BP Location Tested BP Systolic [...] Weight in lbs Pre/Post Dialysis Refused Weight 229.764441831200 BP Diastolic BP Location Tested BP Systolic [...]
--- OUTSIDE RECORDS SUMMARY | 2025-09-22 15:46 | XMS_ITS | Clinical Summary ---
Author Organization [facility] Address [address] [place] [address] Phone Care Team Providers Care Sifter And Miller Name Role Phone SANDRA BARR MD Primary Care Provider [phone] Reason for Visit and Chief Complaint RX ISSUE/REFILL Problems Includes: Problems addressed during this encounter and other active Problems All Visits Onset Date Resolved Date Provider Condition S tatus Generalized Anxiety Disorder 07/21/2022 RO Jeremy RESENDIZZ DYNAMICIST Active Last Documented On 3 9:34AM ; [facility] Chiari Malformation 12/19/2015 RO N SAGEZ DYNAMICIST Active Last Documented On 1 11:01AM ; [facility] Plan of Treatment Pending Tests Order Diagnosis Results Due Ordering P juander Lab Comp Metabolic Panel 04/09/24 KM SON Jeremy RESENDIZZ DYNAMICIST Last Documented On 4 9:43AM ; [facility] Lab Lipid Panel 04/09/24 RO Jeremy SAG EZ DYNAMICIST Last Documented On 4 9:43AM ; [facility] Lab CBC w/ DIFF 04/09/24 RO N SAG EZ DYNAMICIST Last Documented On 4 9:43AM ; [facility] Lab TSH w/ reflex T-4, Free 04/09/24 A MAGDALENO N SAGEZ DYNAMICIST Last Documented On 4 9:43AM ; [facility] Lab Vitamin B12/Folic Acid 04/09/24 AL LISON N SAGEZ DYNAMICIST Last Documented On 4 9:43AM ; [facility] Assessments Includes: Assessments from this [...] 07/21/2023 11:55AM By RO COLVIN NP ; [facility] New / Renewed during this visit RO ACOSTA on 07/21/2023 Sertraline HCl 100 MG Oral Tablet Provider: RO ACOSTA 90 day supply: 90 tablet, 1 refills Diagnosis: One tablet daily, 150 mg total daily Pharmacy: [facility] - [address] [place] [address], [address] - Last Documented On 07/21/2023 11:57AM By RO COLVIN MUFFLER TENDER ; [facility] Sertraline HCl 50 MG Oral Tablet Provider: RO ACOSTA 90 day supply: 90 tablet, 1 refills Diagnosis: One tablet daily, 150 mg total daily Pharmacy: [facility] - [address] [place] [address], [id number] - Last Documented On 07/21/2023 11:57AM By RO COLVIN MUFFLER TENDER ; [facility] Medications Administered Includes: Administered Medications from [...] Subscriber Relationship Effect patricia Dates 1 - [facility] [id number] KRISTI WADE L 2 - [facility] [id number] ARLENE WADE Self Clinical Notes Includes: Clinical Notes from this encounter No Clinical Notes Recorded
--- OUTSIDE RECORDS SUMMARY | 2025-09-22 15:46 | XMS_ITS | Continuity of Care Document ---
Author Organization [facility] Address [address] [place] [address] [place] [address] Assessment No assessment recorded. Plan of Treatment [...] Imaging US, obstetric , follow-up 2024 025 [email or web address] [facility], [address], [address], [place], [address], 09/09/2025 14:51:31 Medication Orders None recorded. Patient TargetsNo targets recorded. Patient InstructionsNo instructions recorded. Reason for Referral None Reported. Results Created Date Observation Date Name Description Value Unit Range Abnormal Flag Note LastModifiedBy Organization Detail LastModifiedTime 08/12/2008/12/2025 HEMAT OCRIT (HCT) HCT 34.0 % (based on docume nted legal sex) 34.0-4 5.0 Not Available [facility] (Lab) [address], [place], [address], 08/13/2025 11:56:51 08/12/2008/12/2025 HEMOG LOBIN (HGB) HGB 11.1 g/dL (based on docume nted legal sex) 11.6-1 5.4 low Not Available [facility] (Lab) [address], [place], [address], 08/13/2025 11:56:52 08/12/2008/12/2025 GTT - GESTA DELTA L ADRIÁN N, ACOG OB glucose, 1 hour screen 67 mg/dL 70-135 low Not Available [facility] (Lab) [address], [place], [address], 08/13/2025 11:56:52 08/12/2008/12/2025 HIV 1/2 ANTIG EN/AN TIBOD Y, REFLE X CONFI RMATI ON HIV antigen/anti body Nonrea ctive nonrea ctive HIV-1 antig en and HIV-1 /HIV- 2 antib odies were not detec elham. No labor atory evide nce of HIV infec tion. Not Available [facility] (Lab) [address], [place], [address], 08/13/2025 11:56:52 08/12/2008/12/2025 RPR SCREE N, REFLE X TITER /CONF IRMAT ION RPR qualitative Nonrea ctive nonrea ctive Not Available [facility] (Lab) [address], [place], [address], 08/13/2025 11:56:53 06/08/20 25 06/08/2025 US, noam arreguin, 2nd or 3rd trime ster No observ ation record ed. [email or web address] [facility] [address], [place], [address], 06/08/2025 16:53:10 06/08/20 25 06/08/2025 US, milad blackburn w-up No observ ation record ed. [email or web address] [id number], [place], [address], 06/09/2025 21:51:59 07/08/20 25 07/08/2025 US, obste tric, follo w-up No observ ation record ed. [email or web address] [address], [place], [address], 07/09/2025 19:07:42 07/08/2007/08/2025 US, obste tric, follo w-up No observ ation record ed. [facility] [address], [place], [address], 07/08/2025 17:05:02 08/12/2008/12/2025 US, obste tric, follo w-up No observ ation record ed. [facility] [address], [place], [address], 08/12/2025 17:22:39 08/12/2008/12/2025 US, obste tric, follo w-up No observ ation record ed. [email or web address] [address], [place], [address], 08/16/2025 11:15:17 09/09/2009/09/2025 US, obste tric, follo w-up No observ ation record ed. [facility] [address], [place], [address], 09/09/2025 15:58:13 09/09/2009/09/2025 US, obste tric, follo w-up No observ ation record ed. [address], [place], [address], 09/15/2025 16:35:10 Result Notes None recorded. Problems Name Problem SNOMED Code Status Onset Date Resolution Date Notes Provider Name and Address Organization Details Recorded Time Anxiety 76484001 Completed Seeing PCP 10/22/22 to discuss medicati on. Pt states she is doing well on zoloft 100mg on 12/02/22! Nancie Alvarado null, [facility] 3 16:55:06 Proteinu sirisha [id number] Completed with swelling - 1x/wk antenata l testing. Monitor for pre-e Wandamukesh Reyjason block [facility] 3 16:55:06 Chiari malforma tion 753067443 Active 2021 decompre ssed, no neuro follow up required per her team Nancie Christianochu block [facility] 3 16:55:06 Chiari malforma tion 368568619 Completed 2021 decompre ssed, no neuro follow up required per her team Nancie block [facility] 3 16:55:06 Pregnanc y 28423513 Completed 202103/27/2023 Bailee block [facility] 5 09:19:52 Mixed anxiety and depressi ve disorder 315528913 Active 2024 Bailee Yeung [facility], [facility] 5 18:16:31 History of Spinal surgery 761028200 Active 2024 Bailee block, [facility] 5 18:16:45 Pregnanc y 32884481 Active 2024 Bailee block, [facility] 5 09:19:52 Pre-ecla mpsia 759885530 Active 2024 last pregancy start bASA 81 mg Cathi Hopson CNM [address], [place], [address], [facility] 5 09:29:14 Migraine 05328482 Active 2024 imitrex Cathi Hopson CNM [address], [place], [address], [facility] 5 09:29:39 Problem Notes None recorded. Procedures Surgical History Date Name Laterality Status Provider Name and Address Organization Details Recorded Time 5 IUD Insertion completed Rica Rangelton [facility] 12/30/2024 16:38:48 5 Date of Last [facility]/09/2025 18:16:56 3 [facility] 05/28/2023 12:30:09 3 IUD Insertion completed Cathi Hopson CNM [address], [place], [address], [facility] 04/30/2023 12:28:48 7 procedure on back completed [facility] 10/09/2022 17:12:07 Imaging Results None recorded. [...] Available Not Available Vitals Date Recorded Body weight Systolic And Diastolic Provider Name and Address Organization Details Last Updated DateTime 09/09/2025 558389.91130 g 117/81 mm[Hg] Savannah Jony [facility] 09/09/2025 11:09:34 Social History Question Answer Notes LastModified by Organizat ion Details LastModified Time Tobacco Smoking Status Never Smoker Bailee Waynetz null, [facility] 12/04/2022 16:09:49 Do You Have An Advance Directive? No [email or web address] Information n ot available 10/09/2022 If You Are , What Was Your Level Of Alcohol Consumption Prior To ? Occasional [email or web address] Information not available 04/22/2025 Are You Blind Or Do You Have Difficulty Seeing? No [email or web address] Information n ot available 12/04/2022 What Is Your Level Of Caffeine Consumption? Moderate [email or web address] Information not available 10/09/2022 How Much Tobacco Do You Chew? None [email or web address] Information not available 10/09/2022 In The 14 Days Before Symptom Onset, Have You Had Close Contact With A Laboratory-confirm ed COVID-19 While That Case Was Ill? No [email or web address] Information n ot available 11/06/2022 In The 14 Days Before Symptom Onset, Have You Had Close Contact With A Person Who Is Under Investigation For COVID-19 While That Person Was Ill? No [email or web address] Information not available 11/06/2022 Have You Been To An Area Known To Be High Risk For COVID-19? No Information not available 10/09/2022 Are You Deaf Or Do You Have Serious Difficulty Hearing? No [email or web address] Information not available 10/09/2022 What Type Of Diet Are You Following? REGULAR [email or web address] Information n ot available 10/09/2022 What Is The Highest Grade Or Level Of School You Have Completed Or The Highest Degree You Have Received? [id number] [email or web address] Information not available 03/09/2025 Are There Any Guns Present In Your Home? Yes [email or web address] Information not available 10/09/2022 Do You Use Protection During Sex? No [email or web address] Information not available 10/09/2022 Do You Use Your Seat Belt Or Car Seat Routinely? Yes [email or web address] Information not available 10/09/2022 Are You Sexually Active? Yes [email or web address] Information not available 06/08/2025 Do You Have Smoke And Carbon Monoxide Detectors In Your Home? Yes [email or web address] Information not available 10/09/2022 How Much Tobacco Do You Smoke? No [email or web address] Information not available 10/09/2022 Do You Use Sunscreen Routinely? Yes [email or web address] Information not available 11/06/2022 Has Tobacco Cessation Counseling Been Provided? No [email or web address] Information not available 12/04/2022 Have You Used IV Drugs? No [email or web address] Information not available 10/09/2022 Do You Have Difficulty Walking Or Climbing Stairs? No [email or web address] Information not available 12/04/2022 Sex: Female Functional Status Question Answer Note LastModified by Organizat ion Details LastModified Time Do you use any illicit or recreational drugs? No Information not available 08/21/2022 Do you or have you ever used any other forms of tobacco or nicotine? No [email or web address] Information not available 12/04/2022 What is your level of alcohol consumption? None Information not available 08/21/2022 Are you currently employed? Yes [email or web address] Information not available 06/08/2025 Are you able to walk independently without assistance or assistive devices? YESWOREST [email or web address] Information not available 10/09/2022 Are you able to care for yourself independently? 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 No [email or web address] Information not available 12/04/2022 What is your exercise level? Occasional [email or web address] Information not available 10/09/2022 Mental Status Question Answer Note LastModified by Organization D etails LastModified Time Do you feel stressed (tense, restless, nervous, or anxious, or unable to sleep at night)? [id number] [email or web address] Information not available 10/09/2022 Family History Relationship Description Onset Age of this Age Resolved Age Notes LastModified by Organization Details LastModified Time Paternal Grandfather Carcinoma in situ of colon [email or web address] Not available 2024 16:46:41 Mother Carcinoma of uterine cervix, invasive Not available 2024 16:46:41 Mother Pre-eclampsi a [email or web address] Not available 11/06 19:07:22 Mother Malignant neoplasm of cervix uteri [email or web address] Not available 19:07:22 Sister Anxiety disorder [email or web address] Not available 2021 16:09:53 Maternal Grandmother Anxiety disorder [email or web address] Not available 11/06 19:07:22 Maternal Grandfather Anxiety disorder [email or web address] Not available 11/06 19:07:22 Paternal Grandmother Malignant neoplasm of colon [email or web address] Not available 11/06 19:07:22 Paternal Grandmother Malignant neoplasm of breast [email or web address] Not available 11/06 19:07:22 Medical History Condition Response Allergies (Food, seasonal, environmental ) N Other Y Drug/Latex Allergies/Reactions N Blood Transfusion N Breast Cancer N Dermatologic Disorders N Lung Disease N Defects or Inherited Disease N Breast Problem N Gestational Diabetes N Hematologic disorders N Anesthesia Complications N History of STI N Deep Vein Thrombosis N Polycystic ovary syndrome N Anxiety Disorder Y Autoimmune disease N Arthritis N Polyps N Infertility N Acid Reflux (GERD) N History of abnormal pap N Cancer N Varicosities N Stroke N Neurologic/Epilepsy Y Endometriosis N High Cholesterol N Fibromyalgia N Headaches N Kidney Disease N Heart Problems N Thyroid Problems N Kidney or Bladder Problems N GI Problems N Eating Disorder [...] ICD10 Code Diagnosis IMO Codes Diagnosis Note [id number] Elvis Robison MD [facility] [address] [address] 08/12/2025 15:15:10 08/12/2025 16:07:07 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 Z3A.29 [id number] Cathi Hopson [address] [place] [address] 08/12/2025 15:15:35 08/12/2025 16:28:23 Gestation period, 29 weeks 69479856 Z3A.29 2907035 Abscess of vulva 5430189 1 N76.4 287718 [id number] Cathi Hopson [facility] [address] [place] [address] 08/26/2025 15:37:51 08/26/2025 16:21:35 Gestation period, 31 weeks 88271473 Z3A.31 [id number] Elvis Robison MD [facility] [address] [place] [address] 09/09/2025 10:20:59 09/09/2025 11:16:08 Bicornuate uterus affecting 5086164 O34.00 Q51.3 Z3A.33 [id number] [id number] Cathi Hopson [facility] [address] [place] [address] 09/09/2025 10:21:57 09/09/2025 11:37:17 Gestation period, 33 weeks 80149515 Z3A.33 [id number] Health Concerns Section Related Observation LastModified by Organization Detai ls LastModified Time None Recorded Concern Status LastModified by Organization Details LastModified Time None Recorded Payers Encounter Date Sequence Insurance Name Policy Number Policy Meyer Covered Member ID Meyer Member ID Guarantor Name 09/09/2025 1 [employer] [id number] G Tutu Guo [id number] Zulma Guo Notes Date Note Type Note Provider Name and Address Organization Details Recorded Time 09/09/2025 text/html Generic HPI TemplateReported by Patient Cathi Hopson CNM [address], [place], [address], [facility] 09/09/2025 11:32:00 OBGyn Episode Ob Episode Information Episode Created Date Number of Fetuses Patient Bloodtype Patient rh Status Prepregnancy Weight lbs Domestic Partner Domestic Partner Phone Father Name Escrow Officer Status 04/22/20 25 1 A Positive 176 Tutu Guo OPEN Fetus Data First Name Last Name Admitted to NICU Weight (g) Sex Living Outcome Pediatric Complications Fetus ID Race Codes Race Delivery Type [id number] Problems Problem Notes fundus has bicornuate appear anceserial growth unm cancer center[facility] labs 07/25 in chart Problem Name Start Date End Date Resolution Snomed Code Not e Migraine 04/22/2025 89133188 imitrex Pre-eclampsia 04/22/2025 503332090 last pregancystart bASA 81 mg Han Calculation [...] Weight in lbs Pre/Post Dialysis Refused Weight 182.540258616517 BP Diastolic BP Location Tested BP Systolic [...] Type Weight in lbs Pre/Post Dialysis Refused 184.818853645511 BP Diastolic BP Location Tested BP Systolic BP Type 75 L arm 110 sitting Fetus Heart Rate Present Fetus Movement A No Comments doing well, education and pr ecautions, went to [facility] last week, headaches are better, f/u 4 [...] Type Weight in lbs Pre/Post Dialysis Refused 190.278081161211 BP Diastolic BP Location Tested BP Systolic [...] Weight in lbs Pre/Post Dialysis Refused Weight 204.710377334931 BP Diastolic BP Location Tested BP Systolic [...] Weight in lbs Pre/Post Dialysis Refused Weight 220.499460771425 BP Diastolic BP Location Tested BP Systolic [...] Weight in lbs Pre/Post Dialysis Refused Weight 223.878682719367 BP Diastolic BP Location Tested BP Systolic [...] Type Weight in lbs Pre/Post Dialysis Refused 225.924987265605 BP Diastolic BP Location Tested BP Systolic [...] Weight in lbs Pre/Post Dialysis Refused Weight 229.403802837340 BP Diastolic BP Location Tested BP Systolic [...]
--- OUTSIDE RECORDS SUMMARY | 2025-09-22 15:46 | XMS_ITS | Continuity of Care Document ---
Author Organization [facility] Address [address] [place] [address] Assessment Encounter Date Assessment Date Assessment LastModified by Organization Details LastModified Time 07/08/2025 07/08/2025 Patient is _24__weeks . Discussed plan. Not available 07/08/2025 17:01:03 Plan of Treatment Reminders Order Date Submit Date Provider Last Modified By Organization Details Last Modified Time Details Appointments OB ROUTINE 2024 03:45P Jeniffer Hopson CNM Not available Not available Not available INDUCTION 2024 06:30A Jeniffer Hopson CNM Not available Not available Not available Lab None recorded. Referral None recorded. Procedures None recorded. Surgeries None recorded. Imaging None recorded. Medication Orders metronida zole 500 mg tablet 2024 025 [facility] [place], [address], 08/12/2025 15:52:24 Patient TargetsNo targets recorded. Patient InstructionsNo instructions recorded. Reason for Referral None Reported. Results Created Date Observation Date Name Description Value Unit Range Abnormal Flag Note LastModifiedBy Organization Detail LastModifiedTime 06/08/2006/08/2025 US, obste tric, 2nd or 3rd trime ster No observ ation record ed. [email or web address] [facility] [address], [place], [address], 06/08/2025 16:53:10 06/08/20 25 06/08/2025 US, obste tric, follo w-up No observ ation record ed. [email or web address] [address], [place], [address], 06/09/2025 21:51:59 07/08/20 25 07/08/2025 US, obste tric, follo w-up No observ ation record ed. [facility] [address], [place], [address], 07/09/2025 19:07:42 07/08/20 25 07/08/2025 US, obste tric, follo w-up No observ ation record ed. [facility] [address], [place], [address], 07/08/2025 17:05:02 08/12/2008/12/2025 , obste tric, follo w-up No observ ation record ed. [facility] [address], [place], [address], 08/12/2025 17:22:39 08/12/2008/12/2025 US, obste tric, follo w-up No observ ation record ed. [email or web address] [address], [place], [address], 08/16/2025 11:15:17 09/09/2009/09/2025 US, obste tric, follo w-up No observ ation record ed. [facility] [address], [place], [address], 09/09/2025 15:58:13 09/09/2009/09/2025 US, obste tric, follo w-up No observ ation record ed. [email or web address] [facility] [address], [place], [address], 09/15/2025 16:35:10 Result Notes None recorded. Problems Name Problem SNOMED Code Status Onset Date Resolution Date Notes Provider Name and Address Organization Details Recorded Time Anxiety 65014789 Completed Seeing PCP 10/22/22 to discuss medicati on. Pt states she is doing well on zoloft 100mg on 12/02/22! Nancie Christiano [facility] 3 16:55:06 Proteinu sirisha 28130023 Completed with swelling - 1x/wk antenata l testing. Monitor for pre-e Wandamukesh Alvarado [facility] 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 3 16:55:06 Chiari malforma tion 036352118 Completed 2021 decompre ssed, no neuro follow up required per her team Nancie Alvarado [facility] 3 16:55:06 Pregnanc y 34977783 Completed 202103/27/2023 Bailee Yeung [facility] 5 09:19:52 Mixed anxiety and depressi ve disorder 468837186 Active [address] [facility] 5 18:16:31 History of Spinal surgery 155518768 Active [address] [facility] 5 18:16:45 Pregnanc y 17624107 Active 2024 Bailee Yeung [facility] 5 09:19:52 Pre-ecla mpsia 906483986 Active 2024 last pregancy start bASA 81 mg Cathi Hopson CNM [address], [place], [address], [facility] 5 09:29:14 Migraine 40788528 Active 2024 imitrex Cathi Hopson CNM [address], [place], [address], [facility] 5 09:29:39 Problem Notes None recorded. Procedures Surgical History Date Name Laterality Status Provider Name and Address Organization Details Recorded Time 5 IUD Insertion completed Rica Banda [facility] 12/30/2024 16:38:48 5 Date of Last Pap Smear completed Bailee Yeung [facility] 03/09/2025 18:16:56 3 IUD Insertion completed Bailee Yeung [facility] 05/28/2023 12:30:09 3 IUD Insertion completed Cathi Hopson CNM [address], [place], [address], [facility] 04/30/2023 12:28:48 7 procedure on back completed Baileeal Yeung [facility] 10/09/2022 17:12:07 Imaging Results None recorded. [...] and Address Organization Details Last Updated DateTime 07/08/2025 162.56 cm 35 kg/m2 68559.84 g 129/85 mm[Hg] Nikki Nino [facility] 07/08/2025 16:44:16 Social History Question Answer Notes LastModified by Organizat ion Details LastModified Time Tobacco Smoking Status Never Smoker Bailee block, [facility] 12/04/2022 16:09:49 Do You Have An Advance Directive? No [email or web address] Information n ot available 10/09/2022 If You Are , What Was Your Level Of Alcohol Consumption Prior To ? Occasional [email or web address] Information not available 04/22/2025 Are You Blind Or Do You Have Difficulty Seeing? No [email or web address] Information n ot available 12/04/2022 What Is Your Level Of Caffeine Consumption? Moderate [email or web address] Information not available 10/09/2022 How Much Tobacco Do You Chew? None [email or web address] Information not available 10/09/2022 In The 14 Days Before Symptom Onset, Have You Had Close Contact With A Laboratory-confirm ed COVID-19 While That Case Was Ill? No [email or web address] Information n ot available 11/06/2022 In The 14 Days Before Symptom Onset, Have You Had Close Contact With A Person Who Is Under Investigation For COVID-19 While That Person Was Ill? No [email or web address] Information not available 11/06/2022 Have You Been To An Area Known To Be High Risk For COVID-19? No [email or web address] Information not available 10/09/2022 Are You Deaf Or Do You Have Serious Difficulty Hearing? No [email or web address] Information not available 10/09/2022 What Type Of Diet Are You Following? REGULAR [email or web address] Information n ot available 10/09/2022 What Is The Highest Grade Or Level Of School You Have Completed Or The Highest Degree You Have Received? RR85888-3 [email or web address] Information not available 03/09/2025 Are There Any Guns Present In Your Home? Yes [email or web address] Information not available 10/09/2022 Do You Use Protection During Sex? No [email or web address] Information not available 10/09/2022 Do You Use Your Seat Belt Or Car Seat Routinely? Yes [email or web address] Information not available 10/09/2022 Are You Sexually Active? Yes Information not available 06/08/2025 Do You Have Smoke And Carbon Monoxide Detectors In Your Home? Yes [email or web address] Information not available 10/09/2022 How Much Tobacco Do You Smoke? No [email or web address] Information not available 10/09/2022 Do You Use Sunscreen Routinely? Yes [email or web address] Information not available 11/06/2022 Has Tobacco Cessation Counseling Been Provided? No Information not available 12/04/2022 Have You Used IV Drugs? No [email or web address] Information not available 10/09/2022 Do You Have Difficulty Walking Or Climbing Stairs? No [email or web address] Information not available 12/04/2022 Sex: Female Functional Status Question Answer Note LastModified by Organizat ion Details LastModified Time Do you use any illicit or recreational drugs? No Information not available 08/21/2022 Do you or have you ever used any other forms of tobacco or nicotine? No [email or web address] Information not available 12/04/2022 What is your level of alcohol consumption? None Information not available 08/21/2022 Are you currently employed? Yes Information not available 06/08/2025 Are you able to walk independently without assistance or assistive devices? YESWOREST Information not available 10/09/2022 Are you able to care for yourself independently? 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 No [email or web address] Information not available 12/04/2022 What is your exercise level? Occasional [email or web address] Information not available 10/09/2022 Mental Status Question Answer Note LastModified by Organization D etails LastModified Time Do you feel stressed (tense, restless, nervous, or anxious, or unable to sleep at night)? [id number] [email or web address] Information not available 10/09/2022 Family History Relationship Description Onset Age of this Age Resolved Age Notes LastModified by Organization Details LastModified Time Paternal Grandfather Carcinoma in situ of colon Not available 2024 16:46:41 Mother Carcinoma of uterine cervix, invasive [email or web address] Not available 2024 16:46:41 Mother Pre-eclampsi a [email or web address] Not available 11/06 19:07:22 Mother Malignant neoplasm of cervix uteri Not available 19:07:22 Sister Anxiety disorder [email or web address] Not available 2021 16:09:53 Maternal Grandmother Anxiety disorder Not available 11/06 19:07:22 Maternal Grandfather Anxiety disorder [email or web address] Not available 11/06 19:07:22 Paternal Grandmother Malignant neoplasm of colon [email or web address] Not available 11/06 19:07:22 Paternal Grandmother Malignant neoplasm of breast [email or web address] Not available 11/06 19:07:22 Medical History Condition [...] ICD10 Code Diagnosis IMO Codes Diagnosis Note [id number] Elvis Robison MD [facility] [address] [place] [address] 06/08/2025 10:39:52 06/08/2025 11:54:35 screening for malformation 942739384 Z36.3 Z3A.20 [id number] [facility] [address] [place] [address] 06/08/2025 10:41:10 06/08/2025 12:21:07 Gestation period, 20 weeks 23969087 Z3A.20 9535354 [id number] Elvis Robison MD [facility] [address] [place] [address] 07/08/2025 15:34:11 07/08/2025 16:36:09 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 Q51.3 Z3A.24 [id number] [facility] [address] [place] [address] 07/08/2025 15:34:31 07/09/2025 09:41:57 Gestation period, 24 weeks 491398365 Z3A.24 2293894 Acute vaginitis 02155428 N76.0 19015 Health Concerns Section Related Observation LastModified by Organization Detai ls LastModified Time None Recorded Concern Status LastModified by Organization Details LastModified Time None Recorded Payers Encounter Date Sequence Insurance Name Policy Number Policy Meyer Covered Member ID Meyer Member ID Guarantor Name 07/08/2025 1 [employer] [id number] Tutu Guo [id number] Zulma Guo Notes Date Note Type Note Provider Name and Address Organization Details Recorded Time 07/08/2025 text/html Generic HPI TemplateReported by Patient Cathi Hopson CNM [address], [place], [address], [facility] 07/08/2025 17:01:52 OBGyn Episode Ob Episode Information Episode Created Date Number of Fetuses Patient Bloodtype Patient rh Status Prepregnancy Weight lbs Domestic Partner Domestic Partner Phone Father Name Knockdown Worker Status 04/22/20 25 1 A Positive 176 Tutu Guo OPEN Fetus Data First Name Last Name Admitted to NICU Weight (g) Sex Living Outcome Pediatric Complications Fetus ID Race Codes Race Delivery Type [id number] Problems Problem Notes fundus has bicornuate appear anceserial growth uspih labs 07/25 in chart Problem Name Start Date End Date Resolution Snomed Code Not e Migraine 04/22/2025 [id number] imitrex Pre-eclampsia 04/22/2025 318398640 last pregancystart bASA 81 mg Han Calculation [...] Weight in lbs Pre/Post Dialysis Refused Weight 182.275866026975 BP Diastolic BP Location Tested BP Systolic [...] Type Weight in lbs Pre/Post Dialysis Refused 184.535675790513 BP Diastolic BP Location Tested BP Systolic [...] Type Weight in lbs Pre/Post Dialysis Refused 190.946704454580 BP Diastolic BP Location Tested BP Systolic [...] Weight in lbs Pre/Post Dialysis Refused Weight 204.414768967734 BP Diastolic BP Location Tested BP Systolic [...] Weight in lbs Pre/Post Dialysis Refused Weight 220.406444336410 BP Diastolic BP Location Tested BP Systolic [...] Weight in lbs Pre/Post Dialysis Refused Weight 223.923174759938 BP Diastolic BP Location Tested BP Systolic [...] Type Weight in lbs Pre/Post Dialysis Refused 225.622577951652 BP Diastolic BP Location Tested BP Systolic [...] Weight in lbs Pre/Post Dialysis Refused Weight 229.789900426144 BP Diastolic BP Location Tested BP Systolic [...]
--- OUTSIDE RECORDS SUMMARY | 2025-09-22 15:46 | XMS_ITS | Data Portability ---
Author Organization [facility] Address [address] [place] [address] Assessment Encounter Date Assessment Date Assessment LastModified by Organization Details LastModified Time 08/26/2025 08/26/2025 Patient is 31___weeks . Discussed plan. [email or web address] Not available 08/26/2025 15:47:19 09/09/2025 09/09/2025 Patient is _33__weeks . Discussed plan. [email or web address] Not available 09/09/2025 11:21:24 Plan of Treatment Reminders Order Date Submit Date Provider Last Modified By Organization Details Last Modified Time Details Appointments OB ROUTINE 2024 03:45P Jeniffer Hopson CNM Not available Not available Not available INDUCTION 2024 06:30A Jeniffer Hopson CNM Not available Not available Not available Lab CBC w/ auto diff 2024 025 [facility] (Lab), [address], [place], [address], 09/21/2025 04:26:08 CMP, serum or plasma 2024 025 [facility] (Lab), [address], [place], [address], 09/21/2025 04:26:09 protein:c reatinine ratio, urine 2024 025 [facility] (Lab), [address], [place], [address], 09/21/2025 04:26:09 uric acid, serum or plasma 2024 025 [facility] (Lab), [address], [place], [address], 09/21/2025 04:26:08 Referral None recorded. Procedures None recorded. Surgeries None recorded. Imaging US, obstetric , follow-up 2024 025 [email or web address], [address], [address], [place], [address], 09/09/2025 14:51:31 US, obstetric , follow-up 2024 [facility], [address], [place], [address], 08/12/2025 19:25:07 Medication Orders Wellbutri n XL 150 mg 24 hr tablet, extended release 2024 025 [email or web address] [address] [facility] [place], [facility] [place], [address], 08/26/2025 15:49:54 Patient TargetsNo targets recorded. Patient InstructionsNo instructions recorded. Reason for Referral None Reported. Results Created Date Observation Date Name Description Value Unit Range Abnormal Flag Note LastModifiedBy Organization Detail LastModifiedTime 08/12/2008/12/2025 HEMAT OCRIT (HCT) HCT 34.0 % (based on docume nted legal sex) 34.0-4 5.0 Not Available [facility] (Lab) [address], [place], [address], 08/13/2025 11:56:51 08/12/2008/12/2025 HEMOG LOBIN (HGB) HGB 11.1 g/dL (based on docume nted legal sex) 11.6-1 5.4 low Not Available [facility] (Lab) [address], [place], [address], 08/13/2025 11:56:52 08/12/20 25 08/12/2025 GTT - GESTA DELTA L SCREE N, ACOG OB glucose, 1 hour screen 67 mg/dL 70-135 low Not Available [facility] (Lab) [address] [facility], [place], [address], 08/13/2025 11:56:52 08/12/20 25 08/12/2025 HIV 1/2 ANTIG EN/AN TIBOD Y, REFLE X CONFI RMATI ON HIV antigen/anti body Nonrea ctive nonrea ctive HIV-1 antig en and HIV-1 /HIV- 2 antib odies were not detec elham. No labor atory evide nce of HIV infec tion. Not Available [facility] (Lab) [address] [facility], [place], [address], 08/13/2025 11:56:52 08/12/20 25 08/12/2025 RPR SCREE N, REFLE X TITER /CONF IRMAT ION RPR qualitative Nonrea ctive nonrea ctive Not Available [facility] (Lab) [address] [facility], [place], [address], 08/13/2025 11:56:53 09/20/20 25 09/20/2025 URIC ACID uric acid 6.0 mg/dL 2.3-6. 6 Not Available [facility] (Lab) [address] [facility] [facility], [place], [address], 09/21/2025 04:26:08 09/20/20 25 09/20/2025 CBC W/DIF F WBC 10.8 10'3/ uL 3.5-10 .5 high Not Available [facility] (Lab) [address] [place], [address], 09/21/2025 04:26:08 09/20/20 25 09/20/2025 CBC W/DIF F RBC 3.56 10'6/ uL (based on docume nted legal sex) 3.80-5 .20 low Not Available [facility] (Lab) [address], [place], [address], 09/21/2025 04:26:08 09/20/20 25 09/20/2025 CBC W/DIF F HGB 10.7 g/dL (based on docume nted legal sex) 11.6-1 5.4 low Not Available [facility] (Lab) [address], [place], [address], 09/21/2025 04:26:08 09/20/20 25 09/20/2025 CBC W/DIF F HCT 33.4 % (based on docume nted legal sex) 34.0-4 5.0 low Not Available [facility] (Lab) [address], [place], [address], 09/21/2025 04:26:08 09/20/20 25 09/20/2025 CBC W/DIF F MCV 93.8 fL 80.0-9 9.0 Not Available [facility] (Lab) [address], [place], [address], 09/21/2025 04:26:08 09/20/20 25 09/20/2025 CBC W/DIF F MCH 30.1 pg 27.0-3 4.0 Not Available [facility] (Lab) [address], [place], [address], 09/21/2025 04:26:08 09/20/20 25 09/20/2025 CBC W/DIF F MCHC 32.0 g/dL 32.0-3 5.5 Not Available [facility] (Lab) [address], [place], [address], 09/21/2025 04:26:08 09/20/20 25 09/20/2025 CBC W/DIF F RDW 13.2 % 11.0-1 5.0 Not Available [facility] (Lab) [address], [place], [address], 09/21/2025 04:26:08 11/11/20 25 09/20/2025 CBC W/DIF F plt 285 10'3/ uL 150-40 0 Not Available [facility] (Lab) [address], [place], [address], 09/21/2025 04:26:08 09/20/20 25 09/20/2025 CBC W/DIF F MPV 12.2 fL 8.8-12 .1 high Not Available [facility] (Lab) [address], [place], [address], 09/21/2025 04:26:08 09/20/20 25 09/20/2025 CBC W/DIF F NRBC's 0.0 % 0.0 Not Available [facility] (Lab) [address], [place], [address], 09/21/2025 04:26:08 09/20/20 25 09/20/2025 CBC W/DIF F absolute NRBCs 0.0 10'3/ uL no refere nce range establ ished Not Available [facility] (Lab) [address], [place], [address], 09/21/2025 04:26:08 09/20/20 25 09/20/2025 CBC W/DIF F neutrophils 75.2 % 34.0-7 3.0 high Not Available [facility] (Lab) [address], [place], [address], 09/21/2025 04:26:08 09/20/20 25 09/20/2025 CBC W/DIF F lymphocytes 14.0 % 15.0-5 0.0 low Not Available [facility] (Lab) [address], [place], [address], 09/21/2025 04:26:08 09/20/20 25 09/20/2025 CBC W/DIF F monocytes 8.9 % 1.0-15 .0 Not Available [facility] (Lab) [address], [place], [address], 09/21/2025 04:26:08 09/20/20 25 09/20/2025 CBC W/DIF F eosinophils 0.9 % 0.0-8. 0 Not Available [facility] (Lab) [address], [place], [address], 09/21/2025 04:26:08 09/20/20 25 09/20/2025 CBC W/DIF F basophils 0.5 % 0.0-2. 0 Not Available [facility] (Lab) [address], [place], [address], 09/21/2025 04:26:08 09/20/20 25 09/20/2025 CBC W/DIF [...] separ ately if prese nt. Not Available [facility] (Lab) [address], [place], [address], 09/21/2025 04:26:08 09/20/20 25 09/20/2025 CBC W/DIF F absolute neutrophils 8.2 10'3/ uL 1.5-8. 0 high Not Available [facility] (Lab) [address], [place], [address], 09/21/2025 04:26:08 09/20/20 25 09/20/2025 CBC W/DIF F absolute lymphocytes 1.5 10'3/ uL 1.0-4. 0 Not Available [facility] (Lab) [address], [place], [address], 09/21/2025 04:26:08 09/20/20 25 09/20/2025 CBC W/DIF F absolute monocytes 1.0 10'3/ uL 0.2-1. 0 Not Available [facility] (Lab) [address], [place], [address], 09/21/2025 04:26:08 09/20/20 25 09/20/2025 CBC W/DIF F absolute eosinophils 0.1 10'3/ uL 0.0-0. 6 Not Available [facility] (Lab) [address], [place], [address], 09/21/2025 04:26:08 09/20/20 25 09/20/2025 CBC W/DIF F absolute basophils 0.1 10'3/ uL 0.0-0. 3 Not Available [facility] (Lab) [address], [place], [address], 09/21/2025 04:26:08 09/20/20 25 09/20/2025 CBC W/DIF [...] higuera book. nm.or g/gen derx Not Available [facility] (Lab) [address], [place], [address], 09/21/2025 04:26:08 09/20/20 25 09/20/2025 PROTE IN/CR EATIN INE RATIO , URINE creatinine, urine 133.1 mg/dL R-No refer ence range estab lishe d for this assay Not Available [facility] (Lab) [address], [place], [address], 09/21/2025 04:26:09 09/20/20 25 09/20/2025 PROTE IN/CR EATIN INE RATIO , URINE protein, urine 29 mg/dL R-No refer ence range estab lishe d for this assay Not Available [facility] (Lab) [address] [facility], [place], [address], 09/21/2025 04:26:09 09/20/20 25 09/20/2025 PROTE IN/CR [...] fican t prote inuri a. Not Available [facility] (Lab) [address] [facility], [place], [address], 09/21/2025 04:26:09 09/20/20 25 09/20/2025 CMP(C OMPRE HENSI VE METAB OLIC PANEL ) sodium 137 mmol/ L 133-14 6 Not Available [facility] (Lab) [address] [facility], [place], [address], 09/21/2025 04:26:09 09/20/20 25 09/20/2025 CMP(C OMPRE HENSI VE METAB OLIC PANEL ) potassium 4.4 mmol/ L 3.5-5. 1 Not Available [facility] (Lab) [address] [facility], [place], [address], 09/21/2025 04:26:09 09/20/20 25 09/20/2025 CMP(C OMPRE HENSI VE METAB OLIC PANEL ) chloride 103 mmol/ L 98-107 Not Available [facility] (Lab) [address] [facility], [place], [address], 09/21/2025 04:26:09 09/20/20 25 09/20/2025 CMP(C OMPRE HENSI VE METAB OLIC PANEL ) carbon dioxide 24 mmol/ L 21-31 Not Available [facility] (Lab) [address] [facility], [place], [address], 09/21/2025 04:26:09 09/20/20 25 09/20/2025 CMP(C OMPRE HENSI VE METAB OLIC PANEL ) anion gap 10 mmol/ L 4-13 Not Available [facility] (Lab) [address] [facility], [place], [address], 09/21/2025 04:26:09 09/20/20 25 09/20/2025 CMP(C OMPRE HENSI VE METAB OLIC PANEL ) blood urea nitrogen 7 mg/dL 7-25 Not Available [facility] (Lab) [address] [facility] [address], [place], [address], 09/21/2025 04:26:09 09/20/20 25 09/20/2025 CMP(C OMPRE HENSI VE METAB OLIC PANEL ) creatinine 0.54 mg/dL 0.60-1 .30 low Not Available [facility] (Lab) [address] [facility], [place], [address], 09/21/2025 04:26:09 09/20/20 25 09/20/2025 CMP(C OMPRE HENSI VE METAB OLIC PANEL ) egfrcr (CKD-epi 2020) >90 mL/mi n/1.7 3_m2 >=60 Not Available [facility] (Lab) [address] [facility], [place], [address], 09/21/2025 04:26:09 09/20/20 25 09/20/2025 CMP(C OMPRE HENSI VE METAB OLIC PANEL ) calcium 8.9 mg/dL 8.3-10 .5 Not Available [facility] (Lab) [address] [facility], [place], [address], 09/21/2025 04:26:09 09/20/20 25 09/20/2025 CMP(C OMPRE HENSI VE METAB OLIC PANEL ) glucose 64 mg/dL 70-100 low Not Available [facility] (Lab) [address] [facility], [place], [address], 09/21/2025 04:26:09 09/20/20 25 09/20/2025 CMP(C OMPRE HENSI VE METAB OLIC PANEL ) protein, total 6.4 g/dL 6.4-8. 3 Not Available [facility] (Lab) [address] [facility], [place], [address], 09/21/2025 04:26:09 09/20/20 25 09/20/2025 CMP(C OMPRE HENSI VE METAB OLIC PANEL ) albumin 3.3 g/dL 3.5-5. 0 low Not Available [facility] (Lab) [address] [facility], [place], [address], 09/21/2025 04:26:09 09/20/20 25 09/20/2025 CMP(C OMPRE HENSI VE METAB OLIC PANEL ) ALT 11 units /L 9-43 Not Available [facility] (Lab) [address] [facility], [place], [address], 09/21/2025 04:26:09 09/20/20 25 09/20/2025 CMP(C OMPRE HENSI VE METAB OLIC PANEL ) alkaline phosphatase 181 units /L 34-104 high Not Available [facility] (Lab) [address] [facility], [place], [address], 09/21/2025 04:26:09 09/20/20 25 09/20/2025 CMP(C OMPRE HENSI VE METAB OLIC PANEL ) AST 11 units /L 13-39 low Not Available [facility] (Lab) [address] [facility], [place], [address], 09/21/2025 04:26:09 09/20/20 25 09/20/2025 CMP(C OMPRE HENSI VE METAB OLIC PANEL ) bilirubin, total 0.5 mg/dL 0.2-1. 2 Not Available [facility] (Lab) [address] [facility], [place], [address], 09/21/2025 04:26:09 08/12/20 25 08/12/2025 US, obste tric, follo w-up No observ ation record ed. [facility] [address], [place], [address], 08/12/2025 17:22:39 08/12/2008/12/2025 US, obste tric, follo w-up No observ ation record ed. [email or web address] [address], [place], [address], 08/16/2025 11:15:17 09/09/2009/09/2025 US, obste tric, follo w-up No observ ation record ed. [facility] [address], [place], [address], 09/09/2025 15:58:13 09/09/2009/09/2025 US, obste tric, follo w-up No observ ation record ed. [address], [place], [address], 09/15/2025 16:35:10 Result Notes None recorded. Problems Name Problem SNOMED Code Status Onset Date Resolution Date Notes Provider Name and Address Organization Details Recorded Time Anxiety 12054713 Completed Seeing PCP 10/22/22 to discuss medicati on. Pt states she is doing well on zoloft 100mg on 12/02/22! Nancie block [facility] 3 16:55:06 Proteinu sirisha [id number] Completed with swelling - 1x/wk antenata l testing. Monitor for pre-e Nancie Alvarado [facility] 3 16:55:06 Chiari malforma tion 446815821 Active 2021 decompre ssed, no neuro follow up required per her team Nancie block [facility] 3 16:55:06 Chiari malforma tion 134980295 Completed 10/14/ 2022 decompre ssed, no neuro follow up required per her team Nancie Alvarado null, [facility] 3 16:55:06 Pregnanc y 11650508 Completed 202103/27/2023 Bailee block, [facility] 5 09:19:52 Mixed anxiety and depressi ve disorder 272215127 Active 2024 Bailee block, [facility] 5 18:16:31 History of Spinal surgery 956961160 Active 2024 Bailee Yeung [facility], [facility] 5 18:16:45 Pregnanc y 10535216 Active 2024 Bailee Yeung [facility], [facility] 5 09:19:52 Pre-ecla mpsia 451672140 Active 2024 last pregancy start bASA 81 mg Cathi Hopson CNM [address], [place], [address], [facility] 5 09:29:14 Migraine 39453332 Active 2024 imitrex Cathi Hopson CNM [address], [place], [address], [facility] 5 09:29:39 Problem Notes None recorded. Procedures Surgical History Date Name Laterality Status Provider Name and Address Organization Details Recorded Time 5 IUD Insertion completed Rica aBnda [facility] 12/30/2024 16:38:48 5 Date of Last Pap Smear completed Bailee Yeung [facility] 03/09/2025 18:16:56 3 IUD Insertion completed Bailee Yeung [facility] 05/28/2023 12:30:09 3 IUD Insertion completed Catih Hopson, KEVIN [address], [place], [address], [facility] 04/30/2023 12:28:48 7 procedure on back completed Bailee Yeung [facility] 10/09/2022 17:12:07 Imaging Results None recorded. [...] Updated DateTime 08/12/2025 162.56 cm 37.8 kg/m2 32039.32 g 117/79 mm[Hg] Nikki Nino [facility] 08/12/2025 15:29:24 Date Recorded Body height Body mass index (BMI) Body weight Systolic And Diastolic Provider Name and Address Organization Details Last Updated DateTime 08/26/2025 162.56 cm 38.3 kg/m2 356932.1 g 125/83 mm[Hg] [facility]annah [facility] 08/26/2025 15:47:54 Date Recorded Body weight Systolic And Diastolic Provider Name and Address Organization Details Last Updated DateTime 09/09/2025 707919.36387 g 117/81 mm[Hg] [facility] 09/09/2025 11:09:34 Date Recorded Body height Body mass index (BMI) Body weight Systolic And Diastolic Provider Name and Address Organization Details Last Updated DateTime 09/20/2025 162.56 cm 39.3 kg/m2 520590.65 g 146/94 mm[Hg] [facility] 09/20/2025 12:35:43 Social History Question Answer Notes LastModified by Organizat ion Details LastModified Time Tobacco Smoking Status Never Smoker Bailee block, [facility] 12/04/2022 16:09:49 Do You Have An Advance Directive? No [email or web address] Information n ot available 10/09/2022 If You Are , What Was Your Level Of Alcohol Consumption Prior To ? Occasional [email or web address] Information not available 04/22/2025 Are You Blind Or Do You Have Difficulty Seeing? No [email or web address] Information n ot available 12/04/2022 What Is Your Level Of Caffeine Consumption? Moderate [email or web address] Information not available 10/09/2022 How Much Tobacco Do You Chew? None [email or web address] Information not available 10/09/2022 In The 14 Days Before Symptom Onset, Have You Had Close Contact With A Laboratory-confirm ed COVID-19 While That Case Was Ill? No [email or web address] Information n ot available 11/06/2022 In The 14 Days Before Symptom Onset, Have You Had Close Contact With A Person Who Is Under Investigation For COVID-19 While That Person Was Ill? No Information not available 11/06/2022 Have You Been To An Area Known To Be High Risk For COVID-19? No [email or web address] Information not available 10/09/2022 Are You Deaf Or Do You Have Serious Difficulty Hearing? No [email or web address] Information not available 10/09/2022 What Type Of Diet Are You Following? REGULAR [email or web address] Information n ot available 10/09/2022 What Is The Highest Grade Or Level Of School You Have Completed Or The Highest Degree You Have Received? [id number] [email or web address] Information not available 03/09/2025 Are There Any Guns Present In Your Home? Yes [email or web address] Information not available 10/09/2022 Do You Use Protection During Sex? No [email or web address] Information not available 10/09/2022 Do You Use Your Seat Belt Or Car Seat Routinely? Yes [email or web address] Information not available 10/09/2022 Are You Sexually Active? Yes Information not available 06/08/2025 Do You Have Smoke And Carbon Monoxide Detectors In Your Home? Yes [email or web address] Information not available 10/09/2022 How Much Tobacco Do You Smoke? No [email or web address] Information not available 10/09/2022 Do You Use Sunscreen Routinely? Yes [email or web address] Information not available 11/06/2022 Has Tobacco Cessation Counseling Been Provided? No [email or web address] Information not available 12/04/2022 Have You Used IV Drugs? No [email or web address] Information not available 10/09/2022 Do You Have Difficulty Walking Or Climbing Stairs? No [email or web address] Information not available 12/04/2022 Sex: Female Functional Status Question Answer Note LastModified by Organizat ion Details LastModified Time Do you use any illicit or recreational drugs? No Information not available 08/21/2022 Do you or have you ever used any other forms of tobacco or nicotine? No [email or web address] Information not available 12/04/2022 What is your level of alcohol consumption? None Information not available 08/21/2022 Are you currently employed? Yes [email or web address] Information not available 06/08/2025 Are you able to walk independently without assistance or assistive devices? YESWOREST [email or web address] Information not available 10/09/2022 Are you able to care for yourself independently? 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 No [email or web address] Information not available 12/04/2022 What is your exercise level? Occasional [email or web address] Information not available 10/09/2022 Mental Status Question Answer Note LastModified by Organization D etails LastModified Time Do you feel stressed (tense, restless, nervous, or anxious, or unable to sleep at night)? [id number] [email or web address] Information not available 10/09/2022 Family History Relationship Description Onset Age of this Age Resolved Age Notes LastModified by Organization Details LastModified Time Paternal Grandfather Carcinoma in situ of colon [email or web address] Not available 2024 16:46:41 Mother Carcinoma of uterine cervix, invasive [email or web address] Not available 2024 16:46:41 Mother Pre-eclampsi a Not available 11/06 19:07:22 Mother Malignant neoplasm of cervix uteri [email or web address] Not available 19:07:22 Sister Anxiety disorder [email or web address] Not available 2021 16:09:53 Maternal Grandmother Anxiety disorder [email or web address] Not available 11/06 19:07:22 Maternal Grandfather Anxiety disorder [email or web address] Not available 11/06 19:07:22 Paternal Grandmother Malignant neoplasm of colon [email or web address] Not available 11/06 19:07:22 Paternal Grandmother Malignant neoplasm of breast [email or web address] Not available 11/06 19:07:22 Medical History Condition [...] ICD10 Code Diagnosis IMO Codes Diagnosis Note [id number] Nikki Gallagher MD [facility] [address] [address] 08/21/2022 15:06:10 08/21/2022 16:02:11 screening 003945669 Z36.87 [id number] Nikki Gallagher MD [facility] [address],[place] [address] 08/21/2022 15:07:58 08/23/2022 15:47:45 test positive 674293346 Z32.01 Venereal d isease screening 659901605 Z11.3 Chiari malformation 2531 19123 Q07.00 decompress ed, no follow up required [id number] Nikki Gallagher MD [facility] [address],[place] [address] 09/09/2022 13:50:19 09/09/2022 15:17:22 screening 940716990 Z36.82 [id number] Nikki Gallagher MD [facility] [address] [address] 09/09/2022 13:51:16 09/09/2022 15:17:13 Routine care 159488075 Z34.91 [id number] Cathi Hopson CNM [facility] [address],[place] [address] 10/09/2022 16:57:57 10/09/2022 17:29:30 Routine care 522192652 Z34.92 [id number] Elvis Robison MD [facility] [address],[place] [address] 11/06/2022 17:12:41 11/07/2022 15:05:58 screening for malformation 843718673 Z36.3 [id number] [facility] [address] [address] 11/06/2022 17:13:10 11/07/2022 16:56:07 Routine care 764815405 Z34.92 [id number] Elvis Robison MD [facility] [address],[place] [address] 12/04/2022 14:56:14 12/04/2022 15:58:43 screening 203971936 Z36.2 [id number] Cathi Hopson CNM [facility] [address] [address] 12/04/2022 15:56:29 12/04/2022 16:35:58 Routine care 332206575 Z34.92 [id number] Elvis Robison MD [facility] [address],[place] [address] 12/24/2022 16:27:34 12/24/2022 17:29:22 Spotting per vagina in 389722291 O26.859 Z3A.27 [id number] Cathi Hopson CNM [facility] [address],[place] [address] 01/03/2023 09:55:31 01/03/2023 10:52:59 Routine care 550343817 Z34.92 [id number] Cathi Hopson CNM [facility] [address] [address] 01/17/2023 15:36:29 01/17/2023 16:57:25 Routine care 731773209 Z34.92 [facility] [id number] F41.9 [id number] Ctahi Hopson [facility] [address] [address] 01/29/2023 16:46:47 01/29/2023 18:05:24 Routine care 213037702 Z34.92 [id number] Elvis Robison MD [facility] [address] [address] 01/29/2023 16:47:19 01/29/2023 17:36:51 Uterine size for dates discrepancy 214462150 O26.849 Z3A.32 [id number] Falguni Sherman [facility] [address],[place] [address] 02/04/2023 16:46:29 02/05/2023 11:01:02 Urinary symptoms [id number] R39.9 [id number] Elvis Robison MD [facility] [address],[place] [address] 02/04/2023 17:51:03 02/04/2023 18:00:25 Abdominal pain in 217877719 O99.891 R10.32 Z3A.33 [id number] Cathi Hopson, [facility] [address],[place] [address] 02/12/2023 16:52:47 02/12/2023 17:51:59 Routine care 849084495 Z34.92 [id number] Elvis Robison MD [facility] [address],[place] [address] 02/17/2023 14:12:28 02/17/2023 15:02:51 Gestational proteinuria 65066311 O12.15 [id number] MD Thalia Louis [address],[place] [address] 02/17/2023 14:12:44 02/17/2023 15:14:23 Mild pre-eclampsia 43665808 O14.03 [id number] [facility] [address],[place] [address] 02/17/2023 14:12:56 02/18/2023 17:13:13 [id number] Elvis Robison MD [facility] [address],[place] [address] 02/27/2023 15:45:11 02/28/2023 13:16:55 Gestational proteinuria 88513616 O12.15 [id number] Elvis Robison MD [facility] [address],[place] [address] 02/27/2023 15:45:29 02/27/2023 16:35:18 Proteinuria 58341485 R80.9 O14.03 Z3A.36 [id number] [facility] [address],[place] [address] 02/27/2023 15:46:03 03/01/2023 15:05:40 Routine care 042973883 Z34.93 [id number] [facility] [address],[place] [address] 03/05/2023 16:15:59 03/06/2023 16:58:46 Routine care 409597624 Z34.92 [id number] Elvis Robison MD [facility] [address],[place] [address] 1 03/05/2023 16:15:23 03/05/2023 17:07:57 Gestational proteinuria 72311644 O12.15 [id number] Elvis Robison MD [facility] [address],[place] [address] 1 03/05/2023 16:15:42 03/06/2023 14:32:46 Proteinuria 76736914 O14.03 O16.9 Z3A.37 [id number] Cathi Hopson CNM [facility] [address],[place] [address] 04/11/2023 11:04:43 04/11/2023 12:08:02 care 389408598 Z39.2 [id number] Cathi Hopson [place] [address],[place] [address] 04/30/2023 11:56:52 04/30/2023 12:40:47 Insertion of intrauterine contraceptive device 06076949 Z30.430 Sexually t ransmitted infectious disease 0636748 A64 [id number] Cathi Hopson [facility] [address],[place] [address] 05/28/2023 12:22:55 05/28/2023 12:46:16 IUD check 293843323 Z30.431 doing well, strings present, 1 day abd discomfort , resolved on its own if happens again ok to order [place] [id number] Elvis Robison MD [facility] [address],[place] [address] 1 12/30/2024 16:58:26 12/30/2024 17:37:51 Gynecologic examination 44611389 Z01.419 Z11.3 Z11.8 Annual gynecologi jun exam [...] declined Removal of intrauterine contraceptive device done [id number] 18900 Z30.432 Speculum placed. The IUD strings were seen at external os and grasped with sterile ring forceps and removed without difficulty . The patient tolerated the procedure well. Recommende d taking PNV daily if not using contracept ion. Continue to monitor cycles. Patient verbalized understand ing. [id number] Elvis Robison MD [facility] [address],[place] [address] 03/09/2025 16:46:06 03/10/2025 09:42:49 [id number] Cathi Hopson CNM [facility] [address],[place] [address] 03/09/2025 16:46:37 03/10/2025 09:42:26 Bacterial disease screening 135149216 Z11.8 77803 Amenorrhea 37643233 N91. 2 09596 Low back pain 745578391 M54.50 [id number] [id number] Elvis Robison MD [facility] [address],[place] [address] 03/17/2025 15:22:13 03/17/2025 16:30:29 Complication occurring during 983044082 O99.891 Z3A.08 9587794627 [id number] Elvis Robison MD [facility] [address],[place] [address] 04/20/2025 16:47:22 04/21/2025 09:10:28 screening 354230818 Z36.82 Z3A.13 4055368715 [id number] [facility] [address],[place] [address] 04/20/2025 16:47:53 05/01/2025 09:12:42 [id number] [facility] [address] [place] [address] 1 04/22/2025 08:56:52 04/22/2025 09:36:32 Migraine 00310021 G43.909 93746588 Gestation period, 13 weeks 50734895 Z3A.13 8020481 [id number] Cathi Hopson CNM [facility] [address],[place] [address] 05/11/2025 14:27:07 05/11/2025 15:07:23 Gestation period, 16 weeks 44359847 Z3A.16 9189211 [id number] Elvis Robison MD [facility] [address],[place] [address] 06/08/2025 10:39:52 06/08/2025 11:54:35 screening for malformation 633816519 Z36.3 Z3A.20 4632022492 [id number] [facility] [address],[place] [address] 06/08/2025 10:41:10 06/08/2025 12:21:07 Gestation period, 20 weeks 16112583 Z3A.20 0424587 [id number] Elvis Robison MD [facility] [address],[place] [address] 07/08/2025 15:34:11 07/08/2025 16:36:09 Bicornuate uterus affecting 1025428 O34.00 Q51.3 Z3A.24 071641 [id number] [facility] [address],[place] [address] 07/08/2025 15:34:31 07/09/2025 09:41:57 Gestation period, 24 weeks 745580385 Z3A.24 1983931 Acute vaginitis 96266865 N76.0 45403 [id number] Elvis Robison MD [facility] [address],[place] [address] 08/12/2025 15:15:10 08/12/2025 16:07:07 Bicornuate uterus affecting 6670624 O34.00 Q51.3 Z3A.29 [id number] Cathi Hopson CNM [facility] [address] [place] [address] 08/12/2025 15:15:35 08/12/2025 16:28:23 Gestation period, 29 weeks 85144160 Z3A.29 1539512 Abscess of vulva 3616687 1 N76.4 421509 [id number] Cathi Hopson CNM [facility] [address],[place] [address] 08/26/2025 15:37:51 08/26/2025 16:21:35 Gestation period, 31 weeks 09120615 Z3A.31 0193528 [id number] Elvis Robison MD [facility] [address],[place] [address] 09/09/2025 10:20:59 09/09/2025 11:16:08 Bicornuate uterus affecting 2352089 O34.00 Q51.3 Z3A.33 917573 [id number] Cathi Hopson [facility] [address],[place] [address] 09/09/2025 10:21:57 09/09/2025 11:37:17 Gestation period, 33 weeks 05508679 Z3A.33 7450421 [id number] WENDY STEARNS MD [facility] [address],[place] [address] 09/20/2025 12:24:31 09/20/2025 12:53:43 Elevated blood-pressure reading without diagnosis of hypertension 659106245 R03.0 22799359 - hx of preeclamps ia in G1 [...] 06/17/2025 PAYMENT PLAN Zulma Guo 12/30/2024 2 [facility] - DOS ON OR AFTER 21 (MEDICAID REPLACEMENT - HMO) Zulma Guo [id number] Zulma Guo 09/19/2025 1 [place] [id number] G [place]u Guo [id number] Zulma Guo 09/11/2022 PAYMENT PLAN Zulma Guo 09/18/2022 PAYMENT PLAN Zulma Guo 10/14/2022 PAYMENT PLAN Zulma Guo 12/04/2022 2 [place] [employer] [place] Zulma Guo [id number] Zulma Brant 01/03/2023 3 [facility] - DOS PRIOR TO 2025 (MEDICAID REPLACEMENT - HMO) [id number] Zulma Brant [id number] Zulma Brant Notes Date Note Type Note Provider Name and Address Organization Details Recorded Time 08/12/2025 text/html Generic HPI TemplateReported by Patient Cathi Hopson CNM [address], [place], [address], [facility] 08/12/2025 16:28:14 08/26/2025 text/html Generic HPI TemplateReported by Patient Cathi Hopson CNM [address], [place], [address], [facility] 08/26/2025 16:19:15 09/09/2025 text/html Generic HPI TemplateReported by Patient Cathi Hopson CNM [address], [place], [address], [facility] 09/09/2025 11:32:00 09/20/2025 text/html Generic HPI TemplateReported by Patient WENDY STEARNS MD [address], [place], [address], [facility] 09/20/2025 12:52:34 OBGyn Episode Ob Episode Information Episode Created Date Number of Fetuses Patient Bloodtype Patient rh Status Prepregnancy Weight lbs Domestic Partner Domestic Partner Phone Father Name Tobacco Stripper Status 09/09/20 22 1 A Positive 157 CLOSED Fetus Data First Name Last Name Admitted to NICU Weight (g) Sex Living Outcome Pediatric Complications Fetus ID Race Codes Race Delivery Type 2834.95 M true Full Term PPV, neopuff 6 min, delee suction, [address] Vaginal Delivery Problems Problem Notes Elliott pt, asked sp to deliv er/ PI wnlEIF noted 32wks Problem Name Start Date End Date Resolution Snomed Code Not e Chiari malformation 08/23/2022 [id number] decompressed, no neuro follow up required per her team Proteinuria 07661993 with swe lling - 1x/wk testing. Monitor for pre-e Anxiety 54832125 Seeing PCP 10/22/22 to discuss medication. Pt [...] Date Ultra Sound Latest Days Gestation 0 [email or web address] 09/09/2022 03/24/20 23 0 Pre- Flowsheet Flowsheet Date 09/09/2022 Feldman Score Blood Edema Fundus Height Fundus Units Glucose Ketones Leukocytes Nitrite Labor Signs Protein Cervic Dilation Cervic Effacement Cervic Station neg none none trace Type Weight in lbs Pre/Post Dialysis Refused Weight 155.22714676063 BP Diastolic BP Location Tested BP Systolic [...] Weight in lbs Pre/Post Dialysis Refused Weight 160.527572846938 BP Diastolic BP Location Tested BP Systolic BP Type 78 123 Fetus Heart Rate Present Fetus Movement Comments anatomy incomplete, f/u 4 we eks, increase zoloft to 50 mg and med check at next visit, ok for unison at hs, 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, labor/ classes, f/u 4 weeks Flowsheet Date [...] Weight in lbs Pre/Post Dialysis Refused Weight 173.268827983590 BP Diastolic BP Location Tested BP Systolic [...] Weight in lbs Pre/Post Dialysis Refused Weight 180.373736043956 BP Diastolic BP Location Tested BP Systolic [...] Weight in lbs Pre/Post Dialysis Refused Weight 183.010959505782 BP Diastolic BP Location Tested BP Systolic [...] Weight in lbs Pre/Post Dialysis Refused Weight 188.749129777013 BP Diastolic BP Location Tested BP Systolic [...] Weight in lbs Pre/Post Dialysis Refused Weight 189.674081725855 BP Diastolic BP Location Tested BP Systolic [...] Weight in lbs Pre/Post Dialysis Refused Weight 194.757772640456 BP Diastolic BP Location Tested BP Systolic [...] Weight in lbs Pre/Post Dialysis Refused Weight 195.668986942567 BP Diastolic BP Location Tested BP Systolic [...] Weight in lbs Pre/Post Dialysis Refused Weight 199.596217704342 BP Diastolic BP Location Tested BP Systolic [...] Weight in lbs Pre/Post Dialysis Refused Weight 201.834650680206 BP Diastolic BP Location Tested BP Systolic BP Type 85 135 Fetus Heart Rate Present Fetus Movement A Yes Comments patient is having leg cramps , pain, contractions, discharge, and swelling. was given compazine for fuentes in LD and resolved over the weekend, discussed 39 week iol due to sxs, cervix 1-2//-2 will schedule for march 17. reviewed precautions labor and PIH f/u one weekbpp 06/17 Menstrual History Last Menstrual Date Menses Monthly On Bcp Conception Prior Menses Frequency Hcg Plus Date Menarche Onset Age Genetic Screening And Infection History Question Response Note Mental Retardation/Autism false Patient's Age Will Be 35 Years Or Older At Estim ated Date of Delivery false Thalassemia (Maltese, Polish, Mediterranean, Or Background): MCV < 80 false Neural Tube Defect (Meningomyelocele, Spina Bifi da, Or Anencephaly) false Congenital Heart Defect false Down Syndrome false Anshul-Sachs (eg, Yazidi, Cajun, Austrian-[place]) f alse Thomas Disease false Sickle Cell Disease Or Trait () false Hemophilia Or Other Blood Disorders false Muscular Dystrophy false Cystic Fibrosis false Joanne's Chorea false Intellectual Disability/Autism false If Yes, [...] Post Complications Tubal Sterilization Discharge Date Comments [facility] idural 38.2 false Cathi Hopson CNM Pre eclampsia , proteinur ia, anxiety Discharge Information Feeding Method Contraceptive Method Maternal HG B and HCT Levels Ob Episode Information Episode Created Date Number of Fetuses Patient Bloodtype Patient rh Status Prepregnancy Weight lbs Domestic Partner Domestic Partner Phone Father Name Tobacco Stripper Status 04/22/20 25 1 A Positive 176 Tutu Brant OPEN Fetus Data First Name Last Name Admitted to NICU Weight (g) Sex Living Outcome Pediatric Complications Fetus ID Race Codes Race Delivery Type [id number] Problems Problem Notes fundus has bicornuate appear anceserial growth uspih labs 07/25 in chart Problem Name Start Date End Date Resolution Snomed Code Not e Migraine 04/22/2025 [id number] imitrex Pre-eclampsia 04/22/2025 338894838 last pregancystart bASA 81 mg Han Calculation [...] Weight in lbs Pre/Post Dialysis Refused Weight 182.702126873476 BP Diastolic BP Location Tested BP Systolic [...] Type Weight in lbs Pre/Post Dialysis Refused 184.224435376390 BP Diastolic BP Location Tested BP Systolic [...] Type Weight in lbs Pre/Post Dialysis Refused 190.882485154503 BP Diastolic BP Location Tested BP Systolic [...] Weight in lbs Pre/Post Dialysis Refused Weight 204.341474338495 BP Diastolic BP Location Tested BP Systolic [...] Weight in lbs Pre/Post Dialysis Refused Weight 220.706423380302 BP Diastolic BP Location Tested BP Systolic [...] Weight in lbs Pre/Post Dialysis Refused Weight 223.610921547724 BP Diastolic BP Location Tested BP Systolic [...] Type Weight in lbs Pre/Post Dialysis Refused 225.454925906439 BP Diastolic BP Location Tested BP Systolic [...] Weight in lbs Pre/Post Dialysis Refused Weight 229.045485275786 BP Diastolic BP Location Tested BP Systolic [...]
--- OUTSIDE RECORDS SUMMARY | 2025-09-22 15:46 | XMS_ITS | Clinical Summary ---
Author Organization [facility] Address [address] [place] [address] Phone Care Team Providers Care Social Worker Name Role Phone SANDRA BARR MD Primary Care Provider [phone] Reason for Visit and Chief Complaint The Chief Complaint is: Wanting to try something different for depression/anxiety. Pt is currently on Sertraline and Hydroxyzine Problems Includes: Problems addressed during this encounter and other active Problems Current Visit Onset Date Resolved Date Provider Conditio n Status Generalized Anxiety Disorder 07/21/2022 RO ACOSTA Active Last Documented On 3 9:34AM ; [facility] Past Visits Onset Date Resolved Date Provider Condition Status Chiari Malformation 12/19/2015 RO ACOSTA Active Last Documented On 1 11:01AM ; [facility] Plan of Treatment - Return to the clinic if condition worsens or new symptoms arise - Last Documented On 03/12/2024 11:26AM ; [facility] - Follow-up visit in 1 month for anxiety follow up - Last Documented On 03/12/2024 11:26AM ; [facility] Cut down sertraline to 100 mg daily for 1 week, then stop medication and start celexa. Discussed risk of thoughts of suicide when switching SSRIs. Go to ER right away for any suicidal thoughts. She verbalizes understanding. - Last Documented On 03/12/2024 11:26AM ; [facility] Pending Tests Order Diagnosis Results Due Ordering P [facility] Lab Comp Metabolic Panel 04/09/24 KM ACOSTA Last Documented On 4 9:43AM ; [facility] Lab Lipid Panel 04/09/24 RO Luna KWAME EZ MOVING CONSULTANT Last Documented On 4 9:43AM ; [facility] Lab CBC w/ DIFF 04/09/24 RO Luna KWAME EZ MOVING CONSULTANT Last Documented On 4 9:43AM ; [facility] Lab TSH w/ reflex T-4, Free 04/09/24 A MAGDALENO Jeremy RESENDIZZ MOVING CONSULTANT Last Documented On 4 9:43AM ; [facility] Lab Vitamin B12/Folic Acid 04/09/24 AL JANEY Luna MARII MOVING CONSULTANT Last Documented On 4 9:43AM ; [facility] Referrals To Diagnosis Leadite Man BANDAR SMITH Unspecified hea ring loss, bilateral Note: Michael preferred, Edmonson if not Last Documented On 4 11:10AM ; [facility] Instructions to patient Intervention and counseling on cessation of tobacco use Last Documented On 4 10:52AM ; [facility] Assessments Includes: Assessments from this encounter Findings - [H91.93 - Unspecified hearing loss, bilateral] Hearing loss - Last Documented On 03/12/2024 11:26AM ; [facility] - [F41.1 - Generalized anxiety disorder] Generalized anxiety disorder - Last Documented On 03/12/2024 11:26AM ; [facility] Instructions Includes: Instructions from this encounter Instructions to patient Intervention and counseling on cessation of tobacco use Last Documented On 4 10:52AM ; [facility] Medical Equipment - Implanted Devices Includes: Current Devices No Medical Equipment Recorded Medications Includes: Medications discussed during this encounter and other current Medications Discontinued / Stopped on this date KIRSTY CORDERO MOVING CONSULTANT-BC on 10/24/2022 Sertraline HCl 25 MG Oral Tablet Provider: KIRSTY CORDERO MOVING CONSULTANT-BC Diagnosis: Generalized anxi ety disorder Last Documented On 03/12/2024 10:50AM By Mellissa MCLEOD ; [facility] Ortho Tri-Cyclen Lo 0.18/0.215/0.25 MG-25 MCG Oral Tablet Provider: RO COLVIN MOVING CONSULTANT Diagnosis: Encounter for ot h general cnsl and advice on contraception Last Documented On 03/12/2024 10:49AM By Mellissa MCLEOD ; [facility] predniSONE 20 MG Oral Tablet Provider: RO COLVIN MOVING CONSULTANT Diagnosis: Lumbago with sci atica, unspecified side Last Documented On 03/12/2024 10:49AM By Mellissa MCLEOD ; [facility] Bactrim DS 800-160 MG Oral Tablet Provide r: RO COLVIN MOVING CONSULTANT Diagnosis: Non-bullous impe tigo Last Documented On 03/12/2024 10:48AM By Mellissa MCLEOD ; [facility] Mupirocin 2% External Ointment Provider: RO COLVIN MOVING CONSULTANT Diagnosis: Non-bullous impe tigo Last Documented On 03/12/2024 10:49AM By Mellissa MCLEOD ; [facility] Amoxicillin 500 MG Oral Tablet Provider: RO COLVIN MOVING CONSULTANT Diagnosis: Acute pharyngiti s, unspecified Last Documented On 03/12/2024 10:48AM By Mellissa MCLEOD ; [facility] Magic Mouthwash compounded Oral Suspension Provider: RO COLVIN MOVING CONSULTANT Diagnosis: Acute pharyngiti s, unspecified Last Documented On 03/12/2024 10:49AM By Mellissa MCLEOD ; [facility] Amoxicillin 500MG Oral Tablet Provider: RO COLVIN MOVING CONSULTANT Diagnosis: Acute pharyngiti s, unspecified Last Documented On 03/12/2024 10:48AM By Mellissa MCLEOD ; [facility] Polymyxin B-Trimethoprim 51156-3.1UNIT/ML-% Ophthalmic Solution Provider: RO COLVIN MOVING CONSULTANT Diagnosis: Unspecified acut e conjunctivitis, left eye Last Documented On 03/12/2024 10:49AM By Mellissa MCLEOD ; [facility] New / Renewed during this visit RO COLVIN MOVING CONSULTANT on 03/12/2024 CeleXA 20 MG Oral Tablet Provider: KWASI COLVIN MOVING CONSULTANT 30 day supply: 30 tablet, 0 refills Diagnosis: Generalized anxiety disorder One tablet daily Pharmacy: [facility] - [address] [place] [address], [id number] - Last Documented On 04/19/2024 1:18PM By RO COLVIN [facility] ; [facility] hydrOXYzine HCl 50 MG Oral Tablet Provider: RO ACOSTA 30 day supply: 10 tablet, 0 refills Diagnosis: Generalized anxiety disorder Take 1 tab as needed for anx iety/panic attacks Pharmacy: [facility] - [address] [place] [address], [id number] - Last Documented On 04/06/2024 9:47AM By RO COLVIN NP ; [facility] Past Medications on file CeleXA 20 MG Oral Tablet 04/19/2024 - 10/16/2024 Provider: RO ACOSTA Diagnosis: Generalized anxi ety disorder One tablet daily Last Documented On 04/19/2024 1:22PM By RO COLVIN NP ; [facility] Wellbutrin XL 150 MG Oral Tablet Extended Release 24 Hour 04/06/2024 - 05/06/2024 Provider: RO ACOSTA Diagnosis: Generalized anxi ety disorder One tablet daily Last Documented On 04/06/2024 9:48AM By RO COLVIN NP ; [facility] hydrOXYzine HCl 50 MG Oral Tablet 04/06/2024 - 05/06/2024 Provider: RO ACOSTA Diagnosis: Generalized anxi ety disorder Take 1 tab as needed for anx iety/panic attacks Last Documented On 04/06/2024 9:48AM By RO COLVIN NP ; [facility] Sertraline HCl 100 MG Oral Tablet 07/21/2023 - 01/17/2024 Provider: RO ACOSTA Diagnosis: One tablet daily, 150 mg total daily Last Documented On 07/21/2023 11:57AM By RO COLVIN NP ; [facility] Sertraline HCl 50 MG Oral Tablet 07/21/2023 - 01/17/2024 Provider: RO ACOSTA Diagnosis: One tablet daily, 150 mg total daily Last Documented On 07/21/2023 11:57AM By RO COLVIN NP ; [facility] Medications Administered Includes: Administered Medications [...] Last Documented: On 03/12/2024 10:52A M ; [facility] Results Includes: Results discussed during [...] 05/08/2022 Last Documented On 4 11:03AM ; [facility] Current nonsmoker 12/19/2020 Last Documented On 4 11:03AM ; [facility] Non-smoker 03/31/2020 Last Documented On 4 11:03AM ; [facility] Smoking status : Never smoker 08/11/2019 Last Documented On 4 11:03AM ; [facility] Currently in school 02/06/2017 Last Documented On 4 11:03AM ; [facility] Lives with parents in [place] 06/12/2015 Last Documented On 4 11:03AM ; [facility] Not using alcohol 06/12/2015 Last Documented On 4 11:03AM ; [facility] Not using drugs 06/12/2015 Last Documented On 4 11:03AM ; [facility] No tobacco use 06/06/2014 Last Documented On 4 11:03AM ; [facility] A recent decrease in activity 10/15/2010 Last Documented On 4 11:03AM ; [facility] No recent change in sleep 10/15/2010 Last Documented On 4 11:03AM ; [facility] Procedures and Surgical History Includes: Procedures from this encounter Procedures Code Diagnosis Performing Provider Service L ocation Service Date plan of care reviewed and agreed to Last Documented On 4 11:17AM ; [facility] intervention and counseling on cessation of toba senior 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 analyst use 4000F Last Documented On 4 10:52AM ; [facility] use of tobacco assessment performed 1000F Last Documented On 4 10:52AM ; [facility] review of medications documented 1160F Last Documented On 4 10:52AM ; [facility] Surgical History Last Updated No history of surgery 06/12/2015 Last Documented On 4 11:03AM ; [facility] Medical History Includes: Medical History addressed during this encounter Description Last Updated History of headache syndromes : migraine 06/12/2015 Last Documented On 4 11:03AM ; [facility] A PPD was negative 06/12/2015 Last Documented On 4 11:03AM ; [facility] No cardiac problems 06/12/2015 Last Documented On 4 11:03AM ; [facility] No exposure to tuberculosis 06/12/2015 Last Documented On 4 11:03AM ; [facility] No hearing problems 06/12/2015 Last Documented On 4 11:03AM ; [facility] No heart murmur 06/12/2015 Last Documented On 4 11:03AM ; [facility] No high cholesterol 06/12/2015 Last Documented On 4 11:03AM ; [facility] No history of asthma 06/12/2015 Last Documented On 4 11:03AM ; [facility] No history of concussion 06/12/2015 Last Documented On 4 11:03AM ; [facility] No history of delayed milestones 015 Last Documented On 4 11:03AM ; [facility] No history of diabetes mellitus 06/12/20 15 Last Documented On 4 11:03AM ; [facility] No history of hematologic disorder 06/12 Last Documented On 4 11:03AM ; [facility] No history of sickle cell abnormality Last Documented On 4 11:03AM ; [facility] No loss of function of one of paired org ans 06/12/2015 Last Documented On 4 11:03AM ; [facility] No orthopedic problems 06/12/2015 Last Documented On 4 11:03AM ; [facility] No previous hospitalizations 06/12/2015 Last Documented On 4 11:03AM ; [facility] No recent severe illness or injury 06/12 Last Documented On 4 11:03AM ; [facility] No trauma to the head 06/12/2015 Last Documented On 4 11:03AM ; [facility] Not born with congenital abnormalities 0 06/12/2015 Last Documented On 4 11:03AM ; [facility] Not carrier of hemophilia A 06/12/2015 Last Documented On 4 11:03AM ; [facility] Currently wearing eyeglasses 06/06/2014 Last Documented On 4 11:03AM ; [facility] Taking OTC pain medication / fever. Usin g Motrin 03/18/2011 Last Documented On 4 11:03AM ; [facility] Not taking OTC medications 12/06/2009 Last Documented On 4 11:03AM ; [facility] Born by vaginal delivery 07/31/2009 Last Documented On 4 11:03AM ; [facility] History of length at : in21.5 07/31 Last Documented On 4 11:03AM ; [facility] Patient's weight: lbs8/2 200 9 Last Documented On 4 11:03AM ; [facility] Family History Includes: Family History addressed during this encounter Description Last Updated No family history of diabetes mellitus 0 06/12/2015 Last Documented On 4 11:03AM ; [facility] No family history of sudden early deaths 06/12/2015 Last Documented On 4 11:03AM ; [facility] Maternal history of headache syndromes 0 02/28/2014 Last Documented On 4 11:03AM ; [facility] Cancer 07/31/2009 Last Documented On 4 11:03AM ; [facility] Review of Systems Includes: Review [...] Check-Out Time Diagnosis CHECK UP RO ACOSTA [facility] 03/12/20 24 10:28AM 11:13AM Generalized Anxiety Disorder,Julissain g Loss Insurance Includes: Active Insurance Policies Plan Name Member ID Group # Subscriber Relationship Effect patricia Dates 1 - [facility] [id number] KRISTI WADE 2 - [facility] [id number] ARLENE WADE Self Clinical Notes Includes: Clinical Notes from this encounter * Progress note Date Encounter Last Documented by 03/12/2024 CHECK UP Last documented on 03/12/2024; 11:26 AM, RO ACOSTA; [facility] Active Problems & Conditions - Chiari Malformation [...] And Economic Circumstances: Lives with parents in [place]. Education: Currently in school. Allergies - No [...] StartCited - Unspecified hearing loss, bilateral Referral: Leadite Man Instructions: Michael preferred, Jayant if not EndCited [...]
--- OUTSIDE RECORDS SUMMARY | 2025-09-22 15:46 | XMS_ITS | Clinical Summary ---
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
--- OUTSIDE RECORDS SUMMARY | 2025-09-22 15:46 | XMS_ITS | Clinical Summary ---
Author Organization [facility] Address [address] [place] [address] Phone Care Team Providers Care Educational Assistant Name Role Phone SANDRA BARR MD Primary Care Provider [phone] Reason for Visit and Chief Complaint The [...] Active Last Documented On 3 9:34AM ; [facility] Past Visits Onset Date Resolved Date Provider Condition Status Chiari Malformation 12/19/2015 RO ACOSTA Active Last Documented On 1 11:01AM ; [facility] Plan of Treatment - Weight loss diet - Last Documented On 04/06/2024 11:47AM ; [facility] - Return to the clinic if condition worsens or new symptoms arise - Last Documented On 04/06/2024 11:47AM ; [facility] Follow up: In 1 month to evaluate anxiety and review labs Added Wellbutrin We will call with any abnormal labs. - Last Documented On 04/06/2024 11:47AM ; [facility] Pending Tests Order Diagnosis Results Due Ordering P rovider Lab Comp Metabolic Panel 04/09/24 KM COLVIN CONTENT DIRECTOR Last Documented On 4 9:43AM ; [facility] Lab Lipid Panel 04/09/24 RO PUENTE EZ CONTENT DIRECTOR Last Documented On 4 9:43AM ; [facility] Lab CBC w/ DIFF 04/09/24 RO PUENTE EZ CONTENT DIRECTOR Last Documented On 4 9:43AM ; [facility] Lab TSH w/ reflex T-4, Free 04/09/24 A MAGDALENO COLVIN CONTENT DIRECTOR Last Documented On 4 9:43AM ; [facility] Lab Vitamin B12/Folic Acid 04/09/24 AL JANEY COLVIN CONTENT DIRECTOR Last Documented On 4 9:43AM ; [facility] Instructions to patient Intervention and counseling on cessation of tobacco use Last Documented On 4 9:28AM ; [facility] Lose weight Last Documented On 4 11:46AM ; [facility] Assessments Includes: Assessments from this encounter Findings - [E66.9 - Obesity, unspecified] Obesity - Last Documented On 04/06/2024 11:47AM ; [facility] - [R53.83 - Other fatigue] Fatigue - Last Documented On 04/06/2024 11:47AM ; [facility] - [F41.1 - Generalized anxiety disorder] Generalized anxiety disorder - Last Documented On 04/06/2024 11:47AM ; [facility] Instructions Includes: Instructions from this encounter Instructions to patient Intervention and counseling on cessation of tobacco use Last Documented On 4 9:28AM ; [facility] Lose weight Last Documented On 4 11:46AM ; [facility] Medical Equipment - Implanted Devices Includes: Current Devices No Medical Equipment Recorded Medications Includes: Medications discussed during this encounter and other current Medications New / Renewed during this visit RO COLVIN CONTENT DIRECTOR on 04/06/2024 Wellbutrin XL 150 MG Oral Tablet Extended Release 24 Hour Provider: RO ACOSTA 30 day supply: 30 tablet, 0 refills Diagnosis: Generalized anxiety disorder One tablet daily Pharmacy: [facility] [address], [address] - Last Documented On 04/06/2024 9:48AM By RO COLVIN NP ; [facility] hydrOXYzine HCl 50 MG Oral Tablet Provider: RO ACOSTA 30 day supply: 10 tablet, 0 refills Diagnosis: Generalized anxiety disorder Take 1 tab as needed for anx iety/panic attacks Pharmacy: [facility] - [address] [place] [address], [id number] - Last Documented On 04/06/2024 9:48AM By RO COLVIN NP ; [facility] Past Medications on file CeleXA 20 MG Oral Tablet 04/19/2024 - 10/16/2024 Provider: RO ACOSTA Diagnosis: Generalized anxi ety disorder One tablet daily Last Documented On 04/19/2024 1:22PM By RO COLVIN NP ; [facility] Sertraline HCl 100 MG Oral Tablet 07/21/2023 - 01/17/2024 Provider: RO ACOSTA Diagnosis: One tablet daily, 150 mg total daily Last Documented On 07/21/2023 11:57AM By RO COLVIN NP ; [facility] Sertraline HCl 50 MG Oral Tablet 07/21/2023 - 01/17/2024 Provider: RO ACOSTA Diagnosis: One tablet daily, 150 mg total daily Last Documented On 07/21/2023 11:57AM By RO COLVIN NP ; [facility] Medications Administered Includes: Administered Medications from this encounter No Administered Medications Recorded Vital Signs Includes: Vital Signs from this encounter Vital Name 04/06/2024 09:21A Blood Pressure Sitting L 130/92 Pulse Rate-Sitting (bpm) 110 Respiration Rate (breaths/min) 18 Height (in) 65 Weight (lb) 181.125 Body Mass Index 30.1 Body Surface Area 1.9 Oxygen Saturation (%) 99 Last Documented: On 04/06/2024 9:25AM ; [facility] Results Includes: Results discussed during this encounter [...] 05/08/2022 Last Documented On 4 9:36AM ; [facility] Current nonsmoker 12/19/2020 Last Documented On 4 9:36AM ; [facility] Non-smoker 03/31/2020 Last Documented On 4 9:36AM ; [facility] Smoking status : Never smoker 08/11/2019 Last Documented On 4 9:36AM ; [facility] Currently in school 02/06/2017 Last Documented On 4 9:36AM ; [facility] Lives with parents in [place] 06/12/2015 Last Documented On 4 9:36AM ; [facility] Not using alcohol 06/12/2015 Last Documented On 4 9:36AM ; [facility] Not using drugs 06/12/2015 Last Documented On 4 9:36AM ; [facility] No tobacco use 06/06/2014 Last Documented On 4 9:36AM ; [facility] A recent decrease in activity 10/15/2010 Last Documented On 4 9:36AM ; [facility] No recent change in sleep 10/15/2010 Last Documented On 4 9:36AM ; [facility] Procedures and Surgical History Includes: Procedures from this encounter Procedures Code Diagnosis Performing Provider Service L ocation Service Date plan of care reviewed and agreed to Last Documented On 4 11:44AM ; [facility] intervention and counseling on cessation of toba chief accountant use 4000F Last Documented On 4 9:28AM ; [facility] use of tobacco assessment performed 1000F Last Documented On 4 9:28AM ; [facility] review of medications documented 1160F Last Documented On 4 9:28AM ; [facility] Surgical History Last Updated No history of surgery 06/12/2015 Last Documented On 4 9:36AM ; [facility] Medical History Includes: Medical History addressed during this encounter Description Last Updated History of headache syndromes : migraine 06/12/2015 Last Documented On 4 9:36AM ; [facility] A PPD was negative 06/12/2015 Last Documented On 4 9:36AM ; [facility] No cardiac problems 06/12/2015 Last Documented On 4 9:36AM ; [facility] No exposure to tuberculosis 06/12/2015 Last Documented On 4 9:36AM ; [facility] No hearing problems 06/12/2015 Last Documented On 4 9:36AM ; [facility] No heart murmur 06/12/2015 Last Documented On 4 9:36AM ; [facility] No high cholesterol 06/12/2015 Last Documented On 4 9:36AM ; [facility] No history of asthma 06/12/2015 Last Documented On 4 9:36AM ; [facility] No history of concussion 06/12/2015 Last Documented On 4 9:36AM ; [facility] No history of delayed milestones 015 Last Documented On 4 9:36AM ; [facility] No history of diabetes mellitus 06/12/20 15 Last Documented On 4 9:36AM ; [facility] No history of hematologic disorder 06/12 Last Documented On 4 9:36AM ; [facility] No history of sickle cell abnormality Last Documented On 4 9:36AM ; [facility] No loss of function of one of paired org ans 06/12/2015 Last Documented On 4 9:36AM ; [facility] No orthopedic problems 06/12/2015 Last Documented On 4 9:36AM ; [facility] No previous hospitalizations 06/12/2015 Last Documented On 4 9:36AM ; [facility] No recent severe illness or injury 06/12 Last Documented On 4 9:36AM ; [facility] No trauma to the head 06/12/2015 Last Documented On 4 9:36AM ; [facility] Not born with congenital abnormalities 0 06/12/2015 Last Documented On 4 9:36AM ; [facility] Not carrier of hemophilia A 06/12/2015 Last Documented On 4 9:36AM ; [facility] Currently wearing eyeglasses 06/06/2014 Last Documented On 4 9:36AM ; [facility] Taking OTC pain medication / fever. Usin g Motrin 03/18/2011 Last Documented On 4 9:36AM ; [facility] Not taking OTC medications 12/06/2009 Last Documented On 4 9:36AM ; [facility] Born by vaginal delivery 07/31/2009 Last Documented On 4 9:36AM ; [facility] History of length at : in21.5 07/31 Last Documented On 4 9:36AM ; [facility] Patient's weight: lbs8/2 200 9 Last Documented On 4 9:36AM ; [facility] Family History Includes: Family History addressed during this encounter Description Last Updated No family history of diabetes mellitus 0 06/12/2015 Last Documented On 4 9:36AM ; [facility] No family history of sudden early deaths 06/12/2015 Last Documented On 4 9:36AM ; [facility] Maternal history of headache syndromes 0 02/28/2014 Last Documented On 4 9:36AM ; [facility] Cancer 07/31/2009 Last Documented On 4 9:36AM ; [facility] Review of Systems Includes: Review of [...] Check-Out Time Diagnosis PROBLEM VISIT RO ACOSTA [facility] 04/06/20 24 9:15AM 10:17AM Generalized Anxiety Disorder,Fatig ue,Obesity Insurance Includes: Active Insurance Policies Plan Name Member ID Group # Subscriber Relationship Effect patricia Dates 1 - [facility] [id number] KRISTI WADE 2 - [facility] [id number] ARLENE WADE Self Clinical Notes Includes: Clinical Notes from this encounter * Progress note Date Encounter Last Documented by 04/06/2024 PROBLEM VISIT Last documented on 04/06/2024; 11:47 AM, RO ACOSTA; [facility] Active Problems & Conditions [...] And Economic Circumstances: Lives with parents in [place]. Education: Currently in school. Allergies - No [...]
--- OUTSIDE RECORDS SUMMARY | 2025-09-22 15:46 | XMS_ITS | Clinical Summary ---
Author Organization [facility] Address [address] [place] [address] Phone Care Team Providers Care Local Az Truck Driver Name Role Phone SANDRA BARR MD Primary Care Provider [phone] Reason for Visit and Chief Complaint The [...] Active Last Documented On 3 9:34AM ; [facility] Past Visits Onset Date Resolved Date Provider Condition Status Chiari Malformation 12/19/2015 RO ACOSTA Active Last Documented On 1 11:01AM ; [facility] Plan of Treatment - Weight loss diet - Last Documented On 07/21/2023 9:41AM ; [facility] - Return to the clinic if condition worsens or new symptoms arise - Last Documented On 07/21/2023 9:41AM ; [facility] - Follow-up visit in 6 months or as needed - Last Documented On 07/21/2023 9:41AM ; [facility] Advised patient to get pap scheduled with her [facility] office as she has not had one yet - Last Documented On 07/21/2023 9:41AM ; [facility] Pending Tests Order Diagnosis Results Due Ordering P javidvider Lab Comp Metabolic Panel 04/09/24 KM COLVIN INTERNAL COMBUSTION ENGINE ASSEMBLER Last Documented On 4 9:43AM ; [facility] Lab Lipid Panel 04/09/24 RO Jeremy PUENTE EZ INTERNAL COMBUSTION ENGINE ASSEMBLER Last Documented On 4 9:43AM ; [facility] Lab CBC w/ DIFF 04/09/24 RO Jeremy PUENTE EZ INTERNAL COMBUSTION ENGINE ASSEMBLER Last Documented On 4 9:43AM ; [facility] Lab TSH w/ reflex T-4, Free 04/09/24 A MAGDALENO Jeremy COLVIN INTERNAL COMBUSTION ENGINE ASSEMBLER Last Documented On 4 9:43AM ; [facility] Lab Vitamin B12/Folic Acid 04/09/24 AL JANEY Jeremy COLVIN INTERNAL COMBUSTION ENGINE ASSEMBLER Last Documented On 4 9:43AM ; [facility] Instructions to patient Lose weight Last Documented On 3 9:38AM ; [facility] Assessments Includes: Assessments from this encounter Findings - [Z00.01 - Encounter for general adult medical examination with abnormal findings] Routine adult history and physical (18-64 yrs) with abnormal findings - Last Documented On 07/21/2023 9:41AM ; [facility] - [F41.1 - Generalized anxiety disorder] Generalized anxiety disorder - Last Documented On 07/21/2023 9:41AM ; [facility] Instructions Includes: Instructions from this encounter Instructions to patient Lose weight Last Documented On 3 9:38AM ; [facility] Medical Equipment - Implanted Devices Includes: Current Devices No Medical Equipment Recorded Medications Includes: Medications discussed during this encounter and other current Medications Discontinued / Stopped on this date RO ACOSTA on 07/21/2023 Sertraline HCl 150 MG Oral Capsule Provid er: RO ACOSTA Diagnosis: Last Documented On 07/21/2023 11:55AM By RO COLVIN NP ; [facility] New / Renewed during this visit RO ACOSTA on 07/21/2023 hydrOXYzine HCl 50 MG Oral Tablet Provider: RO ACOSTA 30 day supply: 10 tablet, 0 refills Diagnosis: Generalized anxiety disorder Take 1 tab as needed for anx iety/panic attacks Pharmacy: [facility] - [address] [place] [address], [id number] - Last Documented On 03/12/2024 11:07AM By RO COLVIN NP ; [facility] Past Medications on file CeleXA 20 MG Oral Tablet 04/19/2024 - 10/16/2024 Provider: RO ACOSTA Diagnosis: Generalized anxi ety disorder One tablet daily Last Documented On 04/19/2024 1:22PM By RO COLVIN [employer] ; [facility] Wellbutrin XL 150 MG Oral Tablet Extended Release 24 Hour 04/06/2024 - 05/06/2024 Provider: RO ACOSTA Diagnosis: Generalized anxi ety disorder One tablet daily Last Documented On 04/06/2024 9:48AM By RO COLVIN NP ; [facility] hydrOXYzine HCl 50 MG Oral Tablet 04/06/2024 - 05/06/2024 Provider: RO ACOSTA Diagnosis: Generalized anxi ety disorder Take 1 tab as needed for anx iety/panic attacks Last Documented On 04/06/2024 9:48AM By RO COLVIN NP ; [facility] Sertraline HCl 100 MG Oral Tablet 07/21/2023 - 01/17/2024 Provider: RO ACOSTA Diagnosis: One tablet daily, 150 mg total daily Last Documented On 07/21/2023 11:57AM By RO COLVIN NP ; [facility] Sertraline HCl 50 MG Oral Tablet 07/21/2023 - 01/17/2024 Provider: RO ACOSTA Diagnosis: One tablet daily, 150 mg total daily Last Documented On 07/21/2023 11:57AM By RO COLVIN NP ; [facility] Medications Administered Includes: Administered Medications from [...] 95 Last Documented: On 07/21/2023 9:22AM ; [facility] Results Includes: Results discussed during this [...] 05/08/2022 Last Documented On 3 9:22AM ; [facility] Current nonsmoker 12/19/2020 Last Documented On 3 9:22AM ; [facility] Non-smoker 03/31/2020 Last Documented On 3 9:22AM ; [facility] Smoking status : Never smoker 08/11/2019 Last Documented On 3 9:22AM ; [facility] Currently in school 02/06/2017 Last Documented On 3 9:22AM ; [facility] Lives with parents in [place] 06/12/2015 Last Documented On 3 9:22AM ; [facility] Not using alcohol 06/12/2015 Last Documented On 3 9:22AM ; [facility] Not using drugs 06/12/2015 Last Documented On 3 9:22AM ; [facility] No tobacco use 06/06/2014 Last Documented On 3 9:22AM ; [facility] A recent decrease in activity 10/15/2010 Last Documented On 3 9:22AM ; [facility] No recent change in sleep 10/15/2010 Last Documented On 3 9:22AM ; [facility] Procedures and Surgical History Includes: Procedures from this encounter Procedures Code Diagnosis Performing Provider Service L ocation Service Date plan of care reviewed and agreed to Last Documented On 3 9:37AM ; [facility] standardized depression screening: negative for symptoms 3351F Last Documented On 3 9:23AM ; [facility] screening for adult depression: impressi on and score 0 Last Documented On 3 9:23AM ; [facility] Surgical History Last Updated No history of surgery 06/12/2015 Last Documented On 3 9:22AM ; [facility] Medical History Includes: Medical History addressed during this encounter Description Last Updated History of headache syndromes : migraine 06/12/2015 Last Documented On 3 9:22AM ; [facility] A PPD was negative 06/12/2015 Last Documented On 3 9:22AM ; [facility] No cardiac problems 06/12/2015 Last Documented On 3 9:22AM ; [facility] No exposure to tuberculosis 06/12/2015 Last Documented On 3 9:22AM ; [facility] No hearing problems 06/12/2015 Last Documented On 3 9:22AM ; [facility] No heart murmur 06/12/2015 Last Documented On 3 9:22AM ; [facility] No high cholesterol 06/12/2015 Last Documented On 3 9:22AM ; [facility] No history of asthma 06/12/2015 Last Documented On 3 9:22AM ; [facility] No history of concussion 06/12/2015 Last Documented On 3 9:22AM ; [facility] No history of delayed milestones 015 Last Documented On 3 9:22AM ; [facility] No history of diabetes mellitus 06/12/20 15 Last Documented On 3 9:22AM ; [facility] No history of hematologic disorder 06/12 Last Documented On 3 9:22AM ; [facility] No history of sickle cell abnormality Last Documented On 3 9:22AM ; [facility] No loss of function of one of paired org ans 06/12/2015 Last Documented On 3 9:22AM ; [facility] No orthopedic problems 06/12/2015 Last Documented On 3 9:22AM ; [facility] No previous hospitalizations 06/12/2015 Last Documented On 3 9:22AM ; [facility] No recent severe illness or injury 06/12 Last Documented On 3 9:22AM ; [facility] No trauma to the head 06/12/2015 Last Documented On 3 9:22AM ; [facility] Not born with congenital abnormalities 0 06/12/2015 Last Documented On 3 9:22AM ; [facility] Not carrier of hemophilia A 06/12/2015 Last Documented On 3 9:22AM ; [facility] Currently wearing eyeglasses 06/06/2014 Last Documented On 3 9:22AM ; [facility] Taking OTC pain medication / fever. Usin g Motrin 03/18/2011 Last Documented On 3 9:22AM ; [facility] Not taking OTC medications 12/06/2009 Last Documented On 3 9:22AM ; [facility] Born by vaginal delivery [birth year]/31/2009 Last Documented On 3 9:22AM ; [facility] History of length at : in21.5 07/31 Last Documented On 3 9:22AM ; [facility] Patient's weight: lbs8/2 200 9 Last Documented On 3 9:22AM ; [facility] Family History Includes: Family History addressed during this encounter Description Last Updated No family history of diabetes mellitus 0 06/12/2015 Last Documented On 3 9:22AM ; [facility] No family history of sudden early deaths 06/12/2015 Last Documented On 3 9:22AM ; [facility] Maternal history of headache syndromes 0 02/28/2014 Last Documented On 3 9:22AM ; [facility] Cancer 07/31/2009 Last Documented On 3 9:22AM ; [facility] Review of Systems Includes: Review of [...] Time Diagnosis ANNUAL PHYSICAL EXAM RO ACOSTA [facility] 07/21/20 23 9:09AM 9:33AM Generalized Anxiety Disorder,Routi ne History & Physical Adult with Abnormal Findings Insurance Includes: Active Insurance Policies Plan Name Member ID Group # Subscriber Relationship Effect patricia Dates 1 - [facility] [id number] KRISTI WADE 2 - [facility] [id number] ARLENE WADE Self Clinical Notes Includes: Clinical Notes from this encounter * Progress note Date Encounter Last Documented by 07/21/2023 ANNUAL PHYSICAL EXAM Last docume nted on 07/21/2023; 9:41 AM, RO ACOSTA; [facility] Active Problems & Conditions [...] And Economic Circumstances: Lives with parents in [place]. Education: Currently in school. Allergies - No [...] patient to get pap scheduled with her [facility]IL[facility] office as she has not had one [...]
--- OUTSIDE RECORDS SUMMARY | 2025-09-22 15:46 | XMS_ITS | Clinical Summary ---
Author Organization [facility] Address [address] [place] [address] Phone Care Team Providers Care Mussel Farmer Name Role Phone SANDRA BARR MD Primary Care Provider [phone] Reason for Visit and Chief Complaint * PHONE CALL Problems Includes: Problems addressed during this encounter and other active Problems All Visits Onset Date Resolved Date Provider Condition S tatus Generalized Anxiety Disorder 07/21/2022 ROYESY COLVIN NEUROSURGICAL NURSE PRACTITIONER Active Last Documented On 3 9:34AM ; [facility] Chiari Malformation 12/19/2015 RO Jeremy RESENDIZZ NEUROSURGICAL NURSE PRACTITIONER Active Last Documented On 1 11:01AM ; [facility] Plan of Treatment Pending Tests Order Diagnosis Results Due Ordering P rovider Lab Comp Metabolic Panel 04/09/24 KM SON Jeremy COLVIN NEUROSURGICAL NURSE PRACTITIONER Last Documented On 4 9:43AM ; [facility] Lab Lipid Panel 04/09/24 RO Jeremy SAG EZ NEUROSURGICAL NURSE PRACTITIONER Last Documented On 4 9:43AM ; [facility] Lab CBC w/ DIFF 04/09/24 RO Jeremy SAG EZ NEUROSURGICAL NURSE PRACTITIONER Last Documented On 4 9:43AM ; [facility] Lab TSH w/ reflex T-4, Free 04/09/24 A MAGDALENO RESENDIZZ NEUROSURGICAL NURSE PRACTITIONER Last Documented On 4 9:43AM ; [facility] Lab Vitamin B12/Folic Acid 04/09/24 AL LISON Jeremy SAGEZ NEUROSURGICAL NURSE PRACTITIONER Last Documented On 4 9:43AM ; [facility] Assessments Includes: Assessments from this [...] Subscriber Relationship Effect patricia Dates 1 - [facility] [id number] MAURO KRISTI Himanshu 2 - [facility] [id number] ARLENE L MAURO Self Clinical Notes Includes: Clinical Notes from this encounter * Progress note Date Encounter Last Documented by 07/17/2023 * PHONE CALL Last documented on 07/18/2023; 8:22 AM, RO ACOSTA; [facility] Chief Complaint Phone [...]
--- OUTSIDE RECORDS SUMMARY | 2025-09-22 15:46 | XMS_ITS | Continuity of Care Document ---
Author Organization [facility] Address [address] [place] [address] Assessment No assessment recorded. Plan of Treatment Reminders Order Date Submit Date Provider Last Modified By Organization Details Last Modified Time Details Appointments OB ROUTINE 2024 03:45P Jeniffer Hopson CNM Not available Not available Not available INDUCTION 2024 06:30A Jeniffer Hopson CNM Not available Not available Not available Lab CBC w/ auto diff 2024 025 [facility] (Lab), [address], [place], [address], 09/21/2025 04:26:08 CMP, serum or plasma 2024 025 [facility] (Lab), [address], [place], [address], 09/21/2025 04:26:09 protein:c reatinine ratio, urine 2024 025 [facility] (Lab), [address], [place], [address], 09/21/2025 04:26:09 uric acid, serum or plasma 2024 025 [facility] (Lab), [address], [place], [address], 09/21/2025 04:26:08 Referral None recorded. Procedures None recorded. Surgeries None recorded. Imaging None recorded. Medication Orders None recorded. Patient TargetsNo targets recorded. Patient InstructionsNo instructions recorded. Reason for Referral None Reported. Results Created Date Observation Date Name Description Value Unit Range Abnormal Flag Note LastModifiedBy Organization Detail LastModifiedTime 08/12/2008/12/2025 HEMAT OCRIT (HCT) HCT 34.0 % (based on docume nted legal sex) 34.0-4 5.0 Not Available [facility] (Lab) [address], [place], [address], 08/13/2025 11:56:51 08/12/2008/12/2025 HEMOG LOBIN (HGB) HGB 11.1 g/dL (based on docume nted legal sex) 11.6-1 5.4 low Not Available [facility] (Lab) [address] [place], [address], 08/13/2025 11:56:52 08/12/2008/12/2025 GTT - GESTA DELTA L ADRIÁN Luna, ACOG OB glucose, 1 hour screen 67 mg/dL 70-135 low Not Available [facility] (Lab) [address] [place], [address], 08/13/2025 11:56:52 08/12/2008/12/2025 HIV 1/2 ANTIG EN/AN TIBOD Y, REFLE X CONFI RMATI ON HIV antigen/anti body Nonrea ctive nonrea ctive HIV-1 antig en and HIV-1 /HIV- 2 antib odies were not detec ehlam. No labor atory evide nce of HIV infec tion. Not Available [facility] (Lab) [address] [place], [address], 08/13/2025 11:56:52 08/12/2008/12/2025 RPR SCREE N, REFLE X TITER /CONF IRMAT ION RPR qualitative Nonrea ctive nonrea ctive Not Available [facility] (Lab) [address] [place], [address], 08/13/2025 11:56:53 09/20/20 25 09/20/2025 URIC ACID uric acid 6.0 mg/dL 2.3-6. 6 Not Available [facility] (Lab) [address], [place], [address], 09/21/2025 04:26:08 09/20/20 25 09/20/2025 CBC W/DIF F WBC 10.8 10'3/ uL 3.5-10 .5 high Not Available [facility] (Lab) [address], [place], [address], 09/21/2025 04:26:08 09/20/20 25 09/20/2025 CBC W/DIF F RBC 3.56 10'6/ uL (based on docume nted legal sex) 3.80-5 .20 low Not Available [facility] (Lab) [address], [place], [address], 09/21/2025 04:26:08 09/20/20 25 09/20/2025 CBC W/DIF F HGB 10.7 g/dL (based on docume nted legal sex) 11.6-1 5.4 low Not Available [facility] (Lab) [address], [place], [address], 09/21/2025 04:26:08 09/20/20 25 09/20/2025 CBC W/DIF F HCT 33.4 % (based on docume nted legal sex) 34.0-4 5.0 low Not Available [facility] (Lab) [address], [place], [address], 09/21/2025 04:26:08 09/20/20 25 09/20/2025 CBC W/DIF F MCV 93.8 fL 80.0-9 9.0 Not Available [facility] (Lab) [address], [place], [address], 09/21/2025 04:26:08 09/20/20 25 09/20/2025 CBC W/DIF F MCH 30.1 pg 27.0-3 4.0 Not Available [facility] (Lab) [address], [place], [address], 09/21/2025 04:26:08 09/20/20 25 09/20/2025 CBC W/DIF F MCHC 32.0 g/dL 32.0-3 5.5 Not Available [facility] (Lab) [address], [place], [address], 09/21/2025 04:26:08 09/20/20 25 09/20/2025 CBC W/DIF F RDW 13.2 % 11.0-1 5.0 Not Available [facility] (Lab) [address], [place], [address], 09/21/2025 04:26:08 09/20/20 25 09/20/2025 CBC W/DIF F plt 285 10'3/ uL 150-40 0 Not Available [facility] (Lab) [address], [place], [address], 09/21/2025 04:26:08 09/20/20 25 09/20/2025 CBC W/DIF F MPV 12.2 fL 8.8-12 .1 high Not Available [facility] (Lab) [address], [place], [address], 09/21/2025 04:26:08 09/20/20 25 09/20/2025 CBC W/DIF F NRBC's 0.0 % 0.0 Not Available [facility] (Lab) [address], [place], [address], 09/21/2025 04:26:08 09/20/20 25 09/20/2025 CBC W/DIF F absolute NRBCs 0.0 10'3/ uL no refere nce range establ ished Not Available [facility] (Lab) [address], [place], [address], 09/21/2025 04:26:08 09/20/20 25 09/20/2025 CBC W/DIF F neutrophils 75.2 % 34.0-7 3.0 high Not Available [facility] (Lab) [address], [place], [address], 09/21/2025 04:26:08 09/20/20 25 09/20/2025 CBC W/DIF F lymphocytes 14.0 % 15.0-5 0.0 low Not Available [facility] (Lab) [address], [place], [address], 09/21/2025 04:26:08 09/20/20 25 09/20/2025 CBC W/DIF F monocytes 8.9 % 1.0-15 .0 Not Available [facility] (Lab) [address], [place], [address], 09/21/2025 04:26:08 09/20/20 25 09/20/2025 CBC W/DIF F eosinophils 0.9 % 0.0-8. 0 Not Available [facility] (Lab) [address] [facility], [place], [address], 09/21/2025 04:26:08 09/20/20 25 09/20/2025 CBC W/DIF F basophils 0.5 % 0.0-2. 0 Not Available [facility] (Lab) [address] [facility] [address], [place], [address], 09/21/2025 04:26:08 09/20/20 25 09/20/2025 CBC W/DIF [...] separ ately if prese nt. Not Available [facility] (Lab) [address], [place], [address], 09/21/2025 04:26:08 09/20/20 25 09/20/2025 CBC W/DIF F absolute neutrophils 8.2 10'3/ uL 1.5-8. 0 high Not Available [facility] (Lab) [address] [facility], [place], [address], 09/21/2025 04:26:08 09/20/20 25 09/20/2025 CBC W/DIF F absolute lymphocytes 1.5 10'3/ uL 1.0-4. 0 Not Available [facility] (Lab) [address] [facility] [address], [place], [address], 09/21/2025 04:26:08 09/20/20 25 09/20/2025 CBC W/DIF F absolute monocytes 1.0 10'3/ uL 0.2-1. 0 Not Available [facility] (Lab) [address], [place], [address], 09/21/2025 04:26:08 09/20/20 25 09/20/2025 CBC W/DIF F absolute eosinophils 0.1 10'3/ uL 0.0-0. 6 Not Available [facility] (Lab) [address] [facility], [place], [address], 09/21/2025 04:26:08 09/20/20 25 09/20/2025 CBC W/DIF F absolute basophils 0.1 10'3/ uL 0.0-0. 3 Not Available [facility] (Lab) [address] [facility], [place], [address], 09/21/2025 04:26:08 09/20/20 25 09/20/2025 CBC W/DIF F absolute immature granulocytes 0.1 10'3/ uL 0.00-0 .10 Refer ence range s for nonbi nary/ inter sex or unspe cifie d gende r patie nts have not been estab lishe d. [facility]as [facility] for range s estab lishe d for cisge nder patie nts and evalu ate in the clini jun ramesh xt of the indiv idual patie nt: https ://karely higuera book. nm.or g/gen derx Not Available [facility] (Lab) [address] [facility], [place], [address], 09/21/2025 04:26:08 09/20/20 25 09/20/2025 PROTE IN/CR EATIN INE RATIO , URINE creatinine, urine 133.1 mg/dL R-No refer ence range estab lishe d for this assay Not Available [facility] (Lab) [address] [facility], [place], [address], 09/21/2025 04:26:09 09/20/20 25 09/20/2025 PROTE IN/CR EATIN INE RATIO , URINE protein, urine 29 mg/dL R-No refer ence range estab lishe d for this assay Not Available [facility] (Lab) [address], [place], [address], 09/21/2025 04:26:09 09/20/20 25 09/20/2025 PROTE IN/CR [...] fican t prote inuri a. Not Available [facility] (Lab) [address] [facility], [place], [address], 09/21/2025 04:26:09 09/20/20 25 09/20/2025 CMP(C OMPRE HENSI VE METAB OLIC PANEL ) sodium 137 mmol/ L 133-14 6 Not Available [facility] (Lab) [address] [facility], [place], [address], 09/21/2025 04:26:09 09/20/20 25 09/20/2025 CMP(C OMPRE HENSI VE METAB OLIC PANEL ) potassium 4.4 mmol/ L 3.5-5. 1 Not Available [facility] (Lab) [address], [place], [address], 09/21/2025 04:26:09 09/20/20 25 09/20/2025 CMP(C OMPRE HENSI VE METAB OLIC PANEL ) chloride 103 mmol/ L 98-107 Not Available [facility] (Lab) [address], [place], [address], 09/21/2025 04:26:09 09/20/20 25 09/20/2025 CMP(C OMPRE HENSI VE METAB OLIC PANEL ) carbon dioxide 24 mmol/ L 21-31 Not Available [facility] (Lab) [address], [place], [address], 09/21/2025 04:26:09 09/20/20 25 09/20/2025 CMP(C OMPRE HENSI VE METAB OLIC PANEL ) anion gap 10 mmol/ L 4-13 Not Available [facility] (Lab) [address], [place], [address], 09/21/2025 04:26:09 09/20/20 25 09/20/2025 CMP(C OMPRE HENSI VE METAB OLIC PANEL ) blood urea nitrogen 7 mg/dL 7-25 Not Available [facility] (Lab) [address], [place], [address], 09/21/2025 04:26:09 09/20/20 25 09/20/2025 CMP(C OMPRE HENSI VE METAB OLIC PANEL ) creatinine 0.54 mg/dL 0.60-1 .30 low Not Available [facility] (Lab) [address], [place], [address], 09/21/2025 04:26:09 09/20/20 25 09/20/2025 CMP(C OMPRE HENSI VE METAB OLIC PANEL ) egfrcr (CKD-epi 2020) >90 mL/mi n/1.7 3_m2 >=60 Not Available [facility] (Lab) [address], [place], [address], 09/21/2025 04:26:09 09/20/20 25 09/20/2025 CMP(C OMPRE HENSI VE METAB OLIC PANEL ) calcium 8.9 mg/dL 8.3-10 .5 Not Available [facility] (Lab) [address], [place], [address], 09/21/2025 04:26:09 09/20/20 25 09/20/2025 CMP(C OMPRE HENSI VE METAB OLIC PANEL ) glucose 64 mg/dL 70-100 low Not Available [facility] (Lab) [address], [place], [address], 09/21/2025 04:26:09 09/20/20 25 09/20/2025 CMP(C OMPRE HENSI VE METAB OLIC PANEL ) protein, total 6.4 g/dL 6.4-8. 3 Not Available [facility] (Lab) [address], [place], [address], 09/21/2025 04:26:09 09/20/20 25 09/20/2025 CMP(C OMPRE HENSI VE METAB OLIC PANEL ) albumin 3.3 g/dL 3.5-5. 0 low Not Available [facility] (Lab) [address], [place], [address], 09/21/2025 04:26:09 09/20/20 25 09/20/2025 CMP(C OMPRE HENSI VE METAB OLIC PANEL ) ALT 11 units /L 9-43 Not Available [facility] (Lab) [address] [place], [address], 09/21/2025 04:26:09 09/20/20 25 09/20/2025 CMP(C OMPRE HENSI VE METAB OLIC PANEL ) alkaline phosphatase 181 units /L 34-104 high Not Available [facility] (Lab) [address] [facility], [place], [address], 09/21/2025 04:26:09 09/20/20 25 09/20/2025 CMP(C OMPRE HENSI VE METAB OLIC PANEL ) AST 11 units /L 13-39 low Not Available [facility] (Lab) [address] [facility], [place], [address], 09/21/2025 04:26:09 09/20/20 25 09/20/2025 CMP(C OMPRE HENSI VE METAB OLIC PANEL ) bilirubin, total 0.5 mg/dL 0.2-1. 2 Not Available [facility] (Lab) [address] [facility], [place], [address], 09/21/2025 04:26:09 06/08/20 25 06/08/2025 US, obste tric, 2nd or 3rd trime ster No observ ation record ed. [email or web address], [place], [address], 06/08/2025 16:53:10 06/08/20 25 06/08/2025 US, obste tric, follo w-up No observ ation record ed. [email or web address] [address], [place], [address], 06/09/2025 21:51:59 07/08/20 25 07/08/2025 US, obste tric, follo w-up No observ ation record ed. [address], [place], [address], 07/09/2025 19:07:42 07/08/20 25 07/08/2025 US, obste tric, follo w-up No observ ation record ed. [facility] [address], [place], [address], 07/08/2025 17:05:02 08/12/20 25 08/12/2025 US, obste tric, follo w-up No observ ation record ed. [facility] [address], [place], [address], 08/12/2025 17:22:39 08/12/2008/12/2025 US, obste tric, follo w-up No observ ation record ed. [email or web address] [address], [place], [address], 08/16/2025 11:15:17 09/09/2009/09/2025 US, obste tric, follo w-up No observ ation record ed. [facility] [address], [place], [address], 09/09/2025 15:58:13 09/09/2009/09/2025 US, obste tric, follo w-up No observ ation record ed. [email or web address] [address], [place], [address], 09/15/2025 16:35:10 Result Notes None recorded. Problems Name Problem SNOMED Code Status Onset Date Resolution Date Notes Provider Name and Address Organization Details Recorded Time Anxiety 78870551 Completed Seeing PCP 10/22/22 to discuss medicati on. Pt states she is doing well on zoloft 100mg on 12/02/22! Nancie Alvarado [facility] 3 16:55:06 Proteinu sirisha 05631807 Completed with swelling - 1x/wk antenata l testing. Monitor for pre-e Nancie block [facility] 3 16:55:06 Chiari malforma tion 254954976 Active 2021 decompre ssed, no neuro follow up required per her team Nancie Alvarado [facility] 3 16:55:06 Chiari malforma tion 200376129 Completed 2021 decompre ssed, no neuro follow up required per her team Nancie Alvarado null, [facility] 3 16:55:06 Pregnanc y 15282502 Completed 202103/27/2023 Bailee block, [facility] 5 09:19:52 Mixed anxiety and depressi ve disorder 940652993 Active 2024 Bailee Yeung null, [facility] 5 18:16:31 History of Spinal surgery 680755676 Active 2024 Bailee block, [facility] 5 18:16:45 Pregnanc y 63603660 Active 2024 Bailee block, [facility] 5 09:19:52 Pre-ecla mpsia 551559846 Active 2024 last pregancy start bASA 81 mg Cathi Hopson CNM [address], [place], [address], [facility] 5 09:29:14 Migraine 30814703 Active 2024 imitrex Cathi Hopson CNM [address], [place], [address], [facility] 5 09:29:39 Problem Notes None recorded. Procedures Surgical History Date Name Laterality Status Provider Name and Address Organization Details Recorded Time 5 IUD Insertion completed Rica Banda [facility] 12/30/2024 16:38:48 5 Date of Last Pap Smear completed Bailee Yeung [facility] 03/09/2025 18:16:56 3 IUD Insertion completed Bailee Yeung [facility] 05/28/2023 12:30:09 3 IUD Insertion completed Cathi Hopson CNM [address], [place], [address], [facility] 04/30/2023 12:28:48 7 procedure on back completed Bailee Yeung [facility] 10/09/2022 17:12:07 Imaging Results None [...] Updated DateTime 09/20/2025 162.56 cm 39.3 kg/m2 154957.65 g 146/94 mm[Hg] Savannah Borges [facility] 09/20/2025 12:35:43 Social History Question Answer Notes LastModified by Organizat ion Details LastModified Time Tobacco Smoking Status Never Smoker Bailee Yeung null, [facility] 12/04/2022 16:09:49 Do You Have An Advance Directive? No [email or web address] Information n ot available 10/09/2022 If You Are , What Was Your Level Of Alcohol Consumption Prior To ? Occasional [email or web address] Information not available 04/22/2025 Are You Blind Or Do You Have Difficulty Seeing? No Information n ot available 12/04/2022 What Is Your Level Of Caffeine Consumption? Moderate [email or web address] Information not available 10/09/2022 How Much Tobacco Do You Chew? None [email or web address] Information not available 10/09/2022 In The 14 Days Before Symptom Onset, Have You Had Close Contact With A Laboratory-confirm ed COVID-19 While That Case Was Ill? No [email or web address] Information n ot available 11/06/2022 In The 14 Days Before Symptom Onset, Have You Had Close Contact With A Person Who Is Under Investigation For COVID-19 While That Person Was Ill? No [email or web address] Information not available 11/06/2022 Have You Been To An Area Known To Be High Risk For COVID-19? No [email or web address] Information not available 10/09/2022 Are You Deaf Or Do You Have Serious Difficulty Hearing? No [email or web address] Information not available 10/09/2022 What Type Of Diet Are You Following? REGULAR [email or web address] Information n ot available 10/09/2022 What Is The Highest Grade Or Level Of School You Have Completed Or The Highest Degree You Have Received? SK96806-7 [email or web address] Information not available 03/09/2025 Are There Any Guns Present In Your Home? Yes Information not available 10/09/2022 Do You Use Protection During Sex? No [email or web address] Information not available 10/09/2022 Do You Use Your Seat Belt Or Car Seat Routinely? Yes Information not available 10/09/2022 Are You Sexually Active? Yes [email or web address] Information not available 06/08/2025 Do You Have Smoke And Carbon Monoxide Detectors In Your Home? Yes [email or web address] Information not available 10/09/2022 How Much Tobacco Do You Smoke? No [email or web address] Information not available 10/09/2022 Do You Use Sunscreen Routinely? Yes [email or web address] Information not available 11/06/2022 Has Tobacco Cessation Counseling Been Provided? No [email or web address] Information not available 12/04/2022 Have You Used IV Drugs? No [email or web address] Information not available 10/09/2022 Do You Have Difficulty Walking Or Climbing Stairs? No [email or web address] Information not available 12/04/2022 Sex: Female Functional Status Question Answer Note LastModified by Organizat ion Details LastModified Time Do you use any illicit or recreational drugs? No Information not available 08/21/2022 Do you or have you ever used any other forms of tobacco or nicotine? No [email or web address] Information not available 12/04/2022 What is your level of alcohol consumption? None Information not available 08/21/2022 Are you currently employed? Yes [email or web address] Information not available 06/08/2025 Are you able to walk independently without assistance or assistive devices? YESWOREST [email or web address] Information not available 10/09/2022 Are you able to care for yourself independently? 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 No [email or web address] Information not available 12/04/2022 What is your exercise level? Occasional [email or web address] Information not available 10/09/2022 Mental Status Question Answer Note LastModified by Organization D etails LastModified Time Do you feel stressed (tense, restless, nervous, or anxious, or unable to sleep at night)? [id number] [email or web address] Information not available 10/09/2022 Family History Relationship Description Onset Age of this Age Resolved Age Notes LastModified by Organization Details LastModified Time Paternal Grandfather Carcinoma in situ of colon [email or web address] Not available 2024 16:46:41 Mother Carcinoma of uterine cervix, invasive [email or web address] Not available 2024 16:46:41 Mother Pre-eclampsi a [email or web address] Not available 11/06 19:07:22 Mother Malignant neoplasm of cervix uteri [email or web address] Not available 19:07:22 Sister Anxiety disorder [email or web address] Not available 2021 16:09:53 Maternal Grandmother Anxiety disorder [email or web address] Not available 11/06 19:07:22 Maternal Grandfather Anxiety disorder [email or web address] Not available 11/06 19:07:22 Paternal Grandmother Malignant neoplasm of colon Not available 11/06 19:07:22 Paternal Grandmother Malignant neoplasm of breast [email or web address] Not available 11/06 19:07:22 Medical History Condition [...] ICD10 Code Diagnosis IMO Codes Diagnosis Note [id number] Cathi Hopson, 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 [address],[place] [address] 09/09/2025 10:21:57 09/09/2025 11:37:17 Gestation period, 33 weeks 39004473 Z3A.33 [id number] WENDY STEARNS MD [place] [address],[place] [address] 09/20/2025 12:24:31 09/20/2025 12:53:43 Elevated blood-pressure reading without diagnosis of hypertension 817692947 R03.0 71127763 - hx of preeclamps ia in G1 - BP newly elevated today- labs ordered Health Concerns Section Related Observation LastModified by Organization Detai ls LastModified Time None Recorded Concern Status LastModified by Organization Details LastModified Time None Recorded Payers Encounter Date Sequence Insurance Name Policy Number Policy Meyer Covered Member ID Meyer Member ID Guarantor Name 09/20/2025 1 [employer] [id number] G Tutu Guo [id number] Zulma Guo Notes Date Note Type Note Provider Name and Address Organization Details Recorded Time 09/20/2025 text/html Generic HPI TemplateReported by Patient WENDY STEARNS MD [address], [place], [address], [facility] 09/20/2025 12:52:34 OBGyn Episode Ob Episode Information Episode Created Date Number of Fetuses Patient Bloodtype Patient rh Status Prepregnancy Weight lbs Domestic Partner Domestic Partner Phone Father Name Librarian School Status 04/22/20 25 1 A Positive 176 [employer] Brant OPEN Fetus Data First Name Last Name Admitted to NICU Weight (g) Sex Living Outcome Pediatric Complications Fetus ID Race Codes Race Delivery Type [id number] Problems Problem Notes fundus has bicornuate appear anceserial growth uspih labs 07/25 in chart Problem Name Start Date End Date Resolution Snomed Code Not e Migraine 04/22/2025 [id number] imitrex Pre-eclampsia 04/22/2025 712285879 last pregancystart bASA 81 mg Han Calculation [...] Weight in lbs Pre/Post Dialysis Refused Weight 182.882828533986 BP Diastolic BP Location Tested BP Systolic [...] Type Weight in lbs Pre/Post Dialysis Refused 184.126539468920 BP Diastolic BP Location Tested BP Systolic BP Type 75 L arm 110 sitting Fetus Heart Rate Present Fetus Movement A No Comments doing well, education and pr ecautions, went to [facility] last week, headaches are better, f/u 4 [...] Type Weight in lbs Pre/Post Dialysis Refused 190.922553908223 BP Diastolic BP Location Tested BP Systolic [...] Weight in lbs Pre/Post Dialysis Refused Weight 204.937479460806 BP Diastolic BP Location Tested BP Systolic [...] Weight in lbs Pre/Post Dialysis Refused Weight 220.721968353587 BP Diastolic BP Location Tested BP Systolic [...] Weight in lbs Pre/Post Dialysis Refused Weight 223.296828660974 BP Diastolic BP Location Tested BP Systolic [...] Type Weight in lbs Pre/Post Dialysis Refused 225.999101812284 BP Diastolic BP Location Tested BP Systolic [...] Weight in lbs Pre/Post Dialysis Refused Weight 229.662950358342 BP Diastolic BP Location Tested BP Systolic [...]
--- OUTSIDE RECORDS SUMMARY | 2025-09-22 15:46 | XMS_ITS | Continuity of Care Document ---
Author Organization [facility] Address [address] [place] [address] Assessment Encounter Date Assessment Date Assessment LastModified by Organization Details LastModified Time 09/09/2025 09/09/2025 Patient is _33__weeks . Discussed plan. Not available 09/09/2025 11:21:24 Plan of Treatment [...] nted legal sex) 34.0-4 5.0 Not Available [facility] (Lab) [address], [place], [address], 08/13/2025 11:56:51 08/12/20 25 08/12/2025 HEMOG LOBIN (HGB) HGB 11.1 g/dL (based on docume nted legal sex) 11.6-1 5.4 low Not Available [facility] (Lab) [address], [place], [address], 08/13/2025 11:56:52 08/12/20 25 08/12/2025 GTT - GESTA DELTA L ADRIÁN N, ACOG OB glucose, 1 hour screen 67 mg/dL 70-135 low Not Available [facility] (Lab) [address] [facility], [place], [address], 08/13/2025 11:56:52 08/12/20 25 08/12/2025 HIV 1/2 ANTIG EN/AN TIBOD Y, REFLE X CONFI RMATI ON HIV antigen/anti body Nonrea ctive nonrea ctive HIV-1 antig en and HIV-1 /HIV- 2 antib odies were not detec elham. No labor atory evide nce of HIV infec tion. Not Available [facility] (Lab) [address], [place], [address], 08/13/2025 11:56:52 08/12/20 25 08/12/2025 RPR SCREE N, REFLE X TITER /CONF IRMAT ION RPR qualitative Nonrea ctive nonrea ctive Not Available [facility] (Lab) [address], [place], [address], 08/13/2025 11:56:53 06/08/20 25 06/08/2025 US, noam arreguin, 2nd or 3rd trime ster No observ ation record ed. [email or web address] [facility] [address], [place], [address], 06/08/2025 16:53:10 06/08/20 25 06/08/2025 US, obste kallie follo w-up No observ ation record ed. [email or web address] [address], [place], [address], 06/09/2025 21:51:59 07/08/20 25 07/08/2025 US, margarete kallie follo w-up No observ ation record ed. [email or web address] [facility] [address], [place], [address], 07/09/2025 19:07:42 07/08/2007/08/2025 US, obste tric, follo w-up No observ ation record ed. [facility] [address], [place], [address], 07/08/2025 17:05:02 08/12/2008/12/2025 US, obste tric, follo w-up No observ ation record ed. [facility] [address], [place], [address], 08/12/2025 17:22:39 08/12/2008/12/2025 US, obste tric, follo w-up No observ ation record ed. [email or web address] [facility] [address], [place], [address], 08/16/2025 11:15:17 09/09/2009/09/2025 US, obste tric, follo w-up No observ ation record ed. [facility] [address], [place], [address], 09/09/2025 15:58:13 09/09/2009/09/2025 US, obste tric, follo w-up No observ ation record ed. [facility] [address], [place], [address], 09/15/2025 16:35:10 Result Notes None recorded. Problems Name Problem SNOMED Code Status Onset Date Resolution Date Notes Provider Name and Address Organization Details Recorded Time Anxiety 56671388 Completed Seeing PCP 10/22/22 to discuss medicati on. Pt states she is doing well on zoloft 100mg on 12/02/22! Nancie Alvarado [facility] [place] [facility] 3 16:55:06 Proteinu sirisha 50376950 Completed with swelling - 1x/wk antenata l testing. Monitor for pre-e Nancie block [facility] 3 16:55:06 Chiari malforma tion 943679606 Active 2021 decompre ssed, no neuro follow up required per her team Nancie block [facility] 3 16:55:06 Chiari malforma tion 818414350 Completed 2021 decompre ssed, no neuro follow up required per her team Nancie block [facility] 3 16:55:06 Pregnanc y 83010552 Completed 202103/27/2023 Bailee block [facility] 5 09:19:52 Mixed anxiety and depressi ve disorder 896482435 Active 2024 Bailee block, [facility] 5 18:16:31 History of Spinal surgery 143364543 Active 2024 Bailee block, [facility] 5 18:16:45 Pregnanc y 32389953 Active 2024 Bailee block [facility] 5 09:19:52 Pre-ecla mpsia 006221734 Active 2024 last pregancy start bASA 81 mg Cathi Hopson CNM [address], [place], [address], [facility] 5 09:29:14 Migraine 09270182 Active 2024 imitrex Cathi Hopson CNM [address], [place], [address], [facility] 5 09:29:39 Problem Notes None recorded. Procedures Surgical History Date Name Laterality Status Provider Name and Address Organization Details Recorded Time 5 IUD Insertion completed Rica Veronika [facility] 12/30/2024 16:38:48 5 Date of Last Pap Smear completed Bailee Yeung [facility] 03/09/2025 18:16:56 3 IUD Insertion completed Bailee Yeung [facility] 05/28/2023 12:30:09 3 IUD Insertion completed Cathi Hopson CNM [address], [place], [address], [facility] 04/30/2023 12:28:48 7 procedure on back completed Baileeal Yeung [facility] 10/09/2022 17:12:07 Imaging Results None recorded. [...] Address Organization Details Last Updated DateTime 09/09/2025 443606.79735 g 117/81 mm[Hg] Savannah Jony [facility] 09/09/2025 11:09:34 Social History Question Answer Notes LastModified by Organizat ion Details LastModified Time Tobacco Smoking Status Never Smoker Bailee Gamal null, [facility] 12/04/2022 16:09:49 Do You Have An Advance Directive? No [email or web address] Information n ot available 10/09/2022 If You Are , What Was Your Level Of Alcohol Consumption Prior To ? Occasional [email or web address] Information not available 04/22/2025 Are You Blind Or Do You Have Difficulty Seeing? No [email or web address] Information n ot available 12/04/2022 What Is Your Level Of Caffeine Consumption? Moderate [email or web address] Information not available 10/09/2022 How Much Tobacco Do You Chew? None Information not available 10/09/2022 In The 14 Days Before Symptom Onset, Have You Had Close Contact With A Laboratory-confirm ed COVID-19 While That Case Was Ill? No [email or web address] Information n ot available 11/06/2022 In The 14 Days Before Symptom Onset, Have You Had Close Contact With A Person Who Is Under Investigation For COVID-19 While That Person Was Ill? No [email or web address] Information not available 11/06/2022 Have You Been To An Area Known To Be High Risk For COVID-19? No [email or web address] Information not available 10/09/2022 Are You Deaf Or Do You Have Serious Difficulty Hearing? No [email or web address] Information not available 10/09/2022 What Type Of Diet Are You Following? REGULAR [email or web address] Information n ot available 10/09/2022 What Is The Highest Grade Or Level Of School You Have Completed Or The Highest Degree You Have Received? [id number] [email or web address] Information not available 03/09/2025 Are There Any Guns Present In Your Home? Yes [email or web address] Information not available 10/09/2022 Do You Use Protection During Sex? No [email or web address] Information not available 10/09/2022 Do You Use Your Seat Belt Or Car Seat Routinely? Yes [email or web address] Information not available 10/09/2022 Are You Sexually Active? Yes Information not available 06/08/2025 Do You Have Smoke And Carbon Monoxide Detectors In Your Home? Yes [email or web address] Information not available 10/09/2022 How Much Tobacco Do You Smoke? No [email or web address] Information not available 10/09/2022 Do You Use Sunscreen Routinely? Yes Information not available 11/06/2022 Has Tobacco Cessation Counseling Been Provided? No [email or web address] Information not available 12/04/2022 Have You Used IV Drugs? No [email or web address] Information not available 10/09/2022 Do You Have Difficulty Walking Or Climbing Stairs? No [email or web address] Information not available 12/04/2022 Sex: Female Functional Status Question Answer Note LastModified by Organizat ion Details LastModified Time Do you use any illicit or recreational drugs? No Information not available 08/21/2022 Do you or have you ever used any other forms of tobacco or nicotine? No Information not available 12/04/2022 What is your level of alcohol consumption? None Information not available 08/21/2022 Are you currently employed? Yes Information not available 06/08/2025 Are you able to walk independently without assistance or assistive devices? YESWOREST [email or web address] Information not available 10/09/2022 Are you able to care for yourself independently? 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 No Information not available 12/04/2022 What is your exercise level? Occasional [email or web address] Information not available 10/09/2022 Mental Status Question Answer Note LastModified by Organization D etails LastModified Time Do you feel stressed (tense, restless, nervous, or anxious, or unable to sleep at night)? [id number] [email or web address] Information not available 10/09/2022 Family History Relationship Description Onset Age of this Age Resolved Age Notes LastModified by Organization Details LastModified Time Paternal Grandfather Carcinoma in situ of colon Not available 2024 16:46:41 Mother Carcinoma of uterine cervix, invasive [email or web address] Not available 2024 16:46:41 Mother Pre-eclampsi a [email or web address] Not available 11/06 19:07:22 Mother Malignant neoplasm of cervix uteri [email or web address] Not available 19:07:22 Sister Anxiety disorder [email or web address] Not available 2021 16:09:53 Maternal Grandmother Anxiety disorder [email or web address] Not available 11/06 19:07:22 Maternal Grandfather Anxiety disorder [email or web address] Not available 11/06 19:07:22 Paternal Grandmother Malignant neoplasm of colon Not available 11/06 19:07:22 Paternal Grandmother Malignant neoplasm of breast [email or web address] Not available 11/06 19:07:22 Medical History Condition [...] ICD10 Code Diagnosis IMO Codes Diagnosis Note [id number] Elvis Robison MD [facility] [address] [address] 08/12/2025 15:15:10 08/12/2025 16:07:07 Bicornuate uterus affecting 6914985 O34.00 Q51.3 Z3A.29 252687 [id number] Cathi Hopson [facility] [address] [place] [address] 08/12/2025 15:15:35 08/12/2025 16:28:23 Gestation period, 29 weeks 35695833 Z3A.29 8486881 Abscess of vulva 1513829 1 N76.4 766785 [id number] [facility] [address] [place] [address] 08/26/2025 15:37:51 08/26/2025 16:21:35 Gestation period, 31 weeks 07383440 Z3A.31 [id number] Elvis Robison MD [facility] [address] [place] [address] 09/09/2025 10:20:59 09/09/2025 11:16:08 Bicornuate uterus affecting 9797810 O34.00 Q51.3 Z3A.33 368378 [id number] [facility] [facility] [address] [place] [address] 09/09/2025 10:21:57 09/09/2025 11:37:17 Gestation period, 33 weeks 88029293 Z3A.33 0882584 Health Concerns Section Related Observation LastModified by Organization Detai ls LastModified Time None Recorded Concern Status LastModified by Organization Details LastModified Time None Recorded Payers Encounter Date Sequence Insurance Name Policy Number Policy Meyer Covered Member ID Meyer Member ID Guarantor Name 09/09/2025 1 [employer] [id number] G Tutu Guo [id number] Zulma Guo Notes Date Note Type Note Provider Name and Address Organization Details Recorded Time 09/09/2025 text/html Generic HPI TemplateReported by Patient Cathi Hopson, KEVIN [address], [place], [address], [facility] 09/09/2025 11:32:00 OBGyn Episode Ob Episode Information Episode Created Date Number of Fetuses Patient Bloodtype Patient rh Status Prepregnancy Weight lbs Domestic Partner Domestic Partner Phone Father Name Vulcanizer Status 04/22/20 25 1 A Positive 176 Tutu Guo OPEN Fetus Data First Name Last Name Admitted to NICU Weight (g) Sex Living Outcome Pediatric Complications Fetus ID Race Codes Race Delivery Type [id number] Problems Problem Notes fundus has bicornuate appear anceserial growth uspih labs 07/25 in chart Problem Name Start Date End Date Resolution Snomed Code Not e Migraine 04/22/2025 45252659 imitrex Pre-eclampsia 04/22/2025 566500715 last pregancystart bASA 81 mg Han Calculation [...] Weight in lbs Pre/Post Dialysis Refused Weight 182.825062193838 BP Diastolic BP Location Tested BP Systolic [...] Type Weight in lbs Pre/Post Dialysis Refused 184.172367960066 BP Diastolic BP Location Tested BP Systolic [...] Type Weight in lbs Pre/Post Dialysis Refused 190.899516717580 BP Diastolic BP Location Tested BP Systolic [...] Weight in lbs Pre/Post Dialysis Refused Weight 204.872728428348 BP Diastolic BP Location Tested BP Systolic [...] Weight in lbs Pre/Post Dialysis Refused Weight 220.565514511604 BP Diastolic BP Location Tested BP Systolic [...] Weight in lbs Pre/Post Dialysis Refused Weight 223.275436898383 BP Diastolic BP Location Tested BP Systolic [...] Type Weight in lbs Pre/Post Dialysis Refused 225.091373672392 BP Diastolic BP Location Tested BP Systolic [...] Weight in lbs Pre/Post Dialysis Refused Weight 229.874518036997 BP Diastolic BP Location Tested BP Systolic [...]
--- OUTSIDE RECORDS SUMMARY | 2025-09-22 15:46 | XMS_ITS ---
Care Plan - [facility] Created on: September 22, 2025 ARLENE WADE : 2000 Sex: Female Author Organization [facility] Address [address] [place] [address] Phone Care Team Providers Care Labor Relations Officer Name Role Phone SANDRA BARR MD Primary Care Provider [phone]
--- OUTSIDE RECORDS SUMMARY | 2025-09-22 15:47 | XMS_ITS | Continuity of Care Document ---
Author Organization [facility] [place] Address [address] [place] [address] Assessment No assessment recorded. Plan of Treatment [...] Imaging US, obstetric , [facility]24 [facility] [address], [address], [place], [address], 07/08/2025 23:02:43 Medication Orders None recorded. Patient TargetsNo targets recorded. Patient InstructionsNo instructions recorded. Reason for Referral None Reported. Results Created Date Observation Date Name Description Value Unit Range Abnormal Flag Note LastModifiedBy Organization Detail LastModifiedTime 06/08/2006/08/2025 US, obste tric, 2nd or 3rd trime ster No observ ation record ed. [email or web address] [facility] [address], [place], [address], 06/08/2025 16:53:10 06/08/20 25 06/08/2025 US, obste tric, follo w-up No observ ation record ed. [email or web address] [address], [place], [address], 06/09/2025 21:51:59 07/08/20 25 07/08/2025 US, obste tric, follo w-up No observ ation record ed. [email or web address] [address] [place] [address] [address], [place], [address], 07/09/2025 19:07:42 07/08/20 25 07/08/2025 US, obste tric, follo w-up No observ ation record ed. [facility] [address], [place], [address], 07/08/2025 17:05:02 08/12/2008/12/2025 US, obste tric, follo w-up No observ ation record ed. [facility] [address], [place], [address], 08/12/2025 17:22:39 08/12/2008/12/2025 US, obste tric, follo w-up No observ ation record ed. [email or web address] [address], [place], [address], 08/16/2025 11:15:17 09/09/2009/09/2025 US, obste tric, follo w-up No observ ation record ed. [facility] [address], [place], [address], 09/09/2025 15:58:13 09/09/2009/09/2025 US, obste tric, follo w-up No observ ation record ed. [email or web address] [address], [place], [address], 09/15/2025 16:35:10 Result Notes None recorded. Problems Name Problem SNOMED Code Status Onset Date Resolution Date Notes Provider Name and Address Organization Details Recorded Time Anxiety 99596853 Completed Seeing PCP 10/22/22 to discuss medicati on. Pt states she is doing well on zoloft 100mg on 12/02/22! Alpeshtorey Reyjason block [facility] 3 16:55:06 Proteinu sirisha 92124780 Completed with swelling - 1x/wk antenata l testing. Monitor for pre-e Wandamukesh Reyjason [facility] 3 16:55:06 Chiari malforma tion 671562616 Active 2021 decompre ssed, no neuro follow up required per her team Nancie block [facility] 3 16:55:06 Chiari malforma tion 526709648 Completed 2021 decompre ssed, no neuro follow up required per her team Nancie block [facility] 3 16:55:06 Pregnanc y 39642720 Completed 202103/27/2023 Bailee block [facility] 5 09:19:52 Mixed anxiety and depressi ve disorder 212252642 Active 2024 Bailee block [facility] 5 18:16:31 History of Spinal surgery 024356013 Active 2024 Bailee Yeung [facility] 5 18:16:45 Pregnanc y 65280894 Active 2024 Bailee Yeung [facility] 5 09:19:52 Pre-ecla mpsia 782305337 Active 2024 last pregancy start bASA 81 mg Cathi Hopson CNM [address], [place], [address], [facility] 5 09:29:14 Migraine 31795376 Active 2024 imitrex Cathi Hopson CNM [address], [place], [address], [facility] 5 09:29:39 Problem Notes None recorded. Procedures Surgical History Date Name Laterality Status Provider Name and Address Organization Details Recorded Time 5 IUD Insertion completed Rica Banda [facility] 12/30/2024 16:38:48 5 Date of Last Pap Smear completed Bailee Yeung [facility] 03/09/2025 18:16:56 3 IUD Insertion completed Bailee Yeung [facility] 05/28/2023 12:30:09 3 IUD Insertion completed Cathi Hopson CNM [address], [place], [address], [facility] 04/30/2023 12:28:48 7 procedure on back completed Bailee Yeung [facility] 10/09/2022 17:12:07 Imaging Results None [...] Updated DateTime 07/08/2025 162.56 cm 35 kg/m2 98666.84 g 129/85 mm[Hg] Nikki Nino [facility] 07/08/2025 16:44:16 Social History Question Answer Notes LastModified by Organizat ion Details LastModified Time Tobacco Smoking Status Never Smoker Bailee block, [facility] 12/04/2022 16:09:49 Do You Have An Advance Directive? No Information n ot available 10/09/2022 If You Are , What Was Your Level Of Alcohol Consumption Prior To ? Occasional [email or web address] Information not available 04/22/2025 Are You Blind Or Do You Have Difficulty Seeing? No [email or web address] Information n ot available 12/04/2022 What Is Your Level Of Caffeine Consumption? Moderate [email or web address] Information not available 10/09/2022 How Much Tobacco Do You Chew? None [email or web address] Information not available 10/09/2022 In The 14 Days Before Symptom Onset, Have You Had Close Contact With A Laboratory-confirm ed COVID-19 While That Case Was Ill? No [email or web address] Information n ot available 11/06/2022 In The 14 Days Before Symptom Onset, Have You Had Close Contact With A Person Who Is Under Investigation For COVID-19 While That Person Was Ill? No [email or web address] Information not available 11/06/2022 Have You Been To An Area Known To Be High Risk For COVID-19? No [email or web address] Information not available 10/09/2022 Are You Deaf Or Do You Have Serious Difficulty Hearing? No [email or web address] Information not available 10/09/2022 What Type Of Diet Are You Following? REGULAR [email or web address] Information n ot available 10/09/2022 What Is The Highest Grade Or Level Of School You Have Completed Or The Highest Degree You Have Received? [id number] [email or web address] Information not available 03/09/2025 Are There Any Guns Present In Your Home? Yes Information not available 10/09/2022 Do You Use Protection During Sex? No [email or web address] Information not available 10/09/2022 Do You Use Your Seat Belt Or Car Seat Routinely? Yes [email or web address] Information not available 10/09/2022 Are You Sexually Active? Yes [email or web address] Information not available 06/08/2025 Do You Have Smoke And Carbon Monoxide Detectors In Your Home? Yes [email or web address] Information not available 10/09/2022 How Much Tobacco Do You Smoke? No [email or web address] Information not available 10/09/2022 Do You Use Sunscreen Routinely? Yes [email or web address] Information not available 11/06/2022 Has Tobacco Cessation Counseling Been Provided? No [email or web address] Information not available 12/04/2022 Have You Used IV Drugs? No [email or web address] Information not available 10/09/2022 Do You Have Difficulty Walking Or Climbing Stairs? No [email or web address] Information not available 12/04/2022 Sex: Female Functional Status Question Answer Note LastModified by Organizat ion Details LastModified Time Do you use any illicit or recreational drugs? No Information not available 08/21/2022 Do you or have you ever used any other forms of tobacco or nicotine? No [email or web address] Information not available 12/04/2022 What is your level of alcohol consumption? None Information not available 08/21/2022 Are you currently employed? Yes [email or web address] Information not available 06/08/2025 Are you able to walk independently without assistance or assistive devices? YESWOREST [email or web address] Information not available 10/09/2022 Are you able to care for yourself independently? 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 No Information not available 12/04/2022 What is your exercise level? Occasional [email or web address] Information not available 10/09/2022 Mental Status Question Answer Note LastModified by Organization D etails LastModified Time Do you feel stressed (tense, restless, nervous, or anxious, or unable to sleep at night)? [id number] Information not available 10/09/2022 Family History Relationship Description Onset Age of this Age Resolved Age Notes LastModified by Organization Details LastModified Time Paternal Grandfather Carcinoma in situ of colon [email or web address] Not available 2024 16:46:41 Mother Carcinoma of uterine cervix, invasive [email or web address] Not available 2024 16:46:41 Mother Pre-eclampsi a [email or web address] Not available 11/06 19:07:22 Mother Malignant neoplasm of cervix uteri [email or web address] Not available 19:07:22 Sister Anxiety disorder [email or web address] Not available 2021 16:09:53 Maternal Grandmother Anxiety disorder [email or web address] Not available 11/06 19:07:22 Maternal Grandfather Anxiety disorder [email or web address] Not available 11/06 19:07:22 Paternal Grandmother Malignant neoplasm of colon [email or web address] Not available 11/06 19:07:22 Paternal Grandmother Malignant neoplasm of breast anteuorb26 Not available 11/06 19:07:22 Medical History Condition [...] ICD10 Code Diagnosis IMO Codes Diagnosis Note [id number] Elvis Robison MD [place] [address],[place] [address] 06/08/2025 10:39:52 06/08/2025 11:54:35 screening for malformation 082215981 Z36.3 Z3A.20 [id number] [facility] [address] [place] [address] 06/08/2025 10:41:10 06/08/2025 12:21:07 Gestation period, 20 weeks 77461521 Z3A.20 [id number] Elvis Robison MD [place] [address] [place] [address] 07/08/2025 15:34:11 07/08/2025 16:36:09 Bicornuate uterus affecting 9477947 O34.00 Q51.3 Z3A.24 932376 [id number] [facility] [address] [place] [address] 07/08/2025 15:34:31 07/09/2025 09:41:57 Gestation period, 24 weeks 818166339 Z3A.24 5502465 Acute vaginitis 26831391 N76.0 59703 Health Concerns Section Related Observation LastModified by Organization Detai ls LastModified Time None Recorded Concern Status LastModified by Organization Details LastModified Time None Recorded Payers Encounter Date Sequence Insurance Name Policy Number Policy Meyer Covered Member ID Meyer Member ID Guarantor Name 07/08/2025 1 [place] [id number] G Tutu Guo [id number] Zulma Guo Notes Date Note Type Note Provider Name and Address Organization Details Recorded Time 07/08/2025 text/html Generic HPI TemplateReported by Patient Cathi Dann Hopson CNM [address], [place], [address], [facility] 07/08/2025 17:01:52 OBGyn Episode Ob Episode Information Episode Created Date Number of Fetuses Patient Bloodtype Patient rh Status Prepregnancy Weight lbs Domestic Partner Domestic Partner Phone Father Name Cut Off Saw Operator Status 04/22/20 25 1 A Positive 176 Tutu Guo OPEN Fetus Data First Name Last Name Admitted to NICU Weight (g) Sex Living Outcome Pediatric Complications Fetus ID Race Codes Race Delivery Type [id number] Problems Problem Notes fundus has bicornuate appear anceserial growth uspih labs 07/25 in chart Problem Name Start Date End Date Resolution Snomed Code Not e Migraine 04/22/2025 48104122 imitrex Pre-eclampsia 04/22/2025 355755314 last pregancystart bASA 81 mg Ahn Calculation Initial Han Date Initial Exam Date [...] Weight in lbs Pre/Post Dialysis Refused Weight 182.530534934983 BP Diastolic BP Location Tested BP Systolic [...] Type Weight in lbs Pre/Post Dialysis Refused 184.443093980417 BP Diastolic BP Location Tested BP Systolic [...] Type Weight in lbs Pre/Post Dialysis Refused 190.151995783957 BP Diastolic BP Location Tested BP Systolic [...] Weight in lbs Pre/Post Dialysis Refused Weight 204.428333448453 BP Diastolic BP Location Tested BP Systolic [...] Weight in lbs Pre/Post Dialysis Refused Weight 220.746230360809 BP Diastolic BP Location Tested BP Systolic [...] Weight in lbs Pre/Post Dialysis Refused Weight 223.489127199008 BP Diastolic BP Location Tested BP Systolic [...] Type Weight in lbs Pre/Post Dialysis Refused 225.457327275497 BP Diastolic BP Location Tested BP Systolic [...] Weight in lbs Pre/Post Dialysis Refused Weight 229.295933544281 BP Diastolic BP Location Tested BP Systolic [...]
[2025-09-22 15:57] VITALS: BMI 39.5
[2025-09-22 16:13] LABS: Total Volume 24 Hour Urine 1200 ml
[2025-09-22 16:39] LABS: Total Protein Urine 24 Hr 156 mg/24hr (28-141); Total Protein Urine Random 13 mg/dL
[2025-09-22 16:40] LABS: Creatinine Clearance Urine 117.9 ml/min (75-125); Serum Creat 0.68
== END 2025-09-22 15:33 | disposition home or self-care (01) ==
LOC: ANHOBOP 15:43
PROVIDERS: Visit Provider Advanced Practice Midwife
DX: O13.9 Gestational [pregnancy-induced] hypertension without significant proteinuria, unspecified trimester (principal); Z3A.00 Weeks of gestation of pregnancy not specified
CPT/HCPCS: 81050; 82575; 84156

== ENCOUNTER 2025-10-03 06:27 | Inpatient (IN) | payer BC, SELFPAY ==
[2025-10-03] VITALS (155 sets, daily range): BP systolic 104–158; BP diastolic 45–132; PULSE 35–142; RESP 16–18; TEMP 36.4–37.6; O2SAT 77–100; BMI 39.9
--- NOTE | 2025-10-03 07:21 | WPDANESEPP ---
Anes - Eval Pre Procedure Procedure: labor epidural Date/Time: 10/03/25 07:21 Surgeon: angela Preop Diagnosis: pain during labor Pre Op Diagnosis: iol Patient Data Age: 24 Gender: F Height: Weight: Last Vital Signs Pulse 88 10/03/25 07:00 BP 137/86 10/03/25 07:00 Allergies Allergy/AdvReac Type Severity Reaction Status Date / Time No Known Allergies Allergy Verified 09/30/25 12:13 Home Medications ?Medication ?Instructions ?Recorded ?Confirmed ?Type cyclobenzaprine 5 mg tablet 5 mg PO Q8H PRN Back Pain 02/27/23 09/30/25 History prenat.vits,jun,kzq-azbh-cdsga 1 tablet PO HS 02/27/23 09/30/25 History aspirin 81 mg capsule 81 mg PO DAILY 09/30/25 09/30/25 History bupropion HCl 150 mg 24 hr tablet, 150 mg PO DAILY 09/30/25 09/30/25 History extended release citalopram 40 mg tablet 40 mg PO DAILY 09/30/25 09/30/25 History Patient hx anesthesia problems: none Family hx anesthesia problems: none Results Review: All pre-operative results and documents have been reviewed as part of the pre-operative evaluation. [facility] Past Medical History Medical History (Updated 10/03/25 @ 07:21 by Geri Malik CRNA) HTN (hypertension) Scoliosis IUP (intrauterine ), incidental Depression Anxiety Family History Family History Other Patient denies significant medical history Social History Social History Smoking status: Never smoker Second hand tobacco smoke exposure: No Substance use: never Lack of Transportation: No Lack of Food: Never True Current Housing: I Have Housing Concerned About Future Housing: No Difficulty Paying Gas/Electric Bills: No Difficulty Paying for Meds: No Currently Unemployed: No Education: Associate Degree Difficulty w/ Childcare or Family Care: No Spiritual care concerns: No Exam Day of Procedure 10/03/25 07:21
[2025-10-03 07:42] LABS: Hematocrit 30.8 % (37.0-47.0); Hemoglobin 10.0 g/dL (12.0-15.0); Immature Granulocyte Percent A 0.5 % (0-0.5); Lymphocytes Absolute Auto 1.98 K/mm3 (0.9-3.2); Mean Corpuscular HGB Conc 32.5 g/dl (32-36); Mean Corpuscular Hemoglobin 29.5 pg (26-34); Mean Corpuscular Volume 90.9 fl (80-100); Nucleated Red Blood Cells Absolute Auto 0.000 K/mm3 (0.0-0.012); Nucleated Red Blood Cells Perc 0.0 % (0.0-0.2); Platelet Count Result 275 k/mm3 (150-375); Red Blood Count 3.39 M/mm3 (4.2-5.4); White Blood Count 13.0 K/mm3 (4.5-10.0)
[2025-10-03] MEDS: LACTATED RINGERS 1,000 ML 125 ML IV CONT (07:47)
[2025-10-03] MEDS: OXYTOCIN 30 UNITS/NS 500 ML 30 UNITS/500 ML BAG IV CONT (07:49)
--- NOTE | 2025-10-03 08:02 | LDADM ---
This patient, Zulma Guo, was admitted to Labor/Delivery/Recovery 106 on 10/03/25 at 06:27. Plans for labor, pain management and were discussed with patient. Patient/family oriented to hospital policies and general routines including ID bracelet, bed and alarms, visiting hours, pain management, procedures, bathroom and other care routines, personal items, smoking policy, room service/diet and guest tray routines, infant security routines, and visiting hours. Patient/Family are encouraged to report perceived risks to care and to ask questions if they do not understand what they are told or what they should do. See OBIX for further documentation.
[2025-10-03 08:03] LABS: Total Protein Urine Random 20 mg/dL; Ur Ttl Prot Creatinine Ratio 0.08 mg/mg (0-0.20)
[2025-10-03 08:15] LABS: Alanine Aminotransferase 16 U/L (6-35); Albumin Level 3.4 g/dL (3.5-5.1); Alkaline Phosphatase 169 U/L (38-126); Anion Gap 7 mmol/L (4-12); Aspartate Amino Transferase 21 U/L (14-36); Bilirubin,Total 0.8 mg/dL (0.2-1.3); Blood Urea Nitrogen 10 mg/dL (7-17); Calcium 8.6 mg/dL (8.4-10.2); Carbon Dioxide 18 mmol/L (22-30); Chloride 107 mmol/L (98-107); Estimated Glomerular Filt Rate > 60; Glucose 80 mg/dL (65-110); Potassium 3.7 mmol/L (3.4-5.0); Sodium 132 mmol/L (137-145); Total Protein 6.7 g/dL (6.3-8.2)
[2025-10-03 08:20] LABS: Syphilis IgG/IgM Antibody Non-Reactive (Nonreactive)
[2025-10-03 08:35] LABS: Uric Acid 6.5 mg/dL (2.5-7.5)
--- NOTE | 2025-10-03 08:52 | WPDOBADMIT ---
Obstetrics - Admit Note Admission Note: record reviewed. No pertinent additions to the history and/or any subsequent changes in the physical findings that are not consistent with the expected course of the were found. Additions to the history and/or subsequent changes in the physical findings follow. IOL, GHTN, SVE 1.5/80/-2 AROM clear fluid, anticipate vaginal delivery
[2025-10-03] MEDS: LACTATED RINGERS 1,000 ML 999 ML IV CONT ×2 (11:02→13:09)
[2025-10-03] MEDS: fentaNYL CITRATE INJ (*CRX) 100 MCG/2 ML VIAL 50 MCG IV PUSH (11:33)
--- NOTE | 2025-10-03 13:58 | PM.OBPRVD ---
OB - Vaginal Delivery Note Procedure Delivery date: 10/03/25 Events: Preeclampsia w/o severe features Induction method: AROM and Per Pitocin Protocol Delivery monitor: External FHT and External Uterine Route of delivery: Episiotomy description: None Laceration Description: None Specimen: No Quantitative Blood Loss (ml): 50 Anesthesia type: Epidural Disposition: Floor Complications: No immediate complications Baby Date of : 10/03/25 Time of : 13:43 Gestational Age by Date: 37 Infant gender: Female Weight (pounds): 6 Weight (ounces): 1 presentation: vertex position: Left Occiput Anterior Placenta delivery description: Manual Removal Cord Vessel Description: 3 Vessels
[2025-10-03] MEDS: OXYTOCIN 30 UNITS/NS 500 ML 30 UNITS/500 ML BAG 125 UNITS IV CONT (14:21)
[2025-10-03] MEDS: ACETAMINOPHEN 325 MG TABLET 650 MG PO ×2 (15:40→21:24)
[2025-10-03] MEDS: WITCH HAZEL 40 PADS 1 PAD TOPICAL (15:42)
[2025-10-03] MEDS: BENZOCAINE 20% AER SPR (*SP) 56 GM CAN 1 SPRAY TOPICAL (15:42)
--- NOTE | 2025-10-03 16:37 | OBPPTRN ---
Patient transferred to post room #290 via wheelchair. Support person present. Oriented to unit, room, information board, rooming in, admission packet and security measures. Patient verbalizes understanding.
[2025-10-03] MEDS: IBUPROFEN 600 MG TABLET PO (17:30)
[2025-10-03] MEDS: DOCUSATE SODIUM 100 MG CAPSULE PO (17:30)
[2025-10-03] MEDS: LABETALOL HCL 100 MG TABLET 200 MG PO (17:43)
[2025-10-04 04:05] VITALS: BP 140/95; PULSE 66
[2025-10-04] MEDS: ACETAMINOPHEN 325 MG TABLET 650 MG PO (04:11)
[2025-10-04] MEDS: IBUPROFEN 600 MG TABLET PO (04:12)
[2025-10-04 04:49] LABS: Hematocrit 31.0 % (37.0-47.0); Hemoglobin 10.1 g/dL (12.0-15.0)
[2025-10-04 08:00] VITALS: BP 132/89; PULSE 68; RESP 16; TEMP 36.6; O2SAT 97
--- NOTE | 2025-10-04 09:48 | P.PNOB_ITS ---
OB - PN: Subj Subjective Date/time seen: 10/04/25 09:48 Patient comments: no complaints, pain well controlled, incisional pain, tolerating diet and flatus present OB - PN: Obj Data Labs 10/04/25 04:13 10/03/25 07:33 Labs: Laboratory Results - last 24 hr 10/04/25 04:13 Hgb 10.1 L Hct 31.0 L OB - PN A/P Plan day: 1 Plan: routine care Comments: No problems, routine care Time Spent With Patient Time: Total time spent is greater than 50% in coordination of care (as documented) at patient's floor/unit and/or counseling patient: Exam 2 Const: General: comfortable, no acute distress and alert Resp: Effort & Inspection: normal respiratory effort Auscultation: no crackles, no rales and no rhonchi Cardio: Rate: regular rate Heart sounds: no click, no murmurs and no rubs GI: Inspection: non-distended GI Palp: No Tenderness to palpation present (GI) Auscultation: normal bowel sounds Other: Incision - CDI Extrem: General: normal to inspection, no pedal edema and no calf tenderness
--- NOTE | 2025-10-04 09:49 | P.DS_ITS ---
DS: Admitting Diagnosis Discharge Date 10/04/2025 Admitting Diagnosis Term DS: Discharge Diagnosis Discharge Diagnosis (1) Term delivered: Code(s): O80 - Encounter for full-term uncomplicated delivery Status: Acute OB - DS: Summary OB Procedures : None OB Procedures Intrapartum: Spontaneous Vag Delivery OB Procedures: : None Peripartum Data Laceration Description: None Episiotomy description: None Time Spent with Patient Time attestation: Total time spent providing and/or coordinating discharge services: DS: Data Data Completed and Pending Labs on day of discharge: Labs from last 24 hours 10/04/25 04:13 Hgb 10.1 L Hct 31.0 L Discharge Plan Discharge Consulting providers: Cathi Hopson Discharging Clinician: Elvis Robison Patient Disposition: Home Activity: pelvic rest Diet: regular Patient Instructions: Antibiotic Form, Expression, Collection and Storage of Breast Milk (DC) Patient Language: Botswanan Stand Alone Forms: General Discharge Information Follow-up/Referrals: Elvis Robison MD [Physician, HOT BOX OPERATOR] Discharge Medications: Continued prenat.vits,jun,uzx-qmkl-dwgaq Tablet 1 tablet PO HS cyclobenzaprine 5 mg tablet 5 mg PO Q8H PRN (Reason: Back Pain) citalopram 40 mg tablet 40 mg PO DAILY bupropion HCl 150 mg tablet extended release 24 hr 150 mg PO DAILY aspirin 81 mg capsule 81 mg PO DAILY Date of admission: 10/03/25 06:27 Primary Care Provider: PHYSICIAN,HOME SUPERVISOR Admitting Provider: Elvis Robison Attending physician on admission: Elvis Robison Condition: Stable
--- NOTE | 2025-10-04 10:00 | PC.NURSE ---
Consulted with mother concerning needs and she shared her ability to independently use the breast pump without pain, she was set up with a hospital breast pump last night, infant was in Level II nursery and is now going to be transferred to [facility]. Per mother she feels like the size 24 flange does slightly rub and would like to try the next size, so 27 flange given, she does have her own breast pump at home to use. Instructions given on cleaning, care, usage, that there should be no pain, pumping schedule for milk production, collection, and storage of human milk. Patient was assessed for correct placement, flange size, to pump for comfort and nipple stretching/stimulation for adequate milk production every 3 hours (8 times in 24 hours) 1-2 times at night. Parents are encouraged to record the pumping schedule on the feeding sheet.?Mother voiced understanding of the education shared along with mom/baby guide and the pump measurement, flange fit handout for additional resource information. Reinforced understanding of milk production, transition of milk, signs of adequate intake, transition of stool, prevention/relief of engorgement, plugged ducts, mastitis, responsive watching for feeding cues, the different methods of stimulating to breastfeed 1-3 hours after the start of the last feeding, community resources, and when to call a provider using the resource of the feeding sheet along with the mom and baby guide. Reported to the Primary RN.
[2025-10-04] MEDS: MULTIVIT/MIN/PREN/FOL AC/IRON TABLET 1 TAB PO (10:03)
[2025-10-05 11:04] VITALS: BP 144/87; PULSE 84; RESP 18; TEMP 36.4; O2SAT 100
== END 2025-10-04 10:50 | disposition home or self-care (01) | DRG 807 ==
LOC: ANHLDR 06:31 → ANHOB2 16:39
PROVIDERS: Advanced Practice Midwife; Admitting Provider Obstetrics & Gynecology; Visit Provider Obstetrics & Gynecology
DX: O14.04 Mild to moderate pre-eclampsia, complicating childbirth (principal); Z37.0 Single live birth; Z3A.37 37 weeks gestation of pregnancy
CPT/HCPCS: 36415; 80053; 82570; 84156; 84550; 85014; 85018; 85025; 86593; 86850; 86900; 86901; A9270; J2590; J2795; J3010; J7120